=== PATIENT | male | born 1950 | race African-American/Black ===

== ENCOUNTER 2017-05-06 17:53 | Inpatient (IN) | payer MEDICARE, OTHER ==
[~2017-05-06] VITALS: Ht 185.4 cm; Wt 80.8 kg
[~2017-05-06 17:53] MED LIST: ACET325T9 PO; ASPI-482 PO; CHOL200074 PO; DIVA500T2 PO; FOLI1TAB16 PO; LEVE500T56 PO; OMEG500C3 PO; PHEN100C PO; RANI150T2 PO; RANI75TA95 PO; SENN8.6C2 PO; SIMV20TA3 PO; THIA100T8 PO
--- NOTE | 2017-05-06 17:58 | PHYS DOC ---
Past Medical History Past Medical History: Depression, GERD, High Cholesterol, Seizure, Stroke Past Surgical History: Other Additional Past Surgical Histo: unknown Alcohol Use: Occasionally Drug Use: None Adult General Chief Complaint Chief Complaint: SEIZURE HPI HPI Patient is a 66 year old -[place] male who presents with disorder. According EMS he had a tonic-clonic seizure at the half-way. He has a history of seizure disorders as listed on Keppra. They've stated he also has had a previous stroke. He received 10 mg of Valium in route. Review of Systems Review of Systems Unable to obtain secondary to patient's current condition Current Medications Current Medications Current Medications Medications (Trade) Dose Ordered Sig/Kennedy Start Time Stop Time Status Last Admin Dose Admin Sodium Chloride 1,000 ml @ 1,000 mls/hr 1X ONCE 05/06/17 20:30 05/06/17 21:29 05/06/17 20:27 1,000 MLS/HR Allergies Allergies Allergies Coded Allergies Type Severity Reaction Last Updated Verified No Known Drug Allergies 05/18/14 No Physical Exam Physical Exam Constitutional: Well developed, well nourished, moderate acute distress, non- toxic appearance. HENT: Normocephalic, atraumatic, bilateral external ears normal, oropharynx moist, no oral exudates, nose normal. Eyes: PERRLA, EOMI, conjunctiva normal, no discharge. Neck: no stridor. Cardiovascular:Heart rate regular rhythm, no murmur Lungs & Thorax: Bilateral breath sounds clear to auscultation Abdomen: Bowel sounds normal, soft, no masses, no pulsatile masses. Skin: Warm, dry, no erythema, no rash. Back: No signs of trauma Extremities, no cyanosis, no clubbing, ROM intact, no edema. Neurologic: Unresponsive, disconjugate gaze, pupils 2 mm and sluggish Psychologic: Unable to obtain Current Patient Data Vital Signs Vital Signs Date Time Temp Pulse Resp B/P (MAP) Pulse Ox O2 Delivery O2 Flow Rate FiO2 05/06/17 20:00 92 18 100 05/06/17 18:10 NonRebreather Mask 05/06/17 17:58 98.2 95/52 (66) 10.0 98.2 Lab Values Laboratory Tests Test 05/06/17 17:55 05/06/17 18:10 05/06/17 18:41 05/06/17 19:09 Creatine Kinase 224 U/L (39-308) Creatine Kinase MB (Mass) 1.5 ng/mL (0.0-3.6) Creatine Kinase MB Relative Index 0.7 % (0-4) O2 Saturation 97 % (92-99) Arterial Blood pH 7.34 (7.35-7.45) L Arterial Blood pCO2 at Patient Temp 32 mmHg (35-46) L Arterial Blood pO2 at Patient Temp 95 mmHg (65-108) Arterial Blood HCO3 17 mmol/L (21-28) L Arterial Blood Base Excess -8 mmol/L (-3-3) L FiO2 100 White Blood Count 2.8 x10^3/uL (4.0-11.0) L Red Blood Count 4.46 x10^6/uL (4.30-5.70) Hemoglobin 14.6 g/dL (13.0-17.5) Hematocrit 43.7 % (39.0-53.0) Mean Corpuscular Volume 98 fL (79-100) Mean Corpuscular Hemoglobin 33 pg (25-35) Mean Corpuscular Hemoglobin Concent 33 g/dL (31-37) Red Cell Distribution Width 13.1 % (11.5-14.5) Platelet Count 103 x10^3/uL (140-400) L Neutrophils (%) (Auto) 34 % (31-73) Lymphocytes (%) (Auto) 42 % (24-48) Monocytes (%) (Auto) 22 % (0-9) H Eosinophils (%) (Auto) 1 % (0-3) Basophils (%) (Auto) 1 % (0-3) Neutrophils # (Auto) 1.0 x10^3uL (1.8-7.7) L Lymphocytes # (Auto) 1.2 x10^3/uL (1.0-4.8) Monocytes # (Auto) 0.6 x10^3/uL (0.0-1.1) Eosinophils # (Auto) 0.0 x10^3/uL (0.0-0.7) Basophils # (Auto) 0.0 x10^3/uL (0.0-0.2) Segmented Neutrophils % 28 % (35-66) L Band Neutrophils % 3 % (0-9) Lymphocytes % 47 % (24-48) Atypical Lymphocytes % (Manual) 8 % (0-0) H Monocytes % 14 % (0-10) H Platelet Estimate Decreased (ADEQUATE) Prothrombin Time 15.7 SEC (11.7-14.0) H Prothrombin Time INR 1.3 (0.8-1.1) H PTT 26 SEC (24-38) Sodium Level 137 mmol/L (136-145) Potassium Level 3.6 mmol/L (3.5-5.1) Chloride Level 101 mmol/L (98-107) Carbon Dioxide Level 22 mmol/L (21-32) Anion Gap 14 (6-14) Blood Urea Nitrogen 8 mg/dL (8-26) Creatinine 1.7 mg/dL (0.7-1.3) H Estimated GFR (Cockcroft-Gault) 49.3 Glucose Level 88 mg/dL (70-99) Lactic Acid Level 7.4 mmol/L (0.4-2.0) *H Calcium Level 8.7 mg/dL (8.5-10.1) Total Bilirubin 0.4 mg/dL (0.2-1.0) Direct Bilirubin 0.2 mg/dL (0.0-0.2) Aspartate Amino Transferase (AST) 65 U/L (15-37) H Alanine Aminotransferase (ALT) 81 U/L (16-63) H Alkaline Phosphatase 84 U/L (46-116) Ammonia 62 mcmol/L (11-34) H Total Protein 6.7 g/dL (6.4-8.2) Albumin 2.7 g/dL (3.4-5.0) L Urine Collection Type U cath Urine Color Dk yellow Urine Clarity Clear Urine pH 6.0 Urine Specific [place] 1.020 Urine Protein Negative mg/dL (NEG-TRACE) Urine Glucose (UA) Negative mg/dL (NEG) Urine Ketones (Stick) Trace mg/dL (NEG) Urine Blood Negative (NEG) Urine Nitrite Negative (NEG) Urine Bilirubin Negative (NEG) Urine Urobilinogen Dipstick 1.0 mg/dL (0.2 mg/dL) Urine Leukocyte Esterase Negative (NEG) Urine RBC 0 /HPF (0-2) Urine WBC 0 /HPF (0-4) Urine Squamous Epithelial Cells Few /LPF Urine Transitional Epithelial Cells Occ /LPF Urine Bacteria 0 /HPF (0-FEW) Urine Hyaline Casts Few /HPF Urine Mucus Mod /LPF Urine Opiates Screen Neg (NEG) Urine Methadone Screen Neg (NEG) Urine Barbiturates Neg (NEG) Urine Phencyclidine Screen Neg (NEG) Urine Amphetamine/Methamphetamine Neg (NEG) Urine Benzodiazepines Screen Pos (NEG) Urine Cocaine Screen Neg (NEG) Urine Cannabinoids Screen Neg (NEG) Urine Ethyl Alcohol Neg (NEG) Laboratory Tests 05/06/17 18:41 Laboratory Tests 05/06/17 18:41 EKG EKG EKG shows sinus tachycardia [address] elevations or T-wave inversions appreciated, normal axis, QTC 451 ms, as interpreted by me. Radiology/Procedures Radiology/Procedures [facility] [address] [place] [address] IMAGING REPORT Signed PATIENT: JA KELLOGG ACCOUNT: [id number] : 1950 LOCATION: ER AGE: 66 SEX: M EXAM STATUS: REG ER ORD. PHYSICIAN: DORENE MELENDEZ MD REASON: seizure PROCEDURE: CT HEAD AND CERVICAL SPINE WO CT head without intravenous contrast History: Seizure. Comparison: Same examinations September 10, 2014. Technique: Axial images are obtained of the head from the skull base through the vertex without IV contrast. Exposure: One or more of the following individualized dose reduction techniques were utilized for this examination: 1. Automated exposure control 2. Adjustment of the mA and/or kV according to patient size 3. Use of iterative reconstruction technique Findings: Volume loss involving much of the left MCA territory from previous infarction is similar to previous study. There is compensatory dilatation of the ventricles from the encephalomalacia and gliosis as well as diffuse age-related cerebral volume loss. Nonspecific white matter low-attenuation is seen, probably from chronic microvascular ischemic disease. No obvious intracranial mass, mass-effect, midline shift, hemorrhage or obvious acute infarction is identified. Basilar cisterns are patent. Bone windows demonstrate no acute calvarial abnormality. The visualized paranasal sinuses appear clear. Impression: 1. No acute intracranial process. Please note that CT can be relatively insensitive to acute ischemic infarction for up to 24 hours after symptom onset. 2. Chronic changes. CT cervical spine History: . Comparison: None. Technique: Noncontrast CT of the cervical spine was performed using helical technique. Axial, sagittal, coronal reconstructions were obtained. Exposure: One or more of the following individualized dose reduction techniques were utilized for this examination: 1. Automated exposure control 2. Adjustment of the mA and/or kV according to patient size 3. Use of iterative reconstruction technique Findings: There is no evidence of acute fracture or acute malalignment involving the cervical spine. No prevertebral soft tissue swelling is identified. There is focal levoconvex scoliosis and kyphosis at C5-6 secondary to fusion of the vertebral bodies. Mild multilevel facet and uncovertebral hypertrophy is seen. Emphysematous changes are seen involving the right lung apex. Impression: 1. No evidence of acute traumatic injury involving the cervical spine. 2. C5-6 vertebral body fusion creating focal levoconvex scoliosis and kyphosis. Electronically signed by: Bert Mora MD (05/06/2017 6:39 PM) [facility] DICTATED and SIGNED BY: BERT MORA MD DATE: 05/06/17 1834 CC: DORENE MELENDEZ MD; ALISA CHOE MD ~ Impressions: Seizure disorder Aphasia Elevated lactic acid, secondary to seizure Course & Med Decision Making Course & Med Decision Making Pertinent Labs and Imaging studies reviewed. (See chart for details) She has had a previous stroke and an known seizure disorder and according to his education list he is on Keppra. He was postictal and sedated after [address] head labs were performed. He does have an elevated lactic acid 7.4. He received 1 L fluids. He is given a second one. He's much more appropriate now or he will open his eyes to voice, and track with both eyes. He is being admitted to Dr. Choe for observation. Mom's agreeable to plan. Dragon Disclaimer Dragon Disclaimer This electronic medical record was generated, in whole or in part, using a voice recognition dictation system. Departure Departure Referrals: ALISA CHOE MD (PCP) DORENE MELENDEZ MD May 06, 2017 17:58
[2017-05-06 18:22] LABS: HCO3 ABG 17 mmol/L (21-28); PCO2 ABG 32 mmHg (35-46); PH ABG 7.34 (7.35-7.45); PO2 ABG 95 mmHg (65-108); SAT O2 ABG 97 % (92-99)
[2017-05-06 18:26] LABS: FIO2 ABG 100
--- NOTE | 2017-05-06 18:43 | RAD ---
CT head without intravenous contrast History: Seizure. Comparison: Same examinations September 10, 2014. Technique: Axial images are obtained of the head from the skull base through the vertex without IV contrast. Exposure: One or more of the following individualized dose reduction techniques were utilized for this examination: 1. Automated exposure control 2. Adjustment of the mA and/or kV according to patient size 3. Use of iterative reconstruction technique Findings: Volume loss involving much of the left MCA territory from previous infarction is similar to previous study. There is compensatory dilatation of the ventricles from the encephalomalacia and gliosis as well as diffuse age-related cerebral volume loss. Nonspecific white matter low-attenuation is seen, probably from chronic microvascular ischemic disease. No obvious intracranial mass, mass-effect, midline shift, hemorrhage or obvious acute infarction is identified. Basilar cisterns are patent. Bone windows demonstrate no acute calvarial abnormality. The visualized paranasal sinuses appear clear. Impression: 1. No acute intracranial process. Please note that CT can be relatively insensitive to acute ischemic infarction for up to 24 hours after symptom onset. 2. Chronic changes. CT cervical spine History: . Comparison: None. Technique: Noncontrast CT of the cervical spine was performed using helical technique. Axial, sagittal, coronal reconstructions were obtained. Exposure: One or more of the following individualized dose reduction techniques were utilized for this examination: 1. Automated exposure control 2. Adjustment of the mA and/or kV according to patient size 3. Use of iterative reconstruction technique Findings: There is no evidence of acute fracture or acute malalignment involving the cervical spine. No prevertebral soft tissue swelling is identified. There is focal levoconvex scoliosis and kyphosis at C5-6 secondary to fusion of the vertebral bodies. Mild multilevel facet and uncovertebral hypertrophy is seen. Emphysematous changes are seen involving the right lung apex. Impression: 1. No evidence of acute traumatic injury involving the cervical spine. 2. C5-6 vertebral body fusion creating focal levoconvex scoliosis and kyphosis. Electronically signed by: Bert Beard MD (05/06/2017 6:39 PM) [facility]
[2017-05-06] MEDS ORDERED: IV NORMAL SALINE 1000ML BAG 1,000 ML IV ONE ×2 (18:45→20:30)
[2017-05-06 18:50] LABS: BASO % 1 % (0-3); EOS % 1 % (0-3); HEMATOCRIT 43.7 % (39.0-53.0); HEMOGLOBIN 14.6 g/dL (13.0-17.5); LYMPH # 1.2 x10^3/uL (1.0-4.8); LYMPH % 42 % (24-48); MEAN CORPUSCULAR HEMOGLOBIN 33 pg (25-35); MEAN CORPUSCULAR HGB CONC 33 g/dL (31-37); MEAN CORPUSCULAR VOLUME 98 fL (79-100); MONO % 22 % (0-9); NEUT % 34 % (31-73); PLATELET COUNT 103 x10^3/uL (140-400); RED BLOOD COUNT 4.46 x10^6/uL (4.30-5.70); RED CELL DISTRIBUTION WIDTH 13.1 % (11.5-14.5); WHITE BLOOD COUNT 2.8 x10^3/uL (4.0-11.0)
[2017-05-06 19:05] LABS: INR 1.3 (0.8-1.1); PROTHROMBIN TIME PATIENT 15.7 SEC (11.7-14.0)
[2017-05-06 19:09] LABS: PLT ESTIMATE DECREASED (ADEQUATE)
[2017-05-06 19:10] LABS: CALCIUM 8.7 mg/dL (8.5-10.1); CREATININE 1.7 mg/dL (0.7-1.3); GFR 49.3; POTASSIUM 3.6 mmol/L (3.5-5.1)
[2017-05-06 19:16] LABS: ALBUMIN 2.7 g/dL (3.4-5.0); DIRECT BILIRUBIN 0.2 mg/dL (0.0-0.2); TOTAL BILIRUBIN 0.4 mg/dL (0.2-1.0); TOTAL PROTEIN 6.7 g/dL (6.4-8.2)
[2017-05-06 19:24] LABS: CKMB MASS 1.5 ng/mL (0.0-3.6)
[2017-05-06 20:14] LABS: BILIRUBIN,URINE NEGATIVE (NEG); GLUCOSE,URINE NEGATIVE (NEG); NITRITE,URINE NEGATIVE (NEG); PROTEIN,URINE NEGATIVE (NEG-TRACE)
[2017-05-06 20:23] LABS: BACTERIA,URINE 0 /HPF (0-FEW); RBC,URINE 0 /HPF (0-2); SQUAMOUS EPITHELIAL CELL,UR FEW /LPF; WBC,URINE 0 /HPF (0-4)
[2017-05-06 20:28] LABS: BARBITURATES NEG (NEG); BENZODIAZEPINES POS (NEG); CANNABINOIDS NEG (NEG); COCAINE NEG (NEG); METHADONE NEG (NEG); OPIATES NEG (NEG); PHENCYCLIDINE NEG (NEG)
[2017-05-06] MEDS ORDERED: ONDANSETRON PF 4 MG/2 ML VIAL. IV PRN (21:00)
[2017-05-06 22:20] VITALS: BP 152/84
[2017-05-07] VITALS (13 sets, daily range): BP systolic 103–169; BP diastolic 42–95
[2017-05-07] MEDS ORDERED: levETIRAcetam 500 MG in IV DEXTROSE 5% 100 ML IV ONE (00:30)
[2017-05-07] MEDS ORDERED: ACETAMINOPHEN 325 MG TABLET. PO PRN ×2 (01:00→09:15)
[2017-05-07 06:01] LABS: BASO % 1 % (0-3); EOS % 0 % (0-3); HEMATOCRIT 46.5 % (39.0-53.0); HEMOGLOBIN 15.2 g/dL (13.0-17.5); LYMPH # 1.7 x10^3/uL (1.0-4.8); LYMPH % 40 % (24-48); MEAN CORPUSCULAR HEMOGLOBIN 33 pg (25-35); MEAN CORPUSCULAR HGB CONC 33 g/dL (31-37); MEAN CORPUSCULAR VOLUME 100 fL (79-100); MONO % 15 % (0-9); NEUT % 44 % (31-73); PLATELET COUNT 82 x10^3/uL (140-400); RED BLOOD COUNT 4.65 x10^6/uL (4.30-5.70); RED CELL DISTRIBUTION WIDTH 14.3 % (11.5-14.5); WHITE BLOOD COUNT 4.3 x10^3/uL (4.0-11.0)
--- NOTE | 2017-05-07 06:59 | EKG ---
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
[2017-05-07 07:55] LABS: CALCIUM 8.9 mg/dL (8.5-10.1); CREATININE 1.2 mg/dL (0.7-1.3); GFR 73.8; POTASSIUM 4.6 mmol/L (3.5-5.1)
--- NOTE | 2017-05-07 08:21 | RAD ---
Single view of the Chest 05/06/2017 7:58 PM Indication: Altered mental status Comparison: Chest radiograph September 10, 2014 Findings: No pneumothorax or definitive pleural effusion is seen. Bullous changes noted in the right lung apex. There is decreased inspiratory volume with probable mild bibasilar atelectasis. Heart size appears to be normal. Chronic left-sided rib deformities are similar to prior study. Impression: Low lung volumes with probable basilar atelectasis. Otherwise stable chest
[2017-05-07] MEDS: FOLIC ACID 1 MG TABLET. PO SCH (08:53)
[2017-05-07] MEDS ORDERED: ASPIRIN ENTERIC COATED 81 MG TABLET.DR. PO SCH (09:00)
[2017-05-07] MEDS ORDERED: DIVALPROEX DELAYED RELEASE 500 MG TABLET.DR. PO SCH (09:00)
[2017-05-07] MEDS ORDERED: levETIRAcetam 500 MG TABLET PO SCH (09:00)
[2017-05-07] MEDS ORDERED: levETIRAcetam 1,000 MG in IV DEXTROSE 5% 100 ML IV STA (09:05)
[2017-05-07] MEDS ORDERED: PANTOPRAZOLE IV PUSH 40 MG VIAL. IVP SCH (09:15)
[2017-05-07] MEDS ORDERED: ONDANSETRON PF 4 MG/2 ML VIAL. IV PRN (09:15)
[2017-05-07] MEDS ORDERED: POTASSIUM CHLORIDE 20 MEQ in IV DEXTROSE 5 %-0.45 % NACL 1,000 ML IV SCH (09:15)
[2017-05-07] MEDS ORDERED: PANTOPRAZOLE 40 MG TABLET.DR. PO SCH (10:00)
[2017-05-07] MEDS: PANTOPRAZOLE IV PUSH 40 MG VIAL. IVP SCH (10:00)
--- NOTE | 2017-05-07 10:11 | PDOC ---
Provider Note Provider Note Patient seen. History and Physical dictated. See dictation# [id number] ALISA MANLEY MD May 07, 2017 10:11
[2017-05-07 10:21] LABS: PLT ESTIMATE DECREASED (ADEQUATE); POIKILOCYTOSIS PRESENT; TARGET CELLS PRESENT
--- NOTE | 2017-05-07 10:41 | HP ---
ADMIT DATE: 05/07/2017 REASON FOR ADMISSION: Uncontrolled seizures. HISTORY OF PRESENT ILLNESS: This 66-year-old male who is a resident of detention, had a tonic-clonic seizure at the detention. The patient received 10 mg of IV Valium en route. In the Emergency Room, the patient remained unresponsive and had lactic acid level of 7.4. He received 1 liter of fluids initially and then was given second liter of IV fluids. He remained quite confused and poorly responsive. Because of that, the patient has been admitted for further evaluation and management. During the stay in the hospital after admission, the patient had recurrent seizures. Consultation has been obtained with Dr. Nixon. The patient has been on Keppra and Depakote at the detention. The patient has a previous history of Dilantin toxicity in 2013 and at that time, Dilantin was discontinued. SYSTEMS REVIEW: The patient is quite confused and unable to provide any information. He also has history of previous cerebrovascular accident with right hemiparesis and aphasia. He has been pulling out telemetry leads and has been moving his extremities and seems to be more confused and agitated. I am unable to do systems review. PAST MEDICAL HISTORY: The patient has a history of seizure disorder, depression, gastroesophageal reflux disease, cerebrovascular accident with right-sided hemiparesis and aphasia, hyperlipidemia, chronic hepatitis C, thrombocytopenia, history of elevated PSA. PAST SURGICAL HISTORY: Not available. FAMILY HISTORY: Not available from the patient. ALLERGIES: None known any. MEDICATIONS: Reviewed. The patient has been on Depakote and Keppra. PHYSICAL EXAMINATION: VITAL SIGNS: Temperature 98.7, pulse 112 per minute, respirations 19 per minute, blood pressure 141/81 mmHg. GENERAL: The patient is an elderly male who is alert, quite confused, moving his upper extremities and lower extremities. He is aphasic, nonverbal, not following any commands, not in any acute distress. EYES: Pupils are reacting to light. Conjunctivae pale. Sclerae muddy. HENT: Unable to do full exam of throat as the patient is not following commands. NECK: JVP normal. No thyromegaly. LUNGS: Decreased breath sounds at bases. No wheezing, no rales. CARDIOVASCULAR SYSTEM: S1, S2 regular. ABDOMEN: Soft, bowel sounds overactive. No guarding, no rigidity. Mild distention of the abdomen noted. EXTREMITIES: No edema. CENTRAL NERVOUS SYSTEM: Confused. NEUROLOGIC: Moves extremities. Has aphasia and history of right hemiparesis from previous stroke. LABORATORY FINDINGS: Sodium was 137, potassium 3.6, BUN 8, creatinine 1.7. Sodium is decreased to 133, potassium 4.6, BUN 8, creatinine 1.2, lactic acid was initially 7.4, then it is 2.6, AST 65, ALT 81, albumin 2.7. WBC count 2.8, then it was 4.3, hemoglobin 14.6 and 15.2 respectively. Urinalysis is negative. INR is 1.3. CT scan of head did not show any acute changes. CT scan of cervical spine shows a C5-C6 fusion. Chest x-ray does not show any acute infiltrates. IMPRESSION: 1. Seizure disorder, not controlled. I have consulted Dr. Peters and the patient will be given IV Keppra and Depakote. 2. Vomiting this morning. The patient has overactive bowel sounds. I have advised this time to continue IV fluids and consult Dr. Lerner. We will also give him D5 0.25 normal saline with potassium. We will also hold aspirin for now, give IV Zofran, IV Protonix. Continue seizure precautions. 3. 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 4. Lactic acidosis due to seizures. 5. Leukopenia, probably due to previous hepatitis C and possibly seizure medication Depakote. 6. Acute metabolic encephalopathy. 7. Gastroesophageal reflux disease. 8. Hepatitis C, chronic. 9. Hyperlipidemia. 10. History of thrombocytopenia and elevated PSA. PLAN: Consult Dr. Lerner for GI evaluation and management due to vomiting. I will also obtain an acute abdominal series, keep him n.p.o. and give him fluids, monitor for seizures and seizure precautions. Continue IV Depakote and Keppra, consulted Dr. Nixon for management of the seizure disorder. For details, please review the orders. Prognosis of this patient is poor. ALISA MANLEY MD DR: DARIANA/marlon JOB#: [id number] / [id number]
--- NOTE | 2017-05-07 11:29 | PDOC2 ---
GI CONSULT Reason For Consult: Vomiting HPI: HPI: History from chart and staff. 66 y/o male w/ seizure disorder admitted from [place] w/ tonic-clonic seizure. Per RN, this morning had another seizure, took meds, vomited, and then had another seizure. Dr. Choe's note indicates hyperactive bowel sounds. Hasn't had abd imaging. On IV PPI. PMH: PMH: Per H&P - seizure disorder, depression, GERD, CVA w/ right-sided hemiparesis and aphasia, HLD, Hep C, thrombocytopenia, elevated PSA FH: Family History: Other (unable to obtain) Social History: Smoke: No ALCOHOL: none ROS: Unable to obtain. Vitals: Vitals: Vital Signs Date Time Temp Pulse Resp B/P (MAP) Pulse Ox O2 Delivery O2 Flow Rate FiO2 05/07/17 10:48 98.6 99 18 140/80 (100) 97 Room Air 98.6 05/06/17 17:58 10.0 Labs: Labs: Laboratory Tests Test 05/06/17 17:55 05/06/17 18:10 05/06/17 18:41 05/06/17 19:09 Creatine Kinase 224 U/L (39-308) Creatine Kinase MB (Mass) 1.5 ng/mL (0.0-3.6) Creatine Kinase MB Relative Index 0.7 % (0-4) O2 Saturation 97 % (92-99) Arterial Blood pH 7.34 (7.35-7.45) Arterial Blood pCO2 at Patient Temp 32 mmHg (35-46) Arterial Blood pO2 at Patient Temp 95 mmHg (65-108) Arterial Blood HCO3 17 mmol/L (21-28) Arterial Blood Base Excess -8 mmol/L (-3-3) FiO2 100 White Blood Count 2.8 x10^3/uL (4.0-11.0) Red Blood Count 4.46 x10^6/uL (4.30-5.70) Hemoglobin 14.6 g/dL (13.0-17.5) Hematocrit 43.7 % (39.0-53.0) Mean Corpuscular Volume 98 fL (79-100) Mean Corpuscular Hemoglobin 33 pg (25-35) Mean Corpuscular Hemoglobin Concent 33 g/dL (31-37) Red Cell Distribution Width 13.1 % (11.5-14.5) Platelet Count 103 x10^3/uL (140-400) Neutrophils (%) (Auto) 34 % (31-73) Lymphocytes (%) (Auto) 42 % (24-48) Monocytes (%) (Auto) 22 % (0-9) Eosinophils (%) (Auto) 1 % (0-3) Basophils (%) (Auto) 1 % (0-3) Neutrophils # (Auto) 1.0 x10^3uL (1.8-7.7) Lymphocytes # (Auto) 1.2 x10^3/uL (1.0-4.8) Monocytes # (Auto) 0.6 x10^3/uL (0.0-1.1) Eosinophils # (Auto) 0.0 x10^3/uL (0.0-0.7) Basophils # (Auto) 0.0 x10^3/uL (0.0-0.2) Segmented Neutrophils % 28 % (35-66) Band Neutrophils % 3 % (0-9) Lymphocytes % 47 % (24-48) Atypical Lymphocytes % (Manual) 8 % (0-0) Monocytes % 14 % (0-10) Platelet Estimate Decreased (ADEQUATE) Prothrombin Time 15.7 SEC (11.7-14.0) Prothromb Time International Ratio 1.3 (0.8-1.1) Activated Partial Thromboplast Time 26 SEC (24-38) Sodium Level 137 mmol/L (136-145) Potassium Level 3.6 mmol/L (3.5-5.1) Chloride Level 101 mmol/L (98-107) Carbon Dioxide Level 22 mmol/L (21-32) Anion Gap 14 (6-14) Blood Urea Nitrogen 8 mg/dL (8-26) Creatinine 1.7 mg/dL (0.7-1.3) Estimated GFR (Cockcroft-Gault) 49.3 Glucose Level 88 mg/dL (70-99) Lactic Acid Level 7.4 mmol/L (0.4-2.0) Calcium Level 8.7 mg/dL (8.5-10.1) Total Bilirubin 0.4 mg/dL (0.2-1.0) Direct Bilirubin 0.2 mg/dL (0.0-0.2) Aspartate Amino Transf (AST/SGOT) 65 U/L (15-37) Alanine Aminotransferase (ALT/SGPT) 81 U/L (16-63) Alkaline Phosphatase 84 U/L (46-116) Ammonia 62 mcmol/L (11-34) Total Protein 6.7 g/dL (6.4-8.2) Albumin 2.7 g/dL (3.4-5.0) Urine Collection Type U cath Urine Color Dk yellow Urine Clarity Clear Urine pH 6.0 Urine Specific Clutier 1.020 Urine Protein Negative mg/dL (NEG-TRACE) Urine Glucose (UA) Negative mg/dL (NEG) Urine Ketones (Stick) Trace mg/dL (NEG) Urine Blood Negative (NEG) Urine Nitrite Negative (NEG) Urine Bilirubin Negative (NEG) Urine Urobilinogen Dipstick 1.0 mg/dL (0.2 mg/dL) Urine Leukocyte Esterase Negative (NEG) Urine RBC 0 /HPF (0-2) Urine WBC 0 /HPF (0-4) Urine Squamous Epithelial Cells Few /LPF Urine Transitional Epithelial Cells Occ /LPF Urine Bacteria 0 /HPF (0-FEW) Urine Hyaline Casts Few /HPF Urine Mucus Mod /LPF Urine Opiates Screen Neg (NEG) Urine Methadone Screen Neg (NEG) Urine Barbiturates Neg (NEG) Urine Phencyclidine Screen Neg (NEG) Urine Amphetamine/Methamphetamine Neg (NEG) Urine Benzodiazepines Screen Pos (NEG) Urine Cocaine Screen Neg (NEG) Urine Cannabinoids Screen Neg (NEG) Urine Ethyl Alcohol Neg (NEG) Test 05/06/17 21:39 05/07/17 05:20 05/07/17 07:16 05/07/17 09:40 Lactic Acid Level 2.6 mmol/L (0.4-2.0) 6.9 mmol/L (0.4-2.0) White Blood Count 4.3 x10^3/uL (4.0-11.0) Red Blood Count 4.65 x10^6/uL (4.30-5.70) Hemoglobin 15.2 g/dL (13.0-17.5) Hematocrit 46.5 % (39.0-53.0) Mean Corpuscular Volume 100 fL (79-100) Mean Corpuscular Hemoglobin 33 pg (25-35) Mean Corpuscular Hemoglobin Concent 33 g/dL (31-37) Red Cell Distribution Width 14.3 % (11.5-14.5) Platelet Count 82 x10^3/uL (140-400) Neutrophils (%) (Auto) 44 % (31-73) Lymphocytes (%) (Auto) 40 % (24-48) Monocytes (%) (Auto) 15 % (0-9) Eosinophils (%) (Auto) 0 % (0-3) Basophils (%) (Auto) 1 % (0-3) Neutrophils # (Auto) 1.9 x10^3uL (1.8-7.7) Lymphocytes # (Auto) 1.7 x10^3/uL (1.0-4.8) Monocytes # (Auto) 0.6 x10^3/uL (0.0-1.1) Eosinophils # (Auto) 0.0 x10^3/uL (0.0-0.7) Basophils # (Auto) 0.0 x10^3/uL (0.0-0.2) Platelet Estimate Decreased (ADEQUATE) Large Platelets Few Poikilocytosis Present Target Cells Present Sodium Level 133 mmol/L (136-145) Potassium Level 4.6 mmol/L (3.5-5.1) Chloride Level 98 mmol/L (98-107) Carbon Dioxide Level 17 mmol/L (21-32) Anion Gap 18 (6-14) Blood Urea Nitrogen 8 mg/dL (8-26) Creatinine 1.2 mg/dL (0.7-1.3) Estimated GFR (Cockcroft-Gault) 73.8 Glucose Level 103 mg/dL (70-99) Calcium Level 8.9 mg/dL (8.5-10.1) Allergies: Coded Allergies: No Known Drug Allergies (Unverified , 05/18/14) Medications: Current Medications Medications (Trade) Dose Ordered Sig/Kennedy Route PRN Reason Start Time Stop Time Status Last Admin Dose Admin Sodium Chloride 1,000 ml @ 1,000 mls/hr 1X ONCE IV 05/06/17 18:45 05/06/17 19:44 DC 05/06/17 17:59 Sodium Chloride 1,000 ml @ 1,000 mls/hr 1X ONCE IV 05/06/17 20:30 05/06/17 21:29 DC 05/06/17 20:27 Levetiracetam 500 mg/Dextrose 105 ml @ 440 mls/hr 1X ONCE IV 05/07/17 00:30 05/07/17 00:44 DC 05/07/17 00:30 Aspirin (Ecotrin) 81 mg DAILY PO 05/07/17 09:00 05/07/17 10:11 DC 05/07/17 08:54 Divalproex Sodium (Depakote) 500 mg DAILY PO 05/07/17 09:00 05/07/17 09:08 DC 05/07/17 08:54 Folic Acid (Folic Acid) 1 mg DAILY PO 05/07/17 09:00 05/07/17 08:53 Levetiracetam (Keppra) 500 mg BID PO 05/07/17 09:00 05/07/17 09:08 DC 05/07/17 08:54 Levetiracetam 1000 mg/Dextrose 110 ml @ 440 mls/hr 1X STAT IV 05/07/17 09:05 05/07/17 09:19 DC 05/07/17 09:50 Potassium Chloride 20 meq/ Dextrose/Sodium Chloride 1,010 ml @ 75 mls/hr [id number] IV 05/07/17 09:15 05/07/17 10:11 DC 05/07/17 09:50 Imaging: Imaging: Head and C spine CT Impression: 1. No acute intracranial process. Please note that CT can be relatively insensitive to acute ischemic infarction for up to 24 hours after symptom onset. 2. Chronic changes. Impression: 1. No evidence of acute traumatic injury involving the cervical spine. 2. C5-6 vertebral body fusion creating focal levoconvex scoliosis and kyphosis. CXR Impression: Low lung volumes with probable basilar atelectasis. Otherwise stable chest. PE: GEN: moving around in bed, trying to remove mitts HEENT: Atraumatic, PERRL LUNGS: clear HEART: tachycardic ABD: NABS, seems non-tender, soft EXTREMITY: No edema SKIN: No rashes, no jaundice NEURO/PSYCH: awake A/P: A/P: Seizures, encephalopathy Lactic acidosis, elevated ammonia Vomiting -between seizures this morning -chart indicates h/o GERD, on IV PPI Hep C -AST and ALT mildly elevated -- Will review w/ Dr. Lerner. Seems some sort of abd imaging would be reasonable , although he might have difficulty keeping still. DAMIÁN COOK May 07, 2017 11:29
--- NOTE | 2017-05-07 11:30 | PDOC2 ---
NEUROLOGY CONSULT Date of Admission Date of Admission DATE: 05/07/17 TIME: 11:23 Reason for Consult Reason for Consult: Epilepsy Referring Physician Referring Physician: Dr. Choe Source Source: Chart review History of Present Illness History of Present Illness The patient is a 66-year-old right-handed male with history of left hemispheric stroke and epilepsy. My last record of a neurology visit was when he saw Dr. Sandoval in 2014. At that time, EEG was negative for epileptic activity. It did show diffuse slowing. He was Dilantin toxic and was switched to levetiracetam and valproic acid. He had a seizure at the residential this morning and received 10 mg of Valium. He had a decreased level of consciousness so it was decided to admit him. He has continued to have occasional seizures overnight. Dr. Choe ordered some IV levetiracetam, and I repeated that this morning. I have not heard about any additional seizures since the repeat levetiracetam dose. The patient did vomit up his medication this morning. Past Medical History Cardiovascular: HTN, Hyperlipidemia CENTRAL NERVOUS SYSTEM: CVA, Dementia, Seizure GI: GERD Heme/Onc: Other (Thrombocytopenia) Hepatobiliary: Hep A/B/C (C) Psych: Anxiety, Depression Renal/: Chronic renal insuff Endocrine: Hyperthyroidism Past Surgical History Past Surgical History: No pertinent history Family History Family History: No pertinent hx Social History Social History Unobtainable. He is a residential resident. Current Medications Current Medications Current Medications Sodium Chloride 1,000 ml @ 1,000 mls/hr 1X ONCE IV Last administered on 05/06 17:59; Start 05/06/17 at 18:45; Stop 05/06/17 at 19:44; Status DC Sodium Chloride 1,000 ml @ 1,000 mls/hr 1X ONCE IV Last administered on 05/06 20:27; Start 05/06/17 at 20:30; Stop 05/06/17 at 21:29; Status DC Ondansetron HCl (Zofran) 4 mg PRN Q8HRS PRN IV NAUSEA/VOMITING; Start at 21:00; Stop 05/07/17 at 20:59 Levetiracetam 500 mg/Dextrose 105 ml @ 440 mls/hr 1X ONCE IV Last administered on 05/07/17 00:30; Start 05/07/17 at 00:30; Stop 05/07/17 at 00 :44; Status DC Acetaminophen (Tylenol) 650 mg PRN Q4HRS PRN PO MILD PAIN / TEMP; Start at 01:00 Aspirin (Ecotrin) 81 mg DAILY PO Last administered on 05/07/17 08:54; Start 05/07/17 at 09:00; Stop 05/07/17 at 10:11; Status DC Divalproex Sodium (Depakote) 500 mg DAILY PO Last administered on 05/07/17 08 :54; Start 05/07/17 at 09:00; Stop 05/07/17 at 09:08; Status DC Folic Acid (Folic Acid) 1 mg DAILY PO Last administered on 05/07/17 08:53; Start 05/07/17 at 09:00 Levetiracetam (Keppra) 500 mg BID PO Last administered on 05/07/17 08:54; Start 05/07/17 at 09:00; Stop 05/07/17 at 09:08; Status DC Simvastatin (Zocor) 20 mg QHS PO ; Start 05/07/17 at 21:00 Levetiracetam 1000 mg/Dextrose 110 ml @ 440 mls/hr Q12HR IV ; Start 05/07/17 at 21:00 Levetiracetam 1000 mg/Dextrose 110 ml @ 440 mls/hr 1X STAT IV Last administered on 05/07/17 09:50; Start 05/07/17 at 09:05; Stop 05/07/17 at 09 :19; Status DC Valproic Acid 250 mg/Dextrose 52.5 ml @ 55 mls/hr Q12HR IV ; Start 05/07/17 at 21:00 Pantoprazole Sodium (Protonix Vial) 40 mg DAILYAC IVP ; Start 05/07/17 at 09:15 ; Status UNV Acetaminophen (Tylenol) 650 mg PRN Q6HRS PRN PO MILD PAIN / TEMP; Start at 09:15 Ondansetron HCl (Zofran) 4 mg PRN Q6HRS PRN IV NAUSEA/VOMITING; Start at 09:15 Potassium Chloride 20 meq/ Dextrose/Sodium Chloride 1,010 ml @ 75 mls/hr [id number] IV Last administered on 05/07/17t 09:50; Start 05/07/17 at 09:15; Stop 05/07/17 at 10:11; Status DC Pantoprazole Sodium (Protonix) 40 mg DAILYAC PO ; Start 05/07/17 at 10:00; Status Cancel Pantoprazole Sodium (Protonix Vial) 40 mg DAILYAC IVP ; Start 05/07/17 at 10:00 Active Scripts Active Keppra (Levetiracetam) 500 Mg Tablet 500 Mg PO BID Reported Tylenol (Acetaminophen) 325 Mg Tablet 2 Tab PO PRN Q4HRS PRN Ranitidine Hcl 75 Mg Tablet 75 Mg PO DAILY Depakote (Divalproex Sodium) 500 Mg Tablet.dr 500 Mg PO DAILY Aspir 81 (Aspirin) 81 Mg Tablet.dr 1 Tab PO DAILY Vitamin D-3 (Cholecalciferol (Vitamin D3)) 2,000 Unit Capsule 1,000 Unit PO DAILY Thiamine Hcl 100 Mg Tablet 100 Mg PO DAILY Simvastatin 20 Mg Tablet 1 Tab PO QHS Senna (Sennosides) 8.6 Mg Capsule 8.6 Mg PO PRN DAILY PRN Folic Acid 1 Mg Tablet 1 Tab PO DAILY Fish Oil ([place]-3 Fatty Acids) 500 Mg Capsule 500 Mg PO Allergies Allergies: Coded Allergies: No Known Drug Allergies (Unverified , 05/18/14) ROS Review of System Unobtainable Physical Exam Physical Examination PHYSICAL EXAMINATION: Vital signs: see above. General appearance is normal and in no acute distress. HEENT: Normocephalic and nontraumatic. Eyes, nose, ears, and throat are unremarkable. Neck is supple. No lymphadenopathy. No bruits are heard over the carotid artery. No crepitus. NEUROLOGICAL: He is alert. He does not follow commands. He has global aphasia. There is a left gaze preference. There is a right-field cut. There is a right central facial weakness. There is spastic right hemiparesis with up going toe on the right. He does move the left side. He does not follow any commands. He does respond to pinprick pain in both sides of the body. He does not cooperate with cerebellar testing. Vitals VITALS Vital Signs Date Time Temp Pulse Resp B/P (MAP) Pulse Ox O2 Delivery O2 Flow Rate FiO2 05/07/17 10:48 98.6 99 18 140/80 (100) 97 Room Air 98.6 05/06/17 17:58 10.0 Labs Labs Laboratory Tests Test 05/06/17 17:55 05/06/17 18:10 05/06/17 18:41 05/06/17 19:09 Creatine Kinase 224 U/L (39-308) Creatine Kinase MB (Mass) 1.5 ng/mL (0.0-3.6) Creatine Kinase MB Relative Index 0.7 % (0-4) O2 Saturation 97 % (92-99) Arterial Blood pH 7.34 (7.35-7.45) Arterial Blood pCO2 at Patient Temp 32 mmHg (35-46) Arterial Blood pO2 at Patient Temp 95 mmHg (65-108) Arterial Blood HCO3 17 mmol/L (21-28) Arterial Blood Base Excess -8 mmol/L (-3-3) FiO2 100 White Blood Count 2.8 x10^3/uL (4.0-11.0) Red Blood Count 4.46 x10^6/uL (4.30-5.70) Hemoglobin 14.6 g/dL (13.0-17.5) Hematocrit 43.7 % (39.0-53.0) Mean Corpuscular Volume 98 fL (79-100) Mean Corpuscular Hemoglobin 33 pg (25-35) Mean Corpuscular Hemoglobin Concent 33 g/dL (31-37) Red Cell Distribution Width 13.1 % (11.5-14.5) Platelet Count 103 x10^3/uL (140-400) Neutrophils (%) (Auto) 34 % (31-73) Lymphocytes (%) (Auto) 42 % (24-48) Monocytes (%) (Auto) 22 % (0-9) Eosinophils (%) (Auto) 1 % (0-3) Basophils (%) (Auto) 1 % (0-3) Neutrophils # (Auto) 1.0 x10^3uL (1.8-7.7) Lymphocytes # (Auto) 1.2 x10^3/uL (1.0-4.8) Monocytes # (Auto) 0.6 x10^3/uL (0.0-1.1) Eosinophils # (Auto) 0.0 x10^3/uL (0.0-0.7) Basophils # (Auto) 0.0 x10^3/uL (0.0-0.2) Segmented Neutrophils % 28 % (35-66) Band Neutrophils % 3 % (0-9) Lymphocytes % 47 % (24-48) Atypical Lymphocytes % (Manual) 8 % (0-0) Monocytes % 14 % (0-10) Platelet Estimate Decreased (ADEQUATE) Prothrombin Time 15.7 SEC (11.7-14.0) Prothromb Time International Ratio 1.3 (0.8-1.1) Activated Partial Thromboplast Time 26 SEC (24-38) Sodium Level 137 mmol/L (136-145) Potassium Level 3.6 mmol/L (3.5-5.1) Chloride Level 101 mmol/L (98-107) Carbon Dioxide Level 22 mmol/L (21-32) Anion Gap 14 (6-14) Blood Urea Nitrogen 8 mg/dL (8-26) Creatinine 1.7 mg/dL (0.7-1.3) Estimated GFR (Cockcroft-Gault) 49.3 Glucose Level 88 mg/dL (70-99) Lactic Acid Level 7.4 mmol/L (0.4-2.0) Calcium Level 8.7 mg/dL (8.5-10.1) Total Bilirubin 0.4 mg/dL (0.2-1.0) Direct Bilirubin 0.2 mg/dL (0.0-0.2) Aspartate Amino Transf (AST/SGOT) 65 U/L (15-37) Alanine Aminotransferase (ALT/SGPT) 81 U/L (16-63) Alkaline Phosphatase 84 U/L (46-116) Ammonia 62 mcmol/L (11-34) Total Protein 6.7 g/dL (6.4-8.2) Albumin 2.7 g/dL (3.4-5.0) Urine Collection Type U cath Urine Color Dk yellow Urine Clarity Clear Urine pH 6.0 Urine Specific [place] 1.020 Urine Protein Negative mg/dL (NEG-TRACE) Urine Glucose (UA) Negative mg/dL (NEG) Urine Ketones (Stick) Trace mg/dL (NEG) Urine Blood Negative (NEG) Urine Nitrite Negative (NEG) Urine Bilirubin Negative (NEG) Urine Urobilinogen Dipstick 1.0 mg/dL (0.2 mg/dL) Urine Leukocyte Esterase Negative (NEG) Urine RBC 0 /HPF (0-2) Urine WBC 0 /HPF (0-4) Urine Squamous Epithelial Cells Few /LPF Urine Transitional Epithelial Cells Occ /LPF Urine Bacteria 0 /HPF (0-FEW) Urine Hyaline Casts Few /HPF Urine Mucus Mod /LPF Urine Opiates Screen Neg (NEG) Urine Methadone Screen Neg (NEG) Urine Barbiturates Neg (NEG) Urine Phencyclidine Screen Neg (NEG) Urine Amphetamine/Methamphetamine Neg (NEG) Urine Benzodiazepines Screen Pos (NEG) Urine Cocaine Screen Neg (NEG) Urine Cannabinoids Screen Neg (NEG) Urine Ethyl Alcohol Neg (NEG) Test 05/06/17 21:39 05/07/17 05:20 05/07/17 07:16 05/07/17 09:40 Lactic Acid Level 2.6 mmol/L (0.4-2.0) 6.9 mmol/L (0.4-2.0) White Blood Count 4.3 x10^3/uL (4.0-11.0) Red Blood Count 4.65 x10^6/uL (4.30-5.70) Hemoglobin 15.2 g/dL (13.0-17.5) Hematocrit 46.5 % (39.0-53.0) Mean Corpuscular Volume 100 fL (79-100) Mean Corpuscular Hemoglobin 33 pg (25-35) Mean Corpuscular Hemoglobin Concent 33 g/dL (31-37) Red Cell Distribution Width 14.3 % (11.5-14.5) Platelet Count 82 x10^3/uL (140-400) Neutrophils (%) (Auto) 44 % (31-73) Lymphocytes (%) (Auto) 40 % (24-48) Monocytes (%) (Auto) 15 % (0-9) Eosinophils (%) (Auto) 0 % (0-3) Basophils (%) (Auto) 1 % (0-3) Neutrophils # (Auto) 1.9 x10^3uL (1.8-7.7) Lymphocytes # (Auto) 1.7 x10^3/uL (1.0-4.8) Monocytes # (Auto) 0.6 x10^3/uL (0.0-1.1) Eosinophils # (Auto) 0.0 x10^3/uL (0.0-0.7) Basophils # (Auto) 0.0 x10^3/uL (0.0-0.2) Platelet Estimate Decreased (ADEQUATE) Large Platelets Few Poikilocytosis Present Target Cells Present Sodium Level 133 mmol/L (136-145) Potassium Level 4.6 mmol/L (3.5-5.1) Chloride Level 98 mmol/L (98-107) Carbon Dioxide Level 17 mmol/L (21-32) Anion Gap 18 (6-14) Blood Urea Nitrogen 8 mg/dL (8-26) Creatinine 1.2 mg/dL (0.7-1.3) Estimated GFR (Cockcroft-Gault) 73.8 Glucose Level 103 mg/dL (70-99) Calcium Level 8.9 mg/dL (8.5-10.1) Laboratory Tests Test 05/06/17 17:55 05/06/17 18:10 05/06/17 18:41 05/06/17 19:09 Creatine Kinase 224 U/L (39-308) Creatine Kinase MB (Mass) 1.5 ng/mL (0.0-3.6) Creatine Kinase MB Relative Index 0.7 % (0-4) O2 Saturation 97 % (92-99) Arterial Blood pH 7.34 (7.35-7.45) Arterial Blood pCO2 at Patient Temp 32 mmHg (35-46) Arterial Blood pO2 at Patient Temp 95 mmHg (65-108) Arterial Blood HCO3 17 mmol/L (21-28) Arterial Blood Base Excess -8 mmol/L (-3-3) FiO2 100 White Blood Count 2.8 x10^3/uL (4.0-11.0) Red Blood Count 4.46 x10^6/uL (4.30-5.70) Hemoglobin 14.6 g/dL (13.0-17.5) Hematocrit 43.7 % (39.0-53.0) Mean Corpuscular Volume 98 fL (79-100) Mean Corpuscular Hemoglobin 33 pg (25-35) Mean Corpuscular Hemoglobin Concent 33 g/dL (31-37) Red Cell Distribution Width 13.1 % (11.5-14.5) Platelet Count 103 x10^3/uL (140-400) Neutrophils (%) (Auto) 34 % (31-73) Lymphocytes (%) (Auto) 42 % (24-48) Monocytes (%) (Auto) 22 % (0-9) Eosinophils (%) (Auto) 1 % (0-3) Basophils (%) (Auto) 1 % (0-3) Neutrophils # (Auto) 1.0 x10^3uL (1.8-7.7) Lymphocytes # (Auto) 1.2 x10^3/uL (1.0-4.8) Monocytes # (Auto) 0.6 x10^3/uL (0.0-1.1) Eosinophils # (Auto) 0.0 x10^3/uL (0.0-0.7) Basophils # (Auto) 0.0 x10^3/uL (0.0-0.2) Segmented Neutrophils % 28 % (35-66) Band Neutrophils % 3 % (0-9) Lymphocytes % 47 % (24-48) Atypical Lymphocytes % (Manual) 8 % (0-0) Monocytes % 14 % (0-10) Platelet Estimate Decreased (ADEQUATE) Prothrombin Time 15.7 SEC (11.7-14.0) Prothromb Time International Ratio 1.3 (0.8-1.1) Activated Partial Thromboplast Time 26 SEC (24-38) Sodium Level 137 mmol/L (136-145) Potassium Level 3.6 mmol/L (3.5-5.1) Chloride Level 101 mmol/L (98-107) Carbon Dioxide Level 22 mmol/L (21-32) Anion Gap 14 (6-14) Blood Urea Nitrogen 8 mg/dL (8-26) Creatinine 1.7 mg/dL (0.7-1.3) Estimated GFR (Cockcroft-Gault) 49.3 Glucose Level 88 mg/dL (70-99) Lactic Acid Level 7.4 mmol/L (0.4-2.0) Calcium Level 8.7 mg/dL (8.5-10.1) Total Bilirubin 0.4 mg/dL (0.2-1.0) Direct Bilirubin 0.2 mg/dL (0.0-0.2) Aspartate Amino Transf (AST/SGOT) 65 U/L (15-37) Alanine Aminotransferase (ALT/SGPT) 81 U/L (16-63) Alkaline Phosphatase 84 U/L (46-116) Ammonia 62 mcmol/L (11-34) Total Protein 6.7 g/dL (6.4-8.2) Albumin 2.7 g/dL (3.4-5.0) Urine Collection Type U cath Urine Color Dk yellow Urine Clarity Clear Urine pH 6.0 Urine Specific [place] 1.020 Urine Protein Negative mg/dL (NEG-TRACE) Urine Glucose (UA) Negative mg/dL (NEG) Urine Ketones (Stick) Trace mg/dL (NEG) Urine Blood Negative (NEG) Urine Nitrite Negative (NEG) Urine Bilirubin Negative (NEG) Urine Urobilinogen Dipstick 1.0 mg/dL (0.2 mg/dL) Urine Leukocyte Esterase Negative (NEG) Urine RBC 0 /HPF (0-2) Urine WBC 0 /HPF (0-4) Urine Squamous Epithelial Cells Few /LPF Urine Transitional Epithelial Cells Occ /LPF Urine Bacteria 0 /HPF (0-FEW) Urine Hyaline Casts Few /HPF Urine Mucus Mod /LPF Urine Opiates Screen Neg (NEG) Urine Methadone Screen Neg (NEG) Urine Barbiturates Neg (NEG) Urine Phencyclidine Screen Neg (NEG) Urine Amphetamine/Methamphetamine Neg (NEG) Urine Benzodiazepines Screen Pos (NEG) Urine Cocaine Screen Neg (NEG) Urine Cannabinoids Screen Neg (NEG) Urine Ethyl Alcohol Neg (NEG) Test 05/06/17 21:39 05/07/17 05:20 05/07/17 07:16 05/07/17 09:40 Lactic Acid Level 2.6 mmol/L (0.4-2.0) 6.9 mmol/L (0.4-2.0) White Blood Count 4.3 x10^3/uL (4.0-11.0) Red Blood Count 4.65 x10^6/uL (4.30-5.70) Hemoglobin 15.2 g/dL (13.0-17.5) Hematocrit 46.5 % (39.0-53.0) Mean Corpuscular Volume 100 fL (79-100) Mean Corpuscular Hemoglobin 33 pg (25-35) Mean Corpuscular Hemoglobin Concent 33 g/dL (31-37) Red Cell Distribution Width 14.3 % (11.5-14.5) Platelet Count 82 x10^3/uL (140-400) Neutrophils (%) (Auto) 44 % (31-73) Lymphocytes (%) (Auto) 40 % (24-48) Monocytes (%) (Auto) 15 % (0-9) Eosinophils (%) (Auto) 0 % (0-3) Basophils (%) (Auto) 1 % (0-3) Neutrophils # (Auto) 1.9 x10^3uL (1.8-7.7) Lymphocytes # (Auto) 1.7 x10^3/uL (1.0-4.8) Monocytes # (Auto) 0.6 x10^3/uL (0.0-1.1) Eosinophils # (Auto) 0.0 x10^3/uL (0.0-0.7) Basophils # (Auto) 0.0 x10^3/uL (0.0-0.2) Platelet Estimate Decreased (ADEQUATE) Large Platelets Few Poikilocytosis Present Target Cells Present Sodium Level 133 mmol/L (136-145) Potassium Level 4.6 mmol/L (3.5-5.1) Chloride Level 98 mmol/L (98-107) Carbon Dioxide Level 17 mmol/L (21-32) Anion Gap 18 (6-14) Blood Urea Nitrogen 8 mg/dL (8-26) Creatinine 1.2 mg/dL (0.7-1.3) Estimated GFR (Cockcroft-Gault) 73.8 Glucose Level 103 mg/dL (70-99) Calcium Level 8.9 mg/dL (8.5-10.1) Images Images CT head: CT head without intravenous contrast History: Seizure. Comparison: Same examinations September 10, 2014. Technique: Axial images are obtained of the head from the skull base through the vertex without IV contrast. Exposure: One or more of the following individualized dose reduction techniques were utilized for this examination: 1. Automated exposure control 2. Adjustment of the mA and/or kV according to patient size 3. Use of iterative reconstruction technique Findings: Volume loss involving much of the left MCA territory from previous infarction is similar to previous study. There is compensatory dilatation of the ventricles from the encephalomalacia and gliosis as well as diffuse age-related cerebral volume loss. Nonspecific white matter low-attenuation is seen, probably from chronic microvascular ischemic disease. No obvious intracranial mass, mass-effect, midline shift, hemorrhage or obvious acute infarction is identified. Basilar cisterns are patent. Bone windows demonstrate no acute calvarial abnormality. The visualized paranasal sinuses appear clear. Impression: 1. No acute intracranial process. Please note that CT can be relatively insensitive to acute ischemic infarction for up to 24 hours after symptom onset. 2. Chronic changes. CT cervical spine History: . Comparison: None. Technique: Noncontrast CT of the cervical spine was performed using helical technique. Axial, sagittal, coronal reconstructions were obtained. Exposure: One or more of the following individualized dose reduction techniques were utilized for this examination: 1. Automated exposure control 2. Adjustment of the mA and/or kV according to patient size 3. Use of iterative reconstruction technique Findings: There is no evidence of acute fracture or acute malalignment involving the cervical spine. No prevertebral soft tissue swelling is identified. There is focal levoconvex scoliosis and kyphosis at C5-6 secondary to fusion of the vertebral bodies. Mild multilevel facet and uncovertebral hypertrophy is seen. Emphysematous changes are seen involving the right lung apex. Impression: 1. No evidence of acute traumatic injury involving the cervical spine. 2. C5-6 vertebral body fusion creating focal levoconvex scoliosis and kyphosis. Assessment/Plan Assessment/Plan Impression: Epilepsy, breakthrough seizures, no obvious metabolic derangement. He did have lactic acidosis probably from the seizure. Recommendations: I've ordered his anticonvulsants via IV, and increased his levetiracetam dose. I will consider repeating his EEG, getting MRI or even lumbar puncture depending on how he does. I discussed with Dr. Choe. Thank you for letting me help with the patient's care. MARCELINO CRABTREE MD May 07, 2017 11:30
[2017-05-07] MEDS ORDERED: LACOSAMIDE 100 MG in IV DEXTROSE 5% 50 ML IV ONE (12:30)
[2017-05-07] MEDS ORDERED: LACOSAMIDE IV ONE ×2 (12:30→21:00)
[2017-05-07] MEDS ORDERED: DEXTROSE 5% IV ONE ×2 (12:30→21:00)
--- NOTE | 2017-05-07 14:19 | PDOC2 ---
PALLIATIVE CARE Palliative Care Note Palliative Care Consult requested by Dr. Peters to address goals of care. Diagnosis: Epilepsy, breakthrough seizures; elevated Lactic Acid PMH: CVA with right sided hemiparesis and aphasia; Dementia, GERD, Thrombocytopenia, Hep C; Anxiety/Depression; CRI; hyperthyroidism Patient had seizure while at [facility] and again this am. Patient transferred to ICU. Restless. Does not follow commands Spoke with mother Gudelia. Patient has been at [facility] years (since stroke) W/C bound. Feeds himself; Discussed Code Status: Mother wants patient to remain Full Code and full aggressive care. Plan : Family meeting to include 2 daughter by phone. CORRY JAMES May 07, 2017 14:19
--- NOTE | 2017-05-07 14:54 | RAD ---
Indication abdominal pain vomiting. AP views of the chest were obtained as well as upright and supine films of the abdomen. The chest is compared to an exam one day earlier. No prior imaging of the abdomen or pelvis is available. A consolidated pneumonia is not seen. There are suspect background changes of mild congestive heart failure. Interstitial inflammatory process is not entirely excluded. There is no free air. There is a nonobstructive abdominal gas pattern. There is no organomegaly and no abnormal calculi are seen. There is possible fecal impaction. There are degenerative changes in the lumbar spine. IMPRESSION: Interstitial prominence suggesting mild congestive heart failure. An interstitial inflammatory process is not excluded. Possible fecal impaction.
[2017-05-07] MEDS: ACETAMINOPHEN 325 MG SUPP.RECT. PR PRN ×2 (15:38→20:49)
[2017-05-07] MEDS: PIPERACILLIN/TAZOBACTAM 3.375 GM in IV NORMAL SALINE 50ML 50 ML IV SCH (18:13)
[2017-05-07] MEDS ORDERED: VANCOMYCIN 1.75 GM in IV NORMAL SALINE 500ML BAG 500 ML IV ONE (18:30)
[2017-05-07] MEDS: VANCOMYCIN PER PHARMACY MC PRN (18:52)
[2017-05-07] MEDS: levETIRAcetam 1,000 MG in IV DEXTROSE 5% 100 ML IV SCH (20:59)
[2017-05-07] MEDS: SIMVASTATIN 20 MG TABLET PO SCH (21:00)
[2017-05-07] MEDS: VALPROIC ACID (AS SODIUM SALT) 250 MG in IV DEXTROSE 5% 50 ML IV SCH (21:28)
[2017-05-07] MEDS ORDERED: POTASSIUM CL 20MEQ D5-0.45NACL 1,000 ML IV SCH (23:00)
[2017-05-08] VITALS (19 sets, daily range): BP systolic 110–147; BP diastolic 62–84
[2017-05-08] MEDS: PIPERACILLIN/TAZOBACTAM 3.375 GM in IV NORMAL SALINE 50ML 50 ML IV SCH ×4 (00:11→17:54)
[2017-05-08] MEDS: ACETAMINOPHEN 325 MG SUPP.RECT. PR PRN (04:09)
[2017-05-08 05:50] LABS: BASO % 1 % (0-3); EOS % 0 % (0-3); HEMATOCRIT 45.9 % (39.0-53.0); HEMOGLOBIN 15.6 g/dL (13.0-17.5); LYMPH # 2.9 x10^3/uL (1.0-4.8); LYMPH % 37 % (24-48); MEAN CORPUSCULAR HEMOGLOBIN 33 pg (25-35); MEAN CORPUSCULAR HGB CONC 34 g/dL (31-37); MEAN CORPUSCULAR VOLUME 97 fL (79-100); MONO % 19 % (0-9); NEUT % 43 % (31-73); PLATELET COUNT 80 x10^3/uL (140-400); RED BLOOD COUNT 4.75 x10^6/uL (4.30-5.70); RED CELL DISTRIBUTION WIDTH 12.8 % (11.5-14.5); WHITE BLOOD COUNT 7.8 x10^3/uL (4.0-11.0)
[2017-05-08] MEDS: VANCOMYCIN 1 GM in IV NORMAL SALINE 250ML 250 ML IV SCH ×2 (06:00→17:55)
[2017-05-08 06:14] LABS: ALBUMIN 2.7 g/dL (3.4-5.0); ALBUMIN/GLOBULIN RATIO 0.6 (1.0-1.7); CALCIUM 8.5 mg/dL (8.5-10.1); CREATININE 1.1 mg/dL (0.7-1.3); GFR 81.5; MAGNESIUM 1.8 mg/dL (1.8-2.4); POTASSIUM 3.9 mmol/L (3.5-5.1); TOTAL BILIRUBIN 1.5 mg/dL (0.2-1.0); TOTAL PROTEIN 7.2 g/dL (6.4-8.2)
--- NOTE | 2017-05-08 07:37 | PDOC ---
Infectious Disease Note Vital Sign Vital Signs Vital Signs Date Time Temp Pulse Resp B/P (MAP) Pulse Ox O2 Delivery O2 Flow Rate FiO2 05/08/17 06:00 102.1 95 35 133/75 (94) 97 Nasal Cannula 4.0 102.1 Labs Lab Laboratory Tests Test 05/07/17 07:16 05/07/17 09:40 05/08/17 05:25 Sodium Level 133 mmol/L (136-145) 128 mmol/L (136-145) Potassium Level 4.6 mmol/L (3.5-5.1) 3.9 mmol/L (3.5-5.1) Chloride Level 98 mmol/L (98-107) 94 mmol/L (98-107) Carbon Dioxide Level 17 mmol/L (21-32) 22 mmol/L (21-32) Anion Gap 18 (6-14) 12 (6-14) Blood Urea Nitrogen 8 mg/dL (8-26) 15 mg/dL (8-26) Creatinine 1.2 mg/dL (0.7-1.3) 1.1 mg/dL (0.7-1.3) Estimated GFR (Cockcroft-Gault) 73.8 81.5 Glucose Level 103 mg/dL (70-99) 116 mg/dL (70-99) Calcium Level 8.9 mg/dL (8.5-10.1) 8.5 mg/dL (8.5-10.1) Lactic Acid Level 6.9 mmol/L (0.4-2.0) White Blood Count 7.8 x10^3/uL (4.0-11.0) Red Blood Count 4.75 x10^6/uL (4.30-5.70) Hemoglobin 15.6 g/dL (13.0-17.5) Hematocrit 45.9 % (39.0-53.0) Mean Corpuscular Volume 97 fL (79-100) Mean Corpuscular Hemoglobin 33 pg (25-35) Mean Corpuscular Hemoglobin Concent 34 g/dL (31-37) Red Cell Distribution Width 12.8 % (11.5-14.5) Platelet Count 80 x10^3/uL (140-400) Neutrophils (%) (Auto) 43 % (31-73) Lymphocytes (%) (Auto) 37 % (24-48) Monocytes (%) (Auto) 19 % (0-9) Eosinophils (%) (Auto) 0 % (0-3) Basophils (%) (Auto) 1 % (0-3) Neutrophils # (Auto) 3.4 x10^3uL (1.8-7.7) Lymphocytes # (Auto) 2.9 x10^3/uL (1.0-4.8) Monocytes # (Auto) 1.5 x10^3/uL (0.0-1.1) Eosinophils # (Auto) 0.0 x10^3/uL (0.0-0.7) Basophils # (Auto) 0.0 x10^3/uL (0.0-0.2) BUN/Creatinine Ratio 14 (6-20) Magnesium Level 1.8 mg/dL (1.8-2.4) Total Bilirubin 1.5 mg/dL (0.2-1.0) Aspartate Amino Transf (AST/SGOT) 352 U/L (15-37) Alanine Aminotransferase (ALT/SGPT) 135 U/L (16-63) Alkaline Phosphatase 68 U/L (46-116) Total Protein 7.2 g/dL (6.4-8.2) Albumin 2.7 g/dL (3.4-5.0) Albumin/Globulin Ratio 0.6 (1.0-1.7) Objective Assessment Fever - ? reactive from seizure vs infection vs fecal impaction (had BM) Seizure - seems controlled now Vomit ? aspiration Atypical lymphocytes/Leukopenia on arrival Transaminitis - ? reactive Hep C H/o prostate CA Plan Plan of Care Check influenza/procalcitonin/lactic acid. Repeat manual differential given atypical lymphs at presentation - may need additional viral studies/etc if + Added Vanc/Zosyn 05/07 F/u labs and cults If he does not continue to improve or no + cults/studies may need LP May need MRI of head - await Neuro f/u Reviewed [facility] note Thank you 35 mins # [id number] VIMAL SALINAS MD May 08, 2017 07:36
--- NOTE | 2017-05-08 08:37 | HP ---
ADMIT DATE: 05/08/2017 PATIENT'S ROOM: ICU 13. REQUESTING PHYSICIAN: Dr. Choe. REASON FOR CONSULTATION: Fever. HISTORY OF PRESENT ILLNESS: The patient is a 66-year-old gentleman who does have a history of previous CVA and some aphasia, who is a resident at [facility]. Currently, he is unable to provide any history of present illness, past medical history or review of systems secondary to encephalopathy. He was brought to [facility] on the secondary to uncontrolled seizures, apparently occurred tonic-clonic type nature at the senior care. He was unresponsive. He had initial lactic acid of 7.4. He continued to have seizures during the course of his admission thus far. He arrived on 05/06, had a white count of 2.8. He had 47%, lymphocytes, 8% atypicals. Initially, he was afebrile with a temperature 92; however, yesterday his temperature was as high as 103.9 axillary. White blood cell count yesterday increased to 4.3 with a normal differential. Urinalysis was clean without suggestion of UTI, MRSA screen was negative. Chest x-ray initially on the showed low lung volumes, probable atelectasis, but otherwise stable. CT of his head showed no acute process, has some chronic changes, and the cervical spine had no evidence of acute trauma. I was consulted yesterday. I added vancomycin and Zosyn. Currently, the patient continued to have seizures through yesterday, but has finally calmed down overnight. Abdominal x-ray did show that he had a fecal impaction. He has since had a bowel movement. Currently, he is lying comfortably, arouses somewhat, but does not follow commands and does resist when I tried to open his eyes. PAST MEDICAL HISTORY: According to the chart as well as [facility]'s notes, history of hypothyroidism, prostate cancer, chronic kidney disease stage 2, hepatitis C, aphasia, history of CVA, hyperlipidemia, gastroesophageal reflux disease, seizure disorder, thrombocytopenia, elevated PSA. PAST SURGICAL HISTORY: Not available. REVIEW OF SYSTEMS: Unobtainable. ALLERGIES: No known allergies. SOCIAL HISTORY: He lives in a senior care facility. No tobacco history available. FAMILY HISTORY: Unavailable. CURRENT MEDICATIONS: Include Keppra, Vimpat, Zosyn, valproic acid, vancomycin, aspirin, Depakote, folic acid, Ativan, Zocor. PHYSICAL EXAMINATION: VITAL SIGNS: Currently, he has a temperature of 102.1 axillary, pulse 95, respiratory rate was 35, satting 97% on 4 liters. Blood pressure 133/75, although currently he is lying calm. Respiratory rate approximately 20. He did respond briefly to verbal stimuli. HEENT: Head is normocephalic. Eyes, Pupils are reactive, questionable mild conjunctival injection. Oral cavity, would not open his mouth. NECK: Supple. LUNGS: Clear to auscultation. HEART: S1, S2. ABDOMEN: Soft, nontender, no guarding, no rebound. EXTREMITIES: Without clubbing or cyanosis. No gross edema. He has a mitt on his left hand. He has an area of a chronic wound superficial of his right shoulder with some mild erythema, appears chronic in nature. There is no warmth, tenderness or fluctuance associated with it. He does not have any evidence of any skin breakdown or any lesions in his groin area. IV site is clean. NEUROLOGIC: Affect is flat. LABORATORY DATA: Today, white count 7.8, hemoglobin 15.6, platelets of 80, neutrophils 43, lymphs 37. Glucose 116, creatinine 1.1, AST 52, ALT 135. Urine was clean. Toxicology screen was positive for benzos. MRSA screen was negative. Radiology reviewed in history of present illness. IMPRESSION: 1. Fever, questionable reactive seizure versus infection versus fecal impaction, but he did have a bowel movement yesterday. 2. Seizures, seemed controlled for now, I did not see throughout the night. 3. There is a report of vomiting and possible aspiration. 4. Atypical lymphocytes, leukopenia on arrival. 5. Transaminitis, questionable reactive. 6. Hepatitis C. 7. History of prostate cancer. RECOMMENDATIONS: For now, we will check influenza, procalcitonin and repeat lactic acid. We will repeat a manual differential given atypical lymphocytes on presentation, may need additional viral studies, etc. if it is positive. Again, I added vancomycin, Zosyn on the . No clear indication for atypical coverage right now. Follow up labs and cultures. If he do not continue to improve or no positive culture studies, may need a lumbar puncture. I did review the [facility] note. Dr. Choe, thank you for allowing me to participate in the patient's care. If you have any further questions, please do not hesitate to contact me. I spent 35 minutes of critical care time. VIMAL SALINAS MD DR: LETHA/marlon JOB#: [id number] / [id number]
--- NOTE | 2017-05-08 08:44 | PDOC ---
PROGRESS NOTES Assessment Problems Medical Problems: (1) Seizure Status: Acute Epilepsy, breakthrough seizures, no obvious metabolic derangement. He did have lactic acidosis probably from the seizure. No seizures since 22:00 last night Fevers History LMCA CVA with severe debility Plan Current anticonvulsants via IV EEG LP Hold on MRI Palliative care meeting Discussed with Dr. Choe. Subjective None Objective Vital Signs Date Time Temp Pulse Resp B/P (MAP) Pulse Ox O2 Delivery O2 Flow Rate FiO2 05/08/17 06:00 102.1 95 35 133/75 (94) 97 Nasal Cannula 4.0 102.1 PHYSICAL EXAM Alert, eyes open, does not vocalize or follow commands PERRL. EOMI. CN: right central VII Muscle tone: increased on right Muscle strength: moves left-sided extremities DTR: 2+ Plantar reflex: extensor on right, silent on left Gait: not examined in bed. Sensory exam: . Cerebellar: not cooperative with exam Review of Relevant I have reviewed the following items rakesh (where applicable) has been applied. Labs Laboratory Tests Test 05/06/17 17:55 05/06/17 18:10 05/06/17 18:41 05/06/17 19:09 Creatine Kinase 224 U/L (39-308) Creatine Kinase MB (Mass) 1.5 ng/mL (0.0-3.6) Creatine Kinase MB Relative Index 0.7 % (0-4) O2 Saturation 97 % (92-99) Arterial Blood pH 7.34 (7.35-7.45) Arterial Blood pCO2 at Patient Temp 32 mmHg (35-46) Arterial Blood pO2 at Patient Temp 95 mmHg (65-108) Arterial Blood HCO3 17 mmol/L (21-28) Arterial Blood Base Excess -8 mmol/L (-3-3) FiO2 100 White Blood Count 2.8 x10^3/uL (4.0-11.0) Red Blood Count 4.46 x10^6/uL (4.30-5.70) Hemoglobin 14.6 g/dL (13.0-17.5) Hematocrit 43.7 % (39.0-53.0) Mean Corpuscular Volume 98 fL (79-100) Mean Corpuscular Hemoglobin 33 pg (25-35) Mean Corpuscular Hemoglobin Concent 33 g/dL (31-37) Red Cell Distribution Width 13.1 % (11.5-14.5) Platelet Count 103 x10^3/uL (140-400) Neutrophils (%) (Auto) 34 % (31-73) Lymphocytes (%) (Auto) 42 % (24-48) Monocytes (%) (Auto) 22 % (0-9) Eosinophils (%) (Auto) 1 % (0-3) Basophils (%) (Auto) 1 % (0-3) Neutrophils # (Auto) 1.0 x10^3uL (1.8-7.7) Lymphocytes # (Auto) 1.2 x10^3/uL (1.0-4.8) Monocytes # (Auto) 0.6 x10^3/uL (0.0-1.1) Eosinophils # (Auto) 0.0 x10^3/uL (0.0-0.7) Basophils # (Auto) 0.0 x10^3/uL (0.0-0.2) Segmented Neutrophils % 28 % (35-66) Band Neutrophils % 3 % (0-9) Lymphocytes % 47 % (24-48) Atypical Lymphocytes % (Manual) 8 % (0-0) Monocytes % 14 % (0-10) Platelet Estimate Decreased (ADEQUATE) Prothrombin Time 15.7 SEC (11.7-14.0) Prothromb Time International Ratio 1.3 (0.8-1.1) Activated Partial Thromboplast Time 26 SEC (24-38) Sodium Level 137 mmol/L (136-145) Potassium Level 3.6 mmol/L (3.5-5.1) Chloride Level 101 mmol/L (98-107) Carbon Dioxide Level 22 mmol/L (21-32) Anion Gap 14 (6-14) Blood Urea Nitrogen 8 mg/dL (8-26) Creatinine 1.7 mg/dL (0.7-1.3) Estimated GFR (Cockcroft-Gault) 49.3 Glucose Level 88 mg/dL (70-99) Lactic Acid Level 7.4 mmol/L (0.4-2.0) Calcium Level 8.7 mg/dL (8.5-10.1) Total Bilirubin 0.4 mg/dL (0.2-1.0) Direct Bilirubin 0.2 mg/dL (0.0-0.2) Aspartate Amino Transf (AST/SGOT) 65 U/L (15-37) Alanine Aminotransferase (ALT/SGPT) 81 U/L (16-63) Alkaline Phosphatase 84 U/L (46-116) Ammonia 62 mcmol/L (11-34) Total Protein 6.7 g/dL (6.4-8.2) Albumin 2.7 g/dL (3.4-5.0) Urine Collection Type U cath Urine Color Dk yellow Urine Clarity Clear Urine pH 6.0 Urine Specific [place] 1.020 Urine Protein Negative mg/dL (NEG-TRACE) Urine Glucose (UA) Negative mg/dL (NEG) Urine Ketones (Stick) Trace mg/dL (NEG) Urine Blood Negative (NEG) Urine Nitrite Negative (NEG) Urine Bilirubin Negative (NEG) Urine Urobilinogen Dipstick 1.0 mg/dL (0.2 mg/dL) Urine Leukocyte Esterase Negative (NEG) Urine RBC 0 /HPF (0-2) Urine WBC 0 /HPF (0-4) Urine Squamous Epithelial Cells Few /LPF Urine Transitional Epithelial Cells Occ /LPF Urine Bacteria 0 /HPF (0-FEW) Urine Hyaline Casts Few /HPF Urine Mucus Mod /LPF Urine Opiates Screen Neg (NEG) Urine Methadone Screen Neg (NEG) Urine Barbiturates Neg (NEG) Urine Phencyclidine Screen Neg (NEG) Urine Amphetamine/Methamphetamine Neg (NEG) Urine Benzodiazepines Screen Pos (NEG) Urine Cocaine Screen Neg (NEG) Urine Cannabinoids Screen Neg (NEG) Urine Ethyl Alcohol Neg (NEG) Test 05/06/17 21:39 05/06/17 23:20 05/07/17 05:20 05/07/17 07:16 Lactic Acid Level 2.6 mmol/L (0.4-2.0) Nasal Screen MRSA (PCR) Negative (Negative) White Blood Count 4.3 x10^3/uL (4.0-11.0) Red Blood Count 4.65 x10^6/uL (4.30-5.70) Hemoglobin 15.2 g/dL (13.0-17.5) Hematocrit 46.5 % (39.0-53.0) Mean Corpuscular Volume 100 fL (79-100) Mean Corpuscular Hemoglobin 33 pg (25-35) Mean Corpuscular Hemoglobin Concent 33 g/dL (31-37) Red Cell Distribution Width 14.3 % (11.5-14.5) Platelet Count 82 x10^3/uL (140-400) Neutrophils (%) (Auto) 44 % (31-73) Lymphocytes (%) (Auto) 40 % (24-48) Monocytes (%) (Auto) 15 % (0-9) Eosinophils (%) (Auto) 0 % (0-3) Basophils (%) (Auto) 1 % (0-3) Neutrophils # (Auto) 1.9 x10^3uL (1.8-7.7) Lymphocytes # (Auto) 1.7 x10^3/uL (1.0-4.8) Monocytes # (Auto) 0.6 x10^3/uL (0.0-1.1) Eosinophils # (Auto) 0.0 x10^3/uL (0.0-0.7) Basophils # (Auto) 0.0 x10^3/uL (0.0-0.2) Platelet Estimate Decreased (ADEQUATE) Large Platelets Few Poikilocytosis Present Target Cells Present Sodium Level 133 mmol/L (136-145) Potassium Level 4.6 mmol/L (3.5-5.1) Chloride Level 98 mmol/L (98-107) Carbon Dioxide Level 17 mmol/L (21-32) Anion Gap 18 (6-14) Blood Urea Nitrogen 8 mg/dL (8-26) Creatinine 1.2 mg/dL (0.7-1.3) Estimated GFR (Cockcroft-Gault) 73.8 Glucose Level 103 mg/dL (70-99) Calcium Level 8.9 mg/dL (8.5-10.1) Test 05/07/17 09:40 05/08/17 05:25 Lactic Acid Level 6.9 mmol/L (0.4-2.0) White Blood Count 7.8 x10^3/uL (4.0-11.0) Red Blood Count 4.75 x10^6/uL (4.30-5.70) Hemoglobin 15.6 g/dL (13.0-17.5) Hematocrit 45.9 % (39.0-53.0) Mean Corpuscular Volume 97 fL (79-100) Mean Corpuscular Hemoglobin 33 pg (25-35) Mean Corpuscular Hemoglobin Concent 34 g/dL (31-37) Red Cell Distribution Width 12.8 % (11.5-14.5) Platelet Count 80 x10^3/uL (140-400) Neutrophils (%) (Auto) 43 % (31-73) Lymphocytes (%) (Auto) 37 % (24-48) Monocytes (%) (Auto) 19 % (0-9) Eosinophils (%) (Auto) 0 % (0-3) Basophils (%) (Auto) 1 % (0-3) Neutrophils # (Auto) 3.4 x10^3uL (1.8-7.7) Lymphocytes # (Auto) 2.9 x10^3/uL (1.0-4.8) Monocytes # (Auto) 1.5 x10^3/uL (0.0-1.1) Eosinophils # (Auto) 0.0 x10^3/uL (0.0-0.7) Basophils # (Auto) 0.0 x10^3/uL (0.0-0.2) Sodium Level 128 mmol/L (136-145) Potassium Level 3.9 mmol/L (3.5-5.1) Chloride Level 94 mmol/L (98-107) Carbon Dioxide Level 22 mmol/L (21-32) Anion Gap 12 (6-14) Blood Urea Nitrogen 15 mg/dL (8-26) Creatinine 1.1 mg/dL (0.7-1.3) Estimated GFR (Cockcroft-Gault) 81.5 BUN/Creatinine Ratio 14 (6-20) Glucose Level 116 mg/dL (70-99) Calcium Level 8.5 mg/dL (8.5-10.1) Magnesium Level 1.8 mg/dL (1.8-2.4) Total Bilirubin 1.5 mg/dL (0.2-1.0) Aspartate Amino Transf (AST/SGOT) 352 U/L (15-37) Alanine Aminotransferase (ALT/SGPT) 135 U/L (16-63) Alkaline Phosphatase 68 U/L (46-116) Total Protein 7.2 g/dL (6.4-8.2) Albumin 2.7 g/dL (3.4-5.0) Albumin/Globulin Ratio 0.6 (1.0-1.7) Laboratory Tests Test 05/07/17 09:40 05/08/17 05:25 Lactic Acid Level 6.9 mmol/L (0.4-2.0) White Blood Count 7.8 x10^3/uL (4.0-11.0) Red Blood Count 4.75 x10^6/uL (4.30-5.70) Hemoglobin 15.6 g/dL (13.0-17.5) Hematocrit 45.9 % (39.0-53.0) Mean Corpuscular Volume 97 fL (79-100) Mean Corpuscular Hemoglobin 33 pg (25-35) Mean Corpuscular Hemoglobin Concent 34 g/dL (31-37) Red Cell Distribution Width 12.8 % (11.5-14.5) Platelet Count 80 x10^3/uL (140-400) Neutrophils (%) (Auto) 43 % (31-73) Lymphocytes (%) (Auto) 37 % (24-48) Monocytes (%) (Auto) 19 % (0-9) Eosinophils (%) (Auto) 0 % (0-3) Basophils (%) (Auto) 1 % (0-3) Neutrophils # (Auto) 3.4 x10^3uL (1.8-7.7) Lymphocytes # (Auto) 2.9 x10^3/uL (1.0-4.8) Monocytes # (Auto) 1.5 x10^3/uL (0.0-1.1) Eosinophils # (Auto) 0.0 x10^3/uL (0.0-0.7) Basophils # (Auto) 0.0 x10^3/uL (0.0-0.2) Sodium Level 128 mmol/L (136-145) Potassium Level 3.9 mmol/L (3.5-5.1) Chloride Level 94 mmol/L (98-107) Carbon Dioxide Level 22 mmol/L (21-32) Anion Gap 12 (6-14) Blood Urea Nitrogen 15 mg/dL (8-26) Creatinine 1.1 mg/dL (0.7-1.3) Estimated GFR (Cockcroft-Gault) 81.5 BUN/Creatinine Ratio 14 (6-20) Glucose Level 116 mg/dL (70-99) Calcium Level 8.5 mg/dL (8.5-10.1) Magnesium Level 1.8 mg/dL (1.8-2.4) Total Bilirubin 1.5 mg/dL (0.2-1.0) Aspartate Amino Transf (AST/SGOT) 352 U/L (15-37) Alanine Aminotransferase (ALT/SGPT) 135 U/L (16-63) Alkaline Phosphatase 68 U/L (46-116) Total Protein 7.2 g/dL (6.4-8.2) Albumin 2.7 g/dL (3.4-5.0) Albumin/Globulin Ratio 0.6 (1.0-1.7) Microbiology 05/06/17 Blood Culture - Preliminary, Resulted NO GROWTH AFTER 1 DAY Medications Current Medications Sodium Chloride 1,000 ml @ 1,000 mls/hr 1X ONCE IV Last administered on 05/06 17:59; Start 05/06/17 at 18:45; Stop 05/06/17 at 19:44; Status DC Sodium Chloride 1,000 ml @ 1,000 mls/hr 1X ONCE IV Last administered on 05/06 20:27; Start 05/06/17 at 20:30; Stop 05/06/17 at 21:29; Status DC Ondansetron HCl (Zofran) 4 mg PRN Q8HRS PRN IV NAUSEA/VOMITING; Start at 21:00; Stop 05/07/17 at 20:07; Status DC Levetiracetam 500 mg/Dextrose 105 ml @ 440 mls/hr 1X ONCE IV Last administered on 05/07/17 00:30; Start 05/07/17 at 00:30; Stop 05/07/17 at 00 :44; Status DC Acetaminophen (Tylenol) 650 mg PRN Q4HRS PRN PO MILD PAIN / TEMP; Start at 01:00; Stop 05/07/17 at 12:01; Status DC Aspirin (Ecotrin) 81 mg DAILY PO Last administered on 05/07/17 08:54; Start 05/07/17 at 09:00; Stop 05/07/17 at 10:11; Status DC Divalproex Sodium (Depakote) 500 mg DAILY PO Last administered on 05/07/17 08 :54; Start 05/07/17 at 09:00; Stop 05/07/17 at 09:08; Status DC Folic Acid (Folic Acid) 1 mg DAILY PO Last administered on 05/07/17 08:53; Start 05/07/17 at 09:00 Levetiracetam (Keppra) 500 mg BID PO Last administered on 05/07/17 08:54; Start 05/07/17 at 09:00; Stop 05/07/17 at 09:08; Status DC Simvastatin (Zocor) 20 mg QHS PO ; Start 05/07/17 at 21:00 Levetiracetam 1000 mg/Dextrose 110 ml @ 440 mls/hr Q12HR IV Last administered on 05/07/17 20:59; Start 05/07/17 at 21:00 Levetiracetam 1000 mg/Dextrose 110 ml @ 440 mls/hr 1X STAT IV Last administered on 05/07/17 09:50; Start 05/07/17 at 09:05; Stop 05/07/17 at 09 :19; Status DC Valproic Acid 250 mg/Dextrose 52.5 ml @ 55 mls/hr Q12HR IV Last administered on 05/07/17 21:28; Start 05/07/17 at 21:00 Pantoprazole Sodium (Protonix Vial) 40 mg DAILYAC IVP ; Start 05/07/17 at 09:15 ; Status UNV Acetaminophen (Tylenol) 650 mg PRN Q6HRS PRN PO MILD PAIN / TEMP; Start at 09:15 Ondansetron HCl (Zofran) 4 mg PRN Q6HRS PRN IV NAUSEA/VOMITING; Start at 09:15 Potassium Chloride 20 meq/ Dextrose/Sodium Chloride 1,010 ml @ 75 mls/hr [id number] IV Last administered on 05/07/17 09:50; Start 05/07/17 at 09:15; Stop 05/07/17 at 10:11; Status DC Pantoprazole Sodium (Protonix) 40 mg DAILYAC PO ; Start 05/07/17 at 10:00; Status Cancel Pantoprazole Sodium (Protonix Vial) 40 mg DAILYAC IVP ; Start 05/07/17 at 10:00 Lacosamide 100 mg/ Dextrose 60 ml @ 120 mls/hr 1X ONCE IV ; Start 05/07/17 at 12:30; Stop 05/07/17 at 12:30; Status DC Lacosamide 100 mg/ Dextrose 60 ml @ 120 mls/hr Q12HR IV ; Start 05/08/17 at 09 :00 Lacosamide 100 mg/ Dextrose 110 ml @ 220 mls/hr 1X ONCE IV Last administered on 05/07/17 12:22; Start 05/07/17 at 12:30; Stop 05/07/17 at 12:59; Status DC Lacosamide 100 mg/ Dextrose 110 ml @ 220 mls/hr 1X ONCE IV Last administered on 05/07/17 21:28; Start 05/07/17 at 21:00; Stop 05/07/17 at 21:29; Status DC Acetaminophen (Tylenol) 325 mg PRN Q6HRS PRN [place] MILD PAIN / TEMP Last administered on 05/08/17 04:09; Start 05/07/17 at 15:30 Potassium Chloride/Dextrose/ Sod Cl 1,000 ml @ 75 mls/hr [id number] IV Last administered on 05/08/17 04:39; Start 05/07/17 at 23:00; Stop 05/08/17 at 08 :22; Status DC Vancomycin HCl (Vanco Per Pharmacy) 1 each PRN DAILY PRN MC SEE COMMENTS Last administered on 05/07/17 18:52; Start 05/07/17 at 17:45 Piperacillin Sod/ Tazobactam Sod 3.375 gm/Sodium Chloride 50 ml @ 100 mls/hr Q6HRS IV Last administered on 05/08/17 05:37; Start 05/07/17 at 18:00 Vancomycin HCl 1.75 gm/Sodium Chloride 500 ml @ 250 mls/hr 1X ONCE IV Last administered on 05/07/17 18:13; Start 05/07/17 at 18:30; Stop 05/07/17 at 20 :29; Status DC Vancomycin HCl 1 each 1X ONCE MC ; Start 05/09/17 at 05:30; Stop 05/09/17 at 05:31 Vancomycin HCl 1 gm/Sodium Chloride 250 ml @ 250 mls/hr Q12H IV Last administered on 05/08/17 06:00; Start 05/08/17 at 06:00 Lorazepam (Ativan) 0.5 mg PRN Q4HRS PRN IV ANXIETY / AGITATION Last administered on 05/07/17t 20:12; Start 05/07/17 at 20:15 Lorazepam (Ativan) 1 mg 1X ONCE IV ; Start 05/07/17 at 21:30; Stop 05/07/17 at 21:31; Status DC Potassium Chloride 20 meq/ Sodium Chloride 1,010 ml @ 100 mls/hr Q10H6M IV ; Start 05/08/17 at 09:00 Active Scripts Active Keppra (Levetiracetam) 500 Mg Tablet 500 Mg PO BID Reported Tylenol (Acetaminophen) 325 Mg Tablet 2 Tab PO PRN Q4HRS PRN Ranitidine Hcl 75 Mg Tablet 75 Mg PO DAILY Depakote (Divalproex Sodium) 500 Mg Tablet.dr 500 Mg PO DAILY Aspir 81 (Aspirin) 81 Mg Tablet.dr 1 Tab PO DAILY Vitamin D-3 (Cholecalciferol (Vitamin D3)) 2,000 Unit Capsule 1,000 Unit PO DAILY Thiamine Hcl 100 Mg Tablet 100 Mg PO DAILY Simvastatin 20 Mg Tablet 1 Tab PO QHS Senna (Sennosides) 8.6 Mg Capsule 8.6 Mg PO PRN DAILY PRN Folic Acid 1 Mg Tablet 1 Tab PO DAILY Fish Oil ([place]-3 Fatty Acids) 500 Mg Capsule 500 Mg PO Vitals/I & O Vital Sign - Last 24 Hours 05/07/17 05/07/17 05/07/17 05/07/17 10:48 14:00 14:00 15:00 Temp 98.6 103.9 98.6 103.9 Pulse 99 120 136 Resp 18 24 28 B/P (MAP) 140/80 (100) 157/85 (109) 157/81 (106) Pulse Ox 97 98 O2 Delivery Room Air Room Air Room Air Room Air 05/07/17 05/07/17 05/07/17 05/07/17 16:00 16:00 16:50 18:00 Temp 103.3 100.4 103.3 100.4 Pulse 118 125 126 Resp 22 24 32 B/P (MAP) 155/95 (115) 155/91 (112) 151/71 (97) Pulse Ox 96 94 96 O2 Delivery Room Air Room Air Room Air Room Air 05/07/17 05/07/17 05/07/17 05/07/17 19:00 19:30 20:00 21:00 Temp 102.1 102.1 Pulse 117 138 109 Resp 30 44 35 B/P (MAP) 130/76 (94) 169/78 (108) 151/75 (100) Pulse Ox 91 88 95 O2 Delivery Room Air Room Air Nasal Cannula Nasal Cannula O2 Flow Rate 5.0 5.0 05/07/17 05/07/17 05/08/17 05/08/17 22:00 23:00 00:00 00:00 Temp 102.8 102.9 102.9 102.8 102.9 102.9 Pulse 112 115 106 Resp 34 35 36 B/P (MAP) 149/81 (103) 131/73 (92) 140/80 (100) Pulse Ox 93 93 96 O2 Delivery Nasal Cannula Nasal Cannula Nasal Cannula Room Air O2 Flow Rate 5.0 5.0 5.0 05/08/17 05/08/17 05/08/17 05/08/17 03:00 04:00 05:00 06:00 Temp 101.9 102.1 101.9 102.1 Pulse 101 112 108 95 Resp 34 31 43 35 B/P (MAP) 147/84 (105) 145/79 (101) 145/76 (99) 133/75 (94) Pulse Ox 95 93 95 97 O2 Delivery Nasal Cannula Nasal Cannula Nasal Cannula Nasal Cannula O2 Flow Rate 5.0 4.0 4.0 4.0 MARCELINO CRABTREE MD May 08, 2017 08:44
--- NOTE | 2017-05-08 08:58 | PDOC2 ---
CONSULT Date of Consult Date of Consult DATE: 05/08/17 TIME: 08:46 Reason for Consult Reason for Consult: HypoNatremia Referring Physician Referring Physician: Dr Vicky Choe Identification/Chief Complaint Chief Complaint none from pt; Admitted post Sz Problems: Source Source: Chart review History of Present Illness Reason for Visit: as dictated Past Medical History Cardiovascular: HTN, Hyperlipidemia CENTRAL NERVOUS SYSTEM: CVA, Dementia, Seizure GI: GERD Heme/Onc: Other (Thrombocytopenia) Hepatobiliary: Hep A/B/C (C) Psych: Anxiety, Depression Renal/: Chronic renal insuff Endocrine: Hyperthyroidism Past Surgical History Past Surgical History: No pertinent history Family History Family History: Other Social History No ALCOHOL: none Current Problem List Problem List Problems Medical Problems: (1) Seizure Status: Acute Current Medications Current Medications Current Medications Sodium Chloride 1,000 ml @ 1,000 mls/hr 1X ONCE IV Last administered on 05/06 17:59; Start 05/06/17 at 18:45; Stop 05/06/17 at 19:44; Status DC Sodium Chloride 1,000 ml @ 1,000 mls/hr 1X ONCE IV Last administered on 05/06 20:27; Start 05/06/17 at 20:30; Stop 05/06/17 at 21:29; Status DC Ondansetron HCl (Zofran) 4 mg PRN Q8HRS PRN IV NAUSEA/VOMITING; Start at 21:00; Stop 05/07/17 at 20:07; Status DC Levetiracetam 500 mg/Dextrose 105 ml @ 440 mls/hr 1X ONCE IV Last administered on 05/07/17 00:30; Start 05/07/17 at 00:30; Stop 05/07/17 at 00 :44; Status DC Acetaminophen (Tylenol) 650 mg PRN Q4HRS PRN PO MILD PAIN / TEMP; Start at 01:00; Stop 05/07/17 at 12:01; Status DC Aspirin (Ecotrin) 81 mg DAILY PO Last administered on 05/07/17 08:54; Start 05/07/17 at 09:00; Stop 05/07/17 at 10:11; Status DC Divalproex Sodium (Depakote) 500 mg DAILY PO Last administered on 05/07/17 08 :54; Start 05/07/17 at 09:00; Stop 05/07/17 at 09:08; Status DC Folic Acid (Folic Acid) 1 mg DAILY PO Last administered on 05/07/17 08:53; Start 05/07/17 at 09:00 Levetiracetam (Keppra) 500 mg BID PO Last administered on 05/07/17 08:54; Start 05/07/17 at 09:00; Stop 05/07/17 at 09:08; Status DC Simvastatin (Zocor) 20 mg QHS PO ; Start 05/07/17 at 21:00 Levetiracetam 1000 mg/Dextrose 110 ml @ 440 mls/hr Q12HR IV Last administered on 05/07/17 20:59; Start 05/07/17 at 21:00 Levetiracetam 1000 mg/Dextrose 110 ml @ 440 mls/hr 1X STAT IV Last administered on 05/07/17 09:50; Start 05/07/17 at 09:05; Stop 05/07/17 at 09 :19; Status DC Valproic Acid 250 mg/Dextrose 52.5 ml @ 55 mls/hr Q12HR IV Last administered on 05/07/17 21:28; Start 05/07/17 at 21:00 Pantoprazole Sodium (Protonix Vial) 40 mg DAILYAC IVP ; Start 05/07/17 at 09:15 ; Status UNV Acetaminophen (Tylenol) 650 mg PRN Q6HRS PRN PO MILD PAIN / TEMP; Start at 09:15 Ondansetron HCl (Zofran) 4 mg PRN Q6HRS PRN IV NAUSEA/VOMITING; Start at 09:15 Potassium Chloride 20 meq/ Dextrose/Sodium Chloride 1,010 ml @ 75 mls/hr [id number] IV Last administered on 05/07/17 09:50; Start 05/07/17 at 09:15; Stop 05/07/17 at 10:11; Status DC Pantoprazole Sodium (Protonix) 40 mg DAILYAC PO ; Start 05/07/17 at 10:00; Status Cancel Pantoprazole Sodium (Protonix Vial) 40 mg DAILYAC IVP ; Start 05/07/17 at 10:00 Lacosamide 100 mg/ Dextrose 60 ml @ 120 mls/hr 1X ONCE IV ; Start 05/07/17 at 12:30; Stop 05/07/17 at 12:30; Status DC Lacosamide 100 mg/ Dextrose 60 ml @ 120 mls/hr Q12HR IV ; Start 05/08/17 at 09 :00 Lacosamide 100 mg/ Dextrose 110 ml @ 220 mls/hr 1X ONCE IV Last administered on 05/07/17 12:22; Start 05/07/17 at 12:30; Stop 05/07/17 at 12:59; Status DC Lacosamide 100 mg/ Dextrose 110 ml @ 220 mls/hr 1X ONCE IV Last administered on 05/07/17 21:28; Start 05/07/17 at 21:00; Stop 05/07/17 at 21:29; Status DC Acetaminophen (Tylenol) 325 mg PRN Q6HRS PRN [place] MILD PAIN / TEMP Last administered on 05/08/17 04:09; Start 05/07/17 at 15:30 Potassium Chloride/Dextrose/ Sod Cl 1,000 ml @ 75 mls/hr [id number] IV Last administered on 05/08/17 04:39; Start 05/07/17 at 23:00; Stop 05/08/17 at 08 :22; Status DC Vancomycin HCl (Vanco Per Pharmacy) 1 each PRN DAILY PRN MC SEE COMMENTS Last administered on 05/07/17 18:52; Start 05/07/17 at 17:45 Piperacillin Sod/ Tazobactam Sod 3.375 gm/Sodium Chloride 50 ml @ 100 mls/hr Q6HRS IV Last administered on 05/08/17 05:37; Start 05/07/17 at 18:00 Vancomycin HCl 1.75 gm/Sodium Chloride 500 ml @ 250 mls/hr 1X ONCE IV Last administered on 05/07/17 18:13; Start 05/07/17 at 18:30; Stop 05/07/17 at 20 :29; Status DC Vancomycin HCl 1 each 1X ONCE MC ; Start 05/09/17 at 05:30; Stop 05/09/17 at 05:31 Vancomycin HCl 1 gm/Sodium Chloride 250 ml @ 250 mls/hr Q12H IV Last administered on 05/08/17 06:00; Start 05/08/17 at 06:00 Lorazepam (Ativan) 0.5 mg PRN Q4HRS PRN IV ANXIETY / AGITATION Last administered on 05/07/17t 20:12; Start 05/07/17 at 20:15 Lorazepam (Ativan) 1 mg 1X ONCE IV ; Start 05/07/17 at 21:30; Stop 05/07/17 at 21:31; Status DC Potassium Chloride 20 meq/ Sodium Chloride 1,010 ml @ 100 mls/hr Q10H6M IV ; Start 05/08/17 at 09:00 Active Scripts Active Keppra (Levetiracetam) 500 Mg Tablet 500 Mg PO BID Reported Tylenol (Acetaminophen) 325 Mg Tablet 2 Tab PO PRN Q4HRS PRN Ranitidine Hcl 75 Mg Tablet 75 Mg PO DAILY Depakote (Divalproex Sodium) 500 Mg Tablet.dr 500 Mg PO DAILY Aspir 81 (Aspirin) 81 Mg Tablet.dr 1 Tab PO DAILY Vitamin D-3 (Cholecalciferol (Vitamin D3)) 2,000 Unit Capsule 1,000 Unit PO DAILY Thiamine Hcl 100 Mg Tablet 100 Mg PO DAILY Simvastatin 20 Mg Tablet 1 Tab PO QHS Senna (Sennosides) 8.6 Mg Capsule 8.6 Mg PO PRN DAILY PRN Folic Acid 1 Mg Tablet 1 Tab PO DAILY Fish Oil ([place]-3 Fatty Acids) 500 Mg Capsule 500 Mg PO Allergies Allergies: Coded Allergies: No Known Drug Allergies (Unverified , 05/18/14) ROS Review of System Unable to obtain due to underlying dementia and post-ictal/ sedated state Physical Exam Physical Exam General Appearance: not Awake not Alert Oriented x 0 In no Distress; barely opens eyes Eyes: Sclera anicteric Conjunctiva Normal EN: No EN Drainage Mucous Memb. dryish Neck: no JVD no JVP Supple no Thyromegaly CVS: S1 S2 ? Murmur No Gallop No Rub no Edema Resp: no Rales no Rhonchi no Acc. Muscle use GI: BAS +ve NO Bruit Non Tender Non Distended : no CVA tenderness; no Suprapubic Tenderness SKIN: no Rashes Breast Exam deferred Mu.Sk: Adequate passive ROM on left + Muscle Atrophy Heme: Unable to palpate Obvious LAD no Splenomegaly NEURO: Unable to assess currenlty in ? post-ictal vs sedated state. No Asterixis. Known Rt Hemiparesis Psych: Unable to assess currently in ? post-ictal vs sedated state Vital Signs Vital Signs Date Time Temp Pulse Resp B/P (MAP) Pulse Ox O2 Delivery O2 Flow Rate FiO2 05/08/17 06:00 102.1 95 35 133/75 (94) 97 Nasal Cannula 4.0 102.1 Assessment & Plan HypoNAtremia - Agree with IVF as changed this am and watch response Lactic Acidosis - ? Post ictal AMS - doubt asso with Na changes - suspect ? post-ictal vs sedated state ^ed LFts - H/o Hep C - given rise - will check CK nicolasa with recent sz ROBB - POA - now better Suspect intravascular Vol depletion - IVF as ordered - may eventually need attn to Nutrition pending resolution of underlying encephalopathy Labs Labs Laboratory Tests Test 05/06/17 17:55 05/06/17 18:10 05/06/17 18:41 05/06/17 19:09 Creatine Kinase 224 U/L (39-308) Creatine Kinase MB (Mass) 1.5 ng/mL (0.0-3.6) Creatine Kinase MB Relative Index 0.7 % (0-4) O2 Saturation 97 % (92-99) Arterial Blood pH 7.34 (7.35-7.45) Arterial Blood pCO2 at Patient Temp 32 mmHg (35-46) Arterial Blood pO2 at Patient Temp 95 mmHg (65-108) Arterial Blood HCO3 17 mmol/L (21-28) Arterial Blood Base Excess -8 mmol/L (-3-3) FiO2 100 White Blood Count 2.8 x10^3/uL (4.0-11.0) Red Blood Count 4.46 x10^6/uL (4.30-5.70) Hemoglobin 14.6 g/dL (13.0-17.5) Hematocrit 43.7 % (39.0-53.0) Mean Corpuscular Volume 98 fL (79-100) Mean Corpuscular Hemoglobin 33 pg (25-35) Mean Corpuscular Hemoglobin Concent 33 g/dL (31-37) Red Cell Distribution Width 13.1 % (11.5-14.5) Platelet Count 103 x10^3/uL (140-400) Neutrophils (%) (Auto) 34 % (31-73) Lymphocytes (%) (Auto) 42 % (24-48) Monocytes (%) (Auto) 22 % (0-9) Eosinophils (%) (Auto) 1 % (0-3) Basophils (%) (Auto) 1 % (0-3) Neutrophils # (Auto) 1.0 x10^3uL (1.8-7.7) Lymphocytes # (Auto) 1.2 x10^3/uL (1.0-4.8) Monocytes # (Auto) 0.6 x10^3/uL (0.0-1.1) Eosinophils # (Auto) 0.0 x10^3/uL (0.0-0.7) Basophils # (Auto) 0.0 x10^3/uL (0.0-0.2) Segmented Neutrophils % 28 % (35-66) Band Neutrophils % 3 % (0-9) Lymphocytes % 47 % (24-48) Atypical Lymphocytes % (Manual) 8 % (0-0) Monocytes % 14 % (0-10) Platelet Estimate Decreased (ADEQUATE) Prothrombin Time 15.7 SEC (11.7-14.0) Prothromb Time International Ratio 1.3 (0.8-1.1) Activated Partial Thromboplast Time 26 SEC (24-38) Sodium Level 137 mmol/L (136-145) Potassium Level 3.6 mmol/L (3.5-5.1) Chloride Level 101 mmol/L (98-107) Carbon Dioxide Level 22 mmol/L (21-32) Anion Gap 14 (6-14) Blood Urea Nitrogen 8 mg/dL (8-26) Creatinine 1.7 mg/dL (0.7-1.3) Estimated GFR (Cockcroft-Gault) 49.3 Glucose Level 88 mg/dL (70-99) Lactic Acid Level 7.4 mmol/L (0.4-2.0) Calcium Level 8.7 mg/dL (8.5-10.1) Total Bilirubin 0.4 mg/dL (0.2-1.0) Direct Bilirubin 0.2 mg/dL (0.0-0.2) Aspartate Amino Transf (AST/SGOT) 65 U/L (15-37) Alanine Aminotransferase (ALT/SGPT) 81 U/L (16-63) Alkaline Phosphatase 84 U/L (46-116) Ammonia 62 mcmol/L (11-34) Total Protein 6.7 g/dL (6.4-8.2) Albumin 2.7 g/dL (3.4-5.0) Urine Collection Type U cath Urine Color Dk yellow Urine Clarity Clear Urine pH 6.0 Urine Specific [place] 1.020 Urine Protein Negative mg/dL (NEG-TRACE) Urine Glucose (UA) Negative mg/dL (NEG) Urine Ketones (Stick) Trace mg/dL (NEG) Urine Blood Negative (NEG) Urine Nitrite Negative (NEG) Urine Bilirubin Negative (NEG) Urine Urobilinogen Dipstick 1.0 mg/dL (0.2 mg/dL) Urine Leukocyte Esterase Negative (NEG) Urine RBC 0 /HPF (0-2) Urine WBC 0 /HPF (0-4) Urine Squamous Epithelial Cells Few /LPF Urine Transitional Epithelial Cells Occ /LPF Urine Bacteria 0 /HPF (0-FEW) Urine Hyaline Casts Few /HPF Urine Mucus Mod /LPF Urine Opiates Screen Neg (NEG) Urine Methadone Screen Neg (NEG) Urine Barbiturates Neg (NEG) Urine Phencyclidine Screen Neg (NEG) Urine Amphetamine/Methamphetamine Neg (NEG) Urine Benzodiazepines Screen Pos (NEG) Urine Cocaine Screen Neg (NEG) Urine Cannabinoids Screen Neg (NEG) Urine Ethyl Alcohol Neg (NEG) Test 05/06/17 21:39 05/06/17 23:20 05/07/17 05:20 05/07/17 07:16 Lactic Acid Level 2.6 mmol/L (0.4-2.0) Nasal Screen MRSA (PCR) Negative (Negative) White Blood Count 4.3 x10^3/uL (4.0-11.0) Red Blood Count 4.65 x10^6/uL (4.30-5.70) Hemoglobin 15.2 g/dL (13.0-17.5) Hematocrit 46.5 % (39.0-53.0) Mean Corpuscular Volume 100 fL (79-100) Mean Corpuscular Hemoglobin 33 pg (25-35) Mean Corpuscular Hemoglobin Concent 33 g/dL (31-37) Red Cell Distribution Width 14.3 % (11.5-14.5) Platelet Count 82 x10^3/uL (140-400) Neutrophils (%) (Auto) 44 % (31-73) Lymphocytes (%) (Auto) 40 % (24-48) Monocytes (%) (Auto) 15 % (0-9) Eosinophils (%) (Auto) 0 % (0-3) Basophils (%) (Auto) 1 % (0-3) Neutrophils # (Auto) 1.9 x10^3uL (1.8-7.7) Lymphocytes # (Auto) 1.7 x10^3/uL (1.0-4.8) Monocytes # (Auto) 0.6 x10^3/uL (0.0-1.1) Eosinophils # (Auto) 0.0 x10^3/uL (0.0-0.7) Basophils # (Auto) 0.0 x10^3/uL (0.0-0.2) Platelet Estimate Decreased (ADEQUATE) Large Platelets Few Poikilocytosis Present Target Cells Present Sodium Level 133 mmol/L (136-145) Potassium Level 4.6 mmol/L (3.5-5.1) Chloride Level 98 mmol/L (98-107) Carbon Dioxide Level 17 mmol/L (21-32) Anion Gap 18 (6-14) Blood Urea Nitrogen 8 mg/dL (8-26) Creatinine 1.2 mg/dL (0.7-1.3) Estimated GFR (Cockcroft-Gault) 73.8 Glucose Level 103 mg/dL (70-99) Calcium Level 8.9 mg/dL (8.5-10.1) Test 05/07/17 09:40 05/08/17 05:25 Lactic Acid Level 6.9 mmol/L (0.4-2.0) White Blood Count 7.8 x10^3/uL (4.0-11.0) Red Blood Count 4.75 x10^6/uL (4.30-5.70) Hemoglobin 15.6 g/dL (13.0-17.5) Hematocrit 45.9 % (39.0-53.0) Mean Corpuscular Volume 97 fL (79-100) Mean Corpuscular Hemoglobin 33 pg (25-35) Mean Corpuscular Hemoglobin Concent 34 g/dL (31-37) Red Cell Distribution Width 12.8 % (11.5-14.5) Platelet Count 80 x10^3/uL (140-400) Neutrophils (%) (Auto) 43 % (31-73) Lymphocytes (%) (Auto) 37 % (24-48) Monocytes (%) (Auto) 19 % (0-9) Eosinophils (%) (Auto) 0 % (0-3) Basophils (%) (Auto) 1 % (0-3) Neutrophils # (Auto) 3.4 x10^3uL (1.8-7.7) Lymphocytes # (Auto) 2.9 x10^3/uL (1.0-4.8) Monocytes # (Auto) 1.5 x10^3/uL (0.0-1.1) Eosinophils # (Auto) 0.0 x10^3/uL (0.0-0.7) Basophils # (Auto) 0.0 x10^3/uL (0.0-0.2) Sodium Level 128 mmol/L (136-145) Potassium Level 3.9 mmol/L (3.5-5.1) Chloride Level 94 mmol/L (98-107) Carbon Dioxide Level 22 mmol/L (21-32) Anion Gap 12 (6-14) Blood Urea Nitrogen 15 mg/dL (8-26) Creatinine 1.1 mg/dL (0.7-1.3) Estimated GFR (Cockcroft-Gault) 81.5 BUN/Creatinine Ratio 14 (6-20) Glucose Level 116 mg/dL (70-99) Calcium Level 8.5 mg/dL (8.5-10.1) Magnesium Level 1.8 mg/dL (1.8-2.4) Total Bilirubin 1.5 mg/dL (0.2-1.0) Aspartate Amino Transf (AST/SGOT) 352 U/L (15-37) Alanine Aminotransferase (ALT/SGPT) 135 U/L (16-63) Alkaline Phosphatase 68 U/L (46-116) Total Protein 7.2 g/dL (6.4-8.2) Albumin 2.7 g/dL (3.4-5.0) Albumin/Globulin Ratio 0.6 (1.0-1.7) Laboratory Tests Test 05/07/17 09:40 05/08/17 05:25 Lactic Acid Level 6.9 mmol/L (0.4-2.0) White Blood Count 7.8 x10^3/uL (4.0-11.0) Red Blood Count 4.75 x10^6/uL (4.30-5.70) Hemoglobin 15.6 g/dL (13.0-17.5) Hematocrit 45.9 % (39.0-53.0) Mean Corpuscular Volume 97 fL (79-100) Mean Corpuscular Hemoglobin 33 pg (25-35) Mean Corpuscular Hemoglobin Concent 34 g/dL (31-37) Red Cell Distribution Width 12.8 % (11.5-14.5) Platelet Count 80 x10^3/uL (140-400) Neutrophils (%) (Auto) 43 % (31-73) Lymphocytes (%) (Auto) 37 % (24-48) Monocytes (%) (Auto) 19 % (0-9) Eosinophils (%) (Auto) 0 % (0-3) Basophils (%) (Auto) 1 % (0-3) Neutrophils # (Auto) 3.4 x10^3uL (1.8-7.7) Lymphocytes # (Auto) 2.9 x10^3/uL (1.0-4.8) Monocytes # (Auto) 1.5 x10^3/uL (0.0-1.1) Eosinophils # (Auto) 0.0 x10^3/uL (0.0-0.7) Basophils # (Auto) 0.0 x10^3/uL (0.0-0.2) Sodium Level 128 mmol/L (136-145) Potassium Level 3.9 mmol/L (3.5-5.1) Chloride Level 94 mmol/L (98-107) Carbon Dioxide Level 22 mmol/L (21-32) Anion Gap 12 (6-14) Blood Urea Nitrogen 15 mg/dL (8-26) Creatinine 1.1 mg/dL (0.7-1.3) Estimated GFR (Cockcroft-Gault) 81.5 BUN/Creatinine Ratio 14 (6-20) Glucose Level 116 mg/dL (70-99) Calcium Level 8.5 mg/dL (8.5-10.1) Magnesium Level 1.8 mg/dL (1.8-2.4) Total Bilirubin 1.5 mg/dL (0.2-1.0) Aspartate Amino Transf (AST/SGOT) 352 U/L (15-37) Alanine Aminotransferase (ALT/SGPT) 135 U/L (16-63) Alkaline Phosphatase 68 U/L (46-116) Total Protein 7.2 g/dL (6.4-8.2) Albumin 2.7 g/dL (3.4-5.0) Albumin/Globulin Ratio 0.6 (1.0-1.7) LAUREEN MCKEON MD May 08, 2017 08:58
[2017-05-08] MEDS: FOLIC ACID 1 MG TABLET. PO SCH (09:00)
[2017-05-08] MEDS ORDERED: POTASSIUM CHLORIDE 20 MEQ in IV NORMAL SALINE 1000ML BAG 1,000 ML IV SCH (09:00)
--- NOTE | 2017-05-08 09:12 | PDOC ---
IM PROGRESS NOTES- Subjective Subjective He had multiple seizures yesterday.Fever 102.9.I also gave IV Ativan. He is comfortable and sleeping this AM.Unable to do systems review. Objective Vitals Vital Signs Date Time Temp Pulse Resp B/P (MAP) Pulse Ox O2 Delivery O2 Flow Rate FiO2 05/08/17 06:00 102.1 95 35 133/75 (94) 97 Nasal Cannula 4.0 102.1 Physical Exam Physical Exam GENERAL: The patient is an elderly male who is sleeping,in NAD NECK: JVP normal. No thyromegaly. LUNGS: Decreased breath sounds at bases. No wheezing, no rales. CARDIOVASCULAR SYSTEM: S1, S2 regular. ABDOMEN: Soft, bowel sounds overactive. No guarding, no rigidity. Mild distention of the abdomen noted. EXTREMITIES: No edema. CENTRAL NERVOUS SYSTEM: Confused. NEUROLOGIC: sleeping,no seizures Has aphasia and history of right hemiparesis from previous stroke. Labs Laboratory Tests Test 05/06/17 17:55 05/06/17 18:10 05/06/17 18:41 05/06/17 19:09 Creatine Kinase 224 U/L (39-308) Creatine Kinase MB (Mass) 1.5 ng/mL (0.0-3.6) Creatine Kinase MB Relative Index 0.7 % (0-4) O2 Saturation 97 % (92-99) Arterial Blood pH 7.34 (7.35-7.45) Arterial Blood pCO2 at Patient Temp 32 mmHg (35-46) Arterial Blood pO2 at Patient Temp 95 mmHg (65-108) Arterial Blood HCO3 17 mmol/L (21-28) Arterial Blood Base Excess -8 mmol/L (-3-3) FiO2 100 White Blood Count 2.8 x10^3/uL (4.0-11.0) Red Blood Count 4.46 x10^6/uL (4.30-5.70) Hemoglobin 14.6 g/dL (13.0-17.5) Hematocrit 43.7 % (39.0-53.0) Mean Corpuscular Volume 98 fL (79-100) Mean Corpuscular Hemoglobin 33 pg (25-35) Mean Corpuscular Hemoglobin Concent 33 g/dL (31-37) Red Cell Distribution Width 13.1 % (11.5-14.5) Platelet Count 103 x10^3/uL (140-400) Neutrophils (%) (Auto) 34 % (31-73) Lymphocytes (%) (Auto) 42 % (24-48) Monocytes (%) (Auto) 22 % (0-9) Eosinophils (%) (Auto) 1 % (0-3) Basophils (%) (Auto) 1 % (0-3) Neutrophils # (Auto) 1.0 x10^3uL (1.8-7.7) Lymphocytes # (Auto) 1.2 x10^3/uL (1.0-4.8) Monocytes # (Auto) 0.6 x10^3/uL (0.0-1.1) Eosinophils # (Auto) 0.0 x10^3/uL (0.0-0.7) Basophils # (Auto) 0.0 x10^3/uL (0.0-0.2) Segmented Neutrophils % 28 % (35-66) Band Neutrophils % 3 % (0-9) Lymphocytes % 47 % (24-48) Atypical Lymphocytes % (Manual) 8 % (0-0) Monocytes % 14 % (0-10) Platelet Estimate Decreased (ADEQUATE) Prothrombin Time 15.7 SEC (11.7-14.0) Prothromb Time International Ratio 1.3 (0.8-1.1) Activated Partial Thromboplast Time 26 SEC (24-38) Sodium Level 137 mmol/L (136-145) Potassium Level 3.6 mmol/L (3.5-5.1) Chloride Level 101 mmol/L (98-107) Carbon Dioxide Level 22 mmol/L (21-32) Anion Gap 14 (6-14) Blood Urea Nitrogen 8 mg/dL (8-26) Creatinine 1.7 mg/dL (0.7-1.3) Estimated GFR (Cockcroft-Gault) 49.3 Glucose Level 88 mg/dL (70-99) Lactic Acid Level 7.4 mmol/L (0.4-2.0) Calcium Level 8.7 mg/dL (8.5-10.1) Total Bilirubin 0.4 mg/dL (0.2-1.0) Direct Bilirubin 0.2 mg/dL (0.0-0.2) Aspartate Amino Transf (AST/SGOT) 65 U/L (15-37) Alanine Aminotransferase (ALT/SGPT) 81 U/L (16-63) Alkaline Phosphatase 84 U/L (46-116) Ammonia 62 mcmol/L (11-34) Total Protein 6.7 g/dL (6.4-8.2) Albumin 2.7 g/dL (3.4-5.0) Urine Collection Type U cath Urine Color Dk yellow Urine Clarity Clear Urine pH 6.0 Urine Specific [place] 1.020 Urine Protein Negative mg/dL (NEG-TRACE) Urine Glucose (UA) Negative mg/dL (NEG) Urine Ketones (Stick) Trace mg/dL (NEG) Urine Blood Negative (NEG) Urine Nitrite Negative (NEG) Urine Bilirubin Negative (NEG) Urine Urobilinogen Dipstick 1.0 mg/dL (0.2 mg/dL) Urine Leukocyte Esterase Negative (NEG) Urine RBC 0 /HPF (0-2) Urine WBC 0 /HPF (0-4) Urine Squamous Epithelial Cells Few /LPF Urine Transitional Epithelial Cells Occ /LPF Urine Bacteria 0 /HPF (0-FEW) Urine Hyaline Casts Few /HPF Urine Mucus Mod /LPF Urine Opiates Screen Neg (NEG) Urine Methadone Screen Neg (NEG) Urine Barbiturates Neg (NEG) Urine Phencyclidine Screen Neg (NEG) Urine Amphetamine/Methamphetamine Neg (NEG) Urine Benzodiazepines Screen Pos (NEG) Urine Cocaine Screen Neg (NEG) Urine Cannabinoids Screen Neg (NEG) Urine Ethyl Alcohol Neg (NEG) Test 05/06/17 21:39 05/06/17 23:20 05/07/17 05:20 05/07/17 07:16 Lactic Acid Level 2.6 mmol/L (0.4-2.0) Nasal Screen MRSA (PCR) Negative (Negative) White Blood Count 4.3 x10^3/uL (4.0-11.0) Red Blood Count 4.65 x10^6/uL (4.30-5.70) Hemoglobin 15.2 g/dL (13.0-17.5) Hematocrit 46.5 % (39.0-53.0) Mean Corpuscular Volume 100 fL (79-100) Mean Corpuscular Hemoglobin 33 pg (25-35) Mean Corpuscular Hemoglobin Concent 33 g/dL (31-37) Red Cell Distribution Width 14.3 % (11.5-14.5) Platelet Count 82 x10^3/uL (140-400) Neutrophils (%) (Auto) 44 % (31-73) Lymphocytes (%) (Auto) 40 % (24-48) Monocytes (%) (Auto) 15 % (0-9) Eosinophils (%) (Auto) 0 % (0-3) Basophils (%) (Auto) 1 % (0-3) Neutrophils # (Auto) 1.9 x10^3uL (1.8-7.7) Lymphocytes # (Auto) 1.7 x10^3/uL (1.0-4.8) Monocytes # (Auto) 0.6 x10^3/uL (0.0-1.1) Eosinophils # (Auto) 0.0 x10^3/uL (0.0-0.7) Basophils # (Auto) 0.0 x10^3/uL (0.0-0.2) Platelet Estimate Decreased (ADEQUATE) Large Platelets Few Poikilocytosis Present Target Cells Present Sodium Level 133 mmol/L (136-145) Potassium Level 4.6 mmol/L (3.5-5.1) Chloride Level 98 mmol/L (98-107) Carbon Dioxide Level 17 mmol/L (21-32) Anion Gap 18 (6-14) Blood Urea Nitrogen 8 mg/dL (8-26) Creatinine 1.2 mg/dL (0.7-1.3) Estimated GFR (Cockcroft-Gault) 73.8 Glucose Level 103 mg/dL (70-99) Calcium Level 8.9 mg/dL (8.5-10.1) Test 05/07/17 09:40 05/08/17 05:25 05/08/17 07:50 Lactic Acid Level 6.9 mmol/L (0.4-2.0) 1.6 mmol/L (0.4-2.0) White Blood Count 7.8 x10^3/uL (4.0-11.0) Red Blood Count 4.75 x10^6/uL (4.30-5.70) Hemoglobin 15.6 g/dL (13.0-17.5) Hematocrit 45.9 % (39.0-53.0) Mean Corpuscular Volume 97 fL (79-100) Mean Corpuscular Hemoglobin 33 pg (25-35) Mean Corpuscular Hemoglobin Concent 34 g/dL (31-37) Red Cell Distribution Width 12.8 % (11.5-14.5) Platelet Count 80 x10^3/uL (140-400) Neutrophils (%) (Auto) 43 % (31-73) Lymphocytes (%) (Auto) 37 % (24-48) Monocytes (%) (Auto) 19 % (0-9) Eosinophils (%) (Auto) 0 % (0-3) Basophils (%) (Auto) 1 % (0-3) Neutrophils # (Auto) 3.4 x10^3uL (1.8-7.7) Lymphocytes # (Auto) 2.9 x10^3/uL (1.0-4.8) Monocytes # (Auto) 1.5 x10^3/uL (0.0-1.1) Eosinophils # (Auto) 0.0 x10^3/uL (0.0-0.7) Basophils # (Auto) 0.0 x10^3/uL (0.0-0.2) Sodium Level 128 mmol/L (136-145) Potassium Level 3.9 mmol/L (3.5-5.1) Chloride Level 94 mmol/L (98-107) Carbon Dioxide Level 22 mmol/L (21-32) Anion Gap 12 (6-14) Blood Urea Nitrogen 15 mg/dL (8-26) Creatinine 1.1 mg/dL (0.7-1.3) Estimated GFR (Cockcroft-Gault) 81.5 BUN/Creatinine Ratio 14 (6-20) Glucose Level 116 mg/dL (70-99) Calcium Level 8.5 mg/dL (8.5-10.1) Magnesium Level 1.8 mg/dL (1.8-2.4) Total Bilirubin 1.5 mg/dL (0.2-1.0) Aspartate Amino Transf (AST/SGOT) 352 U/L (15-37) Alanine Aminotransferase (ALT/SGPT) 135 U/L (16-63) Alkaline Phosphatase 68 U/L (46-116) Total Protein 7.2 g/dL (6.4-8.2) Albumin 2.7 g/dL (3.4-5.0) Albumin/Globulin Ratio 0.6 (1.0-1.7) Laboratory Tests Test 05/07/17 09:40 05/08/17 05:25 05/08/17 07:50 Lactic Acid Level 6.9 mmol/L (0.4-2.0) 1.6 mmol/L (0.4-2.0) White Blood Count 7.8 x10^3/uL (4.0-11.0) Red Blood Count 4.75 x10^6/uL (4.30-5.70) Hemoglobin 15.6 g/dL (13.0-17.5) Hematocrit 45.9 % (39.0-53.0) Mean Corpuscular Volume 97 fL (79-100) Mean Corpuscular Hemoglobin 33 pg (25-35) Mean Corpuscular Hemoglobin Concent 34 g/dL (31-37) Red Cell Distribution Width 12.8 % (11.5-14.5) Platelet Count 80 x10^3/uL (140-400) Neutrophils (%) (Auto) 43 % (31-73) Lymphocytes (%) (Auto) 37 % (24-48) Monocytes (%) (Auto) 19 % (0-9) Eosinophils (%) (Auto) 0 % (0-3) Basophils (%) (Auto) 1 % (0-3) Neutrophils # (Auto) 3.4 x10^3uL (1.8-7.7) Lymphocytes # (Auto) 2.9 x10^3/uL (1.0-4.8) Monocytes # (Auto) 1.5 x10^3/uL (0.0-1.1) Eosinophils # (Auto) 0.0 x10^3/uL (0.0-0.7) Basophils # (Auto) 0.0 x10^3/uL (0.0-0.2) Sodium Level 128 mmol/L (136-145) Potassium Level 3.9 mmol/L (3.5-5.1) Chloride Level 94 mmol/L (98-107) Carbon Dioxide Level 22 mmol/L (21-32) Anion Gap 12 (6-14) Blood Urea Nitrogen 15 mg/dL (8-26) Creatinine 1.1 mg/dL (0.7-1.3) Estimated GFR (Cockcroft-Gault) 81.5 BUN/Creatinine Ratio 14 (6-20) Glucose Level 116 mg/dL (70-99) Calcium Level 8.5 mg/dL (8.5-10.1) Magnesium Level 1.8 mg/dL (1.8-2.4) Total Bilirubin 1.5 mg/dL (0.2-1.0) Aspartate Amino Transf (AST/SGOT) 352 U/L (15-37) Alanine Aminotransferase (ALT/SGPT) 135 U/L (16-63) Alkaline Phosphatase 68 U/L (46-116) Total Protein 7.2 g/dL (6.4-8.2) Albumin 2.7 g/dL (3.4-5.0) Albumin/Globulin Ratio 0.6 (1.0-1.7) Meds Current Medications Acetaminophen (Tylenol) 325 mg PRN Q6HRS PRN OK MILD PAIN / TEMP Last administered on 05/08/17 04:09; Start 05/07/17 at 15:30 Acetaminophen (Tylenol) 650 mg PRN Q6HRS PRN PO MILD PAIN / TEMP; Start at 09:15 Aspirin (Ecotrin) 81 mg DAILY PO Last administered on 05/07/17 08:54; Start 05/07/17 at 09:00; Stop 05/07/17 at 10:11; Status DC Divalproex Sodium (Depakote) 500 mg DAILY PO Last administered on 05/07/17 08 :54; Start 05/07/17 at 09:00; Stop 05/07/17 at 09:08; Status DC Folic Acid (Folic Acid) 1 mg DAILY PO Last administered on 05/07/17 08:53; Start 05/07/17 at 09:00 Lacosamide 100 mg/ Dextrose 60 ml @ 120 mls/hr 1X ONCE IV ; Start 05/07/17 at 12:30; Stop 05/07/17 at 12:30; Status DC Lacosamide 100 mg/ Dextrose 60 ml @ 120 mls/hr Q12HR IV ; Start 05/08/17 at 09 :00 Lacosamide 100 mg/ Dextrose 110 ml @ 220 mls/hr 1X ONCE IV Last administered on 05/07/17 12:22; Start 05/07/17 at 12:30; Stop 05/07/17 at 12:59; Status DC Lacosamide 100 mg/ Dextrose 110 ml @ 220 mls/hr 1X ONCE IV Last administered on 05/07/17 21:28; Start 05/07/17 at 21:00; Stop 05/07/17 at 21:29; Status DC Levetiracetam (Keppra) 500 mg BID PO Last administered on 05/07/17 08:54; Start 05/07/17 at 09:00; Stop 05/07/17 at 09:08; Status DC Levetiracetam 1000 mg/Dextrose 110 ml @ 440 mls/hr 1X STAT IV Last administered on 05/07/17 09:50; Start 05/07/17 at 09:05; Stop 05/07/17 at 09 :19; Status DC Levetiracetam 1000 mg/Dextrose 110 ml @ 440 mls/hr Q12HR IV Last administered on 05/07/17 20:59; Start 05/07/17 at 21:00 Lorazepam (Ativan) 0.5 mg PRN Q4HRS PRN IV ANXIETY / AGITATION Last administered on 05/07/17 20:12; Start 05/07/17 at 20:15 Lorazepam (Ativan) 1 mg 1X ONCE IV ; Start 05/07/17 at 21:30; Stop 05/07/17 at 21:31; Status DC Ondansetron HCl (Zofran) 4 mg PRN Q6HRS PRN IV NAUSEA/VOMITING; Start at 09:15 Pantoprazole Sodium (Protonix Vial) 40 mg DAILYAC IVP ; Start 05/07/17 at 09:15 ; Status UNV Pantoprazole Sodium (Protonix Vial) 40 mg DAILYAC IVP ; Start 05/07/17 at 10:00 Pantoprazole Sodium (Protonix) 40 mg DAILYAC PO ; Start 05/07/17 at 10:00; Status Cancel Piperacillin Sod/ Tazobactam Sod 3.375 gm/Sodium Chloride 50 ml @ 100 mls/hr Q6HRS IV Last administered on 05/08/17 05:37; Start 05/07/17 at 18:00 Potassium Chloride 20 meq/ Dextrose/Sodium Chloride 1,010 ml @ 75 mls/hr [id number] IV Last administered on 05/07/17 09:50; Start 05/07/17 at 09:15; Stop 05/07/17 at 10:11; Status DC Potassium Chloride 20 meq/ Sodium Chloride 1,010 ml @ 100 mls/hr Q10H6M IV ; Start 05/08/17 at 09:00 Potassium Chloride/Dextrose/ Sod Cl 1,000 ml @ 75 mls/hr [id number] IV Last administered on 05/08/17 04:39; Start 05/07/17 at 23:00; Stop 05/08/17 at 08 :22; Status DC Potassium Chloride/Sodium Chloride 1,000 ml @ 100 mls/hr Q10H IV ; Start 05/08 at 09:00 Simvastatin (Zocor) 20 mg QHS PO ; Start 05/07/17 at 21:00 Valproic Acid 250 mg/Dextrose 52.5 ml @ 55 mls/hr Q12HR IV Last administered on 05/07/17 21:28; Start 05/07/17 at 21:00 Vancomycin HCl 1 each 1X ONCE [facility] ; Start 05/09/17 at 05:30; Stop 05/09/17 at 05:31 Vancomycin HCl (Vanco Per Pharmacy) 1 each PRN DAILY PRN [facility] SEE COMMENTS Last administered on 05/07/17 18:52; Start 05/07/17 at 17:45 Vancomycin HCl 1.75 gm/Sodium Chloride 500 ml @ 250 mls/hr 1X ONCE IV Last administered on 05/07/17 18:13; Start 05/07/17 at 18:30; Stop 05/07/17 at 20 :29; Status DC Vancomycin HCl 1 gm/Sodium Chloride 250 ml @ 250 mls/hr Q12H IV Last administered on 05/08/17 06:00; Start 05/08/17 at 06:00 Assessment Assessment 1. Seizure disorder, not controlled. I have consulted Dr. Peters and the patient will be given IV Keppra and Depakote. 2. Vomiting this morning. The patient has overactive bowel sounds. I have advised this time to continue IV fluids and consult Dr. Lerner. We will also give him D5 0.25 normal saline with potassium. We will also hold aspirin for now, give IV Zofran, IV Protonix. Continue seizure precautions. 3. 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 4. Lactic acidosis due to seizures. 5. Leukopenia, probably due to previous hepatitis C and possibly seizure medication Depakote. 6. Acute metabolic encephalopathy. 7. Gastroesophageal reflux disease. 8. Hepatitis C, chronic. 9. Hyperlipidemia. 10. History of thrombocytopenia and elevated PSA. PLAN: Fever- ? sepsis,/due to seizures- consulted ID.Bl.c/s.IV Zosyn,Vancomycin. Hyponatremia- Na 128. change IV fluids to N saline,Renal consult. Elevated LFts- AST 345 ? due to seizures. Prognosis is poor. x rays showed possible fecal impaction but he did have BM yesterday. Status epilepticus d/w - on IV Keppra,Depakote,Vimpat,Ativan. Condition, treatment, options were extensively discussed with his mother Kandis on phone.Family meeting today with Pat. Consult Dr. Lerner for GI evaluation and management due to vomiting. I will also obtain an acute abdominal series, keep him n.p.o. and give him fluids, monitor for seizures and seizure precautions. For details, please review the orders. Prognosis of this patient is poor. Plan Plan For more details regarding further plans, please refer to the orders. ALISA MANLEY MD May 08, 2017 09:11
[2017-05-08] MEDS: PANTOPRAZOLE IV PUSH 40 MG VIAL. IVP SCH (09:18)
[2017-05-08] MEDS: levETIRAcetam 1,000 MG in IV DEXTROSE 5% 100 ML IV SCH ×2 (09:19→20:45)
[2017-05-08] MEDS: LACOSAMIDE 100 MG in IV DEXTROSE 5% 50 ML IV SCH ×2 (09:19→20:45)
[2017-05-08] MEDS: VALPROIC ACID (AS SODIUM SALT) 250 MG in IV DEXTROSE 5% 50 ML IV SCH ×2 (09:21→21:05)
[2017-05-08 10:37] LABS: INR 1.4 (0.8-1.1); PROTHROMBIN TIME PATIENT 16.2 SEC (11.7-14.0)
[2017-05-08 11:41] LABS: PLT ESTIMATE DECREASED (ADEQUATE)
[2017-05-08] MEDS ORDERED: LIDOCAINE 1% / SOD BICARB 8.4% 20 ML VIAL. IJ ONE (12:15)
--- NOTE | 2017-05-08 12:50 | PDOC ---
Objective: Objective: Out for LP. Re-consulted for LFTs. Vital Signs: Vital Signs Date Time Temp Pulse Resp B/P (MAP) Pulse Ox O2 Delivery O2 Flow Rate FiO2 05/08/17 06:00 102.1 95 35 133/75 (94) 97 Nasal Cannula 4.0 102.1 PE: no exam A/P: Seizures w/ lactic acidosis (resolved) and elevated LFTs Hep C Hyponatremia Fever -- LFTs likely related to seizures. ?abd US LUIS ALFREDO-DAMIÁN ROBERTS May 08, 2017 12:50
--- NOTE | 2017-05-08 13:06 | RAD ---
Indication seizures. Fever. Suspect meningitis. Administrative consent for lumbar puncture was obtained. The patient was placed in a left side down decubitus position. An appropriate level for entry into the subarachnoid space was palpated. Skin was prepped and draped in the routine fashion. Local anesthesia was performed with 1% lidocaine. Under fluoroscopic guidance a 20-gauge spinal needle was introduced into the subarachnoid space at L2-3. Clear CSF was encountered. Approximately 7 cc of CSF was withdrawn and into 4 tubes and submitted to pathology. The patient left the department in the condition in which he arrived. Retrieved material was transferred to pathology for analysis. A single spot fluoroscopic image was associated with the procedure. Fluoroscopy time associated with the procedure was 0.6 minutes. IMPRESSION::: Successful lumbar puncture, under fluoroscopic guidance, for purposes of acquiring CSF
[2017-05-08] MEDS: VANCOMYCIN PER PHARMACY MC PRN (13:08)
[2017-05-08 13:19] LABS: CSF PROTEIN 35.4 mg/dL (15.0-45.0)
--- NOTE | 2017-05-08 13:48 | PDOC2 ---
PALLIATIVE CARE Palliative Care Note Palliative Care Patient remains unresponsive to verbal stimuli. Moves left upper and lower extremity occasionally. Met with mother/Osie, sister/Cary: and 2 daughter per phone: Rin--[phone], Viviana--[phone] Information was obtained from medical record and family Reviewed Medical Condition; Seizure disorder uncontrolled. LA elevated; elevated temperature PMH: CVA with aphasia/right hemiparesis; Hep C, thrombocytopenia, elevated PSA; Reviewed results of imaging studies and labs. Discussed Code Status; Family requests that patient remain full code. Cary voiced concern that resuscitation may not benefit her brother and that he would not want to be a vegetable. Daughters defer to Osie/Mother for decisions. Plan further testing including Lumbar puncture; Continue Full Code. Patient is a . Cary shared that patient has been heavy ETOH drinker in the past. 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 Enjoyed playing [employer] and music. Prior to hospitalization patient was W/C bound. Discussed goals; family requests full aggressive care and Full Code. Plan: Full code Full aggressive care. CORRY JAMES May 08, 2017 13:48
[2017-05-08 13:50] LABS: CSF CLARITY CLEAR; CSF COLOR COLORLESS
[2017-05-08 13:51] LABS: CSF PMN % 96 %
--- NOTE | 2017-05-08 14:09 | CONS ---
DATE OF CONSULTATION: 05/08/2017 PRIMARY PHYSICIAN: Dr. Vicky Choe. REASON FOR CONSULTATION: Hyponatremia. HISTORY OF PRESENT ILLNESS: The patient is a 66-year-old -[place] gentleman who is a resident [facility], is known to have right-sided chronic hemiparesis. Based on nursing reports, it appears that he usually eats and drinks by himself. He is independent where he gets into wheelchair and is usually aphasic/dysphasic. The patient apparently was noted to have tonic-clonic seizures at the [facility] and was brought by EMS to the ER. In the ER, he was given benzodiazepines as well as was noted to have a creatinine of 1.7 and lactate of 7.4. IV fluids were started. Lactate improved; however, his sodium began to drop down to 133 and now 128 today. In this setting, I was asked to see the patient. Dr. Choe has correctly changed his fluids over to isotonic saline. We will assess response to the same. His ammonia is noted to be 62. The patient is noted to be extremely restless until early this morning. He has finally calmed down. It is unclear to me how much of this was seizure activity. Lactate has gone up though to 6.9. The patient is currently sedated and minimally responsive, barely opens his eyes to his name and much history is obtained from review of his electronic records. For rest of the details, see electronic records. LAUREEN MCKEON MD DR: ELIOT/marlon JOB#: [id number] / [id number]
--- NOTE | 2017-05-08 14:11 | EEG ---
DATE OF SERVICE: 05/08/2017 EEG NUMBER: [id number], performed on 05/08/2017. OBJECTIVE: The patient is a 66-year-old male with seizures. DESCRIPTION: This is a digital study. Electrodes are placed according to the international 10-20 system. Bipolar and referential montages are available. Activation procedures typically include hyperventilation and intermittent photic stimulation. INTERPRETATION: The record consists of bilateral periodic lateralized epileptiform discharges predominating over the left hemisphere. No normal background activity is observed. Hyperventilation is not performed. Intermittent photic stimulations are noncontributory. IMPRESSION: This electroencephalogram with the patient in an obtunded state is abnormal because of the presence of bilateral periodic lateralizing epileptiform discharges predominating over the left hemisphere. This pattern is often seen in acute brain injury such as stroke. Thank you for letting us help with the patient's care. MARCELINO CRABTREE MD DR: CHANTAL/marlon JOB#: [id number] / [id number] nneka MANLEY DR
[2017-05-08] MEDS: DEXTROSE 5% IV SCH ×2 (15:08→22:00)
[2017-05-08] MEDS: ACYCLOVIR SODIUM IV SCH ×2 (15:08→22:00)
[2017-05-08] MEDS: SIMVASTATIN 20 MG TABLET PO SCH (20:52)
[2017-05-09] VITALS (24 sets, daily range): BP systolic 104–145; BP diastolic 65–82
[2017-05-09] MEDS: PIPERACILLIN/TAZOBACTAM 3.375 GM in IV NORMAL SALINE 50ML 50 ML IV SCH ×4 (00:16→17:25)
[2017-05-09 03:49] LABS: BASO % 1 % (0-3); EOS % 0 % (0-3); HEMATOCRIT 43.8 % (39.0-53.0); HEMOGLOBIN 14.9 g/dL (13.0-17.5); LYMPH % 37 % (24-48); MEAN CORPUSCULAR HEMOGLOBIN 33 pg (25-35); MEAN CORPUSCULAR HGB CONC 34 g/dL (31-37); MEAN CORPUSCULAR VOLUME 98 fL (79-100); MONO % 17 % (0-9); NEUT % 46 % (31-73); PLATELET COUNT 73 x10^3/uL (140-400); RED BLOOD COUNT 4.48 x10^6/uL (4.30-5.70); RED CELL DISTRIBUTION WIDTH 12.8 % (11.5-14.5); WHITE BLOOD COUNT 8.2 x10^3/uL (4.0-11.0)
[2017-05-09] MEDS: DEXTROSE 5% IV SCH ×3 (05:50→22:27)
[2017-05-09] MEDS: ACYCLOVIR SODIUM IV SCH ×3 (05:50→22:27)
[2017-05-09] MEDS: VANCOMYCIN 1 GM in IV NORMAL SALINE 250ML 250 ML IV SCH (05:58)
[2017-05-09 06:07] LABS: ALBUMIN 2.1 g/dL (3.4-5.0); ALBUMIN/GLOBULIN RATIO 0.5 (1.0-1.7); CALCIUM 8.2 mg/dL (8.5-10.1); CREATININE 0.9 mg/dL (0.7-1.3); GFR 102.8; POTASSIUM 3.9 mmol/L (3.5-5.1); TOTAL BILIRUBIN 2.2 mg/dL (0.2-1.0)
[2017-05-09] MEDS: VANCOMYCIN PER PHARMACY MC PRN (06:32)
[2017-05-09 07:41] LABS: OBC FLU VALID
[2017-05-09] MEDS: LACTOBACILLUS RHAMNOSUS GG 1 CAPSULE. PO SCH ×2 (08:04→21:00)
[2017-05-09] MEDS: FOLIC ACID 1 MG TABLET. PO SCH (08:05)
--- NOTE | 2017-05-09 08:06 | RAD ---
INDICATION: Increased seizure activity. Previous strokes. Attention to the left hemisphere based on EEG. Previous left MCA stroke. TECHNIQUE: Sagittal T1, axial T1, axial T2, axial FLAIR, axial T2 gradient, oblique coronal T2, oblique coronal FLAIR, and diffusion imaging with ADC map was performed. Comparison is a CT head from 2 days ago. FINDINGS: There is prominence of the ventricles and sulci. Large area of encephalomalacia in the left MCA distribution again is noted with volume loss and ex vacuo dilation of the left lateral ventricle. FLAIR hyperintensities in the supratentorial white matter unrelated to the infarct and in the soham are not specific but most suggestive of mild small vessel ischemic disease. There is no acute intracranial hemorrhage or extra-axial fluid collection. There is no mass effect or midline shift. There is no restricted diffusion to suggest an acute infarct. Sagittal midline structures are unremarkable. Pituitary and suprasellar region are unremarkable. Intracranial flow voids are preserved. There is minimal maxillary mucosal thickening. Oblique coronal imaging through the temporal lobes demonstrates no evidence of mesial temporal sclerosis or temporal lobe mass on the right. There is encephalomalacia in the left temporal lobe related to the old infarct. IMPRESSION: 1. 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 2. No acute infarct. 3. Brain parenchymal volume loss and mild probable small vessel ischemic disease. Electronically signed by: Chi Holden MD (05/09/2017 8:02 AM) [id number]
--- NOTE | 2017-05-09 08:09 | RAD ---
Indication abnormal liver function tests. Grayscale images were obtained. The examination was targeted to the right upper quadrant. No similar imaging is available. The liver appears unremarkable. No focal mass lesion is seen in the visualized liver. Imaging of the gallbladder demonstrates cholelithiasis. There is a small amount of suggested pericholecystic fluid. The common bile duct diameter of approximately 5 mm is within normal limits. The right kidney appears normal. The pancreas was poorly visualized and largely obscured. The visualized inferior vena cava appeared unremarkable. A small right pleural effusion was noted during the exam. IMPRESSION: Cholelithiasis. There is likely a small amount of associated pericholecystic fluid. Right pleural effusion. Pancreas largely obscured
[2017-05-09] MEDS: PANTOPRAZOLE IV PUSH 40 MG VIAL. IVP SCH (08:32)
[2017-05-09] MEDS: levETIRAcetam 1,000 MG in IV DEXTROSE 5% 100 ML IV SCH ×2 (08:33→20:34)
[2017-05-09] MEDS: LACOSAMIDE 100 MG in IV DEXTROSE 5% 50 ML IV SCH ×2 (08:59→22:27)
--- NOTE | 2017-05-09 08:59 | PDOC ---
PROGRESS NOTES Assessment Problems Medical Problems: (1) Seizure Status: Acute Epilepsy, bilateral PLEDs, predominating on left, on EEG. One brief seizure early this morning MRI negative for acute abnormality Lumbar puncture consistent with meningeal encephalitis, not a typical picture for HSV, however History LMCA CVA with severe debility Plan Current anticonvulsants via IV ICU monitoring Current antibiotics Discussed with mother yesterday Subjective None Objective Vital Signs Date Time Temp Pulse Resp B/P (MAP) Pulse Ox O2 Delivery O2 Flow Rate FiO2 05/09/17 06:00 73 24 114/69 (84) 97 Nasal Cannula 4.0 05/09/17 04:00 98.0 98.0 PHYSICAL EXAM Alert, eyes open, follows examiner with eyes, but does have a left gaze preference. Mumbles some replies to me. PERRL. EOMI. CN: right central VII Muscle tone: increased on right Muscle strength: moves left-sided extremities, spastic right hemiparesis DTR: 2+ Plantar reflex: extensor on right, silent on left Gait: not examined in bed. Sensory exam: . Cerebellar: not cooperative with e Review of Relevant I have reviewed the following items rakesh (where applicable) has been applied. Labs Laboratory Tests Test 05/07/17 09:40 05/08/17 05:25 05/08/17 07:50 05/08/17 10:21 Lactic Acid Level 6.9 mmol/L (0.4-2.0) 1.6 mmol/L (0.4-2.0) White Blood Count 7.8 x10^3/uL (4.0-11.0) Red Blood Count 4.75 x10^6/uL (4.30-5.70) Hemoglobin 15.6 g/dL (13.0-17.5) Hematocrit 45.9 % (39.0-53.0) Mean Corpuscular Volume 97 fL (79-100) Mean Corpuscular Hemoglobin 33 pg (25-35) Mean Corpuscular Hemoglobin Concent 34 g/dL (31-37) Red Cell Distribution Width 12.8 % (11.5-14.5) Platelet Count 80 x10^3/uL (140-400) Neutrophils (%) (Auto) 43 % (31-73) Lymphocytes (%) (Auto) 37 % (24-48) Monocytes (%) (Auto) 19 % (0-9) Eosinophils (%) (Auto) 0 % (0-3) Basophils (%) (Auto) 1 % (0-3) Neutrophils # (Auto) 3.4 x10^3uL (1.8-7.7) Lymphocytes # (Auto) 2.9 x10^3/uL (1.0-4.8) Monocytes # (Auto) 1.5 x10^3/uL (0.0-1.1) Eosinophils # (Auto) 0.0 x10^3/uL (0.0-0.7) Basophils # (Auto) 0.0 x10^3/uL (0.0-0.2) Segmented Neutrophils % 39 % (35-66) Band Neutrophils % 3 % (0-9) Lymphocytes % 41 % (24-48) Monocytes % 17 % (0-10) Platelet Estimate Decreased (ADEQUATE) Macrocytosis Slight Sodium Level 128 mmol/L (136-145) Potassium Level 3.9 mmol/L (3.5-5.1) Chloride Level 94 mmol/L (98-107) Carbon Dioxide Level 22 mmol/L (21-32) Anion Gap 12 (6-14) Blood Urea Nitrogen 15 mg/dL (8-26) Creatinine 1.1 mg/dL (0.7-1.3) Estimated GFR (Cockcroft-Gault) 81.5 BUN/Creatinine Ratio 14 (6-20) Glucose Level 116 mg/dL (70-99) Calcium Level 8.5 mg/dL (8.5-10.1) Magnesium Level 1.8 mg/dL (1.8-2.4) Total Bilirubin 1.5 mg/dL (0.2-1.0) Aspartate Amino Transf (AST/SGOT) 352 U/L (15-37) Alanine Aminotransferase (ALT/SGPT) 135 U/L (16-63) Alkaline Phosphatase 68 U/L (46-116) Total Protein 7.2 g/dL (6.4-8.2) Albumin 2.7 g/dL (3.4-5.0) Albumin/Globulin Ratio 0.6 (1.0-1.7) Procalcitonin 0.65 ng/mL (0.00-0.10) Prothrombin Time 16.2 SEC (11.7-14.0) Prothromb Time International Ratio 1.4 (0.8-1.1) Test 05/08/17 12:50 05/09/17 03:30 05/09/17 05:00 05/09/17 06:45 CSF Tube Number 4 CSF Volume 2.2 CSF Color Colorless CSF Clarity Clear CSF WBC 418 CSF RBC 2 CSF Mononuclear WBCs % 4 % CSF Polynuclear WBCs (%) 96 % CSF Glucose 58 mg/dL (37-70) CSF Total Protein 35.4 mg/dL (15.0-45.0) White Blood Count 8.2 x10^3/uL (4.0-11.0) Red Blood Count 4.48 x10^6/uL (4.30-5.70) Hemoglobin 14.9 g/dL (13.0-17.5) Hematocrit 43.8 % (39.0-53.0) Mean Corpuscular Volume 98 fL (79-100) Mean Corpuscular Hemoglobin 33 pg (25-35) Mean Corpuscular Hemoglobin Concent 34 g/dL (31-37) Red Cell Distribution Width 12.8 % (11.5-14.5) Platelet Count 73 x10^3/uL (140-400) Neutrophils (%) (Auto) 46 % (31-73) Lymphocytes (%) (Auto) 37 % (24-48) Monocytes (%) (Auto) 17 % (0-9) Eosinophils (%) (Auto) 0 % (0-3) Basophils (%) (Auto) 1 % (0-3) Neutrophils # (Auto) 3.8 x10^3uL (1.8-7.7) Lymphocytes # (Auto) 3.0 x10^3/uL (1.0-4.8) Monocytes # (Auto) 1.3 x10^3/uL (0.0-1.1) Eosinophils # (Auto) 0.0 x10^3/uL (0.0-0.7) Basophils # (Auto) 0.0 x10^3/uL (0.0-0.2) Sodium Level 131 mmol/L (136-145) 131 mmol/L (136-145) Potassium Level 4.0 mmol/L (3.5-5.1) 3.9 mmol/L (3.5-5.1) Chloride Level 99 mmol/L (98-107) 99 mmol/L (98-107) Carbon Dioxide Level 24 mmol/L (21-32) 24 mmol/L (21-32) Anion Gap 8 (6-14) 8 (6-14) Creatine Kinase 3884 U/L (39-308) Blood Urea Nitrogen 17 mg/dL (8-26) Creatinine 0.9 mg/dL (0.7-1.3) Estimated GFR (Cockcroft-Gault) 102.8 BUN/Creatinine Ratio 19 (6-20) Glucose Level 95 mg/dL (70-99) Calcium Level 8.2 mg/dL (8.5-10.1) Total Bilirubin 2.2 mg/dL (0.2-1.0) Aspartate Amino Transf (AST/SGOT) 238 U/L (15-37) Alanine Aminotransferase (ALT/SGPT) 112 U/L (16-63) Alkaline Phosphatase 56 U/L (46-116) Total Protein 6.0 g/dL (6.4-8.2) Albumin 2.1 g/dL (3.4-5.0) Albumin/Globulin Ratio 0.5 (1.0-1.7) Vancomycin Level Trough 10.3 mcg/mL (10.0-20.0) Vancomycin Last Dose Date 05/08/17 Vancomycin Last Dose Time 1800 Influenza Type A Antigen Negative (NEGATIVE) Influenza Type B Antigen Negative (NEGATIVE) Laboratory Tests Test 05/08/17 10:21 05/08/17 12:50 05/09/17 03:30 05/09/17 05:00 Prothrombin Time 16.2 SEC (11.7-14.0) Prothromb Time International Ratio 1.4 (0.8-1.1) CSF Tube Number 4 CSF Volume 2.2 CSF Color Colorless CSF Clarity Clear CSF WBC 418 CSF RBC 2 CSF Mononuclear WBCs % 4 % CSF Polynuclear WBCs (%) 96 % CSF Glucose 58 mg/dL (37-70) CSF Total Protein 35.4 mg/dL (15.0-45.0) White Blood Count 8.2 x10^3/uL (4.0-11.0) Red Blood Count 4.48 x10^6/uL (4.30-5.70) Hemoglobin 14.9 g/dL (13.0-17.5) Hematocrit 43.8 % (39.0-53.0) Mean Corpuscular Volume 98 fL (79-100) Mean Corpuscular Hemoglobin 33 pg (25-35) Mean Corpuscular Hemoglobin Concent 34 g/dL (31-37) Red Cell Distribution Width 12.8 % (11.5-14.5) Platelet Count 73 x10^3/uL (140-400) Neutrophils (%) (Auto) 46 % (31-73) Lymphocytes (%) (Auto) 37 % (24-48) Monocytes (%) (Auto) 17 % (0-9) Eosinophils (%) (Auto) 0 % (0-3) Basophils (%) (Auto) 1 % (0-3) Neutrophils # (Auto) 3.8 x10^3uL (1.8-7.7) Lymphocytes # (Auto) 3.0 x10^3/uL (1.0-4.8) Monocytes # (Auto) 1.3 x10^3/uL (0.0-1.1) Eosinophils # (Auto) 0.0 x10^3/uL (0.0-0.7) Basophils # (Auto) 0.0 x10^3/uL (0.0-0.2) Sodium Level 131 mmol/L (136-145) 131 mmol/L (136-145) Potassium Level 4.0 mmol/L (3.5-5.1) 3.9 mmol/L (3.5-5.1) Chloride Level 99 mmol/L (98-107) 99 mmol/L (98-107) Carbon Dioxide Level 24 mmol/L (21-32) 24 mmol/L (21-32) Anion Gap 8 (6-14) 8 (6-14) Creatine Kinase 3884 U/L (39-308) Blood Urea Nitrogen 17 mg/dL (8-26) Creatinine 0.9 mg/dL (0.7-1.3) Estimated GFR (Cockcroft-Gault) 102.8 BUN/Creatinine Ratio 19 (6-20) Glucose Level 95 mg/dL (70-99) Calcium Level 8.2 mg/dL (8.5-10.1) Total Bilirubin 2.2 mg/dL (0.2-1.0) Aspartate Amino Transf (AST/SGOT) 238 U/L (15-37) Alanine Aminotransferase (ALT/SGPT) 112 U/L (16-63) Alkaline Phosphatase 56 U/L (46-116) Total Protein 6.0 g/dL (6.4-8.2) Albumin 2.1 g/dL (3.4-5.0) Albumin/Globulin Ratio 0.5 (1.0-1.7) Vancomycin Level Trough 10.3 mcg/mL (10.0-20.0) Vancomycin Last Dose Date 05/08/17 Vancomycin Last Dose Time 1800 Test 05/09/17 06:45 Influenza Type A Antigen Negative (NEGATIVE) Influenza Type B Antigen Negative (NEGATIVE) Microbiology 05/07/17 Blood Culture - Preliminary, Resulted NO GROWTH AFTER 1 DAY Medications Current Medications Sodium Chloride 1,000 ml @ 1,000 mls/hr 1X ONCE IV Last administered on 05/06 17:59; Start 05/06/17 at 18:45; Stop 05/06/17 at 19:44; Status DC Sodium Chloride 1,000 ml @ 1,000 mls/hr 1X ONCE IV Last administered on 05/06 20:27; Start 05/06/17 at 20:30; Stop 05/06/17 at 21:29; Status DC Ondansetron HCl (Zofran) 4 mg PRN Q8HRS PRN IV NAUSEA/VOMITING; Start at 21:00; Stop 05/07/17 at 20:07; Status DC Levetiracetam 500 mg/Dextrose 105 ml @ 440 mls/hr 1X ONCE IV Last administered on 05/07/17 00:30; Start 05/07/17 at 00:30; Stop 05/07/17 at 00 :44; Status DC Acetaminophen (Tylenol) 650 mg PRN Q4HRS PRN PO MILD PAIN / TEMP; Start at 01:00; Stop 05/07/17 at 12:01; Status DC Aspirin (Ecotrin) 81 mg DAILY PO Last administered on 05/07/17 08:54; Start 05/07/17 at 09:00; Stop 05/07/17 at 10:11; Status DC Divalproex Sodium (Depakote) 500 mg DAILY PO Last administered on 05/07/17 08 :54; Start 05/07/17 at 09:00; Stop 05/07/17 at 09:08; Status DC Folic Acid (Folic Acid) 1 mg DAILY PO Last administered on 05/07/17 08:53; Start 05/07/17 at 09:00 Levetiracetam (Keppra) 500 mg BID PO Last administered on 05/07/17 08:54; Start 05/07/17 at 09:00; Stop 05/07/17 at 09:08; Status DC Simvastatin (Zocor) 20 mg QHS PO ; Start 05/07/17 at 21:00 Levetiracetam 1000 mg/Dextrose 110 ml @ 440 mls/hr Q12HR IV Last administered on 05/09/17 08:33; Start 05/07/17 at 21:00 Levetiracetam 1000 mg/Dextrose 110 ml @ 440 mls/hr 1X STAT IV Last administered on 05/07/17 09:50; Start 05/07/17 at 09:05; Stop 05/07/17 at 09 :19; Status DC Valproic Acid 250 mg/Dextrose 52.5 ml @ 55 mls/hr Q12HR IV Last administered on 05/08/17 21:05; Start 05/07/17 at 21:00 Pantoprazole Sodium (Protonix Vial) 40 mg DAILYAC IVP ; Start 05/07/17 at 09:15 ; Status UNV Acetaminophen (Tylenol) 650 mg PRN Q6HRS PRN PO MILD PAIN / TEMP; Start at 09:15 Ondansetron HCl (Zofran) 4 mg PRN Q6HRS PRN IV NAUSEA/VOMITING; Start at 09:15 Potassium Chloride 20 meq/ Dextrose/Sodium Chloride 1,010 ml @ 75 mls/hr [id number] IV Last administered on 05/07/17 09:50; Start 05/07/17 at 09:15; Stop 05/07/17 at 10:11; Status DC Pantoprazole Sodium (Protonix) 40 mg DAILYAC PO ; Start 05/07/17 at 10:00; Status Cancel Pantoprazole Sodium (Protonix Vial) 40 mg DAILYAC IVP Last administered on 08:32; Start 05/07/17 at 10:00 Lacosamide 100 mg/ Dextrose 60 ml @ 120 mls/hr 1X ONCE IV ; Start 05/07/17 at 12:30; Stop 05/07/17 at 12:30; Status DC Lacosamide 100 mg/ Dextrose 60 ml @ 120 mls/hr Q12HR IV Last administered on 05/08/17 20:45; Start 05/08/17 at 09:00 Lacosamide 100 mg/ Dextrose 110 ml @ 220 mls/hr 1X ONCE IV Last administered on 05/07/17 12:22; Start 05/07/17 at 12:30; Stop 05/07/17 at 12:59; Status DC Lacosamide 100 mg/ Dextrose 110 ml @ 220 mls/hr 1X ONCE IV Last administered on 05/07/17 21:28; Start 05/07/17 at 21:00; Stop 05/07/17 at 21:29; Status DC Acetaminophen (Tylenol) 325 mg PRN Q6HRS PRN FL MILD PAIN / TEMP Last administered on 05/08/17 04:09; Start 05/07/17 at 15:30 Potassium Chloride/Dextrose/ Sod Cl 1,000 ml @ 75 mls/hr [id number] IV Last administered on 05/08/17 04:39; Start 05/07/17 at 23:00; Stop 05/08/17 at 08 :22; Status DC Vancomycin HCl (Vanco Per Pharmacy) 1 each PRN DAILY PRN MC SEE COMMENTS Last administered on 05/09/17 06:32; Start 05/07/17 at 17:45 Piperacillin Sod/ Tazobactam Sod 3.375 gm/Sodium Chloride 50 ml @ 100 mls/hr Q6HRS IV Last administered on 05/09/17 06:08; Start 05/07/17 at 18:00 Vancomycin HCl 1.75 gm/Sodium Chloride 500 ml @ 250 mls/hr 1X ONCE IV Last administered on 05/07/17 18:13; Start 05/07/17 at 18:30; Stop 05/07/17 at 20 :29; Status DC Vancomycin HCl 1 each 1X ONCE MC Last administered on 05/09/17 05:30; Start 05/09/17 at 05:30; Stop 05/09/17 at 05:31; Status DC Vancomycin HCl 1 gm/Sodium Chloride 250 ml @ 250 mls/hr Q12H IV Last administered on 05/09/17 05:58; Start 05/08/17 at 06:00; Stop 05/09/17 at 06 :23; Status DC Lorazepam (Ativan) 0.5 mg PRN Q4HRS PRN IV ANXIETY / AGITATION Last administered on 05/07/17 20:12; Start 05/07/17 at 20:15 Lorazepam (Ativan) 1 mg 1X ONCE IV ; Start 05/07/17 at 21:30; Stop 05/07/17 at 21:31; Status DC Potassium Chloride 20 meq/ Sodium Chloride 1,010 ml @ 100 mls/hr Q10H6M IV ; Start 05/08/17 at 09:00; Status Cancel Potassium Chloride/Sodium Chloride 1,000 ml @ 100 mls/hr Q10H IV Last administered on 05/09/17 08:35; Start 05/08/17 at 09:00 Lidocaine/Sodium Bicarbonate (Buffered Lidocaine 1%) 20 ml 1X ONCE IJ ; Start 05/08/17 at 12:15; Stop 05/08/17 at 12:16; Status DC Acyclovir Sodium 800 mg/Dextrose 116 ml @ 116 mls/hr Q8HRS IV Last administered on 05/09/17 05:50; Start 05/08/17 at 15:00 Lactobacillus Rhamnosus (Culturelle) 1 cap BID PO ; Start 05/09/17 at 09:00 Vancomycin HCl 1.25 gm/Dextrose 250 ml @ 167 mls/hr Q12H IV ; Start 05/09/17 at 18:00 Vancomycin HCl 1 each 1X ONCE MC ; Start 05/11/17 at 05:30; Stop 05/11/17 at 05:31 Active Scripts Active Keppra (Levetiracetam) 500 Mg Tablet 500 Mg PO BID Reported Tylenol (Acetaminophen) 325 Mg Tablet 2 Tab PO PRN Q4HRS PRN Ranitidine Hcl 75 Mg Tablet 75 Mg PO DAILY Depakote (Divalproex Sodium) 500 Mg Tablet.dr 500 Mg PO DAILY Aspir 81 (Aspirin) 81 Mg Tablet.dr 1 Tab PO DAILY Vitamin D-3 (Cholecalciferol (Vitamin D3)) 2,000 Unit Capsule 1,000 Unit PO DAILY Thiamine Hcl 100 Mg Tablet 100 Mg PO DAILY Simvastatin 20 Mg Tablet 1 Tab PO QHS Senna (Sennosides) 8.6 Mg Capsule 8.6 Mg PO PRN DAILY PRN Folic Acid 1 Mg Tablet 1 Tab PO DAILY Fish Oil ([place]-3 Fatty Acids) 500 Mg Capsule 500 Mg PO Vitals/I & O Vital Sign - Last 24 Hours 05/08/17 05/08/17 05/08/17 05/08/17 09:00 10:00 11:00 12:00 Temp 100.8 100.8 Pulse 90 96 100 Resp 34 34 30 B/P (MAP) 123/74 (90) 126/80 (95) 126/80 (95) Pulse Ox 97 98 96 O2 Delivery Nasal Cannula Nasal Cannula Nasal Cannula Room Air O2 Flow Rate 4.0 4.0 4.0 05/08/17 05/08/17 05/08/17 05/08/17 12:00 13:00 14:00 15:00 Temp 100.4 100.3 100.4 100.3 Pulse 90 90 88 87 Resp 26 27 26 27 B/P (MAP) 119/75 (90) 125/81 (96) 124/75 (91) 126/80 (95) Pulse Ox 100 100 100 100 O2 Delivery Nasal Cannula Nasal Cannula Nasal Cannula Nasal Cannula O2 Flow Rate 4.0 4.0 4.0 4.0 05/08/17 05/08/17 05/08/17 05/08/17 19:00 20:00 20:00 21:00 Temp 99.5 99.5 Pulse 82 82 80 Resp 26 23 23 B/P (MAP) 122/75 (91) 131/74 (93) 121/74 (90) Pulse Ox 99 97 98 O2 Delivery Nasal Cannula Nasal Cannula Nasal Cannula Nasal Cannula O2 Flow Rate 4.0 4.0 4.0 4.0 05/08/17 05/08/17 05/09/17 05/09/17 22:00 23:00 00:00 00:01 Temp 98.4 98.4 Pulse 74 72 74 Resp 24 23 22 B/P (MAP) 127/74 (91) 110/62 (78) 112/65 (81) Pulse Ox 99 100 98 O2 Delivery Nasal Cannula Nasal Cannula Nasal Cannula Nasal Cannula O2 Flow Rate 4.0 4.0 4.0 4.0 05/09/17 05/09/17 05/09/17 05/09/17 01:00 02:00 03:00 04:00 Temp 98.0 98.0 Pulse 74 76 72 72 Resp 26 25 23 24 B/P (MAP) 119/69 (86) 109/70 (83) 122/72 (89) 126/76 (93) Pulse Ox 97 98 98 96 O2 Delivery Nasal Cannula Nasal Cannula Nasal Cannula Nasal Cannula O2 Flow Rate 4.0 4.0 4.0 4.0 05/09/17 05/09/17 05/09/17 04:00 05:00 06:00 Pulse 72 73 Resp 23 24 B/P (MAP) 109/66 (80) 114/69 (84) Pulse Ox 97 97 O2 Delivery Nasal Cannula Nasal Cannula Nasal Cannula O2 Flow Rate 4.0 4.0 4.0 Images MRI brain: FINDINGS: There is prominence of the ventricles and sulci. Large area of encephalomalacia in the left MCA distribution again is noted with volume loss and ex vacuo dilation of the left lateral ventricle. FLAIR hyperintensities in the supratentorial white matter unrelated to the infarct and in the soham are not specific but most suggestive of mild small vessel ischemic disease. There is no acute intracranial hemorrhage or extra-axial fluid collection. There is no mass effect or midline shift. There is no restricted diffusion to suggest an acute infarct. Sagittal midline structures are unremarkable. Pituitary and suprasellar region are unremarkable. Intracranial flow voids are preserved. There is minimal maxillary mucosal thickening. Oblique coronal imaging through the temporal lobes demonstrates no evidence of mesial temporal sclerosis or temporal lobe mass on the right. There is encephalomalacia in the left temporal lobe related to the old infarct. IMPRESSION: 1. 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 2. No acute infarct. 3. Brain parenchymal volume loss and mild probable small vessel ischemic disease. MARCELINO CRABTREE MD May 09, 2017 08:59
[2017-05-09] MEDS: VALPROIC ACID (AS SODIUM SALT) 250 MG in IV DEXTROSE 5% 50 ML IV SCH ×2 (09:45→20:34)
--- NOTE | 2017-05-09 09:56 | PDOC ---
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, nonverbal, not following commands SKIN: No rash IV: ok Labs Lab Laboratory Tests Test 05/08/17 10:21 05/08/17 12:50 05/09/17 03:30 05/09/17 05:00 Prothrombin Time 16.2 SEC (11.7-14.0) Prothromb Time International Ratio 1.4 (0.8-1.1) CSF Tube Number 4 CSF Volume 2.2 CSF Color Colorless CSF Clarity Clear CSF WBC 418 CSF RBC 2 CSF Mononuclear WBCs % 4 % CSF Polynuclear WBCs (%) 96 % CSF Glucose 58 mg/dL (37-70) CSF Total Protein 35.4 mg/dL (15.0-45.0) White Blood Count 8.2 x10^3/uL (4.0-11.0) Red Blood Count 4.48 x10^6/uL (4.30-5.70) Hemoglobin 14.9 g/dL (13.0-17.5) Hematocrit 43.8 % (39.0-53.0) Mean Corpuscular Volume 98 fL (79-100) Mean Corpuscular Hemoglobin 33 pg (25-35) Mean Corpuscular Hemoglobin Concent 34 g/dL (31-37) Red Cell Distribution Width 12.8 % (11.5-14.5) Platelet Count 73 x10^3/uL (140-400) Neutrophils (%) (Auto) 46 % (31-73) Lymphocytes (%) (Auto) 37 % (24-48) Monocytes (%) (Auto) 17 % (0-9) Eosinophils (%) (Auto) 0 % (0-3) Basophils (%) (Auto) 1 % (0-3) Neutrophils # (Auto) 3.8 x10^3uL (1.8-7.7) Lymphocytes # (Auto) 3.0 x10^3/uL (1.0-4.8) Monocytes # (Auto) 1.3 x10^3/uL (0.0-1.1) Eosinophils # (Auto) 0.0 x10^3/uL (0.0-0.7) Basophils # (Auto) 0.0 x10^3/uL (0.0-0.2) Sodium Level 131 mmol/L (136-145) 131 mmol/L (136-145) Potassium Level 4.0 mmol/L (3.5-5.1) 3.9 mmol/L (3.5-5.1) Chloride Level 99 mmol/L (98-107) 99 mmol/L (98-107) Carbon Dioxide Level 24 mmol/L (21-32) 24 mmol/L (21-32) Anion Gap 8 (6-14) 8 (6-14) Creatine Kinase 3884 U/L (39-308) Blood Urea Nitrogen 17 mg/dL (8-26) Creatinine 0.9 mg/dL (0.7-1.3) Estimated GFR (Cockcroft-Gault) 102.8 BUN/Creatinine Ratio 19 (6-20) Glucose Level 95 mg/dL (70-99) Calcium Level 8.2 mg/dL (8.5-10.1) Total Bilirubin 2.2 mg/dL (0.2-1.0) Aspartate Amino Transf (AST/SGOT) 238 U/L (15-37) Alanine Aminotransferase (ALT/SGPT) 112 U/L (16-63) Alkaline Phosphatase 56 U/L (46-116) Total Protein 6.0 g/dL (6.4-8.2) Albumin 2.1 g/dL (3.4-5.0) Albumin/Globulin Ratio 0.5 (1.0-1.7) Vancomycin Level Trough 10.3 mcg/mL (10.0-20.0) Vancomycin Last Dose Date 05/08/17 Vancomycin Last Dose Time 1800 Test 05/09/17 06:45 Influenza Type A Antigen Negative (NEGATIVE) Influenza Type B Antigen Negative (NEGATIVE) Brain MRI IMPRESSION: 1. 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 2. No acute infarct. 3. Brain parenchymal volume loss and mild probable small vessel ischemic disease. Micro BC NGTD Objective Assessment Fever - ? reactive from seizure vs infection vs fecal impaction (had BM) - Influenza neg; procalcitonin 0.65 - s/p LP: CSF WBC 418, glucose 58 T protein 35.4 Seizure Vomit ? aspiration Atypical lymphocytes/Leukopenia on arrival Transaminitis - ? reactive Hep C H/o prostate CA Plan Plan of Care vanc, Zosyn and acyclovir F/u labs and cults HSV pending I Attending Co-Sign The patient was seen and interviewed as well as examined at the bedside. The chart was reviewed. The case was discussed. Agree with the plan of care. RUBEN PETIT APRN May 09, 2017 09:56 SHIREEN MCKEON MD May 09, 2017 13:25
--- NOTE | 2017-05-09 10:25 | PDOC ---
Objective: Objective: D/w RN - seizure this morning before day shift. Vital Signs: Vital Signs Date Time Temp Pulse Resp B/P (MAP) Pulse Ox O2 Delivery O2 Flow Rate FiO2 05/09/17 10:00 74 24 115/72 (86) 93 Room Air 05/09/17 08:00 2.0 05/09/17 08:00 97.5 97.5 Labs: Laboratory Tests Test 05/08/17 12:50 05/09/17 03:30 05/09/17 05:00 05/09/17 06:45 CSF Tube Number 4 CSF Volume 2.2 CSF Color Colorless CSF Clarity Clear CSF WBC 418 CSF RBC 2 CSF Mononuclear WBCs % 4 % CSF Polynuclear WBCs (%) 96 % CSF Glucose 58 mg/dL CSF Total Protein 35.4 mg/dL White Blood Count 8.2 x10^3/uL Red Blood Count 4.48 x10^6/uL Hemoglobin 14.9 g/dL Hematocrit 43.8 % Mean Corpuscular Volume 98 fL Mean Corpuscular Hemoglobin 33 pg Mean Corpuscular Hemoglobin Concent 34 g/dL Red Cell Distribution Width 12.8 % Platelet Count 73 x10^3/uL Neutrophils (%) (Auto) 46 % Lymphocytes (%) (Auto) 37 % Monocytes (%) (Auto) 17 % Eosinophils (%) (Auto) 0 % Basophils (%) (Auto) 1 % Neutrophils # (Auto) 3.8 x10^3uL Lymphocytes # (Auto) 3.0 x10^3/uL Monocytes # (Auto) 1.3 x10^3/uL Eosinophils # (Auto) 0.0 x10^3/uL Basophils # (Auto) 0.0 x10^3/uL Sodium Level 131 mmol/L 131 mmol/L Potassium Level 4.0 mmol/L 3.9 mmol/L Chloride Level 99 mmol/L 99 mmol/L Carbon Dioxide Level 24 mmol/L 24 mmol/L Anion Gap 8 8 Creatine Kinase 3884 U/L Blood Urea Nitrogen 17 mg/dL Creatinine 0.9 mg/dL Estimated GFR (Cockcroft-Gault) 102.8 BUN/Creatinine Ratio 19 Glucose Level 95 mg/dL Calcium Level 8.2 mg/dL Total Bilirubin 2.2 mg/dL Aspartate Amino Transf (AST/SGOT) 238 U/L Alanine Aminotransferase (ALT/SGPT) 112 U/L Alkaline Phosphatase 56 U/L Total Protein 6.0 g/dL Albumin 2.1 g/dL Albumin/Globulin Ratio 0.5 Vancomycin Level Trough 10.3 mcg/mL Vancomycin Last Dose Date 05/08/17 Vancomycin Last Dose Time 1800 Influenza Type A Antigen Negative Influenza Type B Antigen Negative Imaging: RUQ US The liver appears unremarkable. No focal mass lesion is seen in the visualized liver. Imaging of the gallbladder demonstrates cholelithiasis. There is a small amount of suggested pericholecystic fluid. The common bile duct diameter of approximately 5 mm is within normal limits. The right kidney appears normal. The pancreas was poorly visualized and largely obscured. The visualized inferior vena cava appeared unremarkable. A small right pleural effusion was noted during the exam. IMPRESSION: Cholelithiasis. There is likely a small amount of associated pericholecystic fluid. Right pleural effusion. Pancreas largely obscured. Brain MRI IMPRESSION: 1. 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 2. No acute infarct. 3. Brain parenchymal volume loss and mild probable small vessel ischemic disease. 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 Lerner. DAMIÁN COOK May 09, 2017 10:25
--- NOTE | 2017-05-09 11:07 | PDOC ---
SUBJECTIVE ROS HypoNatremia Doing better - remains min verbal but appears more awake OBJECTIVE Vital Signs Vital Signs Date Time Temp Pulse Resp B/P (MAP) Pulse Ox O2 Delivery O2 Flow Rate FiO2 05/09/17 10:00 74 24 115/72 (86) 93 Room Air 05/09/17 08:00 2.0 05/09/17 08:00 97.5 97.5 I & 0 Intake and Output 05/10/17 07:00 Intake Total 150 ml Output Total 200 ml Balance -50 ml IV Total 150 ml Output Urine Total 200 ml PHYSICAL EXAM Physical Exam General Appearance: more Awake not fully Alert Oriented x 0 In no Distress; Eyes: Sclera anicteric Conjunctiva Normal EN: No EN Drainage Mucous Memb. dryish Neck: no JVD no JVP Supple no Thyromegaly CVS: S1 S2 ? Murmur No Gallop No Rub no Edema Resp: no Rales no Rhonchi no Acc. Muscle use GI: BS +ve NO Bruit Non Tender Non Distended : no CVA tenderness; no Suprapubic Tenderness Assessment & Plan HypoNAtremia - Better with IVF as ordered Lactic Acidosis - ? Post ictal - now resolved AMS - much improved now ^ed LFts - H/o Hep C - suspect rise due to ^ed CK nicolasa with recent sz ROBB - POA - now better ^ed CK - ? Rhabdo post - Sz - IVf for now as ordered Suspect intravascular Vol depletion - improved - IVF as ordered - COMMENT/RELEVANT DATA Meds Current Medications Medications (Trade) Dose Ordered Sig/Kenendy Start Time Stop Time Status Last Admin Dose Admin Acetaminophen (Tylenol) 325 mg PRN Q6HRS PRN 05/07/17 15:30 05/08/17 04:09 325 MG Acyclovir Sodium 800 mg/Dextrose 116 ml @ 116 mls/hr Q8HRS 05/08/17 15:00 05/09/17 05:50 116 MLS/HR Aspirin (Ecotrin) 81 mg DAILY 05/07/17 09:00 05/07/17 10:11 DC 05/07/17 08:54 81 MG Divalproex Sodium (Depakote) 500 mg DAILY 05/07/17 09:00 05/07/17 09:08 DC 05/07/17 08:54 500 MG Folic Acid (Folic Acid) 1 mg DAILY 05/07/17 09:00 05/07/17 08:53 1 MG Lacosamide 100 mg/ Dextrose 110 ml @ 220 mls/hr 1X ONCE 05/07/17 21:00 05/07/17 21:29 DC 05/07/17 21:28 220 MLS/HR Lactobacillus Rhamnosus (Culturelle) 1 cap BID 05/09/17 09:00 Levetiracetam (Keppra) 500 mg BID 05/07/17 09:00 05/07/17 09:08 DC 05/07/17 08:54 500 MG Levetiracetam 1000 mg/Dextrose 110 ml @ 440 mls/hr 1X STAT 05/07/17 09:05 05/07/17 09:19 DC 05/07/17 09:50 440 MLS/HR Levetiracetam 500 mg/Dextrose 105 ml @ 440 mls/hr 1X ONCE 05/07/17 00:30 05/07/17 00:44 DC 05/07/17 00:30 440 MLS/HR Lidocaine/Sodium Bicarbonate (Buffered Lidocaine 1%) 20 ml 1X ONCE 05/08/17 12:15 05/08/17 12:16 DC Lorazepam (Ativan) 1 mg 1X ONCE 05/07/17 21:30 05/07/17 21:31 DC Ondansetron HCl (Zofran) 4 mg PRN Q6HRS PRN 05/07/17 09:15 Pantoprazole Sodium (Protonix Vial) 40 mg DAILYAC 05/07/17 10:00 05/09/17 08:32 40 MG Pantoprazole Sodium (Protonix) 40 mg DAILYAC 05/07/17 10:00 Cancel Piperacillin Sod/ Tazobactam Sod 3.375 gm/Sodium Chloride 50 ml @ 100 mls/hr Q6HRS 05/07/17 18:00 05/09/17 06:08 100 MLS/HR Potassium Chloride 20 meq/ Dextrose/Sodium Chloride 1,010 ml @ 75 mls/hr [id number] 05/07/17 09:15 05/07/17 10:11 DC 05/07/17 09:50 75 MLS/HR Potassium Chloride 20 meq/ Sodium Chloride 1,010 ml @ 100 mls/hr Q10H6M 05/08/17 09:00 Cancel Potassium Chloride/Dextrose/ Sod Cl 1,000 ml @ 75 mls/hr [id number] 05/07/17 23:00 05/08/17 08:22 DC 05/08/17 04:39 75 MLS/HR Potassium Chloride/Sodium Chloride 1,000 ml @ 100 mls/hr Q10H 05/08/17 09:00 05/09/17 08:35 100 MLS/HR Simvastatin (Zocor) 20 mg QHS 05/07/17 21:00 Sodium Chloride 1,000 ml @ 1,000 mls/hr 1X ONCE 05/06/17 20:30 05/06/17 21:29 DC 05/06/17 20:27 1,000 MLS/HR Valproic Acid 250 mg/Dextrose 52.5 ml @ 55 mls/hr Q12HR 05/07/17 21:00 05/09/17 09:45 55 MLS/HR Vancomycin HCl 1 each 1X ONCE 05/11/17 05:30 05/11/17 05:31 Vancomycin HCl (Vanco Per Pharmacy) 1 each PRN DAILY PRN 05/07/17 17:45 05/09/17 06:32 1 EACH Vancomycin HCl 1.25 gm/Dextrose 250 ml @ 167 mls/hr Q12H 05/09/17 18:00 Vancomycin HCl 1.75 gm/Sodium Chloride 500 ml @ 250 mls/hr 1X ONCE 05/07/17 18:30 05/07/17 20:29 DC 05/07/17 18:13 250 MLS/HR Vancomycin HCl 1 gm/Sodium Chloride 250 ml @ 250 mls/hr Q12H 05/08/17 06:00 05/09/17 06:23 DC 05/09/17 05:58 250 MLS/HR Lab Laboratory Tests Test 05/08/17 12:50 05/09/17 03:30 05/09/17 05:00 05/09/17 06:45 CSF Tube Number 4 CSF Volume 2.2 CSF Color Colorless CSF Clarity Clear CSF WBC 418 CSF RBC 2 CSF Mononuclear WBCs % 4 % CSF Polynuclear WBCs (%) 96 % CSF Glucose 58 mg/dL (37-70) CSF Total Protein 35.4 mg/dL (15.0-45.0) White Blood Count 8.2 x10^3/uL (4.0-11.0) Red Blood Count 4.48 x10^6/uL (4.30-5.70) Hemoglobin 14.9 g/dL (13.0-17.5) Hematocrit 43.8 % (39.0-53.0) Mean Corpuscular Volume 98 fL (79-100) Mean Corpuscular Hemoglobin 33 pg (25-35) Mean Corpuscular Hemoglobin Concent 34 g/dL (31-37) Red Cell Distribution Width 12.8 % (11.5-14.5) Platelet Count 73 x10^3/uL (140-400) Neutrophils (%) (Auto) 46 % (31-73) Lymphocytes (%) (Auto) 37 % (24-48) Monocytes (%) (Auto) 17 % (0-9) Eosinophils (%) (Auto) 0 % (0-3) Basophils (%) (Auto) 1 % (0-3) Neutrophils # (Auto) 3.8 x10^3uL (1.8-7.7) Lymphocytes # (Auto) 3.0 x10^3/uL (1.0-4.8) Monocytes # (Auto) 1.3 x10^3/uL (0.0-1.1) Eosinophils # (Auto) 0.0 x10^3/uL (0.0-0.7) Basophils # (Auto) 0.0 x10^3/uL (0.0-0.2) Sodium Level 131 mmol/L (136-145) 131 mmol/L (136-145) Potassium Level 4.0 mmol/L (3.5-5.1) 3.9 mmol/L (3.5-5.1) Chloride Level 99 mmol/L (98-107) 99 mmol/L (98-107) Carbon Dioxide Level 24 mmol/L (21-32) 24 mmol/L (21-32) Anion Gap 8 (6-14) 8 (6-14) Creatine Kinase 3884 U/L (39-308) Blood Urea Nitrogen 17 mg/dL (8-26) Creatinine 0.9 mg/dL (0.7-1.3) Estimated GFR (Cockcroft-Gault) 102.8 BUN/Creatinine Ratio 19 (6-20) Glucose Level 95 mg/dL (70-99) Calcium Level 8.2 mg/dL (8.5-10.1) Total Bilirubin 2.2 mg/dL (0.2-1.0) Aspartate Amino Transf (AST/SGOT) 238 U/L (15-37) Alanine Aminotransferase (ALT/SGPT) 112 U/L (16-63) Alkaline Phosphatase 56 U/L (46-116) Total Protein 6.0 g/dL (6.4-8.2) Albumin 2.1 g/dL (3.4-5.0) Albumin/Globulin Ratio 0.5 (1.0-1.7) Vancomycin Level Trough 10.3 mcg/mL (10.0-20.0) Vancomycin Last Dose Date 05/08/17 Vancomycin Last Dose Time 1800 Influenza Type A Antigen Negative (NEGATIVE) Influenza Type B Antigen Negative (NEGATIVE) LAUREEN MCKEON MD May 09, 2017 11:07
--- NOTE | 2017-05-09 11:26 | PDOC2 ---
PALLIATIVE CARE Palliative Care Note Palliative Care Patient less agitated today. Follows with eyes. Minimal response verbally ( old CVA) Afebrile. VSS. No family at bedside. Spoke with Dr. Peters regarding condition. Plan: Continue current aggressive treatment plan. CORRY JAMES May 09, 2017 11:26
--- NOTE | 2017-05-09 15:42 | PDOC ---
PROGRESS NOTES Subjective Subjective seeing for dr Choe Objective Objective Vital Signs Date Time Temp Pulse Resp B/P (MAP) Pulse Ox O2 Delivery O2 Flow Rate FiO2 05/09/17 13:00 66 24 112/74 (87) 95 Room Air 05/09/17 12:00 98.3 98.3 05/09/17 08:00 2.0 Intake and Output 05/10/17 06:59 Intake Total 400 ml Output Total 500 ml Balance -100 ml IV Total 400 ml Output Urine Total 500 ml Physical Exam Abdomen: Normal bowel sounds, Soft Heart: Regular rate, Normal S1 General: No acute distress Lungs: Normal air movement Neck: No thyromegaly Skin: No breakdown Diagnosis Problem List Problems Medical Problems: (1) Seizure Status: Acute Assessment Assessment 1. Seizure disorder, not controlled. Dr. Peters seeing the pt, patient is on IV Keppra and Depakote. 2. vomiting subsided 3. 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 4. Lactic acidosis due to seizures. 5. Leukopenia, probably due to previous hepatitis C and possibly seizure medication Depakote. 6. Acute metabolic encephalopathy. 7. Gastroesophageal reflux disease. 8. Hepatitis C, chronic. 9. Hyperlipidemia. 10. History of thrombocytopenia and elevated PSA. PLAN: LP done , results reviewed. appreciate neuro consult Fever- ? sepsis,/due to seizures- consulted ID.Bl.c/s.IV Zosyn,Vancomycin. Hyponatremia- Na 128. change IV fluids to N saline,Renal consult. speech consult , ProcalAmine fo rnow Prognosis is poor. Problems: Plan Plan of Care Problems Medical Problems: (1) Seizure Status: Acute Comment Review of Relevant I have reviewed the following items rakesh (where applicable) has been applied. Labs Laboratory Tests Test 05/09/17 03:30 05/09/17 05:00 05/09/17 06:45 White Blood Count 8.2 x10^3/uL (4.0-11.0) Red Blood Count 4.48 x10^6/uL (4.30-5.70) Hemoglobin 14.9 g/dL (13.0-17.5) Hematocrit 43.8 % (39.0-53.0) Mean Corpuscular Volume 98 fL (79-100) Mean Corpuscular Hemoglobin 33 pg (25-35) Mean Corpuscular Hemoglobin Concent 34 g/dL (31-37) Red Cell Distribution Width 12.8 % (11.5-14.5) Platelet Count 73 x10^3/uL (140-400) Neutrophils (%) (Auto) 46 % (31-73) Lymphocytes (%) (Auto) 37 % (24-48) Monocytes (%) (Auto) 17 % (0-9) Eosinophils (%) (Auto) 0 % (0-3) Basophils (%) (Auto) 1 % (0-3) Neutrophils # (Auto) 3.8 x10^3uL (1.8-7.7) Lymphocytes # (Auto) 3.0 x10^3/uL (1.0-4.8) Monocytes # (Auto) 1.3 x10^3/uL (0.0-1.1) Eosinophils # (Auto) 0.0 x10^3/uL (0.0-0.7) Basophils # (Auto) 0.0 x10^3/uL (0.0-0.2) Sodium Level 131 mmol/L (136-145) 131 mmol/L (136-145) Potassium Level 4.0 mmol/L (3.5-5.1) 3.9 mmol/L (3.5-5.1) Chloride Level 99 mmol/L (98-107) 99 mmol/L (98-107) Carbon Dioxide Level 24 mmol/L (21-32) 24 mmol/L (21-32) Anion Gap 8 (6-14) 8 (6-14) Creatine Kinase 3884 U/L (39-308) Blood Urea Nitrogen 17 mg/dL (8-26) Creatinine 0.9 mg/dL (0.7-1.3) Estimated GFR (Cockcroft-Gault) 102.8 BUN/Creatinine Ratio 19 (6-20) Glucose Level 95 mg/dL (70-99) Calcium Level 8.2 mg/dL (8.5-10.1) Total Bilirubin 2.2 mg/dL (0.2-1.0) Aspartate Amino Transf (AST/SGOT) 238 U/L (15-37) Alanine Aminotransferase (ALT/SGPT) 112 U/L (16-63) Alkaline Phosphatase 56 U/L (46-116) Total Protein 6.0 g/dL (6.4-8.2) Albumin 2.1 g/dL (3.4-5.0) Albumin/Globulin Ratio 0.5 (1.0-1.7) Vancomycin Level Trough 10.3 mcg/mL (10.0-20.0) Vancomycin Last Dose Date 05/08/17 Vancomycin Last Dose Time 1800 Influenza Type A Antigen Negative (NEGATIVE) Influenza Type B Antigen Negative (NEGATIVE) Microbiology 05/07/17 Blood Culture - Preliminary, Resulted NO GROWTH AFTER 1 DAY Medications Current Medications Lactobacillus Rhamnosus (Culturelle) 1 cap BID PO ; Start 05/09/17 at 09:00 Vancomycin HCl 1 each 1X ONCE MC Last administered on 05/09/17t 05:30; Start 05/09/17 at 05:30; Stop 05/09/17 at 05:31; Status DC Vancomycin HCl 1 each 1X ONCE MC ; Start 05/11/17 at 17:30; Stop 05/11/17 at 17:31 Vancomycin HCl 1.25 gm/Dextrose 250 ml @ 167 mls/hr Q12H IV ; Start 05/09/17 at 18:00; Status Cancel Vancomycin HCl 1.5 gm/Dextrose 500 ml @ 250 mls/hr Q12H IV ; Start 05/09/17 at 18:00 Vitals/I & O Vital Sign - Last 24 Hours 05/08/17 05/08/17 05/08/17 05/08/17 19:00 20:00 20:00 21:00 Temp 99.5 99.5 Pulse 82 82 80 Resp 26 23 23 B/P (MAP) 122/75 (91) 131/74 (93) 121/74 (90) Pulse Ox 99 97 98 O2 Delivery Nasal Cannula Nasal Cannula Nasal Cannula Nasal Cannula O2 Flow Rate 4.0 4.0 4.0 4.0 05/08/17 05/08/17 05/09/17 05/09/17 22:00 23:00 00:00 00:01 Temp 98.4 98.4 Pulse 74 72 74 Resp 24 23 22 B/P (MAP) 127/74 (91) 110/62 (78) 112/65 (81) Pulse Ox 99 100 98 O2 Delivery Nasal Cannula Nasal Cannula Nasal Cannula Nasal Cannula O2 Flow Rate 4.0 4.0 4.0 4.0 05/09/17 05/09/17 05/09/17 05/09/17 01:00 02:00 03:00 04:00 Temp 98.0 98.0 Pulse 74 76 72 72 Resp 26 25 23 24 B/P (MAP) 119/69 (86) 109/70 (83) 122/72 (89) 126/76 (93) Pulse Ox 97 98 98 96 O2 Delivery Nasal Cannula Nasal Cannula Nasal Cannula Nasal Cannula O2 Flow Rate 4.0 4.0 4.0 4.0 05/09/17 05/09/17 05/09/17 05/09/17 04:00 05:00 06:00 07:00 Pulse 72 73 73 Resp 23 24 25 B/P (MAP) 109/66 (80) 114/69 (84) 119/71 (87) Pulse Ox 97 97 95 O2 Delivery Nasal Cannula Nasal Cannula Nasal Cannula Nasal Cannula O2 Flow Rate 4.0 4.0 4.0 4.0 05/09/17 05/09/17 05/09/17 05/09/17 08:00 08:00 09:00 10:00 Temp 97.5 97.5 Pulse 73 73 74 Resp 23 21 24 B/P (MAP) 122/81 (95) 123/76 (92) 115/72 (86) Pulse Ox 93 95 93 O2 Delivery Nasal Cannula Nasal Cannula Room Air Room Air O2 Flow Rate 2.0 2.0 05/09/17 05/09/17 05/09/17 05/09/17 11:00 12:00 12:00 13:00 Temp 98.3 98.3 Pulse 76 72 66 Resp 21 26 24 B/P (MAP) 118/73 (88) 104/69 (81) 112/74 (87) Pulse Ox 95 97 95 O2 Delivery Room Air Room Air Room Air Room Air Intake and Output 05/09/17 05/09/17 05/10/17 14:59 22:59 06:59 Intake Total 400 ml Output Total 500 ml Balance -100 ml OLGA AVILEZ MD May 09, 2017 15:41
[2017-05-09] MEDS: VANCOMYCIN 1.5 GM in IV DEXTROSE 5% 500 ML IV SCH (17:26)
[2017-05-09] MEDS: AMINO AC 3%/ELECTROLYTE/GLYCER 1,000 ML IV SCH (17:46)
[2017-05-09] MEDS ORDERED: VANCOMYCIN 1.25 GM in IV DEXTROSE 5% 250 ML IV SCH (18:00)
[2017-05-09] MEDS: SIMVASTATIN 20 MG TABLET PO SCH (21:00)
[2017-05-10] VITALS (24 sets, daily range): BP systolic 120–159; BP diastolic 56–88
[2017-05-10] MEDS: PIPERACILLIN/TAZOBACTAM 3.375 GM in IV NORMAL SALINE 50ML 50 ML IV SCH (01:15)
[2017-05-10] MEDS ORDERED: PIPERACILLIN/TAZOBACTAM 3.375 GM in IV DEXTROSE 5% 50 ML IV SCH (04:15)
[2017-05-10] MEDS: ACYCLOVIR SODIUM IV SCH ×3 (05:18→22:37)
[2017-05-10] MEDS: DEXTROSE 5% IV SCH ×3 (05:18→22:37)
[2017-05-10 05:41] LABS: BASO % 0 % (0-3); EOS % 0 % (0-3); HEMATOCRIT 42.4 % (39.0-53.0); HEMOGLOBIN 14.2 g/dL (13.0-17.5); LYMPH # 1.3 x10^3/uL (1.0-4.8); LYMPH % 32 % (24-48); MEAN CORPUSCULAR HEMOGLOBIN 33 pg (25-35); MEAN CORPUSCULAR HGB CONC 33 g/dL (31-37); MEAN CORPUSCULAR VOLUME 98 fL (79-100); MONO % 21 % (0-9); NEUT % 47 % (31-73); PLATELET COUNT 62 x10^3/uL (140-400); RED BLOOD COUNT 4.31 x10^6/uL (4.30-5.70); RED CELL DISTRIBUTION WIDTH 12.6 % (11.5-14.5)
[2017-05-10] MEDS: PIPERACILLIN/TAZOBACTAM 3.375 GM in IV DEXTROSE 5% 50 ML IV SCH ×3 (05:44→17:52)
[2017-05-10] MEDS: AMINO AC 3%/ELECTROLYTE/GLYCER 1,000 ML IV SCH ×3 (05:45→22:38)
[2017-05-10 05:54] LABS: CALCIUM 7.7 mg/dL (8.5-10.1); CREATININE 0.8 mg/dL (0.7-1.3); GFR 117.8; POTASSIUM 3.9 mmol/L (3.5-5.1)
[2017-05-10] MEDS: VANCOMYCIN 1.5 GM in IV DEXTROSE 5% 500 ML IV SCH ×2 (06:19→18:12)
[2017-05-10] MEDS: PANTOPRAZOLE IV PUSH 40 MG VIAL. IVP SCH (07:57)
[2017-05-10] MEDS: levETIRAcetam 1,000 MG in IV DEXTROSE 5% 100 ML IV SCH ×2 (08:01→20:50)
[2017-05-10] MEDS: VALPROIC ACID (AS SODIUM SALT) 250 MG in IV DEXTROSE 5% 50 ML IV SCH ×2 (08:01→21:39)
[2017-05-10] MEDS: FOLIC ACID 1 MG TABLET. PO SCH (08:02)
[2017-05-10] MEDS: LACOSAMIDE 100 MG in IV DEXTROSE 5% 50 ML IV SCH ×2 (08:02→21:05)
[2017-05-10] MEDS: LACTOBACILLUS RHAMNOSUS GG 1 CAPSULE. PO SCH ×2 (08:02→20:45)
[2017-05-10] MEDS: VANCOMYCIN PER PHARMACY MC PRN (08:52)
--- NOTE | 2017-05-10 10:29 | PDOC ---
Infectious Disease Note Subjective Subjective No fever last 24 hours No further vomiting Seizure activity earlier this morning per RN ROS ROS Unobtainable Vital Sign Vital Signs Vital Signs Date Time Temp Pulse Resp B/P (MAP) Pulse Ox O2 Delivery O2 Flow Rate FiO2 05/10/17 10:00 81 12 144/80 (101) 99 Room Air 05/10/17 07:00 97.3 97.3 05/09/17 08:00 2.0 Physical Exam PHYSICAL EXAM GENERAL: Alert, appears comfortable HEENT: Oral cavity pink, dry LUNGS: Clear HEART: S1 and S2 ABD: Distended, soft, no grimace or guarding to palpation : Travis EXT: No edema, no cyanosis SENIOR OCCUPATIONAL THERAPIST: Alert, grunts to answers, opens mouth to command SKIN: No rash IVs: ok Labs Lab Laboratory Tests Test 05/10/17 05:00 White Blood Count 4.0 x10^3/uL (4.0-11.0) Red Blood Count 4.31 x10^6/uL (4.30-5.70) Hemoglobin 14.2 g/dL (13.0-17.5) Hematocrit 42.4 % (39.0-53.0) Mean Corpuscular Volume 98 fL (79-100) Mean Corpuscular Hemoglobin 33 pg (25-35) Mean Corpuscular Hemoglobin Concent 33 g/dL (31-37) Red Cell Distribution Width 12.6 % (11.5-14.5) Platelet Count 62 x10^3/uL (140-400) Neutrophils (%) (Auto) 47 % (31-73) Lymphocytes (%) (Auto) 32 % (24-48) Monocytes (%) (Auto) 21 % (0-9) Eosinophils (%) (Auto) 0 % (0-3) Basophils (%) (Auto) 0 % (0-3) Neutrophils # (Auto) 1.9 x10^3uL (1.8-7.7) Lymphocytes # (Auto) 1.3 x10^3/uL (1.0-4.8) Monocytes # (Auto) 0.8 x10^3/uL (0.0-1.1) Eosinophils # (Auto) 0.0 x10^3/uL (0.0-0.7) Basophils # (Auto) 0.0 x10^3/uL (0.0-0.2) Sodium Level 130 mmol/L (136-145) Potassium Level 3.9 mmol/L (3.5-5.1) Chloride Level 100 mmol/L (98-107) Carbon Dioxide Level 22 mmol/L (21-32) Anion Gap 8 (6-14) Blood Urea Nitrogen 15 mg/dL (8-26) Creatinine 0.8 mg/dL (0.7-1.3) Estimated GFR (Cockcroft-Gault) 117.8 Glucose Level 94 mg/dL (70-99) Calcium Level 7.7 mg/dL (8.5-10.1) Micro BC NGTD Objective Assessment Fever - ? reactive from seizure vs infection vs fecal impaction (had BM). better - Influenza neg; procalcitonin 0.65 - s/p LP: CSF WBC 418, glucose 58 T protein 35.4 Seizures Vomit ? aspiration Atypical lymphocytes/Leukopenia on arrival Transaminitis - ? reactive Hep C H/o prostate CA Plan Plan of Care vanc, Zosyn and acyclovir F/u labs and cults HSV pending Patient seen and examined. Chart reviewed in detail. Case discussed with INSPECTOR AND TESTER. Agree with above plan. RUBEN PETIT APRN May 10, 2017 10:29 LAZARO ROBERTS MD May 10, 2017 17:31
--- NOTE | 2017-05-10 11:51 | PDOC ---
Renal-Progress Notes Subjective Notes Notes TIRED History of Present Illness Hx of present illness STABLE Vitals Vitals Vital Signs Date Time Temp Pulse Resp B/P (MAP) Pulse Ox O2 Delivery O2 Flow Rate FiO2 05/10/17 11:00 76 22 146/80 (102) 99 Room Air 05/10/17 07:00 97.3 97.3 05/09/17 08:00 2.0 Weight Weight [ ] I.O. Intake and Output Intake and Output 05/11/17 07:00 Intake Total 5 ml Output Total 595 ml Balance -590 ml Intake Oral 5 ml Output Urine Total 595 ml Labs Labs Laboratory Tests Test 05/10/17 05:00 White Blood Count 4.0 x10^3/uL (4.0-11.0) Red Blood Count 4.31 x10^6/uL (4.30-5.70) Hemoglobin 14.2 g/dL (13.0-17.5) Hematocrit 42.4 % (39.0-53.0) Mean Corpuscular Volume 98 fL (79-100) Mean Corpuscular Hemoglobin 33 pg (25-35) Mean Corpuscular Hemoglobin Concent 33 g/dL (31-37) Red Cell Distribution Width 12.6 % (11.5-14.5) Platelet Count 62 x10^3/uL (140-400) Neutrophils (%) (Auto) 47 % (31-73) Lymphocytes (%) (Auto) 32 % (24-48) Monocytes (%) (Auto) 21 % (0-9) Eosinophils (%) (Auto) 0 % (0-3) Basophils (%) (Auto) 0 % (0-3) Neutrophils # (Auto) 1.9 x10^3uL (1.8-7.7) Lymphocytes # (Auto) 1.3 x10^3/uL (1.0-4.8) Monocytes # (Auto) 0.8 x10^3/uL (0.0-1.1) Eosinophils # (Auto) 0.0 x10^3/uL (0.0-0.7) Basophils # (Auto) 0.0 x10^3/uL (0.0-0.2) Sodium Level 130 mmol/L (136-145) Potassium Level 3.9 mmol/L (3.5-5.1) Chloride Level 100 mmol/L (98-107) Carbon Dioxide Level 22 mmol/L (21-32) Anion Gap 8 (6-14) Blood Urea Nitrogen 15 mg/dL (8-26) Creatinine 0.8 mg/dL (0.7-1.3) Estimated GFR (Cockcroft-Gault) 117.8 Glucose Level 94 mg/dL (70-99) Calcium Level 7.7 mg/dL (8.5-10.1) Micro Micro Microbiology 05/07/17 Blood Culture - Preliminary, Resulted NO GROWTH AFTER 2 DAYS Review of Systems Constitutional: yes: malaise, weakness, alert Ears/Nose/Throat: Yes: no symptom reported Eyes: Yes: no symptom reported Pulmonary: Yes no symptom reported Gastrointestional: Yes: constipation Genitourinary: Yes: no symptom reported Musculoskeletal: Yes: muscle stiffness, muscle atrophy Skin: Yes no symptom reported Psychiatric/Neurological: Yes: no symptom reported Endocrine: Yes: no symptom reported Physical Exam General Appearance: no apparent distress Skin: warm Respiratory: bilateral CTA Heart: S1S2, RRR Abdomen: soft, bowel sounds present Genitourinary: bladder flat Extremities: pulses present, no edema, atrophy Neurology: alert, oriented Assessment Assessment IMP ROBB-RESOLVED WITH CR 1.7 TO 0.8 HYPONATREMIA-STABLE AT 130 DECONDITIONING DYSPHAGIA-FAILED SWALLOW INCREASED LFT'S PLAN GI EVAL AND TX CONT WITH ISOTONIC SALINE CONT PPN TILL ABLE TO EAT UPDATED FAMILY LELE TRIPP MD May 10, 2017 11:51
--- NOTE | 2017-05-10 12:06 | PDOC ---
PROGRESS NOTES Assessment Problems Medical Problems: (1) Seizure Status: Acute Epilepsy, bilateral PLEDs, predominating on left, on EEG. Two brief seizures early this morning and yesterday afternoon MRI negative for acute abnormality Lumbar puncture consistent with meningoencephalitis, not a typical picture for HSV, however. HSV titer pending History LMCA CVA with severe debility Plan Current anticonvulsants via IV ICU monitoring Current antibiotics Repeat EEG on 05/12 Subjective None Objective Vital Signs Date Time Temp Pulse Resp B/P (MAP) Pulse Ox O2 Delivery O2 Flow Rate FiO2 05/10/17 11:00 76 22 146/80 (102) 99 Room Air 05/10/17 07:00 97.3 97.3 05/09/17 08:00 2.0 Intake and Output 05/11/17 07:00 Intake Total 5 ml Output Total 595 ml Balance -590 ml Intake Oral 5 ml Output Urine Total 595 ml PHYSICAL EXAM Alert, eyes open, follows examiner with eyes, less left gaze preference. Mumbles some replies to me. PERRL. EOMI. CN: right central VII, right visual neglect Muscle tone: increased on right Muscle strength: moves left-sided extremities, spastic right hemiparesis DTR: 2+ Plantar reflex: extensor on right, silent on left Gait: not examined in bed. Sensory exam: . Cerebellar: not cooperative with exam Review of Relevant I have reviewed the following items rakesh (where applicable) has been applied. Labs Laboratory Tests Test 05/08/17 12:50 05/09/17 03:30 05/09/17 05:00 05/09/17 06:45 CSF Tube Number 4 CSF Volume 2.2 CSF Color Colorless CSF Clarity Clear CSF WBC 418 CSF RBC 2 CSF Mononuclear WBCs % 4 % CSF Polynuclear WBCs (%) 96 % CSF Glucose 58 mg/dL (37-70) CSF Total Protein 35.4 mg/dL (15.0-45.0) White Blood Count 8.2 x10^3/uL (4.0-11.0) Red Blood Count 4.48 x10^6/uL (4.30-5.70) Hemoglobin 14.9 g/dL (13.0-17.5) Hematocrit 43.8 % (39.0-53.0) Mean Corpuscular Volume 98 fL (79-100) Mean Corpuscular Hemoglobin 33 pg (25-35) Mean Corpuscular Hemoglobin Concent 34 g/dL (31-37) Red Cell Distribution Width 12.8 % (11.5-14.5) Platelet Count 73 x10^3/uL (140-400) Neutrophils (%) (Auto) 46 % (31-73) Lymphocytes (%) (Auto) 37 % (24-48) Monocytes (%) (Auto) 17 % (0-9) Eosinophils (%) (Auto) 0 % (0-3) Basophils (%) (Auto) 1 % (0-3) Neutrophils # (Auto) 3.8 x10^3uL (1.8-7.7) Lymphocytes # (Auto) 3.0 x10^3/uL (1.0-4.8) Monocytes # (Auto) 1.3 x10^3/uL (0.0-1.1) Eosinophils # (Auto) 0.0 x10^3/uL (0.0-0.7) Basophils # (Auto) 0.0 x10^3/uL (0.0-0.2) Sodium Level 131 mmol/L (136-145) 131 mmol/L (136-145) Potassium Level 4.0 mmol/L (3.5-5.1) 3.9 mmol/L (3.5-5.1) Chloride Level 99 mmol/L (98-107) 99 mmol/L (98-107) Carbon Dioxide Level 24 mmol/L (21-32) 24 mmol/L (21-32) Anion Gap 8 (6-14) 8 (6-14) Creatine Kinase 3884 U/L (39-308) Blood Urea Nitrogen 17 mg/dL (8-26) Creatinine 0.9 mg/dL (0.7-1.3) Estimated GFR (Cockcroft-Gault) 102.8 BUN/Creatinine Ratio 19 (6-20) Glucose Level 95 mg/dL (70-99) Calcium Level 8.2 mg/dL (8.5-10.1) Total Bilirubin 2.2 mg/dL (0.2-1.0) Aspartate Amino Transf (AST/SGOT) 238 U/L (15-37) Alanine Aminotransferase (ALT/SGPT) 112 U/L (16-63) Alkaline Phosphatase 56 U/L (46-116) Total Protein 6.0 g/dL (6.4-8.2) Albumin 2.1 g/dL (3.4-5.0) Albumin/Globulin Ratio 0.5 (1.0-1.7) Vancomycin Level Trough 10.3 mcg/mL (10.0-20.0) Vancomycin Last Dose Date 05/08/17 Vancomycin Last Dose Time 1800 Influenza Type A Antigen Negative (NEGATIVE) Influenza Type B Antigen Negative (NEGATIVE) Test 05/10/17 05:00 White Blood Count 4.0 x10^3/uL (4.0-11.0) Red Blood Count 4.31 x10^6/uL (4.30-5.70) Hemoglobin 14.2 g/dL (13.0-17.5) Hematocrit 42.4 % (39.0-53.0) Mean Corpuscular Volume 98 fL (79-100) Mean Corpuscular Hemoglobin 33 pg (25-35) Mean Corpuscular Hemoglobin Concent 33 g/dL (31-37) Red Cell Distribution Width 12.6 % (11.5-14.5) Platelet Count 62 x10^3/uL (140-400) Neutrophils (%) (Auto) 47 % (31-73) Lymphocytes (%) (Auto) 32 % (24-48) Monocytes (%) (Auto) 21 % (0-9) Eosinophils (%) (Auto) 0 % (0-3) Basophils (%) (Auto) 0 % (0-3) Neutrophils # (Auto) 1.9 x10^3uL (1.8-7.7) Lymphocytes # (Auto) 1.3 x10^3/uL (1.0-4.8) Monocytes # (Auto) 0.8 x10^3/uL (0.0-1.1) Eosinophils # (Auto) 0.0 x10^3/uL (0.0-0.7) Basophils # (Auto) 0.0 x10^3/uL (0.0-0.2) Sodium Level 130 mmol/L (136-145) Potassium Level 3.9 mmol/L (3.5-5.1) Chloride Level 100 mmol/L (98-107) Carbon Dioxide Level 22 mmol/L (21-32) Anion Gap 8 (6-14) Blood Urea Nitrogen 15 mg/dL (8-26) Creatinine 0.8 mg/dL (0.7-1.3) Estimated GFR (Cockcroft-Gault) 117.8 Glucose Level 94 mg/dL (70-99) Calcium Level 7.7 mg/dL (8.5-10.1) Creatine Kinase 1230 U/L (39-308) Laboratory Tests Test 05/10/17 05:00 White Blood Count 4.0 x10^3/uL (4.0-11.0) Red Blood Count 4.31 x10^6/uL (4.30-5.70) Hemoglobin 14.2 g/dL (13.0-17.5) Hematocrit 42.4 % (39.0-53.0) Mean Corpuscular Volume 98 fL (79-100) Mean Corpuscular Hemoglobin 33 pg (25-35) Mean Corpuscular Hemoglobin Concent 33 g/dL (31-37) Red Cell Distribution Width 12.6 % (11.5-14.5) Platelet Count 62 x10^3/uL (140-400) Neutrophils (%) (Auto) 47 % (31-73) Lymphocytes (%) (Auto) 32 % (24-48) Monocytes (%) (Auto) 21 % (0-9) Eosinophils (%) (Auto) 0 % (0-3) Basophils (%) (Auto) 0 % (0-3) Neutrophils # (Auto) 1.9 x10^3uL (1.8-7.7) Lymphocytes # (Auto) 1.3 x10^3/uL (1.0-4.8) Monocytes # (Auto) 0.8 x10^3/uL (0.0-1.1) Eosinophils # (Auto) 0.0 x10^3/uL (0.0-0.7) Basophils # (Auto) 0.0 x10^3/uL (0.0-0.2) Sodium Level 130 mmol/L (136-145) Potassium Level 3.9 mmol/L (3.5-5.1) Chloride Level 100 mmol/L (98-107) Carbon Dioxide Level 22 mmol/L (21-32) Anion Gap 8 (6-14) Blood Urea Nitrogen 15 mg/dL (8-26) Creatinine 0.8 mg/dL (0.7-1.3) Estimated GFR (Cockcroft-Gault) 117.8 Glucose Level 94 mg/dL (70-99) Calcium Level 7.7 mg/dL (8.5-10.1) Creatine Kinase 1230 U/L (39-308) Microbiology 05/07/17 Blood Culture - Preliminary, Resulted NO GROWTH AFTER 2 DAYS Medications Current Medications Sodium Chloride 1,000 ml @ 1,000 mls/hr 1X ONCE IV Last administered on 05/06 17:59; Start 05/06/17 at 18:45; Stop 05/06/17 at 19:44; Status DC Sodium Chloride 1,000 ml @ 1,000 mls/hr 1X ONCE IV Last administered on 05/06 20:27; Start 05/06/17 at 20:30; Stop 05/06/17 at 21:29; Status DC Ondansetron HCl (Zofran) 4 mg PRN Q8HRS PRN IV NAUSEA/VOMITING; Start at 21:00; Stop 05/07/17 at 20:07; Status DC Levetiracetam 500 mg/Dextrose 105 ml @ 440 mls/hr 1X ONCE IV Last administered on 05/07/17 00:30; Start 05/07/17 at 00:30; Stop 05/07/17 at 00 :44; Status DC Acetaminophen (Tylenol) 650 mg PRN Q4HRS PRN PO MILD PAIN / TEMP; Start at 01:00; Stop 05/07/17 at 12:01; Status DC Aspirin (Ecotrin) 81 mg DAILY PO Last administered on 05/07/17 08:54; Start 05/07/17 at 09:00; Stop 05/07/17 at 10:11; Status DC Divalproex Sodium (Depakote) 500 mg DAILY PO Last administered on 05/07/17 08 :54; Start 05/07/17 at 09:00; Stop 05/07/17 at 09:08; Status DC Folic Acid (Folic Acid) 1 mg DAILY PO Last administered on 05/07/17 08:53; Start 05/07/17 at 09:00 Levetiracetam (Keppra) 500 mg BID PO Last administered on 05/07/17 08:54; Start 05/07/17 at 09:00; Stop 05/07/17 at 09:08; Status DC Simvastatin (Zocor) 20 mg QHS PO ; Start 05/07/17 at 21:00 Levetiracetam 1000 mg/Dextrose 110 ml @ 440 mls/hr Q12HR IV Last administered on 05/10/17 08:01; Start 05/07/17 at 21:00 Levetiracetam 1000 mg/Dextrose 110 ml @ 440 mls/hr 1X STAT IV Last administered on 05/07/17 09:50; Start 05/07/17 at 09:05; Stop 05/07/17 at 09 :19; Status DC Valproic Acid 250 mg/Dextrose 52.5 ml @ 55 mls/hr Q12HR IV Last administered on 05/10/17 08:01; Start 05/07/17 at 21:00 Pantoprazole Sodium (Protonix Vial) 40 mg DAILYAC IVP ; Start 05/07/17 at 09:15 ; Status UNV Acetaminophen (Tylenol) 650 mg PRN Q6HRS PRN PO MILD PAIN / TEMP; Start at 09:15 Ondansetron HCl (Zofran) 4 mg PRN Q6HRS PRN IV NAUSEA/VOMITING; Start at 09:15 Potassium Chloride 20 meq/ Dextrose/Sodium Chloride 1,010 ml @ 75 mls/hr [id number] IV Last administered on 05/07/17 09:50; Start 05/07/17 at 09:15; Stop 05/07/17 at 10:11; Status DC Pantoprazole Sodium (Protonix) 40 mg DAILYAC PO ; Start 05/07/17 at 10:00; Status Cancel Pantoprazole Sodium (Protonix Vial) 40 mg DAILYAC IVP Last administered on 07:57; Start 05/07/17 at 10:00 Lacosamide 100 mg/ Dextrose 60 ml @ 120 mls/hr 1X ONCE IV ; Start 05/07/17 at 12:30; Stop 05/07/17 at 12:30; Status DC Lacosamide 100 mg/ Dextrose 60 ml @ 120 mls/hr Q12HR IV Last administered on 05/10/17 08:02; Start 05/08/17 at 09:00 Lacosamide 100 mg/ Dextrose 110 ml @ 220 mls/hr 1X ONCE IV Last administered on 05/07/17 12:22; Start 05/07/17 at 12:30; Stop 05/07/17 at 12:59; Status DC Lacosamide 100 mg/ Dextrose 110 ml @ 220 mls/hr 1X ONCE IV Last administered on 05/07/17 21:28; Start 05/07/17 at 21:00; Stop 05/07/17 at 21:29; Status DC Acetaminophen (Tylenol) 325 mg PRN Q6HRS PRN NE MILD PAIN / TEMP Last administered on 05/08/17 04:09; Start 05/07/17 at 15:30 Potassium Chloride/Dextrose/ Sod Cl 1,000 ml @ 75 mls/hr [id number] IV Last administered on 05/08/17 04:39; Start 05/07/17 at 23:00; Stop 05/08/17 at 08 :22; Status DC Vancomycin HCl (Vanco Per Pharmacy) 1 each PRN DAILY PRN MC SEE COMMENTS Last administered on 05/10/17 08:52; Start 05/07/17 at 17:45 Piperacillin Sod/ Tazobactam Sod 3.375 gm/Sodium Chloride 50 ml @ 100 mls/hr Q6HRS IV Last administered on 05/10/17 01:15; Start 05/07/17 at 18:00; Stop 05/10/17 at 04:15; Status DC Vancomycin HCl 1.75 gm/Sodium Chloride 500 ml @ 250 mls/hr 1X ONCE IV Last administered on 05/07/17 18:13; Start 05/07/17 at 18:30; Stop 05/07/17 at 20 :29; Status DC Vancomycin HCl 1 each 1X ONCE MC Last administered on 05/09/17 05:30; Start 05/09/17 at 05:30; Stop 05/09/17 at 05:31; Status DC Vancomycin HCl 1 gm/Sodium Chloride 250 ml @ 250 mls/hr Q12H IV Last administered on 05/09/17 05:58; Start 05/08/17 at 06:00; Stop 05/09/17 at 06 :23; Status DC Lorazepam (Ativan) 0.5 mg PRN Q4HRS PRN IV ANXIETY / AGITATION Last administered on 05/07/17 20:12; Start 05/07/17 at 20:15 Lorazepam (Ativan) 1 mg 1X ONCE IV ; Start 05/07/17 at 21:30; Stop 05/07/17 at 21:31; Status DC Potassium Chloride 20 meq/ Sodium Chloride 1,010 ml @ 100 mls/hr Q10H6M IV ; Start 05/08/17 at 09:00; Status Cancel Potassium Chloride/Sodium Chloride 1,000 ml @ 100 mls/hr Q10H IV Last administered on 05/10/17 05:11; Start 05/08/17 at 09:00 Lidocaine/Sodium Bicarbonate (Buffered Lidocaine 1%) 20 ml 1X ONCE IJ ; Start 05/08/17 at 12:15; Stop 05/08/17 at 12:16; Status DC Acyclovir Sodium 800 mg/Dextrose 116 ml @ 116 mls/hr Q8HRS IV Last administered on 05/10/17 05:18; Start 05/08/17 at 15:00 Lactobacillus Rhamnosus (Culturelle) 1 cap BID PO ; Start 05/09/17 at 09:00 Vancomycin HCl 1.25 gm/Dextrose 250 ml @ 167 mls/hr Q12H IV ; Start 05/09/17 at 18:00; Status Cancel Vancomycin HCl 1 each 1X ONCE MC ; Start 05/11/17 at 17:30; Stop 05/11/17 at 17:31 Vancomycin HCl 1.5 gm/Dextrose 500 ml @ 250 mls/hr Q12H IV Last administered on 05/10/17 06:19; Start 05/09/17 at 18:00 Amino Acids/ Glycerin/ Electrolytes 1,000 ml @ 80 mls/hr [id number] IV Last administered on 05/10/17 05:45; Start 05/09/17 at 16:00 Piperacillin Sod/ Tazobactam Sod 3.375 gm/Dextrose 50 ml @ 100 mls/hr Q6HRS IV ; Start 05/10/17 at 04:15; Stop 05/10/17 at 05:16; Status DC Piperacillin Sod/ Tazobactam Sod 3.375 gm/Dextrose 50 ml @ 100 mls/hr Q6HRS IV Last administered on 05/10/17 11:47; Start 05/10/17 at 06:00 Active Scripts Active Keppra (Levetiracetam) 500 Mg Tablet 500 Mg PO BID Reported Tylenol (Acetaminophen) 325 Mg Tablet 2 Tab PO PRN Q4HRS PRN Ranitidine Hcl 75 Mg Tablet 75 Mg PO DAILY Depakote (Divalproex Sodium) 500 Mg Tablet.dr 500 Mg PO DAILY Aspir 81 (Aspirin) 81 Mg Tablet.dr 1 Tab PO DAILY Vitamin D-3 (Cholecalciferol (Vitamin D3)) 2,000 Unit Capsule 1,000 Unit PO DAILY Thiamine Hcl 100 Mg Tablet 100 Mg PO DAILY Simvastatin 20 Mg Tablet 1 Tab PO QHS Senna (Sennosides) 8.6 Mg Capsule 8.6 Mg PO PRN DAILY PRN Folic Acid 1 Mg Tablet 1 Tab PO DAILY Fish Oil ([place]-3 Fatty Acids) 500 Mg Capsule 500 Mg PO Vitals/I & O Vital Sign - Last 24 Hours 05/09/17 05/09/17 05/09/17 05/09/17 13:00 14:00 15:00 16:00 Temp 99.6 99.6 Pulse 66 74 75 81 Resp 24 24 27 25 B/P (MAP) 112/74 (87) 121/78 (92) 126/76 (93) 136/82 (100) Pulse Ox 95 95 94 95 O2 Delivery Room Air Room Air Room Air Room Air 05/09/17 05/09/17 05/09/17 05/09/17 16:00 17:00 18:00 19:00 Pulse 77 77 76 Resp 28 25 25 B/P (MAP) 142/71 (94) 140/74 (96) 132/77 (95) Pulse Ox 96 97 97 O2 Delivery Room Air Room Air Room Air Room Air 05/09/17 05/09/17 05/09/17 05/09/17 20:00 20:09 21:00 22:00 Temp 99.6 99.6 Pulse 78 76 70 Resp 22 22 18 B/P (MAP) 145/82 (103) 139/79 (99) 145/77 (99) Pulse Ox 97 97 99 O2 Delivery Room Air Room Air Room Air Room Air 05/09/17 05/10/17 05/10/17 05/10/17 23:00 00:00 00:05 01:00 Temp 99.1 99.1 Pulse 72 72 74 Resp 20 20 20 B/P (MAP) 136/73 (94) 133/71 (91) 128/67 (87) Pulse Ox 95 95 97 O2 Delivery Room Air Room Air Room Air Room Air 05/10/17 05/10/17 05/10/17 05/10/17 02:00 03:00 04:00 04:00 Temp 98.9 98.9 Pulse 76 72 86 Resp 20 18 20 B/P (MAP) 120/61 (80) 137/70 (92) 134/56 (82) Pulse Ox 98 96 99 O2 Delivery Room Air Room Air Room Air Room Air 05/10/17 05/10/17 05/10/17 05/10/17 05:00 06:00 07:00 08:00 Temp 97.3 97.3 Pulse 72 84 79 Resp 24 25 24 B/P (MAP) 131/80 (97) 133/72 (92) 133/78 (96) Pulse Ox 97 95 98 O2 Delivery Room Air Room Air Room Air Room Air 05/10/17 05/10/17 05/10/17 05/10/17 08:00 09:00 10:00 11:00 Pulse 80 76 81 76 Resp 25 22 12 22 B/P (MAP) 145/80 (101) 138/77 (97) 144/80 (101) 146/80 (102) Pulse Ox 98 98 99 99 O2 Delivery Room Air Room Air Room Air Room Air Intake and Output 05/10/17 05/10/17 05/11/17 15:00 23:00 07:00 Intake Total 5 ml Output Total 595 ml Balance -590 ml MARCELINO CRABTREE MD May 10, 2017 12:06
--- NOTE | 2017-05-10 12:19 | PDOC ---
PROGRESS NOTES Subjective Subjective seen in ICU,looking better today Objective Objective Vital Signs Date Time Temp Pulse Resp B/P (MAP) Pulse Ox O2 Delivery O2 Flow Rate FiO2 05/10/17 11:00 76 22 146/80 (102) 99 Room Air 05/10/17 07:00 97.3 97.3 05/09/17 08:00 2.0 Intake and Output 05/11/17 07:00 Intake Total 5 ml Output Total 595 ml Balance -590 ml Intake Oral 5 ml Output Urine Total 595 ml Physical Exam Abdomen: Normal bowel sounds, Soft Heart: Regular rate, Normal S1 General: No acute distress Lungs: Normal air movement Neck: No thyromegaly Skin: No breakdown Diagnosis Problem List Problems Medical Problems: (1) Seizure Status: Acute Assessment Assessment IMP: meningoencephalitis, History LMCA CVA with severe debility Current anticonvulsants via IV ICU monitoring 1. Seizure disorder, not controlled. Dr. Peters seeing the pt, patient is on IV Keppra and Depakote. 2. vomiting subsided 3. 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 4. Lactic acidosis due to seizures. 5. Leukopenia, probably due to previous hepatitis C and possibly seizure medication Depakote. 6. Acute metabolic encephalopathy. 7. Gastroesophageal reflux disease. 8. Hepatitis C, chronic. 9. Hyperlipidemia. 10. History of thrombocytopenia and elevated PSA. PLAN: LP done , results reviewed. appreciate neuro consult .IV Zosyn,Vancomycin. Hyponatremia- improving Na 131 ,change IV to ProcalAmine, speech consult pending. seen in ICU Problems: Plan Plan of Care Problems Medical Problems: (1) Seizure Status: Acute Comment Review of Relevant I have reviewed the following items rakesh (where applicable) has been applied. Labs Laboratory Tests Test 05/10/17 05:00 White Blood Count 4.0 x10^3/uL (4.0-11.0) Red Blood Count 4.31 x10^6/uL (4.30-5.70) Hemoglobin 14.2 g/dL (13.0-17.5) Hematocrit 42.4 % (39.0-53.0) Mean Corpuscular Volume 98 fL (79-100) Mean Corpuscular Hemoglobin 33 pg (25-35) Mean Corpuscular Hemoglobin Concent 33 g/dL (31-37) Red Cell Distribution Width 12.6 % (11.5-14.5) Platelet Count 62 x10^3/uL (140-400) Neutrophils (%) (Auto) 47 % (31-73) Lymphocytes (%) (Auto) 32 % (24-48) Monocytes (%) (Auto) 21 % (0-9) Eosinophils (%) (Auto) 0 % (0-3) Basophils (%) (Auto) 0 % (0-3) Neutrophils # (Auto) 1.9 x10^3uL (1.8-7.7) Lymphocytes # (Auto) 1.3 x10^3/uL (1.0-4.8) Monocytes # (Auto) 0.8 x10^3/uL (0.0-1.1) Eosinophils # (Auto) 0.0 x10^3/uL (0.0-0.7) Basophils # (Auto) 0.0 x10^3/uL (0.0-0.2) Sodium Level 130 mmol/L (136-145) Potassium Level 3.9 mmol/L (3.5-5.1) Chloride Level 100 mmol/L (98-107) Carbon Dioxide Level 22 mmol/L (21-32) Anion Gap 8 (6-14) Blood Urea Nitrogen 15 mg/dL (8-26) Creatinine 0.8 mg/dL (0.7-1.3) Estimated GFR (Cockcroft-Gault) 117.8 Glucose Level 94 mg/dL (70-99) Calcium Level 7.7 mg/dL (8.5-10.1) Creatine Kinase 1230 U/L (39-308) Microbiology 05/07/17 Blood Culture - Preliminary, Resulted NO GROWTH AFTER 2 DAYS Medications Current Medications Amino Acids/ Glycerin/ Electrolytes 1,000 ml @ 80 mls/hr [id number] IV Last administered on 05/10/17 05:45; Start 05/09/17 at 16:00 Piperacillin Sod/ Tazobactam Sod 3.375 gm/Dextrose 50 ml @ 100 mls/hr Q6HRS IV ; Start 05/10/17 at 04:15; Stop 05/10/17 at 05:16; Status DC Piperacillin Sod/ Tazobactam Sod 3.375 gm/Dextrose 50 ml @ 100 mls/hr Q6HRS IV Last administered on 05/10/17t 11:47; Start 05/10/17 at 06:00 Vancomycin HCl 1 each 1X ONCE MC ; Start 05/11/17 at 17:30; Stop 05/11/17 at 17:31 Vancomycin HCl 1.25 gm/Dextrose 250 ml @ 167 mls/hr Q12H IV ; Start 05/09/17 at 18:00; Status Cancel Vancomycin HCl 1.5 gm/Dextrose 500 ml @ 250 mls/hr Q12H IV Last administered on 05/10/17t 06:19; Start 05/09/17 at 18:00 Vitals/I & O Vital Sign - Last 24 Hours 05/09/17 05/09/17 05/09/17 05/09/17 13:00 14:00 15:00 16:00 Temp 99.6 99.6 Pulse 66 74 75 81 Resp 24 24 27 25 B/P (MAP) 112/74 (87) 121/78 (92) 126/76 (93) 136/82 (100) Pulse Ox 95 95 94 95 O2 Delivery Room Air Room Air Room Air Room Air 05/09/17 05/09/17 05/09/17 05/09/17 16:00 17:00 18:00 19:00 Pulse 77 77 76 Resp 25 B/P (MAP) 142/71 (94) 140/74 (96) 132/77 (95) Pulse Ox 96 97 97 O2 Delivery Room Air Room Air Room Air Room Air 05/09/17 05/09/17 05/09/17 05/09/17 20:00 20:09 21:00 22:00 Temp 99.6 99.6 Pulse 78 76 70 Resp 18 B/P (MAP) 145/82 (103) 139/79 (99) 145/77 (99) Pulse Ox 97 97 99 O2 Delivery Room Air Room Air Room Air Room Air 05/09/17 05/10/17 05/10/17 05/10/17 23:00 00:00 00:05 01:00 Temp 99.1 99.1 Pulse 72 72 74 Resp 20 20 20 B/P (MAP) 136/73 (94) 133/71 (91) 128/67 (87) Pulse Ox 95 95 97 O2 Delivery Room Air Room Air Room Air Room Air 05/10/17 05/10/17 05/10/17 05/10/17 02:00 03:00 04:00 04:00 Temp 98.9 98.9 Pulse 76 72 86 Resp 20 18 20 B/P (MAP) 120/61 (80) 137/70 (92) 134/56 (82) Pulse Ox 98 96 99 O2 Delivery Room Air Room Air Room Air Room Air 05/10/17 05/10/17 05/10/17 05/10/17 05:00 06:00 07:00 08:00 Temp 97.3 97.3 Pulse 72 84 79 Resp 24 25 24 B/P (MAP) 131/80 (97) 133/72 (92) 133/78 (96) Pulse Ox 97 95 98 O2 Delivery Room Air Room Air Room Air Room Air 05/10/17 05/10/17 05/10/17 05/10/17 08:00 09:00 10:00 11:00 Pulse 80 76 81 76 Resp 25 22 12 22 B/P (MAP) 145/80 (101) 138/77 (97) 144/80 (101) 146/80 (102) Pulse Ox 98 98 99 99 O2 Delivery Room Air Room Air Room Air Room Air Intake and Output 05/10/17 05/10/17 05/11/17 15:00 23:00 07:00 Intake Total 5 ml Output Total 595 ml Balance -590 ml OLGA AVILEZ MD May 10, 2017 12:19
[2017-05-10] MEDS ORDERED: DEXTROSE 50% 25 GM / 50ML DISP.SYRIN. IV PRN (12:45)
[2017-05-10] MEDS: INSULIN ASPART 300 UNITS/3 ML INSULN.PEN SQ SCH (17:00)
[2017-05-10] MEDS: SIMVASTATIN 20 MG TABLET PO SCH (20:46)
[2017-05-11] VITALS (24 sets, daily range): BP systolic 99–160; BP diastolic 61–87
[2017-05-11] MEDS: PIPERACILLIN/TAZOBACTAM 3.375 GM in IV DEXTROSE 5% 50 ML IV SCH ×5 (00:13→23:32)
[2017-05-11] MEDS: VANCOMYCIN 1.5 GM in IV DEXTROSE 5% 500 ML IV SCH ×2 (06:24→17:03)
[2017-05-11] MEDS: ACYCLOVIR SODIUM IV SCH ×3 (06:24→20:24)
[2017-05-11] MEDS: DEXTROSE 5% IV SCH ×3 (06:24→20:24)
[2017-05-11 06:56] LABS: CALCIUM 8.1 mg/dL (8.5-10.1); CREATININE 0.7 mg/dL (0.7-1.3); GFR 137.4
[2017-05-11] MEDS: PANTOPRAZOLE IV PUSH 40 MG VIAL. IVP SCH (07:54)
[2017-05-11] MEDS: INSULIN ASPART 300 UNITS/3 ML INSULN.PEN SQ SCH (07:55)
[2017-05-11] MEDS: VALPROIC ACID (AS SODIUM SALT) 250 MG in IV DEXTROSE 5% 50 ML IV SCH ×2 (08:33→21:43)
[2017-05-11] MEDS: levETIRAcetam 1,000 MG in IV DEXTROSE 5% 100 ML IV SCH ×2 (08:33→20:17)
[2017-05-11] MEDS: LACOSAMIDE 100 MG in IV DEXTROSE 5% 50 ML IV SCH ×2 (08:33→21:01)
[2017-05-11] MEDS: FOLIC ACID 1 MG TABLET. PO SCH (08:40)
[2017-05-11] MEDS: VANCOMYCIN PER PHARMACY MC PRN (08:51)
--- NOTE | 2017-05-11 11:03 | PDOC ---
PROGRESS NOTES Subjective Subjective 1 small seizure today Objective Objective Vital Signs Date Time Temp Pulse Resp B/P (MAP) Pulse Ox O2 Delivery O2 Flow Rate FiO2 05/11/17 10:00 70 20 146/83 (104) 97 Room Air 05/11/17 08:00 98.1 98.1 Intake and Output 05/12/17 07:00 Intake Total 0 ml Output Total 650 ml Balance -650 ml Intake Oral 0 ml Output Urine Total 650 ml Physical Exam Abdomen: Normal bowel sounds, Soft Heart: Regular rate, Normal S1 General: No acute distress Lungs: Normal air movement Neck: No thyromegaly Skin: No breakdown Diagnosis Problem List Problems Medical Problems: (1) Seizure Status: Acute Assessment Assessment IMP: meningoencephalitis, History LMCA CVA with severe debility Current anticonvulsants via IV ICU monitoring 1. Seizure disorder, not controlled. Dr. Peters seeing the pt, patient is on IV Keppra and Depakote. 2. vomiting subsided 3. 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 4. Lactic acidosis due to seizures. 5. Leukopenia, probably due to previous hepatitis C and possibly seizure medication Depakote. 6. Acute metabolic encephalopathy. 7. Gastroesophageal reflux disease. 8. Hepatitis C, chronic. 9. Hyperlipidemia. 10. History of thrombocytopenia and elevated PSA. PLAN: failed swallow test Dubhoff tube feedings. spoke with pts sister LP done , results reviewed. appreciate neuro consult .IV Zosyn,Vancomycin. Hyponatremia- improving Na 127 today , seen in ICU Problems: Plan Plan of Care Problems Medical Problems: (1) Seizure Status: Acute Comment Review of Relevant I have reviewed the following items rakesh (where applicable) has been applied. Labs Laboratory Tests Test 05/10/17 17:49 05/11/17 06:20 Glucose (Fingerstick) 79 mg/dL (70-99) Sodium Level 127 mmol/L (136-145) Potassium Level 4.0 mmol/L (3.5-5.1) Chloride Level 96 mmol/L (98-107) Carbon Dioxide Level 22 mmol/L (21-32) Anion Gap 9 (6-14) Blood Urea Nitrogen 12 mg/dL (8-26) Creatinine 0.7 mg/dL (0.7-1.3) Estimated GFR (Cockcroft-Gault) 137.4 Glucose Level 95 mg/dL (70-99) Calcium Level 8.1 mg/dL (8.5-10.1) Creatine Kinase 899 U/L (39-308) Microbiology 05/07/17 Blood Culture - Preliminary, Resulted NO GROWTH AFTER 3 DAYS Medications Current Medications Dextrose (Dextrose 50%-Water Syringe) 12.5 gm PRN Q15MIN PRN IV SEE COMMENTS; Start 05/10/17 at 12:45 Insulin Aspart (NovoLOG) 0-5 UNITS TIDWMEALS SQ ; Start 05/10/17 at 17:00 Lactobacillus Rhamnosus (Culturelle) 1 cap BID PO ; Start 05/12/17 at 21:00 Vancomycin HCl 1 each 1X ONCE MC ; Start 05/11/17 at 17:30; Stop 05/11/17 at 17:31 Vitals/I & O Vital Sign - Last 24 Hours 05/10/17 05/10/17 05/10/17 05/10/17 12:00 12:00 13:00 14:00 Pulse 74 74 88 Resp 12 30 20 B/P (MAP) 140/76 (97) 145/78 (100) 151/85 (107) Pulse Ox 98 99 98 O2 Delivery Room Air Room Air Room Air Room Air 05/10/17 05/10/17 05/10/17 05/10/17 15:00 16:00 16:00 17:00 Temp 98.5 98.5 98.5 98.5 Pulse 72 72 74 Resp 24 24 20 B/P (MAP) 155/87 (109) 150/80 (103) 146/76 (99) Pulse Ox 97 98 97 O2 Delivery Room Air Room Air Room Air Room Air 05/10/17 05/10/17 05/10/17 05/10/17 18:00 19:00 20:00 20:55 Temp 98.2 98.2 Pulse 75 82 76 Resp 18 18 16 B/P (MAP) 149/76 (100) 152/78 (102) 147/70 (95) Pulse Ox 97 97 98 O2 Delivery Room Air Room Air Room Air Room Air 05/10/17 05/10/17 05/10/17 05/11/17 21:00 22:00 23:00 00:00 Temp 98.5 98.5 Pulse 76 72 74 80 Resp 18 18 18 18 B/P (MAP) 158/82 (107) 159/88 (111) 147/83 (104) 146/84 (104) Pulse Ox 97 97 96 97 O2 Delivery Room Air Room Air Room Air Room Air 05/11/17 05/11/17 05/11/17 05/11/17 00:30 01:00 02:00 03:00 Pulse 88 78 74 Resp 18 18 18 B/P (MAP) 152/84 (106) 160/79 (106) 154/84 (107) Pulse Ox 96 97 96 O2 Delivery Room Air Room Air Room Air Room Air 05/11/17 05/11/17 05/11/17 05/11/17 03:59 04:00 05:00 06:00 Temp 98.2 98.2 Pulse 80 70 70 Resp 18 18 18 B/P (MAP) 147/87 (107) 150/82 (104) 154/84 (107) Pulse Ox 97 97 97 O2 Delivery Room Air Room Air Room Air Room Air 05/11/17 05/11/17 05/11/17 05/11/17 07:00 08:00 08:00 09:00 Temp 98.1 98.1 98.1 98.1 Pulse 80 72 70 Resp 18 22 22 B/P (MAP) 145/76 (99) 143/82 (102) 154/80 (104) Pulse Ox 98 98 93 O2 Delivery Room Air Room Air Room Air Room Air 05/11/17 10:00 Pulse 70 Resp 20 B/P (MAP) 146/83 (104) Pulse Ox 97 O2 Delivery Room Air Intake and Output 05/11/17 05/11/17 05/12/17 15:00 23:00 07:00 Intake Total 0 ml Output Total 650 ml Balance -650 ml OLGA AVILEZ MD May 11, 2017 11:03
--- NOTE | 2017-05-11 11:23 | PDOC ---
Renal-Progress Notes Subjective Notes Notes NONE History of Present Illness Hx of present illness STABLE Vitals Vitals Vital Signs Date Time Temp Pulse Resp B/P (MAP) Pulse Ox O2 Delivery O2 Flow Rate FiO2 05/11/17 10:00 70 20 146/83 (104) 97 Room Air 05/11/17 08:00 98.1 98.1 Weight Weight [ ] I.O. Intake and Output Intake and Output 05/12/17 06:59 Intake Total 1180.5 ml Output Total 900 ml Balance 280.5 ml Intake Oral 0 ml IV Total 1180.5 ml Output Urine Total 900 ml Labs Labs Laboratory Tests Test 05/10/17 17:49 05/11/17 06:20 Glucose (Fingerstick) 79 mg/dL (70-99) Sodium Level 127 mmol/L (136-145) Potassium Level 4.0 mmol/L (3.5-5.1) Chloride Level 96 mmol/L (98-107) Carbon Dioxide Level 22 mmol/L (21-32) Anion Gap 9 (6-14) Blood Urea Nitrogen 12 mg/dL (8-26) Creatinine 0.7 mg/dL (0.7-1.3) Estimated GFR (Cockcroft-Gault) 137.4 Glucose Level 95 mg/dL (70-99) Calcium Level 8.1 mg/dL (8.5-10.1) Creatine Kinase 899 U/L (39-308) Micro Micro Microbiology 05/07/17 Blood Culture - Preliminary, Resulted NO GROWTH AFTER 3 DAYS Review of Systems Constitutional: yes: malaise, weakness, alert Ears/Nose/Throat: Yes: no symptom reported Eyes: Yes: no symptom reported Pulmonary: Yes no symptom reported Gastrointestional: Yes: constipation Genitourinary: Yes: no symptom reported Musculoskeletal: Yes: muscle stiffness, muscle atrophy Skin: Yes no symptom reported Psychiatric/Neurological: Yes: no symptom reported Endocrine: Yes: no symptom reported Physical Exam General Appearance: no apparent distress Skin: warm Respiratory: bilateral CTA Heart: S1S2, RRR Abdomen: soft, bowel sounds present Genitourinary: bladder flat Extremities: pulses present, no edema, atrophy Neurology: alert, oriented Assessment Assessment IMP ROBB-RESOLVED WITH CR 1.7 TO 0.8 HYPONATREMIA-NA DOWN TO 127 DECONDITIONING DYSPHAGIA-FAILED SWALLOW INCREASED LFT'S PLAN CONT NS STOP PPN IF HE FAILS SWALLOW STUDY WILL PLACE NGT FOR FEEDING UPDATED FAMILY LELE TRIPP MD May 11, 2017 11:23
--- NOTE | 2017-05-11 11:25 | PDOC ---
PROGRESS NOTES Assessment Problems Medical Problems: (1) Seizure Status: Acute Epilepsy, bilateral PLEDs, predominating on left, on EEG. Two brief seizures since I last saw her MRI negative for acute abnormality Lumbar puncture consistent with meningoencephalitis, not a typical picture for HSV, however. HSV titer pending History LMCA CVA with severe debility Plan Current anticonvulsants via IV ICU monitoring Current antibiotics Repeat EEG on 05/12 Discussed with sister Subjective None Objective Vital Signs Date Time Temp Pulse Resp B/P (MAP) Pulse Ox O2 Delivery O2 Flow Rate FiO2 05/11/17 10:00 70 20 146/83 (104) 97 Room Air 05/11/17 08:00 98.1 98.1 Intake and Output 05/12/17 06:59 Intake Total 1180.5 ml Output Total 900 ml Balance 280.5 ml Intake Oral 0 ml IV Total 1180.5 ml Output Urine Total 900 ml PHYSICAL EXAM Alert, eyes open, follows examiner with eyes, no left gaze preference. Mumbles some replies to me. PERRL. EOMI. CN: right central VII, right visual neglect Muscle tone: increased on right Muscle strength: moves left-sided extremities, spastic right hemiparesis DTR: 2+ Plantar reflex: extensor on right, silent on left Gait: not examined in bed. Sensory exam: . Cerebellar: not cooperative with exam Review of Relevant I have reviewed the following items rakesh (where applicable) has been applied. Labs Laboratory Tests Test 05/10/17 05:00 05/10/17 17:49 05/11/17 06:20 White Blood Count 4.0 x10^3/uL (4.0-11.0) Red Blood Count 4.31 x10^6/uL (4.30-5.70) Hemoglobin 14.2 g/dL (13.0-17.5) Hematocrit 42.4 % (39.0-53.0) Mean Corpuscular Volume 98 fL (79-100) Mean Corpuscular Hemoglobin 33 pg (25-35) Mean Corpuscular Hemoglobin Concent 33 g/dL (31-37) Red Cell Distribution Width 12.6 % (11.5-14.5) Platelet Count 62 x10^3/uL (140-400) Neutrophils (%) (Auto) 47 % (31-73) Lymphocytes (%) (Auto) 32 % (24-48) Monocytes (%) (Auto) 21 % (0-9) Eosinophils (%) (Auto) 0 % (0-3) Basophils (%) (Auto) 0 % (0-3) Neutrophils # (Auto) 1.9 x10^3uL (1.8-7.7) Lymphocytes # (Auto) 1.3 x10^3/uL (1.0-4.8) Monocytes # (Auto) 0.8 x10^3/uL (0.0-1.1) Eosinophils # (Auto) 0.0 x10^3/uL (0.0-0.7) Basophils # (Auto) 0.0 x10^3/uL (0.0-0.2) Sodium Level 130 mmol/L (136-145) 127 mmol/L (136-145) Potassium Level 3.9 mmol/L (3.5-5.1) 4.0 mmol/L (3.5-5.1) Chloride Level 100 mmol/L (98-107) 96 mmol/L (98-107) Carbon Dioxide Level 22 mmol/L (21-32) 22 mmol/L (21-32) Anion Gap 8 (6-14) 9 (6-14) Blood Urea Nitrogen 15 mg/dL (8-26) 12 mg/dL (8-26) Creatinine 0.8 mg/dL (0.7-1.3) 0.7 mg/dL (0.7-1.3) Estimated GFR (Cockcroft-Gault) 117.8 137.4 Glucose Level 94 mg/dL (70-99) 95 mg/dL (70-99) Calcium Level 7.7 mg/dL (8.5-10.1) 8.1 mg/dL (8.5-10.1) Creatine Kinase 1230 U/L (39-308) 899 U/L (39-308) Glucose (Fingerstick) 79 mg/dL (70-99) Laboratory Tests Test 05/10/17 17:49 05/11/17 06:20 Glucose (Fingerstick) 79 mg/dL (70-99) Sodium Level 127 mmol/L (136-145) Potassium Level 4.0 mmol/L (3.5-5.1) Chloride Level 96 mmol/L (98-107) Carbon Dioxide Level 22 mmol/L (21-32) Anion Gap 9 (6-14) Blood Urea Nitrogen 12 mg/dL (8-26) Creatinine 0.7 mg/dL (0.7-1.3) Estimated GFR (Cockcroft-Gault) 137.4 Glucose Level 95 mg/dL (70-99) Calcium Level 8.1 mg/dL (8.5-10.1) Creatine Kinase 899 U/L (39-308) Microbiology 05/07/17 Blood Culture - Preliminary, Resulted NO GROWTH AFTER 3 DAYS Medications Current Medications Sodium Chloride 1,000 ml @ 1,000 mls/hr 1X ONCE IV Last administered on 05/06 17:59; Start 05/06/17 at 18:45; Stop 05/06/17 at 19:44; Status DC Sodium Chloride 1,000 ml @ 1,000 mls/hr 1X ONCE IV Last administered on 05/06 20:27; Start 05/06/17 at 20:30; Stop 05/06/17 at 21:29; Status DC Ondansetron HCl (Zofran) 4 mg PRN Q8HRS PRN IV NAUSEA/VOMITING; Start at 21:00; Stop 05/07/17 at 20:07; Status DC Levetiracetam 500 mg/Dextrose 105 ml @ 440 mls/hr 1X ONCE IV Last administered on 05/07/17 00:30; Start 05/07/17 at 00:30; Stop 05/07/17 at 00 :44; Status DC Acetaminophen (Tylenol) 650 mg PRN Q4HRS PRN PO MILD PAIN / TEMP; Start at 01:00; Stop 05/07/17 at 12:01; Status DC Aspirin (Ecotrin) 81 mg DAILY PO Last administered on 05/07/17 08:54; Start 05/07/17 at 09:00; Stop 05/07/17 at 10:11; Status DC Divalproex Sodium (Depakote) 500 mg DAILY PO Last administered on 05/07/17 08 :54; Start 05/07/17 at 09:00; Stop 05/07/17 at 09:08; Status DC Folic Acid (Folic Acid) 1 mg DAILY PO Last administered on 05/07/17 08:53; Start 05/07/17 at 09:00 Levetiracetam (Keppra) 500 mg BID PO Last administered on 05/07/17 08:54; Start 05/07/17 at 09:00; Stop 05/07/17 at 09:08; Status DC Simvastatin (Zocor) 20 mg QHS PO ; Start 05/07/17 at 21:00 Levetiracetam 1000 mg/Dextrose 110 ml @ 440 mls/hr Q12HR IV Last administered on 05/11/17 08:33; Start 05/07/17 at 21:00 Levetiracetam 1000 mg/Dextrose 110 ml @ 440 mls/hr 1X STAT IV Last administered on 05/07/17 09:50; Start 05/07/17 at 09:05; Stop 05/07/17 at 09 :19; Status DC Valproic Acid 250 mg/Dextrose 52.5 ml @ 55 mls/hr Q12HR IV Last administered on 05/11/17 08:33; Start 05/07/17 at 21:00 Pantoprazole Sodium (Protonix Vial) 40 mg DAILYAC IVP ; Start 05/07/17 at 09:15 ; Status UNV Acetaminophen (Tylenol) 650 mg PRN Q6HRS PRN PO MILD PAIN / TEMP; Start at 09:15 Ondansetron HCl (Zofran) 4 mg PRN Q6HRS PRN IV NAUSEA/VOMITING; Start at 09:15 Potassium Chloride 20 meq/ Dextrose/Sodium Chloride 1,010 ml @ 75 mls/hr [id number] IV Last administered on 05/07/17 09:50; Start 05/07/17 at 09:15; Stop 05/07/17 at 10:11; Status DC Pantoprazole Sodium (Protonix) 40 mg DAILYAC PO ; Start 05/07/17 at 10:00; Status Cancel Pantoprazole Sodium (Protonix Vial) 40 mg DAILYAC IVP Last administered on 07:54; Start 05/07/17 at 10:00 Lacosamide 100 mg/ Dextrose 60 ml @ 120 mls/hr 1X ONCE IV ; Start 05/07/17 at 12:30; Stop 05/07/17 at 12:30; Status DC Lacosamide 100 mg/ Dextrose 60 ml @ 120 mls/hr Q12HR IV Last administered on 05/11/17 08:33; Start 05/08/17 at 09:00 Lacosamide 100 mg/ Dextrose 110 ml @ 220 mls/hr 1X ONCE IV Last administered on 05/07/17 12:22; Start 05/07/17 at 12:30; Stop 05/07/17 at 12:59; Status DC Lacosamide 100 mg/ Dextrose 110 ml @ 220 mls/hr 1X ONCE IV Last administered on 05/07/17 21:28; Start 05/07/17 at 21:00; Stop 05/07/17 at 21:29; Status DC Acetaminophen (Tylenol) 325 mg PRN Q6HRS PRN VA MILD PAIN / TEMP Last administered on 05/08/17 04:09; Start 05/07/17 at 15:30 Potassium Chloride/Dextrose/ Sod Cl 1,000 ml @ 75 mls/hr [id number] IV Last administered on 05/08/17 04:39; Start 05/07/17 at 23:00; Stop 05/08/17 at 08 :22; Status DC Vancomycin HCl (Vanco Per Pharmacy) 1 each PRN DAILY PRN MC SEE COMMENTS Last administered on 05/11/17 08:51; Start 05/07/17 at 17:45 Piperacillin Sod/ Tazobactam Sod 3.375 gm/Sodium Chloride 50 ml @ 100 mls/hr Q6HRS IV Last administered on 05/10/17 01:15; Start 05/07/17 at 18:00; Stop 05/10/17 at 04:15; Status DC Vancomycin HCl 1.75 gm/Sodium Chloride 500 ml @ 250 mls/hr 1X ONCE IV Last administered on 05/07/17 18:13; Start 05/07/17 at 18:30; Stop 05/07/17 at 20 :29; Status DC Vancomycin HCl 1 each 1X ONCE MC Last administered on 05/09/17 05:30; Start 05/09/17 at 05:30; Stop 05/09/17 at 05:31; Status DC Vancomycin HCl 1 gm/Sodium Chloride 250 ml @ 250 mls/hr Q12H IV Last administered on 05/09/17 05:58; Start 05/08/17 at 06:00; Stop 05/09/17 at 06 :23; Status DC Lorazepam (Ativan) 0.5 mg PRN Q4HRS PRN IV ANXIETY / AGITATION Last administered on 05/07/17 20:12; Start 05/07/17 at 20:15 Lorazepam (Ativan) 1 mg 1X ONCE IV ; Start 05/07/17 at 21:30; Stop 05/07/17 at 21:31; Status DC Potassium Chloride 20 meq/ Sodium Chloride 1,010 ml @ 100 mls/hr Q10H6M IV ; Start 05/08/17 at 09:00; Status Cancel Potassium Chloride/Sodium Chloride 1,000 ml @ 100 mls/hr Q10H IV Last administered on 05/10/17 21:40; Start 05/08/17 at 09:00 Lidocaine/Sodium Bicarbonate (Buffered Lidocaine 1%) 20 ml 1X ONCE IJ ; Start 05/08/17 at 12:15; Stop 05/08/17 at 12:16; Status DC Acyclovir Sodium 800 mg/Dextrose 116 ml @ 116 mls/hr Q8HRS IV Last administered on 05/11/17 06:24; Start 05/08/17 at 15:00 Lactobacillus Rhamnosus (Culturelle) 1 cap BID PO ; Start 05/09/17 at 09:00; Stop 05/11/17 at 08:03; Status DC Vancomycin HCl 1.25 gm/Dextrose 250 ml @ 167 mls/hr Q12H IV ; Start 05/09/17 at 18:00; Status Cancel Vancomycin HCl 1 each 1X ONCE MC ; Start 05/11/17 at 17:30; Stop 05/11/17 at 17:31 Vancomycin HCl 1.5 gm/Dextrose 500 ml @ 250 mls/hr Q12H IV Last administered on 05/11/17 06:24; Start 05/09/17 at 18:00 Amino Acids/ Glycerin/ Electrolytes 1,000 ml @ 80 mls/hr [id number] IV Last administered on 05/10/17 22:38; Start 05/09/17 at 16:00; Stop 05/11/17 at 11 :03; Status DC Piperacillin Sod/ Tazobactam Sod 3.375 gm/Dextrose 50 ml @ 100 mls/hr Q6HRS IV ; Start 05/10/17 at 04:15; Stop 05/10/17 at 05:16; Status DC Piperacillin Sod/ Tazobactam Sod 3.375 gm/Dextrose 50 ml @ 100 mls/hr Q6HRS IV Last administered on 05/11/17t 11:08; Start 05/10/17 at 06:00 Insulin Aspart (NovoLOG) 0-5 UNITS TIDWMEALS SQ ; Start 05/10/17 at 17:00 Dextrose (Dextrose 50%-Water Syringe) 12.5 gm PRN Q15MIN PRN IV SEE COMMENTS; Start 05/10/17 at 12:45 Lactobacillus Rhamnosus (Culturelle) 1 cap BID PO ; Start 05/12/17 at 21:00 Active Scripts Active Keppra (Levetiracetam) 500 Mg Tablet 500 Mg PO BID Reported Tylenol (Acetaminophen) 325 Mg Tablet 2 Tab PO PRN Q4HRS PRN Ranitidine Hcl 75 Mg Tablet 75 Mg PO DAILY Depakote (Divalproex Sodium) 500 Mg Tablet.dr 500 Mg PO DAILY Aspir 81 (Aspirin) 81 Mg Tablet.dr 1 Tab PO DAILY Vitamin D-3 (Cholecalciferol (Vitamin D3)) 2,000 Unit Capsule 1,000 Unit PO DAILY Thiamine Hcl 100 Mg Tablet 100 Mg PO DAILY Simvastatin 20 Mg Tablet 1 Tab PO QHS Senna (Sennosides) 8.6 Mg Capsule 8.6 Mg PO PRN DAILY PRN Folic Acid 1 Mg Tablet 1 Tab PO DAILY Fish Oil ([place]-3 Fatty Acids) 500 Mg Capsule 500 Mg PO Vitals/I & O Vital Sign - Last 24 Hours 05/10/17 05/10/17 05/10/17 05/10/17 12:00 12:00 13:00 14:00 Pulse 74 74 88 Resp 12 30 20 B/P (MAP) 140/76 (97) 145/78 (100) 151/85 (107) Pulse Ox 98 99 98 O2 Delivery Room Air Room Air Room Air Room Air 05/10/17 05/10/17 05/10/17 05/10/17 15:00 16:00 16:00 17:00 Temp 98.5 98.5 98.5 98.5 Pulse 72 72 74 Resp 24 24 20 B/P (MAP) 155/87 (109) 150/80 (103) 146/76 (99) Pulse Ox 97 98 97 O2 Delivery Room Air Room Air Room Air Room Air 05/10/17 05/10/17 05/10/17 05/10/17 18:00 19:00 20:00 20:55 Temp 98.2 98.2 Pulse 75 82 76 Resp 18 18 16 B/P (MAP) 149/76 (100) 152/78 (102) 147/70 (95) Pulse Ox 97 97 98 O2 Delivery Room Air Room Air Room Air Room Air 05/10/17 05/10/17 05/10/17 05/11/17 21:00 22:00 23:00 00:00 Temp 98.5 98.5 Pulse 76 72 74 80 Resp 18 18 18 18 B/P (MAP) 158/82 (107) 159/88 (111) 147/83 (104) 146/84 (104) Pulse Ox 97 97 96 97 O2 Delivery Room Air Room Air Room Air Room Air 05/11/17 05/11/17 05/11/17 05/11/17 00:30 01:00 02:00 03:00 Pulse 88 78 74 Resp 18 18 18 B/P (MAP) 152/84 (106) 160/79 (106) 154/84 (107) Pulse Ox 96 97 96 O2 Delivery Room Air Room Air Room Air Room Air 05/11/17 05/11/17 05/11/17 05/11/17 03:59 04:00 05:00 06:00 Temp 98.2 98.2 Pulse 80 70 70 Resp 18 18 18 B/P (MAP) 147/87 (107) 150/82 (104) 154/84 (107) Pulse Ox 97 97 97 O2 Delivery Room Air Room Air Room Air Room Air 05/11/17 05/11/17 05/11/17 05/11/17 07:00 08:00 08:00 09:00 Temp 98.1 98.1 98.1 98.1 Pulse 80 72 70 Resp 18 22 22 B/P (MAP) 145/76 (99) 143/82 (102) 154/80 (104) Pulse Ox 98 98 93 O2 Delivery Room Air Room Air Room Air Room Air 05/11/17 10:00 Pulse 70 Resp 20 B/P (MAP) 146/83 (104) Pulse Ox 97 O2 Delivery Room Air Intake and Output 05/11/17 05/11/1717 14:59 22:59 06:59 Intake Total 1180.5 ml Output Total 900 ml Balance 280.5 ml MARCELINO CRABTREE MD May 11, 2017 11:25
--- NOTE | 2017-05-11 15:41 | PDOC ---
Infectious Disease Note Subjective Subjective Nonverbal No fever, vomiting or diarrhea reported Several seizures last 24 hours Vital Sign Vital Signs Vital Signs Date Time Temp Pulse Resp B/P (MAP) Pulse Ox O2 Delivery O2 Flow Rate FiO2 05/11/17 15:00 90 18 102/61 (75) 98 Room Air 05/11/17 12:00 98.1 98.1 Physical Exam PHYSICAL EXAM GENERAL: Propped up in bed, appears comfortable HEENT: Oral cavity pink, dry LUNGS: Clear HEART: S1 and S2 ABD: Distended, soft, no grimace or guarding to palpation : Travis EXT: No edema, no cyanosis LANGUAGE PATH: Alert, grunts to answers SKIN: No rash IVs: ok Labs Lab Laboratory Tests Test 05/10/17 17:49 05/11/17 06:20 Glucose (Fingerstick) 79 mg/dL (70-99) Sodium Level 127 mmol/L (136-145) Potassium Level 4.0 mmol/L (3.5-5.1) Chloride Level 96 mmol/L (98-107) Carbon Dioxide Level 22 mmol/L (21-32) Anion Gap 9 (6-14) Blood Urea Nitrogen 12 mg/dL (8-26) Creatinine 0.7 mg/dL (0.7-1.3) Estimated GFR (Cockcroft-Gault) 137.4 Glucose Level 95 mg/dL (70-99) Calcium Level 8.1 mg/dL (8.5-10.1) Creatine Kinase 899 U/L (39-308) Micro BC NGTD Objective Assessment Fever - ? reactive from seizure vs infection vs fecal impaction (had BM). better - Influenza neg; procalcitonin 0.65 - s/p LP: CSF WBC 418, glucose 58 T protein 35.4 Seizures Vomit ? aspiration Atypical lymphocytes/Leukopenia on arrival Transaminitis - ? reactive Hep C H/o prostate CA Plan Plan of Care vanc, Zosyn and acyclovir F/u labs and cults HSV pending Patient see and examined. Chart reviewed in detail. 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 Agree with above plan. RUBEN PETIT APRN May 11, 2017 15:41 LAZARO ROBERTS MD May 11, 2017 17:26
[2017-05-11] MEDS: SIMVASTATIN 20 MG TABLET PO SCH (20:59)
[2017-05-11 21:08] LABS: HERPES SIMPLEX TYPE 1 Negative (Negative); HERPES SIMPLEX TYPE 2 Negative (Negative)
[2017-05-12] VITALS (17 sets, daily range): BP systolic 109–154; BP diastolic 61–92
[2017-05-12 05:35] LABS: BASO % 1 % (0-3); EOS % 4 % (0-3); HEMATOCRIT 43.3 % (39.0-53.0); HEMOGLOBIN 14.3 g/dL (13.0-17.5); LYMPH % 44 % (24-48); MEAN CORPUSCULAR HEMOGLOBIN 33 pg (25-35); MEAN CORPUSCULAR HGB CONC 33 g/dL (31-37); MEAN CORPUSCULAR VOLUME 100 fL (79-100); MONO % 18 % (0-9); NEUT % 34 % (31-73); PLATELET COUNT 78 x10^3/uL (140-400); RED BLOOD COUNT 4.35 x10^6/uL (4.30-5.70); RED CELL DISTRIBUTION WIDTH 12.7 % (11.5-14.5); WHITE BLOOD COUNT 6.8 x10^3/uL (4.0-11.0)
[2017-05-12] MEDS: DEXTROSE 5% IV SCH (05:57)
[2017-05-12] MEDS: ACYCLOVIR SODIUM IV SCH (05:57)
[2017-05-12] MEDS: PIPERACILLIN/TAZOBACTAM 3.375 GM in IV DEXTROSE 5% 50 ML IV SCH ×4 (06:17→23:55)
[2017-05-12] MEDS: VANCOMYCIN PER PHARMACY MC PRN (06:44)
[2017-05-12 06:46] LABS: ALBUMIN 2.1 g/dL (3.4-5.0); ALBUMIN/GLOBULIN RATIO 0.6 (1.0-1.7); CALCIUM 8.1 mg/dL (8.5-10.1); CREATININE 0.7 mg/dL (0.7-1.3); GFR 137.4; POTASSIUM 4.1 mmol/L (3.5-5.1); TOTAL PROTEIN 5.6 g/dL (6.4-8.2)
[2017-05-12] MEDS ORDERED: VANCOMYCIN 1.75 GM in IV DEXTROSE 5% 500 ML IV SCH (07:00)
--- NOTE | 2017-05-12 07:41 | PDOC ---
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 SKIN: No rash IVs: ok Labs Lab Laboratory Tests Test 05/11/17 17:30 05/12/17 05:25 Vancomycin Level Trough 23.5 mcg/mL (10.0-20.0) 13.4 mcg/mL (10.0-20.0) Vancomycin Last Dose Date 05/11/17 Vancomycin Last Dose Time 1700 White Blood Count 6.8 x10^3/uL (4.0-11.0) Red Blood Count 4.35 x10^6/uL (4.30-5.70) Hemoglobin 14.3 g/dL (13.0-17.5) Hematocrit 43.3 % (39.0-53.0) Mean Corpuscular Volume 100 fL (79-100) Mean Corpuscular Hemoglobin 33 pg (25-35) Mean Corpuscular Hemoglobin Concent 33 g/dL (31-37) Red Cell Distribution Width 12.7 % (11.5-14.5) Platelet Count 78 x10^3/uL (140-400) Neutrophils (%) (Auto) 34 % (31-73) Lymphocytes (%) (Auto) 44 % (24-48) Monocytes (%) (Auto) 18 % (0-9) Eosinophils (%) (Auto) 4 % (0-3) Basophils (%) (Auto) 1 % (0-3) Neutrophils # (Auto) 2.3 x10^3uL (1.8-7.7) Lymphocytes # (Auto) 3.0 x10^3/uL (1.0-4.8) Monocytes # (Auto) 1.2 x10^3/uL (0.0-1.1) Eosinophils # (Auto) 0.3 x10^3/uL (0.0-0.7) Basophils # (Auto) 0.0 x10^3/uL (0.0-0.2) Sodium Level 132 mmol/L (136-145) Potassium Level 4.1 mmol/L (3.5-5.1) Chloride Level 101 mmol/L (98-107) Carbon Dioxide Level 20 mmol/L (21-32) Anion Gap 11 (6-14) Blood Urea Nitrogen 10 mg/dL (8-26) Creatinine 0.7 mg/dL (0.7-1.3) Estimated GFR (Cockcroft-Gault) 137.4 BUN/Creatinine Ratio 14 (6-20) Glucose Level 91 mg/dL (70-99) Calcium Level 8.1 mg/dL (8.5-10.1) Total Bilirubin 1.0 mg/dL (0.2-1.0) Aspartate Amino Transf (AST/SGOT) 77 U/L (15-37) Alanine Aminotransferase (ALT/SGPT) 84 U/L (16-63) Alkaline Phosphatase 56 U/L (46-116) Creatine Kinase 424 U/L (39-308) Total Protein 5.6 g/dL (6.4-8.2) Albumin 2.1 g/dL (3.4-5.0) Albumin/Globulin Ratio 0.6 (1.0-1.7) Objective Assessment Fever - ? reactive from seizure vs infection vs fecal impaction (had BM). better - Influenza neg; procalcitonin 0.65 - s/p LP: CSF WBC 418, glucose 58 T protein 35.4/ HSV neg. MRI without - contrast neg Seizures Vomit ? aspiration Atypical lymphocytes/Leukopenia on arrival. Now Monocytosis Transaminitis - ? reactive Hep C H/o prostate CA Plan Plan of Care D/c vanc and acyclovir Cont Zosyn for now F/u labs and cults VIMAL SALINAS MD May 12, 2017 07:41
[2017-05-12] MEDS: PANTOPRAZOLE IV PUSH 40 MG VIAL. IVP SCH (08:15)
--- NOTE | 2017-05-12 08:58 | PDOC ---
Objective: Objective: More alert per staff. Vital Signs: Vital Signs Date Time Temp Pulse Resp B/P (MAP) Pulse Ox O2 Delivery O2 Flow Rate FiO2 05/12/17 08:00 98.3 76 20 126/68 (87) 99 Room Air 98.3 Labs: Laboratory Tests Test 05/11/17 17:30 05/12/17 05:25 Vancomycin Level Trough 23.5 mcg/mL 13.4 mcg/mL Vancomycin Last Dose Date 05/11/17 Vancomycin Last Dose Time 1700 White Blood Count 6.8 x10^3/uL Red Blood Count 4.35 x10^6/uL Hemoglobin 14.3 g/dL Hematocrit 43.3 % Mean Corpuscular Volume 100 fL Mean Corpuscular Hemoglobin 33 pg Mean Corpuscular Hemoglobin Concent 33 g/dL Red Cell Distribution Width 12.7 % Platelet Count 78 x10^3/uL Neutrophils (%) (Auto) 34 % Lymphocytes (%) (Auto) 44 % Monocytes (%) (Auto) 18 % Eosinophils (%) (Auto) 4 % Basophils (%) (Auto) 1 % Neutrophils # (Auto) 2.3 x10^3uL Lymphocytes # (Auto) 3.0 x10^3/uL Monocytes # (Auto) 1.2 x10^3/uL Eosinophils # (Auto) 0.3 x10^3/uL Basophils # (Auto) 0.0 x10^3/uL Sodium Level 132 mmol/L Potassium Level 4.1 mmol/L Chloride Level 101 mmol/L Carbon Dioxide Level 20 mmol/L Anion Gap 11 Blood Urea Nitrogen 10 mg/dL Creatinine 0.7 mg/dL Estimated GFR (Cockcroft-Gault) 137.4 BUN/Creatinine Ratio 14 Glucose Level 91 mg/dL Calcium Level 8.1 mg/dL Total Bilirubin 1.0 mg/dL Aspartate Amino Transf (AST/SGOT) 77 U/L Alanine Aminotransferase (ALT/SGPT) 84 U/L Alkaline Phosphatase 56 U/L Creatine Kinase 424 U/L Total Protein 5.6 g/dL Albumin 2.1 g/dL Albumin/Globulin Ratio 0.6 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 Pt has order for regular diet but nursing order for NPO. Had seizure this am per nursing note. Pt's [id number] and niece were present during eval. Pt aphasic but able to phonate p.swallow. IMPRESSIONS: Oropharyngeal delay w/overt s/s aspiration on thin liquids. ABSENT swallow x1 of 2 w/solid. Variable time required to initiate swallow w/puree and honey thick increases pt's risk of aspiration. Pt w/inconsistent alertness over course of eval. This also increases pt's risk of aspiration. NPO indicated at this time. Anticipate advancing to po diet w/improved and more consistent alertness. PE: GEN: NAD LUNGS: clear HEART: RRR ABD: S/ND/NT NEURO/PSYCH: grunts and smiles A/P: Seizures, fever (resolved), s/p LP Elevated LFTs (improved) - normal liver on US, note cholelithiasis H/o Hep C -- LFTs improved. 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 DAMIÁN COOK May 12, 2017 08:58
[2017-05-12] MEDS: FOLIC ACID 1 MG TABLET. PO SCH (09:10)
[2017-05-12] MEDS: VALPROIC ACID (AS SODIUM SALT) 250 MG in IV DEXTROSE 5% 50 ML IV SCH ×2 (09:11→20:42)
[2017-05-12] MEDS: LACOSAMIDE 100 MG in IV DEXTROSE 5% 50 ML IV SCH (09:11)
[2017-05-12] MEDS: levETIRAcetam 1,000 MG in IV DEXTROSE 5% 100 ML IV SCH (09:12)
--- NOTE | 2017-05-12 09:57 | PDOC ---
IM PROGRESS NOTES- Subjective Subjective No further seizures.as per staff he is eating well. Objective Vitals Vital Signs Date Time Temp Pulse Resp B/P (MAP) Pulse Ox O2 Delivery O2 Flow Rate FiO2 05/12/17 09:00 84 20 134/67 (89) 99 Room Air 05/12/17 08:00 98.3 98.3 Input & Output Intake and Output 05/13/17 07:00 Intake Total 906 ml Output Total 450 ml Balance 456 ml Intake Oral 240 ml IV Total 666 ml Output Urine Total 450 ml Physical Exam Physical Exam GENERAL: The patient is an elderly male who is alertin NAD NECK: JVP normal. No thyromegaly. LUNGS: Decreased breath sounds at bases. No wheezing, no rales. CARDIOVASCULAR SYSTEM: S1, S2 regular. ABDOMEN: Soft, bowel sounds overactive. No guarding, no rigidity. Mild distention of the abdomen noted. EXTREMITIES: No edema. CENTRAL NERVOUS SYSTEM: Confused.Non verbal,alert NEUROLOGIC: sleeping,no seizures Has aphasia and history of right hemiparesis from previous stroke. Labs Laboratory Tests Test 05/10/17 17:49 05/11/17 06:20 05/11/17 17:30 05/12/17 05:25 Glucose (Fingerstick) 79 mg/dL (70-99) Sodium Level 127 mmol/L (136-145) 132 mmol/L (136-145) Potassium Level 4.0 mmol/L (3.5-5.1) 4.1 mmol/L (3.5-5.1) Chloride Level 96 mmol/L (98-107) 101 mmol/L (98-107) Carbon Dioxide Level 22 mmol/L (21-32) 20 mmol/L (21-32) Anion Gap 9 (6-14) 11 (6-14) Blood Urea Nitrogen 12 mg/dL (8-26) 10 mg/dL (8-26) Creatinine 0.7 mg/dL (0.7-1.3) 0.7 mg/dL (0.7-1.3) Estimated GFR (Cockcroft-Gault) 137.4 137.4 Glucose Level 95 mg/dL (70-99) 91 mg/dL (70-99) Calcium Level 8.1 mg/dL (8.5-10.1) 8.1 mg/dL (8.5-10.1) Creatine Kinase 899 U/L (39-308) 424 U/L (39-308) Vancomycin Level Trough 23.5 mcg/mL (10.0-20.0) 13.4 mcg/mL (10.0-20.0) Vancomycin Last Dose Date 05/11/17 Vancomycin Last Dose Time 1700 White Blood Count 6.8 x10^3/uL (4.0-11.0) Red Blood Count 4.35 x10^6/uL (4.30-5.70) Hemoglobin 14.3 g/dL (13.0-17.5) Hematocrit 43.3 % (39.0-53.0) Mean Corpuscular Volume 100 fL (79-100) Mean Corpuscular Hemoglobin 33 pg (25-35) Mean Corpuscular Hemoglobin Concent 33 g/dL (31-37) Red Cell Distribution Width 12.7 % (11.5-14.5) Platelet Count 78 x10^3/uL (140-400) Neutrophils (%) (Auto) 34 % (31-73) Lymphocytes (%) (Auto) 44 % (24-48) Monocytes (%) (Auto) 18 % (0-9) Eosinophils (%) (Auto) 4 % (0-3) Basophils (%) (Auto) 1 % (0-3) Neutrophils # (Auto) 2.3 x10^3uL (1.8-7.7) Lymphocytes # (Auto) 3.0 x10^3/uL (1.0-4.8) Monocytes # (Auto) 1.2 x10^3/uL (0.0-1.1) Eosinophils # (Auto) 0.3 x10^3/uL (0.0-0.7) Basophils # (Auto) 0.0 x10^3/uL (0.0-0.2) BUN/Creatinine Ratio 14 (6-20) Total Bilirubin 1.0 mg/dL (0.2-1.0) Aspartate Amino Transf (AST/SGOT) 77 U/L (15-37) Alanine Aminotransferase (ALT/SGPT) 84 U/L (16-63) Alkaline Phosphatase 56 U/L (46-116) Total Protein 5.6 g/dL (6.4-8.2) Albumin 2.1 g/dL (3.4-5.0) Albumin/Globulin Ratio 0.6 (1.0-1.7) Laboratory Tests Test 05/11/17 17:30 05/12/17 05:25 Vancomycin Level Trough 23.5 mcg/mL (10.0-20.0) 13.4 mcg/mL (10.0-20.0) Vancomycin Last Dose Date 05/11/17 Vancomycin Last Dose Time 1700 White Blood Count 6.8 x10^3/uL (4.0-11.0) Red Blood Count 4.35 x10^6/uL (4.30-5.70) Hemoglobin 14.3 g/dL (13.0-17.5) Hematocrit 43.3 % (39.0-53.0) Mean Corpuscular Volume 100 fL (79-100) Mean Corpuscular Hemoglobin 33 pg (25-35) Mean Corpuscular Hemoglobin Concent 33 g/dL (31-37) Red Cell Distribution Width 12.7 % (11.5-14.5) Platelet Count 78 x10^3/uL (140-400) Neutrophils (%) (Auto) 34 % (31-73) Lymphocytes (%) (Auto) 44 % (24-48) Monocytes (%) (Auto) 18 % (0-9) Eosinophils (%) (Auto) 4 % (0-3) Basophils (%) (Auto) 1 % (0-3) Neutrophils # (Auto) 2.3 x10^3uL (1.8-7.7) Lymphocytes # (Auto) 3.0 x10^3/uL (1.0-4.8) Monocytes # (Auto) 1.2 x10^3/uL (0.0-1.1) Eosinophils # (Auto) 0.3 x10^3/uL (0.0-0.7) Basophils # (Auto) 0.0 x10^3/uL (0.0-0.2) Sodium Level 132 mmol/L (136-145) Potassium Level 4.1 mmol/L (3.5-5.1) Chloride Level 101 mmol/L (98-107) Carbon Dioxide Level 20 mmol/L (21-32) Anion Gap 11 (6-14) Blood Urea Nitrogen 10 mg/dL (8-26) Creatinine 0.7 mg/dL (0.7-1.3) Estimated GFR (Cockcroft-Gault) 137.4 BUN/Creatinine Ratio 14 (6-20) Glucose Level 91 mg/dL (70-99) Calcium Level 8.1 mg/dL (8.5-10.1) Total Bilirubin 1.0 mg/dL (0.2-1.0) Aspartate Amino Transf (AST/SGOT) 77 U/L (15-37) Alanine Aminotransferase (ALT/SGPT) 84 U/L (16-63) Alkaline Phosphatase 56 U/L (46-116) Creatine Kinase 424 U/L (39-308) Total Protein 5.6 g/dL (6.4-8.2) Albumin 2.1 g/dL (3.4-5.0) Albumin/Globulin Ratio 0.6 (1.0-1.7) Meds Current Medications Lactobacillus Rhamnosus (Culturelle) 1 cap BID PO ; Start 05/12/17 at 21:00 Vancomycin HCl 1 each 1X ONCE MC ; Start 05/11/17 at 17:30; Stop 05/11/17 at 17:31; Status DC Vancomycin HCl 1 each 1X ONCE MC Last administered on 05/12/17t 05:30; Start 05/12/17 at 05:30; Stop 05/12/17 at 05:31; Status DC Vancomycin HCl 1 each 1X ONCE MC ; Start 05/13/17 at 18:30; Stop 05/13/17 at 18:30; Status DC Vancomycin HCl 1.75 gm/Dextrose 500 ml @ 250 mls/hr Q12H IV Last administered on 05/12/17 07:04; Start 05/12/17 at 07:00; Stop 05/12/17 at 07:38; Status DC Assessment Assessment IMP: meningoencephalitis, History LMCA CVA with severe debility Current anticonvulsants via IV ICU monitoring 1. Seizure disorder, not controlled. Dr. Peters seeing the pt, patient is on IV Keppra and Depakote. 2. vomiting subsided 3. 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 4. Lactic acidosis due to seizures. 5. Leukopenia, probably due to previous hepatitis C and possibly seizure medication Depakote. 6. Acute metabolic encephalopathy. 7. Gastroesophageal reflux disease. 8. Hepatitis C, chronic. 9. Hyperlipidemia. 10. History of thrombocytopenia and elevated PSA. PLAN: Eating better. LP done , results reviewed.HSV negative.EEG today. IV Zosyn,Vancomycin.off Acyclovir. Elevated LFTs improving. Hyponatremia- improving Na 132 today , seen in ICU Transfer to regular floor when ok with specialists. Plan Plan For more details regarding further plans, please refer to the orders. ALISA MANLEY MD May 12, 2017 09:57
--- NOTE | 2017-05-12 11:06 | PDOC ---
Renal-Progress Notes Subjective Notes Notes NONE History of Present Illness Hx of present illness STABLE Vitals Vitals Vital Signs Date Time Temp Pulse Resp B/P (MAP) Pulse Ox O2 Delivery O2 Flow Rate FiO2 05/12/17 11:00 78 20 109/61 (77) 99 Room Air 05/12/17 08:00 98.3 98.3 Weight Weight [ ] I.O. Intake and Output Intake and Output 05/13/17 07:00 Intake Total 1018.5 ml Output Total 850 ml Balance 168.5 ml Intake Oral 240 ml IV Total 778.5 ml Output Urine Total 850 ml Labs Labs Laboratory Tests Test 05/11/17 17:30 05/12/17 05:25 Vancomycin Level Trough 23.5 mcg/mL (10.0-20.0) 13.4 mcg/mL (10.0-20.0) Vancomycin Last Dose Date 05/11/17 Vancomycin Last Dose Time 1700 White Blood Count 6.8 x10^3/uL (4.0-11.0) Red Blood Count 4.35 x10^6/uL (4.30-5.70) Hemoglobin 14.3 g/dL (13.0-17.5) Hematocrit 43.3 % (39.0-53.0) Mean Corpuscular Volume 100 fL (79-100) Mean Corpuscular Hemoglobin 33 pg (25-35) Mean Corpuscular Hemoglobin Concent 33 g/dL (31-37) Red Cell Distribution Width 12.7 % (11.5-14.5) Platelet Count 78 x10^3/uL (140-400) Neutrophils (%) (Auto) 34 % (31-73) Lymphocytes (%) (Auto) 44 % (24-48) Monocytes (%) (Auto) 18 % (0-9) Eosinophils (%) (Auto) 4 % (0-3) Basophils (%) (Auto) 1 % (0-3) Neutrophils # (Auto) 2.3 x10^3uL (1.8-7.7) Lymphocytes # (Auto) 3.0 x10^3/uL (1.0-4.8) Monocytes # (Auto) 1.2 x10^3/uL (0.0-1.1) Eosinophils # (Auto) 0.3 x10^3/uL (0.0-0.7) Basophils # (Auto) 0.0 x10^3/uL (0.0-0.2) Sodium Level 132 mmol/L (136-145) Potassium Level 4.1 mmol/L (3.5-5.1) Chloride Level 101 mmol/L (98-107) Carbon Dioxide Level 20 mmol/L (21-32) Anion Gap 11 (6-14) Blood Urea Nitrogen 10 mg/dL (8-26) Creatinine 0.7 mg/dL (0.7-1.3) Estimated GFR (Cockcroft-Gault) 137.4 BUN/Creatinine Ratio 14 (6-20) Glucose Level 91 mg/dL (70-99) Calcium Level 8.1 mg/dL (8.5-10.1) Total Bilirubin 1.0 mg/dL (0.2-1.0) Aspartate Amino Transf (AST/SGOT) 77 U/L (15-37) Alanine Aminotransferase (ALT/SGPT) 84 U/L (16-63) Alkaline Phosphatase 56 U/L (46-116) Creatine Kinase 424 U/L (39-308) Total Protein 5.6 g/dL (6.4-8.2) Albumin 2.1 g/dL (3.4-5.0) Albumin/Globulin Ratio 0.6 (1.0-1.7) Micro Micro Microbiology 05/07/17 Blood Culture - Preliminary, Resulted NO GROWTH AFTER 4 DAYS Review of Systems Constitutional: yes: malaise, weakness, alert Ears/Nose/Throat: Yes: no symptom reported Eyes: Yes: no symptom reported Pulmonary: Yes no symptom reported Gastrointestional: Yes: constipation Genitourinary: Yes: no symptom reported Musculoskeletal: Yes: muscle stiffness, muscle atrophy Skin: Yes no symptom reported Psychiatric/Neurological: Yes: no symptom reported Endocrine: Yes: no symptom reported Physical Exam General Appearance: no apparent distress Skin: warm Respiratory: bilateral CTA Heart: S1S2, RRR Abdomen: soft, bowel sounds present Genitourinary: bladder flat Extremities: pulses present, no edema, atrophy Neurology: alert, oriented Assessment Assessment IMP ROBB-RESOLVED WITH CR 1.7 TO 0.8 HYPONATREMIA-IMPROVED NA TO 132 DECONDITIONING DYSPHAGIA INCREASED LFT'S-IMPROVED PLAN CONT NS ENC PO LELE TRIPP MD May 12, 2017 11:06
[2017-05-12] MEDS: IV NORMAL SALINE 1000ML BAG 1,000 ML IV SCH (11:51)
--- NOTE | 2017-05-12 13:49 | PDOC ---
PROGRESS NOTES Assessment Assessment Seizure. Metabolic encephalopathy. HLD. Old left large MCA infarct. Right hemiparesis. GERD. RECOMMENDATIONS/PLAN: Continue Keppra 1000 mg bid. Continue Vimpat 100 mg bid. EEG on 05/12/17. Discussed with his mother at bedside in ICU. PAST MEDICAL HISTORY: See above. PAST SURGERY HISTORY: No major surgery recently. SOCIAL HISTORY: Lives in intermediate. Denies illicit drugs. REVIEW OF SYSTEMS: Constitutional: No malnutrition, weight loss, night sweats, cachexia. Head: No traumatic brain or head injury. Skin: No edema, or rash. Ear: No infection, tinnitus. Eyes: No vision loss, color blindness. Nose: No bleeding or purulent discharges. Neck: No injury, lymph note enlargement. Cardiac: No WA, arrhythmia. Pulmonary: No hemoptysis, dyspnea. GI: No melena, hematochezia. Urinary/genital: No dysuria, hematuria, incontinence, urinary retention. Endocrinologic: No symptoms of gigantism, dwarf, hyperphasia, cousin face, craniofacial dysmorphism, polydactyly, goiter. Skeletomuscular: No muscular atrophy, deformity. Neurological: see HP. Psychiatric: Denies drug use/abuse. Otherwise, not [id number] review of systems. PHYSICAL EXAMINATION: General appearance is in subacute distress. HEENT: Normocephalic and nontraumatic. Eyes, nose, ears, and throat are unremarkable. Neck is supple. No lymphadenopathy. No crepitus. Cardiovascular: S1, S2, regular rate and rhythm. Pulmonary: Relative clear to auscultation bilaterally. Abdomen: Bowel sounds are positive. Extremities: No rash, lesions, or edema. No restriction of range of motion NEUROLOGICAL EXAMINATION: Awake. Not able to answer questions. Not fully oriented to time, place but he knows person. PERRL. EOMI. CN: no focal findings. Muscle tone: increased in right UE > LE. Muscle strength: 4 right UE, 4+ to 5 the rest. DTR: 2 Plantar reflex: neutral response bilaterally Gait: not examined in bed. Sensory exam: no abnormal findings. No obvious cerebellar signs elicited. Objective Objective Vital Signs Date Time Temp Pulse Resp B/P (MAP) Pulse Ox O2 Delivery O2 Flow Rate FiO2 05/12/17 13:00 77 22 135/92 (106) 99 Room Air 05/12/17 12:00 98.0 98.0 Intake and Output 05/13/17 07:00 Intake Total 1898.5 ml Output Total 1500 ml Balance 398.5 ml Intake Oral 720 ml IV Total 1178.5 ml Output Urine Total 1500 ml Vitals Signs Vitals VS - Last 72 Hours, by Label Date Time Temp Pulse Resp B/P (MAP) Pulse Ox O2 Delivery O2 Flow Rate FiO2 05/12/17 13:00 77 22 135/92 (106) 99 Room Air 05/12/17 12:00 98.0 72 18 131/81 (98) 99 Room Air 98.0 05/12/17 12:00 Room Air 05/12/17 11:00 78 20 109/61 (77) 99 Room Air 05/12/17 10:00 81 18 125/67 (86) 99 Room Air 05/12/17 09:00 84 20 134/67 (89) 99 Room Air 05/12/17 08:00 98.3 76 20 126/68 (87) 99 Room Air 98.3 05/12/17 08:00 Room Air 05/12/17 07:00 98.3 74 20 125/73 (90) 99 Room Air 98.3 05/12/17 06:05 98.2 66 22 134/75 (94) 99 Room Air 98.2 05/12/17 05:00 71 137/77 (97) 97 Room Air 05/12/17 04:18 65 132/75 (94) 94 05/12/17 03:56 Room Air 05/12/17 03:17 98.1 72 146/68 (94) 96 98.1 05/12/17 02:10 72 154/91 (112) 96 05/12/17 01:04 72 149/79 (102) 96 Room Air 05/12/17 00:14 75 147/81 (103) 97 05/12/17 00:12 Room Air 05/11/17 23:04 68 140/76 (97) 100 05/11/17 22:04 89 140/76 (97) 99 05/11/17 21:04 86 140/74 (96) 97 Room Air 05/11/17 20:04 76 133/83 (100) 97 Room Air 05/11/17 19:10 Room Air 05/11/17 19:00 98.1 80 20 137/87 (104) 98 Room Air 98.1 05/11/17 18:00 88 26 150/76 (100) 97 Room Air 05/11/17 17:00 76 22 134/75 (94) 97 Room Air 05/11/17 16:00 98.2 81 18 99/73 (82) 97 Room Air 98.2 05/11/17 16:00 Room Air 05/11/17 15:00 90 18 102/61 (75) 98 Room Air 05/11/17 14:00 90 22 107/66 (80) 96 Room Air 05/11/17 13:00 81 25 115/66 (82) 94 Room Air 05/11/17 12:00 98.1 72 20 127/69 (88) 98 Room Air 98.1 05/11/17 12:00 Room Air 05/11/17 11:00 77 18 145/80 (101) 95 Room Air 05/11/17 10:00 70 20 146/83 (104) 97 Room Air 05/11/17 09:00 70 22 154/80 (104) 93 Room Air 05/11/17 08:00 Room Air 05/11/17 08:00 98.1 72 22 143/82 (102) 98 Room Air 98.1 05/11/17 07:00 98.1 80 18 145/76 (99) 98 Room Air 98.1 Laboratory Laboratory Laboratory Tests Test 05/11/17 17:30 05/12/17 05:25 Vancomycin Level Trough 23.5 mcg/mL (10.0-20.0) 13.4 mcg/mL (10.0-20.0) Vancomycin Last Dose Date 05/11/17 Vancomycin Last Dose Time 1700 White Blood Count 6.8 x10^3/uL (4.0-11.0) Red Blood Count 4.35 x10^6/uL (4.30-5.70) Hemoglobin 14.3 g/dL (13.0-17.5) Hematocrit 43.3 % (39.0-53.0) Mean Corpuscular Volume 100 fL (79-100) Mean Corpuscular Hemoglobin 33 pg (25-35) Mean Corpuscular Hemoglobin Concent 33 g/dL (31-37) Red Cell Distribution Width 12.7 % (11.5-14.5) Platelet Count 78 x10^3/uL (140-400) Neutrophils (%) (Auto) 34 % (31-73) Lymphocytes (%) (Auto) 44 % (24-48) Monocytes (%) (Auto) 18 % (0-9) Eosinophils (%) (Auto) 4 % (0-3) Basophils (%) (Auto) 1 % (0-3) Neutrophils # (Auto) 2.3 x10^3uL (1.8-7.7) Lymphocytes # (Auto) 3.0 x10^3/uL (1.0-4.8) Monocytes # (Auto) 1.2 x10^3/uL (0.0-1.1) Eosinophils # (Auto) 0.3 x10^3/uL (0.0-0.7) Basophils # (Auto) 0.0 x10^3/uL (0.0-0.2) Sodium Level 132 mmol/L (136-145) Potassium Level 4.1 mmol/L (3.5-5.1) Chloride Level 101 mmol/L (98-107) Carbon Dioxide Level 20 mmol/L (21-32) Anion Gap 11 (6-14) Blood Urea Nitrogen 10 mg/dL (8-26) Creatinine 0.7 mg/dL (0.7-1.3) Estimated GFR (Cockcroft-Gault) 137.4 BUN/Creatinine Ratio 14 (6-20) Glucose Level 91 mg/dL (70-99) Calcium Level 8.1 mg/dL (8.5-10.1) Total Bilirubin 1.0 mg/dL (0.2-1.0) Aspartate Amino Transf (AST/SGOT) 77 U/L (15-37) Alanine Aminotransferase (ALT/SGPT) 84 U/L (16-63) Alkaline Phosphatase 56 U/L (46-116) Creatine Kinase 424 U/L (39-308) Total Protein 5.6 g/dL (6.4-8.2) Albumin 2.1 g/dL (3.4-5.0) Albumin/Globulin Ratio 0.6 (1.0-1.7) Microbiology 05/07/17 Blood Culture - Preliminary, Resulted NO GROWTH AFTER 4 DAYS Medication Medications Current Medications Lactobacillus Rhamnosus (Culturelle) 1 cap BID PO ; Start 05/12/17 at 21:00 Sodium Chloride 1,000 ml @ 60 mls/hr [id number] IV Last administered on 11:51; Start 05/12/17 at 11:15 Vancomycin HCl 1 each 1X ONCE MC ; Start 05/11/17 at 17:30; Stop 05/11/17 at 17:31; Status DC Vancomycin HCl 1 each 1X ONCE MC Last administered on 05/12/17 05:30; Start 05/12/17 at 05:30; Stop 05/12/17 at 05:31; Status DC Vancomycin HCl 1 each 1X ONCE MC ; Start 05/13/17 at 18:30; Stop 05/13/17 at 18:30; Status DC Vancomycin HCl 1.75 gm/Dextrose 500 ml @ 250 mls/hr Q12H IV Last administered on 05/12/17 07:04; Start 05/12/17 at 07:00; Stop 05/12/17 at 07:38; Status DC Comment Review of Relevant I have reviewed the following items rakesh (where applicable) has been applied. MIRANDA REYNA MD May 12, 2017 13:49
--- NOTE | 2017-05-12 18:19 | EEG ---
DATE OF SERVICE: 05/12/2017 EEG NUMBER: [id number]. OBJECTIVE: This is a 66-year-old -[place] male patient with history of seizure and stroke. He had seizures; this time, EEG was requested to evaluate seizure activity. METHODS: Twenty electrodes were applied according to the international 10-20 electrode placement system. EKG monitoring, hyperventilation and intermittent photic stimulation, monopolar and bipolar montages are routinely utilized. The record was obtained on a digital system with video monitoring. MEDICATIONS: Keppra, Vimpat. FINDINGS: 1. Background: The patient was recorded in the awake, drowsy and sleep states. The overall background amplitude is variable. No well organized posterior dominant rhythm is observed. The background rhythm is with diffuse slowing in theta and delta frequencies throughout the entire recording. 2. Abnormalities: There are some spike and sharp waves at F3, C3 and T3 areas. No electrographic seizure is seen. Diffuse slowing in theta and delta frequencies is throughout the entire recording. 3. Activation: Hyperventilation was not performed because the patient was unable to follow commands. Intermittent photic stimulation was performed with photic driving. No electrographic seizures induced. IMPRESSION: This EEG he is an abnormal study for the awake, drowsy and sleep states. No well-organized posterior dominant rhythm is observed. The overall background rhythm is with diffuse slowing in theta and delta frequencies. Some spike waves and sharp waves noted at left frontal, central and parietal region. No electrographic seizure is seen. This pattern of EEG is suggestive of diffuse encephalopathy with increased risk of seizure. MIRANDA REYNA MD DR: ALICIA/marlon JOB#: [id number] / [id number] ZI
[2017-05-12] MEDS: LACOSAMIDE 50 MG TABLET PO SCH (20:41)
[2017-05-12] MEDS: SIMVASTATIN 20 MG TABLET PO SCH (20:41)
[2017-05-12] MEDS: levETIRAcetam 500 MG TABLET PO SCH (20:41)
[2017-05-12] MEDS: LACTOBACILLUS RHAMNOSUS GG 1 CAPSULE. PO SCH (20:41)
[2017-05-13 03:00] VITALS: BP 131/72
[2017-05-13] MEDS: IV NORMAL SALINE 1000ML BAG 1,000 ML IV SCH (04:28)
[2017-05-13 04:52] LABS: BASO % 1 % (0-3); EOS % 6 % (0-3); HEMATOCRIT 44.1 % (39.0-53.0); HEMOGLOBIN 14.8 g/dL (13.0-17.5); LYMPH # 2.5 x10^3/uL (1.0-4.8); LYMPH % 39 % (24-48); MEAN CORPUSCULAR HEMOGLOBIN 33 pg (25-35); MEAN CORPUSCULAR HGB CONC 33 g/dL (31-37); MEAN CORPUSCULAR VOLUME 99 fL (79-100); MONO % 15 % (0-9); NEUT % 39 % (31-73); PLATELET COUNT 86 x10^3/uL (140-400); RED BLOOD COUNT 4.44 x10^6/uL (4.30-5.70); RED CELL DISTRIBUTION WIDTH 12.6 % (11.5-14.5); WHITE BLOOD COUNT 6.4 x10^3/uL (4.0-11.0)
[2017-05-13 05:22] LABS: CALCIUM 8.4 mg/dL (8.5-10.1); POTASSIUM 4.4 mmol/L (3.5-5.1)
[2017-05-13] MEDS: PIPERACILLIN/TAZOBACTAM 3.375 GM in IV DEXTROSE 5% 50 ML IV SCH ×2 (05:37→12:43)
--- NOTE | 2017-05-13 07:35 | PDOC ---
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: Alert, grunts to answers SKIN: No rash IVs: ok Labs Lab Laboratory Tests Test 05/13/17 04:30 White Blood Count 6.4 x10^3/uL (4.0-11.0) Red Blood Count 4.44 x10^6/uL (4.30-5.70) Hemoglobin 14.8 g/dL (13.0-17.5) Hematocrit 44.1 % (39.0-53.0) Mean Corpuscular Volume 99 fL (79-100) Mean Corpuscular Hemoglobin 33 pg (25-35) Mean Corpuscular Hemoglobin Concent 33 g/dL (31-37) Red Cell Distribution Width 12.6 % (11.5-14.5) Platelet Count 86 x10^3/uL (140-400) Neutrophils (%) (Auto) 39 % (31-73) Lymphocytes (%) (Auto) 39 % (24-48) Monocytes (%) (Auto) 15 % (0-9) Eosinophils (%) (Auto) 6 % (0-3) Basophils (%) (Auto) 1 % (0-3) Neutrophils # (Auto) 2.5 x10^3uL (1.8-7.7) Lymphocytes # (Auto) 2.5 x10^3/uL (1.0-4.8) Monocytes # (Auto) 1.0 x10^3/uL (0.0-1.1) Eosinophils # (Auto) 0.4 x10^3/uL (0.0-0.7) Basophils # (Auto) 0.0 x10^3/uL (0.0-0.2) Sodium Level 133 mmol/L (136-145) Potassium Level 4.4 mmol/L (3.5-5.1) Chloride Level 101 mmol/L (98-107) Carbon Dioxide Level 25 mmol/L (21-32) Anion Gap 7 (6-14) Blood Urea Nitrogen 11 mg/dL (8-26) Creatinine 1.0 mg/dL (0.7-1.3) Estimated GFR (Cockcroft-Gault) 91.0 Glucose Level 92 mg/dL (70-99) Calcium Level 8.4 mg/dL (8.5-10.1) Creatine Kinase 342 U/L (39-308) Objective Assessment Fever - ? reactive from seizure vs infection vs fecal impaction (had BM). better - Influenza neg; procalcitonin 0.65 - s/p LP: CSF WBC 418, glucose 58 T protein 35.4/ HSV neg. MRI without - contrast neg Seizures Vomit ? aspiration Atypical lymphocytes/Leukopenia on arrival. Now Monocytosis Transaminitis - ? reactive Hep C H/o prostate CA Plan Plan of Care Cont Zosyn (05/07) for now but wean soon F/u labs and cults VIMAL SALINAS MD May 13, 2017 07:35
[2017-05-13 07:45] VITALS: BP 106/59
--- NOTE | 2017-05-13 08:22 | PDOC ---
GERMÁNCISCOSTEPH BORDERER 05/13/17 0822: IM PROGRESS NOTES- Subjective Subjective awake, smiling Objective Objective alert, no distress. one word acknowledgement with y/n questions -appropriate Vitals Vital Signs Date Time Temp Pulse Resp B/P (MAP) Pulse Ox O2 Delivery O2 Flow Rate FiO2 05/13/17 03:00 98.2 72 20 131/72 (91) 100 Room Air 98.2 Input & Output Intake and Output 05/14/17 07:00 Intake Total 368 ml Balance 368 ml IV Total 368 ml Physical Exam Physical Exam GENERAL: alert, oriented to name, no acute distress LUNGS: Decreased breath sounds at bases. No wheezing, no rales. CARDIOVASCULARowel soun SYSTEM: S1, S2 regular. ABDOMEN: Soft,nontender, BS +, no distention. EXTREMITIES: No edema. CENTRAL NERVOUS SYSTEM: alert, one word y/no to questions NEUROLOGIC: old CVA with expressive aphasia, L hemiparesis SKIN: warm/dry Labs Laboratory Tests Test 05/11/17 17:30 05/12/17 05:25 05/13/17 04:30 Vancomycin Level Trough 23.5 mcg/mL (10.0-20.0) 13.4 mcg/mL (10.0-20.0) Vancomycin Last Dose Date 05/11/17 Vancomycin Last Dose Time 1700 White Blood Count 6.8 x10^3/uL (4.0-11.0) 6.4 x10^3/uL (4.0-11.0) Red Blood Count 4.35 x10^6/uL (4.30-5.70) 4.44 x10^6/uL (4.30-5.70) Hemoglobin 14.3 g/dL (13.0-17.5) 14.8 g/dL (13.0-17.5) Hematocrit 43.3 % (39.0-53.0) 44.1 % (39.0-53.0) Mean Corpuscular Volume 100 fL (79-100) 99 fL (79-100) Mean Corpuscular Hemoglobin 33 pg (25-35) 33 pg (25-35) Mean Corpuscular Hemoglobin Concent 33 g/dL (31-37) 33 g/dL (31-37) Red Cell Distribution Width 12.7 % (11.5-14.5) 12.6 % (11.5-14.5) Platelet Count 78 x10^3/uL (140-400) 86 x10^3/uL (140-400) Neutrophils (%) (Auto) 34 % (31-73) 39 % (31-73) Lymphocytes (%) (Auto) 44 % (24-48) 39 % (24-48) Monocytes (%) (Auto) 18 % (0-9) 15 % (0-9) Eosinophils (%) (Auto) 4 % (0-3) 6 % (0-3) Basophils (%) (Auto) 1 % (0-3) 1 % (0-3) Neutrophils # (Auto) 2.3 x10^3uL (1.8-7.7) 2.5 x10^3uL (1.8-7.7) Lymphocytes # (Auto) 3.0 x10^3/uL (1.0-4.8) 2.5 x10^3/uL (1.0-4.8) Monocytes # (Auto) 1.2 x10^3/uL (0.0-1.1) 1.0 x10^3/uL (0.0-1.1) Eosinophils # (Auto) 0.3 x10^3/uL (0.0-0.7) 0.4 x10^3/uL (0.0-0.7) Basophils # (Auto) 0.0 x10^3/uL (0.0-0.2) 0.0 x10^3/uL (0.0-0.2) Sodium Level 132 mmol/L (136-145) 133 mmol/L (136-145) Potassium Level 4.1 mmol/L (3.5-5.1) 4.4 mmol/L (3.5-5.1) Chloride Level 101 mmol/L (98-107) 101 mmol/L (98-107) Carbon Dioxide Level 20 mmol/L (21-32) 25 mmol/L (21-32) Anion Gap 11 (6-14) 7 (6-14) Blood Urea Nitrogen 10 mg/dL (8-26) 11 mg/dL (8-26) Creatinine 0.7 mg/dL (0.7-1.3) 1.0 mg/dL (0.7-1.3) Estimated GFR (Cockcroft-Gault) 137.4 91.0 BUN/Creatinine Ratio 14 (6-20) Glucose Level 91 mg/dL (70-99) 92 mg/dL (70-99) Calcium Level 8.1 mg/dL (8.5-10.1) 8.4 mg/dL (8.5-10.1) Total Bilirubin 1.0 mg/dL (0.2-1.0) Aspartate Amino Transf (AST/SGOT) 77 U/L (15-37) Alanine Aminotransferase (ALT/SGPT) 84 U/L (16-63) Alkaline Phosphatase 56 U/L (46-116) Creatine Kinase 424 U/L (39-308) 342 U/L (39-308) Total Protein 5.6 g/dL (6.4-8.2) Albumin 2.1 g/dL (3.4-5.0) Albumin/Globulin Ratio 0.6 (1.0-1.7) Laboratory Tests Test 05/13/17 04:30 White Blood Count 6.4 x10^3/uL (4.0-11.0) Red Blood Count 4.44 x10^6/uL (4.30-5.70) Hemoglobin 14.8 g/dL (13.0-17.5) Hematocrit 44.1 % (39.0-53.0) Mean Corpuscular Volume 99 fL (79-100) Mean Corpuscular Hemoglobin 33 pg (25-35) Mean Corpuscular Hemoglobin Concent 33 g/dL (31-37) Red Cell Distribution Width 12.6 % (11.5-14.5) Platelet Count 86 x10^3/uL (140-400) Neutrophils (%) (Auto) 39 % (31-73) Lymphocytes (%) (Auto) 39 % (24-48) Monocytes (%) (Auto) 15 % (0-9) Eosinophils (%) (Auto) 6 % (0-3) Basophils (%) (Auto) 1 % (0-3) Neutrophils # (Auto) 2.5 x10^3uL (1.8-7.7) Lymphocytes # (Auto) 2.5 x10^3/uL (1.0-4.8) Monocytes # (Auto) 1.0 x10^3/uL (0.0-1.1) Eosinophils # (Auto) 0.4 x10^3/uL (0.0-0.7) Basophils # (Auto) 0.0 x10^3/uL (0.0-0.2) Sodium Level 133 mmol/L (136-145) Potassium Level 4.4 mmol/L (3.5-5.1) Chloride Level 101 mmol/L (98-107) Carbon Dioxide Level 25 mmol/L (21-32) Anion Gap 7 (6-14) Blood Urea Nitrogen 11 mg/dL (8-26) Creatinine 1.0 mg/dL (0.7-1.3) Estimated GFR (Cockcroft-Gault) 91.0 Glucose Level 92 mg/dL (70-99) Calcium Level 8.4 mg/dL (8.5-10.1) Creatine Kinase 342 U/L (39-308) Meds Current Medications Lacosamide (Vimpat) 100 mg BID PO Last administered on 05/12/17 20:41; Start 05/12/17 at 21:00 Lactobacillus Rhamnosus (Culturelle) 1 cap BID PO Last administered on 20:41; Start 05/12/17 at 21:00 Levetiracetam (Keppra) 1,000 mg BID PO Last administered on 05/12/17 20:41; Start 05/12/17 at 21:00 Sodium Chloride 1,000 ml @ 60 mls/hr [id number] IV Last administered on 04:28; Start 05/12/17 at 11:15 Vancomycin HCl 1 each 1X ONCE MC ; Start 05/13/17 at 18:30; Stop 05/13/17 at 18:30; Status DC Assessment Assessment FINAL DIAGNOSIS : 1. meningoencephalitis w/ sepsis 2. 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 Seizure disorder with seizure activity during admission 4. vomiting subsided undetermined etiology 4. Lactic acidosis due to seizures. 5. Leukopenia, probably due to previous hepatitis C and possibly seizure medication Depakote. 6. Acute metabolic encephalopathy. 7. Gastroesophageal reflux disease. 8. Hepatitis C, chronic. 9. Hyperlipidemia. 10. History of thrombocytopenia and elevated PSA. 11. transaminitis 12. ARF with ROBB POA CKD II 13. hyponatremia POA 14. elevated CPK 15. cholelithiasis w/o cholecystitis PLAN: 05/13/17: meningoencephalitis: ID, Vanco stopped, continues with Zosyn, antibiotic on discharge per ID, BC negative Seizure: Keppra 1000mg bid and Vimpat 100mg bid, neuro following ROBB resolved with Cr 1.0, nephrology following hyponatremia - improved with Na 133 dysphagia with moderate chronic PCL malnutrition - dysphagia diet, speech following abrasion L shoulder - wound care elevated CPK - 05/09 3884, today 342-secondary to seizures lactic acidosis - secondary to seizure LP - s/p LP: CSF WBC 418, glucose 58 T protein 35.4/ HSV neg. MRI without - contrast neg Discharge MLN initiated. Please see discharge orders on medication reconciliation print out. For further plan of care, please see the orders. Plan Plan For more details regarding further plans, please refer to the orders. ALISA MANLEY MD 05/13/17 0854: IM PROGRESS NOTES- Assessment Assessment Improving.[facility] The patient was seen and examined by me. Chart reviewed and plan of care formulated. Discussed with, reviewed and agree with [facility]'s notes, plan of care and orders with modifications as necessary. Discharge Management - 35 minutes. STEPH LOVE APRN May 13, 2017 08:22 ALISA MANLEY MD May 13, 2017 08:54
[2017-05-13] MEDS: FOLIC ACID 1 MG TABLET. PO SCH (09:33)
[2017-05-13] MEDS: PANTOPRAZOLE IV PUSH 40 MG VIAL. IVP SCH (09:33)
[2017-05-13] MEDS: LACTOBACILLUS RHAMNOSUS GG 1 CAPSULE. PO SCH (09:33)
[2017-05-13] MEDS: levETIRAcetam 500 MG TABLET PO SCH (09:33)
[2017-05-13] MEDS: LACOSAMIDE 50 MG TABLET PO SCH (09:33)
[2017-05-13] MEDS: VALPROIC ACID (AS SODIUM SALT) 250 MG in IV DEXTROSE 5% 50 ML IV SCH (09:34)
[2017-05-13 11:00] VITALS: BP 118/75
[2017-05-13] MEDS ORDERED: ACET120S19 RC (11:49)
[2017-05-13] MEDS ORDERED: LACO100T PO (11:50)
[2017-05-13] MEDS ORDERED: LACT1CAP21 PO (11:51)
[2017-05-13] MEDS ORDERED: ONDA4TAB12 PO (11:52)
[2017-05-13] MEDS ORDERED: ACET325T9 PO (11:53)
[2017-05-13] MEDS ORDERED: LEVE500T6 PO (11:55)
[2017-05-13] MEDS ORDERED: INFLUENZA VAX SCREEN BY RX. MC ONE (12:45)
[2017-05-13] MEDS ORDERED: FLU VACC QS2017-18 (36MOS+)/PF 0.5 ML SYRINGE. VAX IM ONE (14:00)
--- NOTE | 2017-05-13 18:50 | PDOC ---
PROGRESS NOTES Assessment Assessment Seizure. Metabolic encephalopathy. HLD. Old left large MCA infarct. Chronic right hemiparesis. GERD. RECOMMENDATIONS/PLAN: Continue Keppra 1000 mg bid. Continue Vimpat 100 mg bid. Discussed with his mother at bedside in ICU on 05/12/17. PAST MEDICAL HISTORY: See above. PAST SURGERY HISTORY: No major surgery recently. SOCIAL HISTORY: Lives in retirement. Denies illicit drugs. REVIEW OF SYSTEMS: Constitutional: No malnutrition, weight loss, night sweats, cachexia. Head: No traumatic brain or head injury. Skin: No edema, or rash. Ear: No infection, tinnitus. Eyes: No vision loss, color blindness. Nose: No bleeding or purulent discharges. Neck: No injury, lymph note enlargement. Cardiac: No TN, arrhythmia. Pulmonary: No hemoptysis, dyspnea. GI: No melena, hematochezia. Urinary/genital: No dysuria, hematuria, incontinence, urinary retention. Endocrinologic: No symptoms of gigantism, dwarf, hyperphasia, cousin face, craniofacial dysmorphism, polydactyly, goiter. Skeletomuscular: No muscular atrophy, deformity. Neurological: see HP. Psychiatric: Denies drug use/abuse. Otherwise, not -vuiap review of systems. PHYSICAL EXAMINATION: General appearance is in no acute distress. HEENT: Normocephalic and nontraumatic. Eyes, nose, ears, and throat are unremarkable. Neck is supple. No lymphadenopathy. No crepitus. Cardiovascular: S1, S2, regular rate and rhythm. Pulmonary: Relative clear to auscultation bilaterally. Abdomen: Bowel sounds are positive. Extremities: No rash, lesions, or edema. No restriction of range of motion NEUROLOGICAL EXAMINATION: Drowsiness. Not answer questions. Not fully oriented to time, place but he knows person. PERRL. EOMI. CN: no focal findings. Muscle tone: increased in right UE > LE. Muscle strength: 4- right UE, 4+ to 5 the rest. DTR: 2 Plantar reflex: neutral response bilaterally Gait: not examined in bed. Sensory exam: no abnormal findings. No obvious cerebellar signs elicited. Objective Objective Vital Signs Date Time Temp Pulse Resp B/P (MAP) Pulse Ox O2 Delivery O2 Flow Rate FiO2 05/13/17 11:00 98.6 80 18 118/75 (89) 95 Room Air 98.6 Intake and Output 05/14/17 06:58 Intake Total 970.5 ml Balance 970.5 ml Intake Oral 500 ml IV Total 470.5 ml Vitals Signs Vitals VS - Last 72 Hours, by Label Date Time Temp Pulse Resp B/P (MAP) Pulse Ox O2 Delivery O2 Flow Rate FiO2 05/13/17 11:00 98.6 80 18 118/75 (89) 95 Room Air 98.6 05/13/17 07:50 Room Air 05/13/17 07:45 98.0 83 18 106/59 (75) 96 Room Air 98.0 05/13/17 03:00 98.2 72 20 131/72 (91) 100 Room Air 98.2 05/12/17 23:00 98.2 80 21 136/77 (96) 100 Room Air 98.2 05/12/17 20:00 Room Air 05/12/17 19:00 98.3 88 30 126/69 (88) 100 Room Air 98.3 05/12/17 16:00 Room Air 05/12/17 14:00 77 22 133/73 (93) 99 Room Air 05/12/17 13:00 77 22 135/92 (106) 99 Room Air 05/12/17 12:00 98.0 72 18 131/81 (98) 99 Room Air 98.0 05/12/17 12:00 Room Air 05/12/17 11:00 78 20 109/61 (77) 99 Room Air 05/12/17 10:00 81 18 125/67 (86) 99 Room Air 05/12/17 09:00 84 20 134/67 (89) 99 Room Air 05/12/17 08:00 98.3 76 20 126/68 (87) 99 Room Air 98.3 05/12/17 08:00 Room Air 05/12/17 07:00 98.3 74 20 125/73 (90) 99 Room Air 98.3 Laboratory Laboratory Laboratory Tests Test 05/13/17 04:30 05/13/17 08:13 White Blood Count 6.4 x10^3/uL (4.0-11.0) Red Blood Count 4.44 x10^6/uL (4.30-5.70) Hemoglobin 14.8 g/dL (13.0-17.5) Hematocrit 44.1 % (39.0-53.0) Mean Corpuscular Volume 99 fL (79-100) Mean Corpuscular Hemoglobin 33 pg (25-35) Mean Corpuscular Hemoglobin Concent 33 g/dL (31-37) Red Cell Distribution Width 12.6 % (11.5-14.5) Platelet Count 86 x10^3/uL (140-400) Neutrophils (%) (Auto) 39 % (31-73) Lymphocytes (%) (Auto) 39 % (24-48) Monocytes (%) (Auto) 15 % (0-9) Eosinophils (%) (Auto) 6 % (0-3) Basophils (%) (Auto) 1 % (0-3) Neutrophils # (Auto) 2.5 x10^3uL (1.8-7.7) Lymphocytes # (Auto) 2.5 x10^3/uL (1.0-4.8) Monocytes # (Auto) 1.0 x10^3/uL (0.0-1.1) Eosinophils # (Auto) 0.4 x10^3/uL (0.0-0.7) Basophils # (Auto) 0.0 x10^3/uL (0.0-0.2) Sodium Level 133 mmol/L (136-145) Potassium Level 4.4 mmol/L (3.5-5.1) Chloride Level 101 mmol/L (98-107) Carbon Dioxide Level 25 mmol/L (21-32) Anion Gap 7 (6-14) Blood Urea Nitrogen 11 mg/dL (8-26) Creatinine 1.0 mg/dL (0.7-1.3) Estimated GFR (Cockcroft-Gault) 91.0 Glucose Level 92 mg/dL (70-99) Calcium Level 8.4 mg/dL (8.5-10.1) Creatine Kinase 342 U/L (39-308) Glucose (Fingerstick) 86 mg/dL (70-99) Microbiology 05/07/17 Blood Culture - Final, Complete NO GROWTH AFTER 5 DAYS Medication Medications Current Medications Influenza Virus Vaccine Quadrival (Fluarix Quad [id number] Syringe) 0.5 ml ONCE ONCE VAX IM Last administered on 05/13/17t 13:00; Start 05/13/17 at 14:00; Stop 10/24/17 at 14:01; Status DC Info (Do NOT chart on this placeholder) 1 each 1X ONCE MC ; Start 05/13/17 at 12:45; Stop 05/13/17 at 12:46; Status UNV Lacosamide (Vimpat) 100 mg BID PO Last administered on 05/13/17 09:33; Start 05/12/17 at 21:00; Stop 05/13/17 at 14:07; Status DC Lactobacillus Rhamnosus (Culturelle) 1 cap BID PO Last administered on 09:33; Start 05/12/17 at 21:00; Stop 05/13/17 at 14:07; Status DC Levetiracetam (Keppra) 1,000 mg BID PO Last administered on 05/13/17 09:33; Start 05/12/17 at 21:00; Stop 05/13/17 at 14:07; Status DC Vancomycin HCl 1 each 1X ONCE MC ; Start 05/13/17 at 18:30; Stop 05/13/17 at 18:30; Status DC Comment Review of Relevant I have reviewed the following items rakesh (where applicable) has been applied. MIRANDA REYNA MD May 13, 2017 18:50
== END 2017-05-13 13:15 | DRG 871 ==
LOC: ER 17:53 → ED HOLD 20:40 → 6 SOUTH 22:27 → 1 WEST ICU 05-07 14:08 → 5 SOUTH 05-13 08:00
PROVIDERS: ADMIT Internal Medicine; ATTEND Internal Medicine
PROC: 009U3ZX Drainage of Spinal Canal, Percutaneous Approach, Diagnostic (ICD-10-PCS; principal; 2017-05-08)
PROC: B01B1ZZ Fluoroscopy of Spinal Cord using Low Osmolar Contrast (ICD-10-PCS; 2017-05-08)
DX: A41.9 Sepsis, unspecified organism (principal); G04.90 Encephalitis and encephalomyelitis, unspecified; G93.41 Metabolic encephalopathy; N17.9 Acute kidney failure, unspecified; J90 Pleural effusion, not elsewhere classified; A86 Unspecified viral encephalitis; R13.10 Dysphagia, unspecified; E87.1 Hypo-osmolality and hyponatremia; I69.351 Hemiplegia and hemiparesis following cerebral infarction affecting right dominant side; J98.11 Atelectasis; G40.89 Other seizures; D69.6 Thrombocytopenia, unspecified; G93.89 Other specified disorders of brain; G40.901 Epilepsy, unspecified, not intractable, with status epilepticus; B18.2 Chronic viral hepatitis C; K56.41 Fecal impaction; M41.9 Scoliosis, unspecified; D72.819 Decreased white blood cell count, unspecified; I69.320 Aphasia following cerebral infarction; D72.821 Monocytosis (symptomatic); E03.9 Hypothyroidism, unspecified; E78.5 Hyperlipidemia, unspecified; F03.90 Unspecified dementia, unspecified severity, without behavioral disturbance, psychotic disturbance, mood disturbance, and anxiety; F32.9 Major depressive disorder, single episode, unspecified; I12.9 Hypertensive chronic kidney disease with stage 1 through stage 4 chronic kidney disease, or unspecified chronic kidney disease; F41.9 Anxiety disorder, unspecified; R74.0 Nonspecific elevation of levels of transaminase and lactic acid dehydrogenase [LDH]; R74.8 Abnormal levels of other serum enzymes; R79.89 Other specified abnormal findings of blood chemistry; K21.9 Gastro-esophageal reflux disease without esophagitis; K80.20 Calculus of gallbladder without cholecystitis without obstruction; N18.2 Chronic kidney disease, stage 2 (mild); Z85.46 Personal history of malignant neoplasm of prostate
CPT/HCPCS: 36415; 36600; 62270; 70450; 70551; 71010; 72125; 74022; 76705; 80048; 80051; 80053; 80076; 80202; 80307; 81001; 82140; 82550; 82553; 82805; 82945; 82962; 83605; 83735; 84145; 84157; 85007; 85025; 85610; 85730; 87040; 87529; 87641; 87804; 89051; 90686; 93005; 95816; 96361; 96365; C9113; C9254; J0133; J1953; J2060; J2543; J3370; J3480; J7030; J7040; J7050; 92526; 92610; 99285-25; G0479

== ENCOUNTER 2017-06-18 11:39 | Inpatient (IN) | payer OTHER ==
[~2017-06-18] VITALS: Ht 182.9 cm; Wt 78.1 kg
[~2017-06-18 11:39] MED LIST changes: +ACET120S19 RC; +LACO100T PO; +LACT1CAP21 PO; +LEVE500T6 PO; +ONDA4TAB12 PO
[2017-06-18] MEDS ORDERED: IV NORMAL SALINE 1000ML BAG 1,000 ML IV ONE ×2 (12:00→13:00)
[2017-06-18 12:16] LABS: BASO % 1 % (0-3); EOS % 2 % (0-3); HEMATOCRIT 48.1 % (39.0-53.0); HEMOGLOBIN 15.7 g/dL (13.0-17.5); LYMPH # 2.2 x10^3/uL (1.0-4.8); LYMPH % 57 % (24-48); MEAN CORPUSCULAR HEMOGLOBIN 33 pg (25-35); MEAN CORPUSCULAR HGB CONC 33 g/dL (31-37); MEAN CORPUSCULAR VOLUME 101 fL (79-100); MONO % 22 % (0-9); NEUT % 18 % (31-73); PLATELET COUNT 96 x10^3/uL (140-400); RED BLOOD COUNT 4.76 x10^6/uL (4.30-5.70); RED CELL DISTRIBUTION WIDTH 13.7 % (11.5-14.5); WHITE BLOOD COUNT 3.9 x10^3/uL (4.0-11.0)
--- NOTE | 2017-06-18 12:23 | EKG ---
[facility] [address] [place] [address] Test Date: 2017-06-18 Test Time: 12:20:14 Pat Name: JA KELLOGG Department: Room: Gender: M Processing Mgr: : [id number] Requested By: DORENE MELENDEZ Order Number: [id number] Reading MD: Philipp Mobley Measurements Intervals [place] Rate: 73 P: 46 [place]: 176 QRS: 28 QRSD: 70 T: 46 QT: 352 QTc: 391 Interpretive Statements SINUS RHYTHM LEFT ATRIAL ABNORMALITY Electronically Signed On 06-23-2017 16:43:22 MEDICAL IMAGING SPECIALIST by Philipp Mobley
[2017-06-18 12:26] LABS: CALCIUM 9.2 mg/dL (8.5-10.1); POTASSIUM 3.9 mmol/L (3.5-5.1)
--- NOTE | 2017-06-18 12:29 | PHYS DOC ---
Past Medical History Past Medical History: Depression, GERD, High Cholesterol, Hypothyroid, Hepatitis, Renal Disease, Seizure, Stroke Additional Past Medical Histor: NEOPLASM PROSTATE, HEP C Past Surgical History: Other Additional Past Surgical Histo: unknown Alcohol Use: Occasionally Drug Use: None Adult General Chief Complaint Chief Complaint: SEIZURE HPI HPI Patient is a 66 year old -[place] male who presents with sure. According to healthcare resort where he sat he had a brief episode of batting his eyes earlier today. And becoming less responsive. He has past medical history of prostate cancer, kidney disease stage II, hypothyroidism, hepatitis C , CVA with expressive aphasia, GERD, seizures. According to the discharge summary he is on Keppra, Vimpat, valproic acid and Depakote. Cranial mom he is acting very sleepy. The patient will wake up and falls right back to sleep. He' ll answer brief questions. Review of Systems Review of Systems Constitutional: Denies fever or chills [] Eyes: Denies change in visual acuity, redness, or eye pain [] HENT: Denies nasal congestion or sore throat [] Respiratory: Denies cough or shortness of breath [] Cardiovascular: No additional information not addressed in HPI [] GI: Denies abdominal pain, nausea, vomiting, bloody stools or diarrhea [] : Denies dysuria or hematuria [] Musculoskeletal: Denies back pain or joint pain [] Integument: Denies rash or skin lesions [] Neurologic: Denies headache, focal weakness or sensory changes [] Endocrine: Denies polyuria or polydipsia [] All other systems were reviewed and found to be within normal limits, except as documented in this note. Current Medications Current Medications Current Medications Medications (Trade) Dose Ordered Sig/Kennedy Start Time Stop Time Status Last Admin Dose Admin Sodium Chloride 1,000 ml @ 1,000 mls/hr 1X ONCE 06/18/17 13:00 06/18/17 13:59 DC Allergies Allergies Allergies Coded Allergies Type Severity Reaction Last Updated Verified No Known Drug Allergies 05/18/14 No Physical Exam Physical Exam Constitutional: Well developed, no acute distress, non-toxic appearance. [] HENT: Normocephalic, atraumatic, bilateral external ears normal, oropharynx moist, no oral exudates, nose normal. [] Eyes: PERRLA, EOMI, conjunctiva normal, no discharge. [] Neck: Normal range of motion, no tenderness, supple, no stridor. [] Cardiovascular:Heart rate regular rhythm, no murmur [] Lungs & Thorax: Bilateral breath sounds clear to auscultation [] Abdomen: Bowel sounds normal, soft, no tenderness, no masses, no pulsatile masses. [] Skin: Warm, dry, no erythema, no rash. [] Back: No tenderness, no CVA tenderness. [] Extremities: No tenderness, no cyanosis, no clubbing, ROM intact, no edema. [] Neurologic: Alert but somnolent, Current Patient Data Vital Signs Vital Signs Date Time Temp Pulse Resp B/P (MAP) Pulse Ox O2 Delivery O2 Flow Rate FiO2 06/18/17 13:28 76 18 99 06/18/17 11:39 97.6 114/66 (82) Room Air 97.6 Lab Values Laboratory Tests Test 06/18/17 11:53 White Blood Count 3.9 x10^3/uL (4.0-11.0) L Red Blood Count 4.76 x10^6/uL (4.30-5.70) Hemoglobin 15.7 g/dL (13.0-17.5) Hematocrit 48.1 % (39.0-53.0) Mean Corpuscular Volume 101 fL (79-100) H Mean Corpuscular Hemoglobin 33 pg (25-35) Mean Corpuscular Hemoglobin Concent 33 g/dL (31-37) Red Cell Distribution Width 13.7 % (11.5-14.5) Platelet Count 96 x10^3/uL (140-400) L Neutrophils (%) (Auto) 18 % (31-73) L Lymphocytes (%) (Auto) 57 % (24-48) H Monocytes (%) (Auto) 22 % (0-9) H Eosinophils (%) (Auto) 2 % (0-3) Basophils (%) (Auto) 1 % (0-3) Neutrophils # (Auto) 0.7 x10^3uL (1.8-7.7) L Lymphocytes # (Auto) 2.2 x10^3/uL (1.0-4.8) Monocytes # (Auto) 0.9 x10^3/uL (0.0-1.1) Eosinophils # (Auto) 0.1 x10^3/uL (0.0-0.7) Basophils # (Auto) 0.0 x10^3/uL (0.0-0.2) Segmented Neutrophils % 15 % (35-66) L Lymphocytes % 65 % (24-48) H Atypical Lymphocytes % (Manual) 3 % (0-0) H Monocytes % 17 % (0-10) H Platelet Estimate Decreased (ADEQUATE) Giant Platelets Occ Anisocytosis Slight Macrocytosis Present Sodium Level 132 mmol/L (136-145) L Potassium Level 3.9 mmol/L (3.5-5.1) Chloride Level 98 mmol/L (98-107) Carbon Dioxide Level 25 mmol/L (21-32) Anion Gap 9 (6-14) Blood Urea Nitrogen 10 mg/dL (8-26) Creatinine 1.0 mg/dL (0.7-1.3) Estimated GFR (Cockcroft-Gault) 91.0 Glucose Level 101 mg/dL (70-99) H Lactic Acid Level 2.6 mmol/L (0.4-2.0) H Calcium Level 9.2 mg/dL (8.5-10.1) Total Bilirubin 0.4 mg/dL (0.2-1.0) Direct Bilirubin 0.2 mg/dL (0.0-0.2) Aspartate Amino Transferase (AST) 58 U/L (15-37) H Alanine Aminotransferase (ALT) 64 U/L (16-63) H Alkaline Phosphatase 85 U/L (46-116) Total Protein 7.3 g/dL (6.4-8.2) Albumin 2.7 g/dL (3.4-5.0) L Laboratory Tests 06/18/17 11:53 Laboratory Tests 06/18/17 11:53 EKG EKG [] Radiology/Procedures Radiology/Procedures CT the head did not show any acute abnormality's, One view chest x-ray did not show any acute abnormalities. [] Impressions: Altered mental status Seizure disorder History of stroke with aphasia Course & Med Decision Making Course & Med Decision Making Pertinent Labs and Imaging studies reviewed. (See chart for details) [I spoke with Dr. Choe regarding the patient's mental status. He is not seizing , he just somnolent. I have ordered a UA, CT head and CXR. He is being admitted with neurology consultation. Spoke with Dr. Peters regarding consultation. Dr. Choe like to watch him see if his mental status changes. I've informed Dr. Choe that the UA, CT head and chest x-ray are pending at this time. 1530 CT head and chest x-ray back does not show any acute abnormalities. UA still pending at this time. The patient's much more awake at this time. Dragon Disclaimer Dragon Disclaimer This electronic medical record was generated, in whole or in part, using a voice recognition dictation system. Departure Departure Impression: Primary Impression: Altered mental status Disposition: ADMITTED INPATIENT Admitting Physician: Vicky Choe Condition: STABLE Referrals: KIERSTEN SADLER (PCP) DORENE MELENDEZ MD Jun 18, 2017 12:29
[2017-06-18 12:32] LABS: ALBUMIN 2.7 g/dL (3.4-5.0); DIRECT BILIRUBIN 0.2 mg/dL (0.0-0.2); TOTAL BILIRUBIN 0.4 mg/dL (0.2-1.0); TOTAL PROTEIN 7.3 g/dL (6.4-8.2)
[2017-06-18 13:06] LABS: ANISOCYTOSIS SLIGHT
[2017-06-18 13:07] LABS: PLT ESTIMATE DECREASED (ADEQUATE)
[2017-06-18 15:43] VITALS: BP 105/68
[2017-06-18 15:44] VITALS: BP 105/68
--- NOTE | 2017-06-18 15:48 | RAD ---
Donell Wilder R CHEST AP ONLY Clinical Indication: Altered mental status, post seizure Comparison: Acute abdomen series dated 05/07/2017, chest radiograph dated 09/10/2014 Findings: Low lung volume. No focal consolidations. Unchanged right apical bullae. Stable pulmonary vasculature. No pleural effusion or pneumothorax. The cardiomediastinal silhouette and great vessels are stable. No acute osseous abnormality. Remote left rib fracture. IMPRESSION: No acute cardiopulmonary process.
--- NOTE | 2017-06-18 15:48 | RAD ---
CT of the head without contrast, 06/18/2017: History: Seizure, altered mental status Comparison is made to a study from 05/06/2017. There is moderate cerebral atrophy. There is an unchanged large area of encephalomalacia in the left temporal/parietal region compatible with an old infarct in the middle cerebral artery distribution. There is compensatory enlargement of the ventricles. There is no shift of the midline structures. There is no evidence of acute intracranial hemorrhage or mass effect. IMPRESSION: 1. Chronic findings as described above. 2. No acute intracranial abnormality is detected. PQRS Compliance Statement: One or more of the following individualized dose reduction techniques were utilized for this examination: 1. Automated exposure control 2. Adjustment of the mA and/or kV according to patient size 3. Use of iterative reconstruction technique
[2017-06-18] MEDS ORDERED: ONDANSETRON ODT 4 MG TAB.RAPDIS. PO PRN (16:00)
[2017-06-18] MEDS ORDERED: ACETAMINOPHEN 325 MG TABLET. PO PRN (16:00)
[2017-06-18] MEDS ORDERED: SENNOSIDES 8.6 MG TABLET PO PRN (16:00)
--- NOTE | 2017-06-18 16:08 | PDOC2 ---
NEUROLOGY CONSULT Date of Admission Date of Admission DATE: 06/18/17 TIME: 15:56 Reason for Consult Reason for Consult: Seizure Referring Physician Referring Physician: Dr. Choe Source Source: Chart review History of Present Illness History of Present Illness The patient is a 66-year-old right-handed male with history of left hemispheric stroke and epilepsy. I saw him a month ago when he presented with seizures. MRI of the brain showed his old left middle cerebral artery stroke, EEG showed bilateral continuous epileptic activity. He has since done well on lacosamide and levetiracetam. He previously had trouble with Dilantin toxicity. He has also been on valproic acid in the past and Down Stairs. [facility] with was noticed to have episode of eye fluttering followed by postictal confusion. He woke up just as he was leaving the emergency department to go upstairs and no further seizure activity has been observed. Past Medical History Cardiovascular: HTN, Hyperlipidemia CENTRAL NERVOUS SYSTEM: CVA, Dementia, Seizure Heme/Onc: Other (thrombocytopenia) Hepatobiliary: Hep A/B/C (C) Psych: Anxiety, Depression Renal/: Chronic renal insuff Endocrine: Hyperthyroidism Past Surgical History Past Surgical History: No pertinent history Family History Family History: No pertinent hx Social History Social History correction resident, no smoking or alcohol use Current Medications Current Medications Current Medications Sodium Chloride 1,000 ml @ 1,000 mls/hr 1X ONCE IV Last administered on 06/18t 13:16; Start 06/18/17 at 12:00; Stop 06/18/17 at 12:59; Status DC Sodium Chloride 1,000 ml @ 1,000 mls/hr 1X ONCE IV ; Start 06/18/17 at 13:00 ; Stop 06/18/17 at 13:59; Status DC Active Scripts Active Keppra (Levetiracetam) 500 Mg Tablet 500 Mg PO BID Reported Levetiracetam 500 Mg Tablet 1,000 Mg PO BID Last Dose 05/13/17 AM Next dose 05/14/17 PM Tylenol (Acetaminophen) 325 Mg Tablet 650 Mg PO PRN Q6HRS PRN Can be given anytime Ondansetron Odt (Ondansetron) 4 Mg Tab.rapdis 1 Tab PO PRN Q6-8HRS Next dose anytime Culturelle (Lactobacillus Rhamnosus Gg) 1 Each Capsule 1 Each PO BID Last dose 05/13/17 AM Next dose 05/14/17 PM Vimpat (Lacosamide) 100 Mg Tablet 100 Mg PO BID Last dose 05/13/17 AM Next dose 05/14/17 PM Acetaminophen 120 Mg Supp.rect 325 Mg RC Can be given anytime Ranitidine Hcl 75 Mg Tablet 75 Mg PO DAILY Next dose 05/14/17 AM Aspir 81 (Aspirin) 81 Mg Tablet.dr 1 Tab PO DAILY Next dose 05/14/17 AM Vitamin D-3 (Cholecalciferol (Vitamin D3)) 2,000 Unit Capsule 1,000 Unit PO DAILY Next dose 05/14/17 AM Thiamine Hcl 100 Mg Tablet 100 Mg PO DAILY Next dose 05/14/17 AM Simvastatin 20 Mg Tablet 1 Tab PO QHS Senna (Sennosides) 8.6 Mg Capsule 8.6 Mg PO PRN DAILY PRN Next dose anytime Folic Acid 1 Mg Tablet 1 Tab PO DAILY last dose 05/13/17 Am Next dose 05/14/17 AM Fish Oil (Moline-3 Fatty Acids) 500 Mg Capsule 500 Mg PO Next dose 05/14/17 AM Allergies Allergies: Coded Allergies: No Known Drug Allergies (Unverified , 05/18/14) ROS Review of System Not obtainable Physical Exam Physical Examination PHYSICAL EXAMINATION: Vital signs: see above. General appearance is normal and in no acute distress. HEENT: Normocephalic and nontraumatic. Eyes, nose, ears, and throat are unremarkable. Neck is supple. No lymphadenopathy. No bruits are heard over the carotid artery. No crepitus. NEUROLOGICAL: He is alert. He does not follow commands. He has global aphasia. There is no gaze preference. There is a right-field cut. There is a right central facial weakness. There is spastic right hemiparesis with upgoing toe on the right. He does move the left side. He does not follow any commands. He does respond to pinprick pain in both sides of the body. He does not cooperate with cerebellar testing. Vitals VITALS Vital Signs Date Time Temp Pulse Resp B/P (MAP) Pulse Ox O2 Delivery O2 Flow Rate FiO2 06/18/17 15:44 97.8 70 17 105/68 (80) 96 Room Air 97.8 Labs Labs Laboratory Tests Test 11/29/17 11:53 White Blood Count 3.9 x10^3/uL (4.0-11.0) Red Blood Count 4.76 x10^6/uL (4.30-5.70) Hemoglobin 15.7 g/dL (13.0-17.5) Hematocrit 48.1 % (39.0-53.0) Mean Corpuscular Volume 101 fL (79-100) Mean Corpuscular Hemoglobin 33 pg (25-35) Mean Corpuscular Hemoglobin Concent 33 g/dL (31-37) Red Cell Distribution Width 13.7 % (11.5-14.5) Platelet Count 96 x10^3/uL (140-400) Neutrophils (%) (Auto) 18 % (31-73) Lymphocytes (%) (Auto) 57 % (24-48) Monocytes (%) (Auto) 22 % (0-9) Eosinophils (%) (Auto) 2 % (0-3) Basophils (%) (Auto) 1 % (0-3) Neutrophils # (Auto) 0.7 x10^3uL (1.8-7.7) Lymphocytes # (Auto) 2.2 x10^3/uL (1.0-4.8) Monocytes # (Auto) 0.9 x10^3/uL (0.0-1.1) Eosinophils # (Auto) 0.1 x10^3/uL (0.0-0.7) Basophils # (Auto) 0.0 x10^3/uL (0.0-0.2) Segmented Neutrophils % 15 % (35-66) Lymphocytes % 65 % (24-48) Atypical Lymphocytes % (Manual) 3 % (0-0) Monocytes % 17 % (0-10) Platelet Estimate Decreased (ADEQUATE) Giant Platelets Occ Anisocytosis Slight Macrocytosis Present Sodium Level 132 mmol/L (136-145) Potassium Level 3.9 mmol/L (3.5-5.1) Chloride Level 98 mmol/L (98-107) Carbon Dioxide Level 25 mmol/L (21-32) Anion Gap 9 (6-14) Blood Urea Nitrogen 10 mg/dL (8-26) Creatinine 1.0 mg/dL (0.7-1.3) Estimated GFR (Cockcroft-Gault) 91.0 Glucose Level 101 mg/dL (70-99) Lactic Acid Level 2.6 mmol/L (0.4-2.0) Calcium Level 9.2 mg/dL (8.5-10.1) Total Bilirubin 0.4 mg/dL (0.2-1.0) Direct Bilirubin 0.2 mg/dL (0.0-0.2) Aspartate Amino Transf (AST/SGOT) 58 U/L (15-37) Alanine Aminotransferase (ALT/SGPT) 64 U/L (16-63) Alkaline Phosphatase 85 U/L (46-116) Total Protein 7.3 g/dL (6.4-8.2) Albumin 2.7 g/dL (3.4-5.0) Laboratory Tests Test 06/18/17 11:53 White Blood Count 3.9 x10^3/uL (4.0-11.0) Red Blood Count 4.76 x10^6/uL (4.30-5.70) Hemoglobin 15.7 g/dL (13.0-17.5) Hematocrit 48.1 % (39.0-53.0) Mean Corpuscular Volume 101 fL (79-100) Mean Corpuscular Hemoglobin 33 pg (25-35) Mean Corpuscular Hemoglobin Concent 33 g/dL (31-37) Red Cell Distribution Width 13.7 % (11.5-14.5) Platelet Count 96 x10^3/uL (140-400) Neutrophils (%) (Auto) 18 % (31-73) Lymphocytes (%) (Auto) 57 % (24-48) Monocytes (%) (Auto) 22 % (0-9) Eosinophils (%) (Auto) 2 % (0-3) Basophils (%) (Auto) 1 % (0-3) Neutrophils # (Auto) 0.7 x10^3uL (1.8-7.7) Lymphocytes # (Auto) 2.2 x10^3/uL (1.0-4.8) Monocytes # (Auto) 0.9 x10^3/uL (0.0-1.1) Eosinophils # (Auto) 0.1 x10^3/uL (0.0-0.7) Basophils # (Auto) 0.0 x10^3/uL (0.0-0.2) Segmented Neutrophils % 15 % (35-66) Lymphocytes % 65 % (24-48) Atypical Lymphocytes % (Manual) 3 % (0-0) Monocytes % 17 % (0-10) Platelet Estimate Decreased (ADEQUATE) Giant Platelets Occ Anisocytosis Slight Macrocytosis Present Sodium Level 132 mmol/L (136-145) Potassium Level 3.9 mmol/L (3.5-5.1) Chloride Level 98 mmol/L (98-107) Carbon Dioxide Level 25 mmol/L (21-32) Anion Gap 9 (6-14) Blood Urea Nitrogen 10 mg/dL (8-26) Creatinine 1.0 mg/dL (0.7-1.3) Estimated GFR (Cockcroft-Gault) 91.0 Glucose Level 101 mg/dL (70-99) Lactic Acid Level 2.6 mmol/L (0.4-2.0) Calcium Level 9.2 mg/dL (8.5-10.1) Total Bilirubin 0.4 mg/dL (0.2-1.0) Direct Bilirubin 0.2 mg/dL (0.0-0.2) Aspartate Amino Transf (AST/SGOT) 58 U/L (15-37) Alanine Aminotransferase (ALT/SGPT) 64 U/L (16-63) Alkaline Phosphatase 85 U/L (46-116) Total Protein 7.3 g/dL (6.4-8.2) Albumin 2.7 g/dL (3.4-5.0) Images Images CT of the head without contrast, 06/18/2017: History: Seizure, altered mental status Comparison is made to a study from 05/06/2017. There is moderate cerebral atrophy. There is an unchanged large area of encephalomalacia in the left temporal/parietal region compatible with an old infarct in the middle cerebral artery distribution. There is compensatory enlargement of the ventricles. There is no shift of the midline structures. There is no evidence of acute intracranial hemorrhage or mass effect. IMPRESSION: 1. Chronic findings as described above. 2. No acute intracranial abnormality is detected. Assessment/Plan Assessment/Plan Impression: Possible breakthrough seizure, may also have metabolic issues. Note that he does have some leukopenia and lactic acidosis. Recommendations: I renewed his current anticonvulsants including lacosamide, levetiracetam, and valproic acid. Check valproic acid level, lacosamide and levetiracetam levels are usually not helpful because of their wide therapeutic range of normal. Await urinalysis and monitor medical issues. Hold off on repeat MRI or EEG studies as he has returned to his mental status baseline. Thank you for letting me help with the patient's care. MARCELINO CRABTREE MD Jun 18, 2017 16:08
[2017-06-18] MEDS ORDERED: ACETAMINOPHEN 325 MG SUPP.RECT. PR PRN (16:15)
[2017-06-18] MEDS: FOLIC ACID 1 MG TABLET. PO SCH (17:00)
[2017-06-18] MEDS: OMEGA-3 FATTY ACIDS/FISH OIL 1,000 MG CAPSULE. PO SCH (17:00)
[2017-06-18] MEDS ORDERED: ASPIRIN ENTERIC COATED 81 MG TABLET.DR. PO SCH (17:00)
[2017-06-18] MEDS: CHOLECALCIFEROL (VITAMIN D3) 1,000 UNIT TABLET PO SCH (18:07)
[2017-06-18] MEDS: THIAMINE 100 MG TABLET. PO SCH (18:07)
[2017-06-18 19:38] VITALS: BP 126/72
[2017-06-18] MEDS: levETIRAcetam 500 MG TABLET PO SCH (20:02)
[2017-06-18] MEDS: LACOSAMIDE 50 MG TABLET PO SCH (20:03)
[2017-06-18] MEDS: LACTOBACILLUS RHAMNOSUS GG 1 CAPSULE. PO SCH (20:03)
[2017-06-18] MEDS: VALPROIC ACID 250 MG CAPSULE. PO SCH (20:07)
[2017-06-18] MEDS ORDERED: SIMVASTATIN 20 MG TABLET PO SCH (21:00)
[2017-06-18] MEDS ORDERED: LACOSAMIDE 200 MG TABLET PO SCH (21:00)
[2017-06-18] MEDS ORDERED: levETIRAcetam 500 MG TABLET PO SCH (21:00)
[2017-06-18] MEDS ORDERED: FAMOTIDINE 20 MG TABLET. PO SCH (21:00)
[2017-06-18 23:40] VITALS: BP 123/79
[2017-06-19 03:08] VITALS: BP 96/58
[2017-06-19 04:37] LABS: BASO % 0 % (0-3); EOS % 2 % (0-3); HEMATOCRIT 42.6 % (39.0-53.0); HEMOGLOBIN 13.9 g/dL (13.0-17.5); LYMPH # 2.6 x10^3/uL (1.0-4.8); LYMPH % 63 % (24-48); MEAN CORPUSCULAR HEMOGLOBIN 33 pg (25-35); MEAN CORPUSCULAR HGB CONC 33 g/dL (31-37); MEAN CORPUSCULAR VOLUME 101 fL (79-100); MONO % 23 % (0-9); NEUT % 12 % (31-73); PLATELET COUNT 83 x10^3/uL (140-400); RED BLOOD COUNT 4.23 x10^6/uL (4.30-5.70); RED CELL DISTRIBUTION WIDTH 13.8 % (11.5-14.5); WHITE BLOOD COUNT 4.1 x10^3/uL (4.0-11.0)
[2017-06-19 04:56] LABS: CALCIUM 8.4 mg/dL (8.5-10.1); POTASSIUM 4.3 mmol/L (3.5-5.1)
[2017-06-19 07:00] VITALS: BP 108/63
[2017-06-19] MEDS: LACTOBACILLUS RHAMNOSUS GG 1 CAPSULE. PO SCH ×2 (08:17→20:59)
[2017-06-19] MEDS: CHOLECALCIFEROL (VITAMIN D3) 1,000 UNIT TABLET PO SCH (08:17)
[2017-06-19] MEDS: VALPROIC ACID 250 MG CAPSULE. PO SCH ×2 (08:17→20:59)
[2017-06-19] MEDS: levETIRAcetam 500 MG TABLET PO SCH ×2 (08:17→20:59)
[2017-06-19] MEDS: ASPIRIN CHEWABLE 81 MG TABLET. PO SCH (08:17)
[2017-06-19] MEDS: LACOSAMIDE 50 MG TABLET PO SCH ×2 (08:18→20:59)
[2017-06-19] MEDS: FOLIC ACID 1 MG TABLET. PO SCH (08:18)
[2017-06-19] MEDS: OMEGA-3 FATTY ACIDS/FISH OIL 1,000 MG CAPSULE. PO SCH (08:18)
[2017-06-19] MEDS: THIAMINE 100 MG TABLET. PO SCH (08:18)
--- NOTE | 2017-06-19 09:12 | PDOC1 ---
STEPH LOVE EXCELLENCE SPECIALIST 06/19/17 0912: HISTORY AND PHYSICAL Chief Complaint Chief Complaint This 66 year old male has been admitted with a chief complaint of seizure activity. He was at the [facility] when staff noted an episode of his eyes fluttering and he became unresponsive. He was transported EMS to [facility] ER. In the ER a CT of the head was negative for acute changes. Labs WBC 3.9 , Platelet 96, Na 132, Lactic Acid 2.6, AST 58 and ALT 64. UA is pending per ER note. CXR clear. He was somnolent in the ED and his MS improving prior to discharge. He is admitted to the medical surgical unit. Problem List Problems Medical Problems: (1) Altered mental status Status: Acute Past Medical History Cardiovascular: HTN, Hyperlipidemia CENTRAL NERVOUS SYSTEM: CVA (h/o L LMCA CVA wioth severe debliity R heimparesis , epxressive apshasia, dysphagia ), Dementia, Seizure (recent status eplepticus r/t meningoencephalitis ), Other (recent meningoencephalitis w/sepsis ) GI: GERD, Other (chronic cholelithiasis w/o cholecytstitis ) Heme/Onc: Other (thrombocytopenia liver disease leukopenia seizure meds ) Hepatobiliary: Hep A/B/C (Hepatitis C ) Psych: Anxiety, Depression Renal/: Chronic renal insuff (CKD II ), Prostate Ca. (with continued chonic elevation PSA ) Endocrine: Hyperthyroidism Past Surgical History PSH unable to obtain Past Surgical History: No pertinent history Past Family History PFH unavailable Family History: Other Past Social History PSH resides at [facility] history r/t tobacco, ETOH or illicit drugs not available. Review of Symptoms Review of Symptoms A 14 point ROS was completed with the following noted as positive: per HPI Other systems reviewed and negative. Medications Medications reviewed and reconciled. Allergy Allergies Coded Allergies Type Severity Reaction Last Updated Verified No Known Drug Allergies 05/18/14 No Physical Exam Physical Exam General appearance - alert,well appearing, and in no distress Mental Status - alert, oriented to person, place affect appropriate to mood Head - normal Chest - clear to auscultation, no wheezes, rales or rhonchi, symmetric air entry Heart - S1 and S2 normal Abdomen - soft, nontender, nondistended, no masses or organomegaly Neurological - no acute focal neurological deficit Expressive aphasia R sided hemiparesis Musculoskeletal - no muscular tenderness noted Extremities - no pedal edema Skin - warm and dry VTE Prophylaxis Ordered VTE Prophylaxis Devices: Yes VTE Pharmacological Prophylaxi: No Assessment Labs Laboratory Tests Test 06/18/17 11:53 06/18/17 20:50 06/19/17 03:45 White Blood Count 3.9 x10^3/uL (4.0-11.0) 4.1 x10^3/uL (4.0-11.0) Red Blood Count 4.76 x10^6/uL (4.30-5.70) 4.23 x10^6/uL (4.30-5.70) Hemoglobin 15.7 g/dL (13.0-17.5) 13.9 g/dL (13.0-17.5) Hematocrit 48.1 % (39.0-53.0) 42.6 % (39.0-53.0) Mean Corpuscular Volume 101 fL (79-100) 101 fL (79-100) Mean Corpuscular Hemoglobin 33 pg (25-35) 33 pg (25-35) Mean Corpuscular Hemoglobin Concent 33 g/dL (31-37) 33 g/dL (31-37) Red Cell Distribution Width 13.7 % (11.5-14.5) 13.8 % (11.5-14.5) Platelet Count 96 x10^3/uL (140-400) 83 x10^3/uL (140-400) Neutrophils (%) (Auto) 18 % (31-73) 12 % (31-73) Lymphocytes (%) (Auto) 57 % (24-48) 63 % (24-48) Monocytes (%) (Auto) 22 % (0-9) 23 % (0-9) Eosinophils (%) (Auto) 2 % (0-3) 2 % (0-3) Basophils (%) (Auto) 1 % (0-3) 0 % (0-3) Neutrophils # (Auto) 0.7 x10^3uL (1.8-7.7) 0.5 x10^3uL (1.8-7.7) Lymphocytes # (Auto) 2.2 x10^3/uL (1.0-4.8) 2.6 x10^3/uL (1.0-4.8) Monocytes # (Auto) 0.9 x10^3/uL (0.0-1.1) 0.9 x10^3/uL (0.0-1.1) Eosinophils # (Auto) 0.1 x10^3/uL (0.0-0.7) 0.1 x10^3/uL (0.0-0.7) Basophils # (Auto) 0.0 x10^3/uL (0.0-0.2) 0.0 x10^3/uL (0.0-0.2) Segmented Neutrophils % 15 % (35-66) Lymphocytes % 65 % (24-48) Atypical Lymphocytes % (Manual) 3 % (0-0) Monocytes % 17 % (0-10) Platelet Estimate Decreased (ADEQUATE) Giant Platelets Occ Anisocytosis Slight Macrocytosis Present Sodium Level 132 mmol/L (136-145) 134 mmol/L (136-145) Potassium Level 3.9 mmol/L (3.5-5.1) 4.3 mmol/L (3.5-5.1) Chloride Level 98 mmol/L (98-107) 104 mmol/L (98-107) Carbon Dioxide Level 25 mmol/L (21-32) 24 mmol/L (21-32) Anion Gap 9 (6-14) 6 (6-14) Blood Urea Nitrogen 10 mg/dL (8-26) 9 mg/dL (8-26) Creatinine 1.0 mg/dL (0.7-1.3) 1.0 mg/dL (0.7-1.3) Estimated GFR (Cockcroft-Gault) 91.0 91.0 Glucose Level 101 mg/dL (70-99) 75 mg/dL (70-99) Lactic Acid Level 2.6 mmol/L (0.4-2.0) Calcium Level 9.2 mg/dL (8.5-10.1) 8.4 mg/dL (8.5-10.1) Total Bilirubin 0.4 mg/dL (0.2-1.0) Direct Bilirubin 0.2 mg/dL (0.0-0.2) Aspartate Amino Transf (AST/SGOT) 58 U/L (15-37) Alanine Aminotransferase (ALT/SGPT) 64 U/L (16-63) Alkaline Phosphatase 85 U/L (46-116) Total Protein 7.3 g/dL (6.4-8.2) Albumin 2.7 g/dL (3.4-5.0) Troponin I Quantitative 0.028 ng/mL (0.000-0.055) 0.031 ng/mL (0.000-0.055) Valproic Acid (Depakene) Level 64 mcg/mL (50-100) Valproic Acid Last Dose Date [id number] Valproic Acid Last Dose Time 2100 Laboratory Tests Test 06/18/17 11:53 06/18/17 20:50 06/19/17 03:45 White Blood Count 3.9 x10^3/uL (4.0-11.0) 4.1 x10^3/uL (4.0-11.0) Red Blood Count 4.76 x10^6/uL (4.30-5.70) 4.23 x10^6/uL (4.30-5.70) Hemoglobin 15.7 g/dL (13.0-17.5) 13.9 g/dL (13.0-17.5) Hematocrit 48.1 % (39.0-53.0) 42.6 % (39.0-53.0) Mean Corpuscular Volume 101 fL (79-100) 101 fL (79-100) Mean Corpuscular Hemoglobin 33 pg (25-35) 33 pg (25-35) Mean Corpuscular Hemoglobin Concent 33 g/dL (31-37) 33 g/dL (31-37) Red Cell Distribution Width 13.7 % (11.5-14.5) 13.8 % (11.5-14.5) Platelet Count 96 x10^3/uL (140-400) 83 x10^3/uL (140-400) Neutrophils (%) (Auto) 18 % (31-73) 12 % (31-73) Lymphocytes (%) (Auto) 57 % (24-48) 63 % (24-48) Monocytes (%) (Auto) 22 % (0-9) 23 % (0-9) Eosinophils (%) (Auto) 2 % (0-3) 2 % (0-3) Basophils (%) (Auto) 1 % (0-3) 0 % (0-3) Neutrophils # (Auto) 0.7 x10^3uL (1.8-7.7) 0.5 x10^3uL (1.8-7.7) Lymphocytes # (Auto) 2.2 x10^3/uL (1.0-4.8) 2.6 x10^3/uL (1.0-4.8) Monocytes # (Auto) 0.9 x10^3/uL (0.0-1.1) 0.9 x10^3/uL (0.0-1.1) Eosinophils # (Auto) 0.1 x10^3/uL (0.0-0.7) 0.1 x10^3/uL (0.0-0.7) Basophils # (Auto) 0.0 x10^3/uL (0.0-0.2) 0.0 x10^3/uL (0.0-0.2) Segmented Neutrophils % 15 % (35-66) Lymphocytes % 65 % (24-48) Atypical Lymphocytes % (Manual) 3 % (0-0) Monocytes % 17 % (0-10) Platelet Estimate Decreased (ADEQUATE) Giant Platelets Occ Anisocytosis Slight Macrocytosis Present Sodium Level 132 mmol/L (136-145) 134 mmol/L (136-145) Potassium Level 3.9 mmol/L (3.5-5.1) 4.3 mmol/L (3.5-5.1) Chloride Level 98 mmol/L (98-107) 104 mmol/L (98-107) Carbon Dioxide Level 25 mmol/L (21-32) 24 mmol/L (21-32) Anion Gap 9 (6-14) 6 (6-14) Blood Urea Nitrogen 10 mg/dL (8-26) 9 mg/dL (8-26) Creatinine 1.0 mg/dL (0.7-1.3) 1.0 mg/dL (0.7-1.3) Estimated GFR (Cockcroft-Gault) 91.0 91.0 Glucose Level 101 mg/dL (70-99) 75 mg/dL (70-99) Lactic Acid Level 2.6 mmol/L (0.4-2.0) Calcium Level 9.2 mg/dL (8.5-10.1) 8.4 mg/dL (8.5-10.1) Total Bilirubin 0.4 mg/dL (0.2-1.0) Direct Bilirubin 0.2 mg/dL (0.0-0.2) Aspartate Amino Transf (AST/SGOT) 58 U/L (15-37) Alanine Aminotransferase (ALT/SGPT) 64 U/L (16-63) Alkaline Phosphatase 85 U/L (46-116) Total Protein 7.3 g/dL (6.4-8.2) Albumin 2.7 g/dL (3.4-5.0) Troponin I Quantitative 0.028 ng/mL (0.000-0.055) 0.031 ng/mL (0.000-0.055) Valproic Acid (Depakene) Level 64 mcg/mL (50-100) Valproic Acid Last Dose Date Valproic Acid Last Dose Time 2100 Plan Plan IMPRESSION: 1. Seizure disorder with recent status ellipticus prior admission 2. h/o recent meningoencephalitis w/ sepsis 3. 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 hyponatremia probable r/t seizure medication 5. Lactic acidosis 6. Leukopenia, probably due to previous hepatitis C and possibly seizure medication Depakote. 7. Gastroesophageal reflux disease. 8. Hepatitis C, chronic. 9. Hyperlipidemia. 10. History of thrombocytopenia liver disease 11. hypothyroid 12. CKD II 13. hyponatremia 14. cholelithiasis w/o cholecystitis 15 elevated PSA with h/o prostate cancer PLAN: possible seizure - neurology consulted - medication levels pending metabolic encephalopathy - improving lactic acidosis - Admit 2.6 - recheck level - UA pending per ED note hyponatremia - admit 132 this AM 134 improved thrombocytopenia - admit Plt 90 - this am 83 - monitor - no anticoagulation <100 leukopenia - r/t liver disease - Admit 3.9 this morning 4.1 transaminitis - AST 58 ALT 64 moderate chronic PCL malnutrition - supplements - monitor diet DVT/GI prophylaxis - SCD/CARMEN PPI For more details regarding further plans, please refer to the orders. ALISA MANLEY MD 06/19/17 1016: HISTORY AND PHYSICAL Plan Plan The patient was seen and examined by me. Chart reviewed and plan of care formulated. Discussed with, reviewed and agree with CH[employer] WORKER's notes, plan of care and orders with modifications as necessary. For more details regarding further plans, please refer to the orders. STEPH LOVE APRN Jun 19, 2017 09:12 ALISA MANLEY MD Jun 19, 2017 10:16
[2017-06-19 10:15] LABS: BILIRUBIN,URINE NEGATIVE (NEG); GLUCOSE,URINE NEGATIVE (NEG); NITRITE,URINE NEGATIVE (NEG); PROTEIN,URINE NEGATIVE (NEG-TRACE)
[2017-06-19 10:34] LABS: RBC,URINE 0 /HPF (0-2)
[2017-06-19 10:35] LABS: BACTERIA,URINE 0 /HPF (0-FEW); SQUAMOUS EPITHELIAL CELL,UR OCC /LPF; WBC,URINE OCC /HPF (0-4)
[2017-06-19 11:00] VITALS: BP 109/65
[2017-06-19] MEDS ORDERED: LEVO25TA55 PO (11:44)
[2017-06-19] MEDS ORDERED: FAMO20TA5 PO (11:44)
[2017-06-19] MEDS: LEVOTHYROXINE 25 MCG TABLET. PO SCH (12:09)
[2017-06-19 15:00] VITALS: BP 99/53
--- NOTE | 2017-06-19 15:40 | PDOC ---
PROGRESS NOTES Assessment Problems Medical Problems: (1) Altered mental status Status: Acute Epilepsy, seizure yesterday, doing well now, with therapeutic valproic acid level. 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 Plan Continue present anticonvulsants at current levels Observe overnight Okay for discharge I discussed with patient's mother. Subjective Indicates no pain Objective Vital Signs Date Time Temp Pulse Resp B/P (MAP) Pulse Ox O2 Delivery O2 Flow Rate FiO2 06/19/17 11:00 97.9 79 18 109/65 (80) 96 Room Air 97.9 Intake and Output 06/19/17 07:00 Intake Total 200 ml Balance 200 ml Intake Oral 200 ml # Voids 5 PHYSICAL EXAM Alert. Global aphasia. PERRL. EOMI. CN: Right field cut, no gaze preference, right central facial weakness, otherwise no focal findings. Muscle tone: Spastic on right Muscle strength: Spastic right hemiparesis DTR: 2+ Plantar reflex: upgoing toe on the right Gait: not examined in bed. Sensory exam: no abnormal findings as best I can determine given the aphasia. Cerebellar: Not cooperative Review of Relevant I have reviewed the following items rakesh (where applicable) has been applied. Labs Laboratory Tests Test 06/18/17 09:50 06/18/17 11:53 06/18/17 20:50 06/19/17 03:45 Urine Collection Type Unknown Urine Color Yellow Urine Clarity Clear Urine pH 7.0 Urine Specific [place] 1.015 Urine Protein Negative mg/dL (NEG-TRACE) Urine Glucose (UA) Negative mg/dL (NEG) Urine Ketones (Stick) Negative mg/dL (NEG) Urine Blood Negative (NEG) Urine Nitrite Negative (NEG) Urine Bilirubin Negative (NEG) Urine Urobilinogen Dipstick 1.0 mg/dL (0.2 mg/dL) Urine Leukocyte Esterase Negative (NEG) Urine RBC 0 /HPF (0-2) Urine WBC Occ /HPF (0-4) Urine Squamous Epithelial Cells Occ /LPF Urine Bacteria 0 /HPF (0-FEW) White Blood Count 3.9 x10^3/uL (4.0-11.0) 4.1 x10^3/uL (4.0-11.0) Red Blood Count 4.76 x10^6/uL (4.30-5.70) 4.23 x10^6/uL (4.30-5.70) Hemoglobin 15.7 g/dL (13.0-17.5) 13.9 g/dL (13.0-17.5) Hematocrit 48.1 % (39.0-53.0) 42.6 % (39.0-53.0) Mean Corpuscular Volume 101 fL (79-100) 101 fL (79-100) Mean Corpuscular Hemoglobin 33 pg (25-35) 33 pg (25-35) Mean Corpuscular Hemoglobin Concent 33 g/dL (31-37) 33 g/dL (31-37) Red Cell Distribution Width 13.7 % (11.5-14.5) 13.8 % (11.5-14.5) Platelet Count 96 x10^3/uL (140-400) 83 x10^3/uL (140-400) Neutrophils (%) (Auto) 18 % (31-73) 12 % (31-73) Lymphocytes (%) (Auto) 57 % (24-48) 63 % (24-48) Monocytes (%) (Auto) 22 % (0-9) 23 % (0-9) Eosinophils (%) (Auto) 2 % (0-3) 2 % (0-3) Basophils (%) (Auto) 1 % (0-3) 0 % (0-3) Neutrophils # (Auto) 0.7 x10^3uL (1.8-7.7) 0.5 x10^3uL (1.8-7.7) Lymphocytes # (Auto) 2.2 x10^3/uL (1.0-4.8) 2.6 x10^3/uL (1.0-4.8) Monocytes # (Auto) 0.9 x10^3/uL (0.0-1.1) 0.9 x10^3/uL (0.0-1.1) Eosinophils # (Auto) 0.1 x10^3/uL (0.0-0.7) 0.1 x10^3/uL (0.0-0.7) Basophils # (Auto) 0.0 x10^3/uL (0.0-0.2) 0.0 x10^3/uL (0.0-0.2) Segmented Neutrophils % 15 % (35-66) Lymphocytes % 65 % (24-48) Atypical Lymphocytes % (Manual) 3 % (0-0) Monocytes % 17 % (0-10) Platelet Estimate Decreased (ADEQUATE) Giant Platelets Occ Anisocytosis Slight Macrocytosis Present Sodium Level 132 mmol/L (136-145) 134 mmol/L (136-145) Potassium Level 3.9 mmol/L (3.5-5.1) 4.3 mmol/L (3.5-5.1) Chloride Level 98 mmol/L (98-107) 104 mmol/L (98-107) Carbon Dioxide Level 25 mmol/L (21-32) 24 mmol/L (21-32) Anion Gap 9 (6-14) 6 (6-14) Blood Urea Nitrogen 10 mg/dL (8-26) 9 mg/dL (8-26) Creatinine 1.0 mg/dL (0.7-1.3) 1.0 mg/dL (0.7-1.3) Estimated GFR (Cockcroft-Gault) 91.0 91.0 Glucose Level 101 mg/dL (70-99) 75 mg/dL (70-99) Lactic Acid Level 2.6 mmol/L (0.4-2.0) Calcium Level 9.2 mg/dL (8.5-10.1) 8.4 mg/dL (8.5-10.1) Total Bilirubin 0.4 mg/dL (0.2-1.0) Direct Bilirubin 0.2 mg/dL (0.0-0.2) Aspartate Amino Transf (AST/SGOT) 58 U/L (15-37) Alanine Aminotransferase (ALT/SGPT) 64 U/L (16-63) Alkaline Phosphatase 85 U/L (46-116) Total Protein 7.3 g/dL (6.4-8.2) Albumin 2.7 g/dL (3.4-5.0) Troponin I Quantitative 0.028 ng/mL (0.000-0.055) 0.031 ng/mL (0.000-0.055) Valproic Acid (Depakene) Level 64 mcg/mL (50-100) Valproic Acid Last Dose Date [id number] Valproic Acid Last Dose Time 2100 Test 06/19/17 10:20 Lactic Acid Level 1.7 mmol/L (0.4-2.0) Laboratory Tests Test 06/18/17 20:50 06/19/17 03:45 06/19/17 10:20 Troponin I Quantitative 0.028 ng/mL (0.000-0.055) 0.031 ng/mL (0.000-0.055) White Blood Count 4.1 x10^3/uL (4.0-11.0) Red Blood Count 4.23 x10^6/uL (4.30-5.70) Hemoglobin 13.9 g/dL (13.0-17.5) Hematocrit 42.6 % (39.0-53.0) Mean Corpuscular Volume 101 fL (79-100) Mean Corpuscular Hemoglobin 33 pg (25-35) Mean Corpuscular Hemoglobin Concent 33 g/dL (31-37) Red Cell Distribution Width 13.8 % (11.5-14.5) Platelet Count 83 x10^3/uL (140-400) Neutrophils (%) (Auto) 12 % (31-73) Lymphocytes (%) (Auto) 63 % (24-48) Monocytes (%) (Auto) 23 % (0-9) Eosinophils (%) (Auto) 2 % (0-3) Basophils (%) (Auto) 0 % (0-3) Neutrophils # (Auto) 0.5 x10^3uL (1.8-7.7) Lymphocytes # (Auto) 2.6 x10^3/uL (1.0-4.8) Monocytes # (Auto) 0.9 x10^3/uL (0.0-1.1) Eosinophils # (Auto) 0.1 x10^3/uL (0.0-0.7) Basophils # (Auto) 0.0 x10^3/uL (0.0-0.2) Sodium Level 134 mmol/L (136-145) Potassium Level 4.3 mmol/L (3.5-5.1) Chloride Level 104 mmol/L (98-107) Carbon Dioxide Level 24 mmol/L (21-32) Anion Gap 6 (6-14) Blood Urea Nitrogen 9 mg/dL (8-26) Creatinine 1.0 mg/dL (0.7-1.3) Estimated GFR (Cockcroft-Gault) 91.0 Glucose Level 75 mg/dL (70-99) Calcium Level 8.4 mg/dL (8.5-10.1) Valproic Acid (Depakene) Level 64 mcg/mL (50-100) Valproic Acid Last Dose Date Valproic Acid Last Dose Time 2100 Lactic Acid Level 1.7 mmol/L (0.4-2.0) Medications Current Medications Sodium Chloride 1,000 ml @ 1,000 mls/hr 1X ONCE IV Last administered on 06/18 13:16; Start 06/18/17 at 12:00; Stop 06/18/17 at 12:59; Status DC Sodium Chloride 1,000 ml @ 1,000 mls/hr 1X ONCE IV Last administered on 06/18 16:25; Start 06/18/17 at 13:00; Stop 06/18/17 at 13:59; Status DC Acetaminophen (Tylenol) 325 mg PRN Q6HRS PRN MA MILD PAIN / TEMP; Start at 16:15 Acetaminophen (Tylenol) 650 mg PRN Q6HRS PRN PO MILD PAIN; Start 06/18/17 at 16:00 Aspirin (Ecotrin) 81 mg DAILY PO Last administered on 06/18/17 18:07; Start 06/18/17 at 17:00; Stop 06/19/17 at 07:44; Status DC Folic Acid (Folic Acid) 1 mg DAILY PO Last administered on 06/19/17 08:18; Start 06/18/17 at 17:00 Levetiracetam (Keppra) 1,000 mg BID PO Last administered on 06/19/17 08:17; Start 06/18/17 at 21:00 Levetiracetam (Keppra) 500 mg BID PO ; Start 06/18/17 at 21:00; Status UNV Ondansetron HCl (Zofran Odt) 4 mg PRN Q6HRS PRN PO nausea; Start 06/18/17 at 16:00 Simvastatin (Zocor) 20 mg QHS PO Last administered on 06/18/17 20:02; Start 06/18/17 at 21:00; Stop 06/19/17 at 09:48; Status DC Vitamin D (Vitamin D3) 1,000 unit DAILY PO Last administered on 06/19/17 08: 17; Start 06/18/17 at 17:00 Lactobacillus Rhamnosus (Culturelle) 1 cap BID PO Last administered on 08:17; Start 06/18/17 at 21:00 Lacosamide (Vimpat) 100 mg BID PO ; Start 06/18/17 at 21:00; Stop 06/18/17 at 21:00; Status DC Fish Oil (Fish Oil) 1,000 mg DAILY PO ; Start 06/18/17 at 17:00; Stop at 09:48; Status DC Famotidine (Pepcid) 20 mg QHS PO Last administered on 06/18/17 20:03; Start 06/18/17 at 21:00; Stop 06/19/17 at 09:48; Status DC Sennosides (Senna) 8.6 mg PRN BID PRN PO CONSTIPATION Last administered on 20:02; Start 06/18/17 at 16:00 Thiamine Mononitrate (Vitamin B-1) 100 mg DAILY PO Last administered on 08:18; Start 06/18/17 at 17:00 Valproic Acid (Depakene) 500 mg BID PO Last administered on 06/19/17 08:17; Start 06/18/17 at 21:00 Lacosamide (Vimpat) 100 mg BID PO Last administered on 06/19/17 08:18; Start 06/18/17 at 21:00 Aspirin (Children'S Aspirin) 81 mg DAILYWBKFT PO Last administered on 08:17; Start 06/19/17 at 08:00 Famotidine (Pepcid) 20 mg BID PO ; Start 06/19/17 at 21:00 Famotidine (Pepcid) 20 mg BID PO ; Start 06/19/17 at 21:00; Status UNV Levothyroxine Sodium (Synthroid) 25 mcg DAILYAC PO Last administered on 12:09; Start 06/19/17 at 12:00 Active Scripts Active Keppra (Levetiracetam) 500 Mg Tablet 500 Mg PO BID Reported Synthroid (Levothyroxine Sodium) 25 Mcg Tablet 25 Mcg PO DAILYAC Famotidine 20 Mg Tablet 20 Mg PO BID Levetiracetam 500 Mg Tablet 1,000 Mg PO BID Last Dose 05/13/17 AM Next dose 05/14/17 PM Tylenol (Acetaminophen) 325 Mg Tablet 650 Mg PO PRN Q6HRS PRN Can be given anytime Ondansetron Odt (Ondansetron) 4 Mg Tab.rapdis 1 Tab PO PRN Q6-8HRS Next dose anytime Culturelle (Lactobacillus Rhamnosus Gg) 1 Each Capsule 1 Each PO BID Last dose 05/13/17 AM Next dose 05/14/17 PM Vimpat (Lacosamide) 100 Mg Tablet 100 Mg PO BID Last dose 05/13/17 AM Next dose 05/14/17 PM Acetaminophen 120 Mg Supp.rect 325 Mg RC Can be given anytime Ranitidine Hcl 75 Mg Tablet 75 Mg PO DAILY Next dose 05/14/17 AM Aspir 81 (Aspirin) 81 Mg Tablet.dr 1 Tab PO DAILY Next dose 05/14/17 AM Vitamin D-3 (Cholecalciferol (Vitamin D3)) 2,000 Unit Capsule 1,000 Unit PO DAILY Next dose 05/14/17 AM Thiamine Hcl 100 Mg Tablet 100 Mg PO DAILY Next dose 05/14/17 AM Simvastatin 20 Mg Tablet 1 Tab PO QHS Senna (Sennosides) 8.6 Mg Capsule 8.6 Mg PO PRN DAILY PRN Next dose anytime Folic Acid 1 Mg Tablet 1 Tab PO DAILY last dose 05/13/17 Am Next dose 05/14/17 AM Fish Oil ([place]-3 Fatty Acids) 500 Mg Capsule 500 Mg PO Next dose 05/14/17 AM Vitals/I & O Vital Sign - Last 24 Hours 06/18/17 06/18/17 06/18/17 06/18/17 15:43 15:44 19:38 20:00 Temp 97.8 97.8 97.7 97.8 97.8 97.7 Pulse 70 70 94 Resp 17 17 18 B/P (MAP) 105/68 (80) 105/68 (80) 126/72 (90) Pulse Ox 96 96 100 O2 Delivery Room Air Room Air Room Air Room Air 06/18/17 06/19/17 06/19/17 06/19/17 23:40 03:08 07:00 08:00 Temp 97.7 97.6 97.7 97.7 97.6 97.7 Pulse 84 77 71 Resp 18 18 18 B/P (MAP) 123/79 (94) 96/58 (71) 108/63 (78) Pulse Ox 100 97 97 O2 Delivery Room Air Room Air Room Air Room Air 06/19/17 11:00 Temp 97.9 97.9 Pulse 79 Resp 18 B/P (MAP) 109/65 (80) Pulse Ox 96 O2 Delivery Room Air Intake and Output 06/18/17 06/18/17 06/19/17 15:00 23:00 07:00 Intake Total 200 ml Balance 200 ml MARCELINO CRABTREE MD Jun 19, 2017 15:40
[2017-06-19 19:28] VITALS: BP 124/60
[2017-06-19] MEDS: FAMOTIDINE 20 MG TABLET. PO SCH (20:59)
[2017-06-19] MEDS ORDERED: FAMOTIDINE 20 MG TABLET. PO SCH (21:00)
[2017-06-19 23:00] VITALS: BP 112/63
[2017-06-20 04:00] VITALS: BP 113/70
[2017-06-20 05:50] LABS: BASO % 0 % (0-3); EOS % 3 % (0-3); HEMATOCRIT 42.1 % (39.0-53.0); HEMOGLOBIN 13.9 g/dL (13.0-17.5); LYMPH # 3.4 x10^3/uL (1.0-4.8); LYMPH % 66 % (24-48); MEAN CORPUSCULAR HEMOGLOBIN 33 pg (25-35); MEAN CORPUSCULAR HGB CONC 33 g/dL (31-37); MEAN CORPUSCULAR VOLUME 101 fL (79-100); MONO % 20 % (0-9); NEUT % 11 % (31-73); PLATELET COUNT 88 x10^3/uL (140-400); RED BLOOD COUNT 4.18 x10^6/uL (4.30-5.70); RED CELL DISTRIBUTION WIDTH 13.7 % (11.5-14.5); WHITE BLOOD COUNT 5.1 x10^3/uL (4.0-11.0)
[2017-06-20 05:58] LABS: CALCIUM 8.5 mg/dL (8.5-10.1); POTASSIUM 4.2 mmol/L (3.5-5.1)
--- NOTE | 2017-06-20 07:07 | PDOC ---
KARLEYJoseSTEPH PECK [employer] 06/20/17 0707: IM PROGRESS NOTES- Subjective Subjective staff reports MS changes through night- resistive to care, pulling at gown etc. , not following commands Objective Objective responding to name, not following commands, resistive to care Contacted [facility] and spoke with night staff- this is his baseline at night-he fully wakens and follows commands by breakfast. Vitals Vital Signs Date Time Temp Pulse Resp B/P (MAP) Pulse Ox O2 Delivery O2 Flow Rate FiO2 06/20/17 04:00 98.1 68 18 113/70 (84) 98 Room Air 98.1 Input & Output Intake and Output 06/20/17 07:00 Intake Total 550 ml Balance 550 ml Intake Oral 550 ml # Voids 3 Physical Exam Physical Exam General appearance - repsond to name, well appearing, and in no distress Mental Status - responds to name, not follow commands Head - normal Chest - clear to auscultation, no wheezes Heart - S1 and S2 normal Abdomen - soft, nontender, nondistended, BS+ Neurological - resistive to care, not fully waking up, responds to name, not following commands. Musculoskeletal - no muscular tenderness noted Extremities - no pedal edema Skin - warm and dry Labs Laboratory Tests Test 06/18/17 09:50 06/18/17 11:53 06/18/17 20:00 06/18/17 20:50 Urine Collection Type Unknown Urine Color Yellow Urine Clarity Clear Urine pH 7.0 Urine Specific [place] 1.015 Urine Protein Negative mg/dL (NEG-TRACE) Urine Glucose (UA) Negative mg/dL (NEG) Urine Ketones (Stick) Negative mg/dL (NEG) Urine Blood Negative (NEG) Urine Nitrite Negative (NEG) Urine Bilirubin Negative (NEG) Urine Urobilinogen Dipstick 1.0 mg/dL (0.2 mg/dL) Urine Leukocyte Esterase Negative (NEG) Urine RBC 0 /HPF (0-2) Urine WBC Occ /HPF (0-4) Urine Squamous Epithelial Cells Occ /LPF Urine Bacteria 0 /HPF (0-FEW) White Blood Count 3.9 x10^3/uL (4.0-11.0) Red Blood Count 4.76 x10^6/uL (4.30-5.70) Hemoglobin 15.7 g/dL (13.0-17.5) Hematocrit 48.1 % (39.0-53.0) Mean Corpuscular Volume 101 fL (79-100) Mean Corpuscular Hemoglobin 33 pg (25-35) Mean Corpuscular Hemoglobin Concent 33 g/dL (31-37) Red Cell Distribution Width 13.7 % (11.5-14.5) Platelet Count 96 x10^3/uL (140-400) Neutrophils (%) (Auto) 18 % (31-73) Lymphocytes (%) (Auto) 57 % (24-48) Monocytes (%) (Auto) 22 % (0-9) Eosinophils (%) (Auto) 2 % (0-3) Basophils (%) (Auto) 1 % (0-3) Neutrophils # (Auto) 0.7 x10^3uL (1.8-7.7) Lymphocytes # (Auto) 2.2 x10^3/uL (1.0-4.8) Monocytes # (Auto) 0.9 x10^3/uL (0.0-1.1) Eosinophils # (Auto) 0.1 x10^3/uL (0.0-0.7) Basophils # (Auto) 0.0 x10^3/uL (0.0-0.2) Segmented Neutrophils % 15 % (35-66) Lymphocytes % 65 % (24-48) Atypical Lymphocytes % (Manual) 3 % (0-0) Monocytes % 17 % (0-10) Platelet Estimate Decreased (ADEQUATE) Giant Platelets Occ Anisocytosis Slight Macrocytosis Present Sodium Level 132 mmol/L (136-145) Potassium Level 3.9 mmol/L (3.5-5.1) Chloride Level 98 mmol/L (98-107) Carbon Dioxide Level 25 mmol/L (21-32) Anion Gap 9 (6-14) Blood Urea Nitrogen 10 mg/dL (8-26) Creatinine 1.0 mg/dL (0.7-1.3) Estimated GFR (Cockcroft-Gault) 91.0 Glucose Level 101 mg/dL (70-99) Lactic Acid Level 2.6 mmol/L (0.4-2.0) Calcium Level 9.2 mg/dL (8.5-10.1) Total Bilirubin 0.4 mg/dL (0.2-1.0) Direct Bilirubin 0.2 mg/dL (0.0-0.2) Aspartate Amino Transf (AST/SGOT) 58 U/L (15-37) Alanine Aminotransferase (ALT/SGPT) 64 U/L (16-63) Alkaline Phosphatase 85 U/L (46-116) Total Protein 7.3 g/dL (6.4-8.2) Albumin 2.7 g/dL (3.4-5.0) Nasal Screen MRSA (PCR) Negative (Negative) Troponin I Quantitative 0.028 ng/mL (0.000-0.055) Test 06/19/17 03:45 06/19/17 10:20 06/20/17 04:45 White Blood Count 4.1 x10^3/uL (4.0-11.0) 5.1 x10^3/uL (4.0-11.0) Red Blood Count 4.23 x10^6/uL (4.30-5.70) 4.18 x10^6/uL (4.30-5.70) Hemoglobin 13.9 g/dL (13.0-17.5) 13.9 g/dL (13.0-17.5) Hematocrit 42.6 % (39.0-53.0) 42.1 % (39.0-53.0) Mean Corpuscular Volume 101 fL (79-100) 101 fL (79-100) Mean Corpuscular Hemoglobin 33 pg (25-35) 33 pg (25-35) Mean Corpuscular Hemoglobin Concent 33 g/dL (31-37) 33 g/dL (31-37) Red Cell Distribution Width 13.8 % (11.5-14.5) 13.7 % (11.5-14.5) Platelet Count 83 x10^3/uL (140-400) 88 x10^3/uL (140-400) Neutrophils (%) (Auto) 12 % (31-73) 11 % (31-73) Lymphocytes (%) (Auto) 63 % (24-48) 66 % (24-48) Monocytes (%) (Auto) 23 % (0-9) 20 % (0-9) Eosinophils (%) (Auto) 2 % (0-3) 3 % (0-3) Basophils (%) (Auto) 0 % (0-3) 0 % (0-3) Neutrophils # (Auto) 0.5 x10^3uL (1.8-7.7) 0.6 x10^3uL (1.8-7.7) Lymphocytes # (Auto) 2.6 x10^3/uL (1.0-4.8) 3.4 x10^3/uL (1.0-4.8) Monocytes # (Auto) 0.9 x10^3/uL (0.0-1.1) 1.0 x10^3/uL (0.0-1.1) Eosinophils # (Auto) 0.1 x10^3/uL (0.0-0.7) 0.1 x10^3/uL (0.0-0.7) Basophils # (Auto) 0.0 x10^3/uL (0.0-0.2) 0.0 x10^3/uL (0.0-0.2) Sodium Level 134 mmol/L (136-145) 133 mmol/L (136-145) Potassium Level 4.3 mmol/L (3.5-5.1) 4.2 mmol/L (3.5-5.1) Chloride Level 104 mmol/L (98-107) 101 mmol/L (98-107) Carbon Dioxide Level 24 mmol/L (21-32) 25 mmol/L (21-32) Anion Gap 6 (6-14) 7 (6-14) Blood Urea Nitrogen 9 mg/dL (8-26) 8 mg/dL (8-26) Creatinine 1.0 mg/dL (0.7-1.3) 1.0 mg/dL (0.7-1.3) Estimated GFR (Cockcroft-Gault) 91.0 91.0 Glucose Level 75 mg/dL (70-99) 76 mg/dL (70-99) Calcium Level 8.4 mg/dL (8.5-10.1) 8.5 mg/dL (8.5-10.1) Troponin I Quantitative 0.031 ng/mL (0.000-0.055) Valproic Acid (Depakene) Level 64 mcg/mL (50-100) Valproic Acid Last Dose Date [id number] Valproic Acid Last Dose Time 2100 Lactic Acid Level 1.7 mmol/L (0.4-2.0) Laboratory Tests Test 06/19/17 10:20 06/20/17 04:45 Lactic Acid Level 1.7 mmol/L (0.4-2.0) White Blood Count 5.1 x10^3/uL (4.0-11.0) Red Blood Count 4.18 x10^6/uL (4.30-5.70) Hemoglobin 13.9 g/dL (13.0-17.5) Hematocrit 42.1 % (39.0-53.0) Mean Corpuscular Volume 101 fL (79-100) Mean Corpuscular Hemoglobin 33 pg (25-35) Mean Corpuscular Hemoglobin Concent 33 g/dL (31-37) Red Cell Distribution Width 13.7 % (11.5-14.5) Platelet Count 88 x10^3/uL (140-400) Neutrophils (%) (Auto) 11 % (31-73) Lymphocytes (%) (Auto) 66 % (24-48) Monocytes (%) (Auto) 20 % (0-9) Eosinophils (%) (Auto) 3 % (0-3) Basophils (%) (Auto) 0 % (0-3) Neutrophils # (Auto) 0.6 x10^3uL (1.8-7.7) Lymphocytes # (Auto) 3.4 x10^3/uL (1.0-4.8) Monocytes # (Auto) 1.0 x10^3/uL (0.0-1.1) Eosinophils # (Auto) 0.1 x10^3/uL (0.0-0.7) Basophils # (Auto) 0.0 x10^3/uL (0.0-0.2) Sodium Level 133 mmol/L (136-145) Potassium Level 4.2 mmol/L (3.5-5.1) Chloride Level 101 mmol/L (98-107) Carbon Dioxide Level 25 mmol/L (21-32) Anion Gap 7 (6-14) Blood Urea Nitrogen 8 mg/dL (8-26) Creatinine 1.0 mg/dL (0.7-1.3) Estimated GFR (Cockcroft-Gault) 91.0 Glucose Level 76 mg/dL (70-99) Calcium Level 8.5 mg/dL (8.5-10.1) Meds Current Medications Aspirin (Children'S Aspirin) 81 mg DAILYWBKFT PO Last administered on 08:17; Start 06/19/17 at 08:00 Famotidine (Pepcid) 20 mg BID PO Last administered on 06/19/17 20:59; Start 06/19/17 at 21:00 Famotidine (Pepcid) 20 mg BID PO ; Start 06/19/17 at 21:00; Status UNV Levothyroxine Sodium (Synthroid) 25 mcg DAILYAC PO Last administered on 12:09; Start 06/19/17 at 12:00 Assessment Assessment IMPRESSION: 1. Seizure recurrent with recent status ellipticus prior admission 2. h/o recent meningoencephalitis w/ sepsis 3. 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 hyponatremia probable r/t seizure medication 5. Lactic acidosis 6. Leukopenia, probably due to previous hepatitis C and possibly seizure medication Depakote. 7. Gastroesophageal reflux disease. 8. Hepatitis C, chronic. 9. Hyperlipidemia. 10. History of thrombocytopenia liver disease 11. hypothyroid 12. CKD II 13. hyponatremia 14. cholelithiasis w/o cholecystitis 15 elevated PSA with h/o prostate cancer 16. leukopenia - probable medication 17. hyponatremia - medication 18. transaminitis - h/o Hep C 19. thrombocytopenia - probable liver w h/o Hep C . PLAN: 06/20/17 metabolic encephalopathy - improving -MS at night are his baseline at the [place] seizure recurrent - medication therapeutic - neuro=no further changes in meds lactic acidosis - 06/19 1.7 r/t seizure - UA negative hyponatremia - Na 133- r/t med thrombocytopenia - 88 -probable liver transaminitis - lipitor DC 06/19 - h/o Hep C malnutrition - speech therapy note reviewed 06/19- diet upgraded to dysphagia III DC initiated 06/19/17 possible seizure - neurology consulted - medication levels pending metabolic encephalopathy - improving lactic acidosis - Admit 2.6 - recheck level - UA pending per ED note hyponatremia - admit 132 this AM 134 improved thrombocytopenia - admit Plt 90 - this am 83 - monitor - no anticoagulation <100 leukopenia - r/t liver disease - Admit 3.9 this morning 4.1 transaminitis - AST 58 ALT 64 moderate chronic PCL malnutrition - supplements - monitor diet DVT/GI prophylaxis - SCD/CARMEN PPI For more details regarding further plans, please refer to the orders. Plan Plan For more details regarding further plans, please refer to the orders. ALISA MANLEY MD 06/20/17 0957: IM PROGRESS NOTES- Assessment Assessment The patient was seen and examined by me. Chart reviewed and plan of care formulated. Discussed with, reviewed and agree with PEDIATRIC GENETICIST's notes, plan of care and orders with modifications as necessary. For more details regarding further plans, please refer to the orders. STEPH LOVE APRN Jun 20, 2017 07:07 ALISA MANLEY MD Jun 20, 2017 09:57
--- NOTE | 2017-06-20 07:09 | DISCH ---
DISCHARGE FINAL DIAGNOSIS Problems Medical Problems: (1) Altered mental status Status: Acute CONDITION ON DISCHARGE: Stable POST DISCHARGE ORDERS ACTIVITY ORDERS: Activity as tolerated WEIGHT BEARING STATUS: No restrictions, As tolerated DIET AFTER DISCHARGE: Cardiac (mechanical soft texture with thin liquids ) CHECKS AFTER DISCHARGE COMMENTS: VS per routine FOLLOW-UP PHYSICIAN FOLLOW-UP: Admit to facility LAB ORDERS FOR FOLLOW-UP: CBC with diff, CMP, Pre albumin in AM after admit TREATMENT/EQUIPMENT ORDERS ADAPTIVE EQUIPMENT NEEDED: Wheelchair STEPH LOVE APRN Jun 20, 2017 07:09
[2017-06-20] MEDS ORDERED: VALP250C PO (07:12)
--- NOTE | 2017-06-20 07:17 | PDOC3 ---
KARLEYJoseSTEPH PECK RETAIL SELLING SPECIALIST 06/20/17 0717: IM DISCHARGE SUMMARY Date of Admission Date of Admission Date of Admission: Jun 18, 2017 at 14:20 Date of Discharge Date of Discharge Primary Diagnosis Primary Diagnosis IMPRESSION: 1. Seizure recurrent with recent status ellipticus prior admission 2. h/o recent meningoencephalitis w/ sepsis 3. 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 hyponatremia probable r/t seizure medication 5. Lactic acidosis 6. Leukopenia, probably due to previous hepatitis C and possibly seizure medication Depakote. 7. Gastroesophageal reflux disease. 8. Hepatitis C, chronic. 9. Hyperlipidemia. 10. History of thrombocytopenia liver disease 11. hypothyroid 12. CKD II 13. hyponatremia 14. cholelithiasis w/o cholecystitis 15 elevated PSA with h/o prostate cancer 16. leukopenia - probable medication 17. hyponatremia - medication 18. transaminitis - h/o Hep C 19. thrombocytopenia - probable liver w h/o Hep C . Problems: Consults Consults Jose Nixon MD Procedures Procedures None Labs Labs Laboratory Tests Test 06/18/17 09:50 06/18/17 11:53 06/18/17 20:00 06/18/17 20:50 Urine Collection Type Unknown Urine Color Yellow Urine Clarity Clear Urine pH 7.0 Urine Specific [place] 1.015 Urine Protein Negative mg/dL (NEG-TRACE) Urine Glucose (UA) Negative mg/dL (NEG) Urine Ketones (Stick) Negative mg/dL (NEG) Urine Blood Negative (NEG) Urine Nitrite Negative (NEG) Urine Bilirubin Negative (NEG) Urine Urobilinogen Dipstick 1.0 mg/dL (0.2 mg/dL) Urine Leukocyte Esterase Negative (NEG) Urine RBC 0 /HPF (0-2) Urine WBC Occ /HPF (0-4) Urine Squamous Epithelial Cells Occ /LPF Urine Bacteria 0 /HPF (0-FEW) White Blood Count 3.9 x10^3/uL (4.0-11.0) Red Blood Count 4.76 x10^6/uL (4.30-5.70) Hemoglobin 15.7 g/dL (13.0-17.5) Hematocrit 48.1 % (39.0-53.0) Mean Corpuscular Volume 101 fL (79-100) Mean Corpuscular Hemoglobin 33 pg (25-35) Mean Corpuscular Hemoglobin Concent 33 g/dL (31-37) Red Cell Distribution Width 13.7 % (11.5-14.5) Platelet Count 96 x10^3/uL (140-400) Neutrophils (%) (Auto) 18 % (31-73) Lymphocytes (%) (Auto) 57 % (24-48) Monocytes (%) (Auto) 22 % (0-9) Eosinophils (%) (Auto) 2 % (0-3) Basophils (%) (Auto) 1 % (0-3) Neutrophils # (Auto) 0.7 x10^3uL (1.8-7.7) Lymphocytes # (Auto) 2.2 x10^3/uL (1.0-4.8) Monocytes # (Auto) 0.9 x10^3/uL (0.0-1.1) Eosinophils # (Auto) 0.1 x10^3/uL (0.0-0.7) Basophils # (Auto) 0.0 x10^3/uL (0.0-0.2) Segmented Neutrophils % 15 % (35-66) Lymphocytes % 65 % (24-48) Atypical Lymphocytes % (Manual) 3 % (0-0) Monocytes % 17 % (0-10) Platelet Estimate Decreased (ADEQUATE) Giant Platelets Occ Anisocytosis Slight Macrocytosis Present Sodium Level 132 mmol/L (136-145) Potassium Level 3.9 mmol/L (3.5-5.1) Chloride Level 98 mmol/L (98-107) Carbon Dioxide Level 25 mmol/L (21-32) Anion Gap 9 (6-14) Blood Urea Nitrogen 10 mg/dL (8-26) Creatinine 1.0 mg/dL (0.7-1.3) Estimated GFR (Cockcroft-Gault) 91.0 Glucose Level 101 mg/dL (70-99) Lactic Acid Level 2.6 mmol/L (0.4-2.0) Calcium Level 9.2 mg/dL (8.5-10.1) Total Bilirubin 0.4 mg/dL (0.2-1.0) Direct Bilirubin 0.2 mg/dL (0.0-0.2) Aspartate Amino Transf (AST/SGOT) 58 U/L (15-37) Alanine Aminotransferase (ALT/SGPT) 64 U/L (16-63) Alkaline Phosphatase 85 U/L (46-116) Total Protein 7.3 g/dL (6.4-8.2) Albumin 2.7 g/dL (3.4-5.0) Nasal Screen MRSA (PCR) Negative (Negative) Troponin I Quantitative 0.028 ng/mL (0.000-0.055) Test 06/19/17 03:45 06/19/17 10:20 06/20/17 04:45 White Blood Count 4.1 x10^3/uL (4.0-11.0) 5.1 x10^3/uL (4.0-11.0) Red Blood Count 4.23 x10^6/uL (4.30-5.70) 4.18 x10^6/uL (4.30-5.70) Hemoglobin 13.9 g/dL (13.0-17.5) 13.9 g/dL (13.0-17.5) Hematocrit 42.6 % (39.0-53.0) 42.1 % (39.0-53.0) Mean Corpuscular Volume 101 fL (79-100) 101 fL (79-100) Mean Corpuscular Hemoglobin 33 pg (25-35) 33 pg (25-35) Mean Corpuscular Hemoglobin Concent 33 g/dL (31-37) 33 g/dL (31-37) Red Cell Distribution Width 13.8 % (11.5-14.5) 13.7 % (11.5-14.5) Platelet Count 83 x10^3/uL (140-400) 88 x10^3/uL (140-400) Neutrophils (%) (Auto) 12 % (31-73) 11 % (31-73) Lymphocytes (%) (Auto) 63 % (24-48) 66 % (24-48) Monocytes (%) (Auto) 23 % (0-9) 20 % (0-9) Eosinophils (%) (Auto) 2 % (0-3) 3 % (0-3) Basophils (%) (Auto) 0 % (0-3) 0 % (0-3) Neutrophils # (Auto) 0.5 x10^3uL (1.8-7.7) 0.6 x10^3uL (1.8-7.7) Lymphocytes # (Auto) 2.6 x10^3/uL (1.0-4.8) 3.4 x10^3/uL (1.0-4.8) Monocytes # (Auto) 0.9 x10^3/uL (0.0-1.1) 1.0 x10^3/uL (0.0-1.1) Eosinophils # (Auto) 0.1 x10^3/uL (0.0-0.7) 0.1 x10^3/uL (0.0-0.7) Basophils # (Auto) 0.0 x10^3/uL (0.0-0.2) 0.0 x10^3/uL (0.0-0.2) Sodium Level 134 mmol/L (136-145) 133 mmol/L (136-145) Potassium Level 4.3 mmol/L (3.5-5.1) 4.2 mmol/L (3.5-5.1) Chloride Level 104 mmol/L (98-107) 101 mmol/L (98-107) Carbon Dioxide Level 24 mmol/L (21-32) 25 mmol/L (21-32) Anion Gap 6 (6-14) 7 (6-14) Blood Urea Nitrogen 9 mg/dL (8-26) 8 mg/dL (8-26) Creatinine 1.0 mg/dL (0.7-1.3) 1.0 mg/dL (0.7-1.3) Estimated GFR (Cockcroft-Gault) 91.0 91.0 Glucose Level 75 mg/dL (70-99) 76 mg/dL (70-99) Calcium Level 8.4 mg/dL (8.5-10.1) 8.5 mg/dL (8.5-10.1) Troponin I Quantitative 0.031 ng/mL (0.000-0.055) Valproic Acid (Depakene) Level 64 mcg/mL (50-100) Valproic Acid Last Dose Date [id number] Valproic Acid Last Dose Time 2100 Lactic Acid Level 1.7 mmol/L (0.4-2.0) Brief hospital course Brief hospital course This 66 year old male who presented with seizure was admitted. The following is a summary of his treatment: 06/20/17 metabolic encephalopathy - improving -MS at night are his baseline at the [facility] seizure recurrent - medication therapeutic - neuro=no further changes in meds lactic acidosis - 06/19 1.7 r/t seizure - UA negative hyponatremia - Na 133- r/t med thrombocytopenia - 88 -probable liver transaminitis - lipitor DC 06/19 - h/o Hep C malnutrition - speech therapy note reviewed 06/19- diet upgraded to dysphagia III DC initiated to [facility] - no SNU as he is at his baseline 06/19/17 possible seizure - neurology consulted - medication levels pending metabolic encephalopathy - improving lactic acidosis - Admit 2.6 - recheck level - UA pending per ED note hyponatremia - admit 132 this AM 134 improved thrombocytopenia - admit Plt 90 - this am 83 - monitor - no anticoagulation <100 leukopenia - r/t liver disease - Admit 3.9 this morning 4.1 transaminitis - AST 58 ALT 64 moderate chronic PCL malnutrition - supplements - monitor diet DVT/GI prophylaxis - SCD/CARMEN PPI For more details regarding the past history, family history, social history, surgical history and other details, please refer to History and Physical. Please see DC orders. Medications Medications reviewed and reconciled for discharge. Allergy Allergies Coded Allergies Type Severity Reaction Last Updated Verified No Known Drug Allergies 05/18/14 No Follow up in 5 days. Comments Discharge Management - 35 minutes. For other details please refer to discharge instructions ALISA MANLEY MD 06/20/17 1001: IM DISCHARGE SUMMARY Brief hospital course Brief hospital course The patient was seen and examined by me. Chart reviewed and plan of care formulated. Discussed with, reviewed and agree with [facility] [employer] [facility] [employer]'s notes, plan of care and orders with modifications as necessary. Discharge Management - 35 minutes. STEPH LOVE APRN Jun 20, 2017 07:17 ALISA MANLEY MD Jun 20, 2017 10:01
[2017-06-20 07:36] VITALS: BP 126/67
[2017-06-20] MEDS: levETIRAcetam 500 MG TABLET PO SCH (09:02)
[2017-06-20] MEDS: LEVOTHYROXINE 25 MCG TABLET. PO SCH (09:02)
[2017-06-20] MEDS: ASPIRIN CHEWABLE 81 MG TABLET. PO SCH (09:02)
[2017-06-20] MEDS: LACTOBACILLUS RHAMNOSUS GG 1 CAPSULE. PO SCH (09:02)
[2017-06-20] MEDS: CHOLECALCIFEROL (VITAMIN D3) 1,000 UNIT TABLET PO SCH (09:02)
[2017-06-20] MEDS: VALPROIC ACID 250 MG CAPSULE. PO SCH (09:02)
[2017-06-20] MEDS: THIAMINE 100 MG TABLET. PO SCH (09:03)
[2017-06-20] MEDS: FOLIC ACID 1 MG TABLET. PO SCH (09:03)
[2017-06-20] MEDS: LACOSAMIDE 50 MG TABLET PO SCH (09:03)
[2017-06-20] MEDS: FAMOTIDINE 20 MG TABLET. PO SCH (09:03)
[2017-06-20 11:27] VITALS: BP 104/59
--- NOTE | 2017-06-20 11:29 | PDOC ---
PROGRESS NOTES Assessment Problems Medical Problems: (1) Altered mental status Status: Acute Epilepsy, seizure yesterday, doing well now, with therapeutic valproic acid level. 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 Plan Continue present anticonvulsants at current levels Okay for discharge Subjective None Objective Vital Signs Date Time Temp Pulse Resp B/P (MAP) Pulse Ox O2 Delivery O2 Flow Rate FiO2 06/20/17 11:27 98.8 75 18 104/59 (74) 95 Room Air 98.8 Intake and Output 06/20/17 07:00 Intake Total 550 ml Balance 550 ml Intake Oral 550 ml # Voids 3 PHYSICAL EXAM Alert. Global aphasia. PERRL. EOMI. CN: Right field cut, no gaze preference, right central facial weakness, otherwise no focal findings. Muscle tone: Spastic on right Muscle strength: Spastic right hemiparesis DTR: 2+ Plantar reflex: upgoing toe on the right Gait: not examined in bed. Sensory exam: no abnormal findings as best I can determine given the aphasia. Cerebellar: Not cooperative Review of Relevant I have reviewed the following items rakesh (where applicable) has been applied. Labs Laboratory Tests Test 06/18/17 11:53 06/18/17 20:00 06/18/17 20:50 06/19/17 03:45 White Blood Count 3.9 x10^3/uL (4.0-11.0) 4.1 x10^3/uL (4.0-11.0) Red Blood Count 4.76 x10^6/uL (4.30-5.70) 4.23 x10^6/uL (4.30-5.70) Hemoglobin 15.7 g/dL (13.0-17.5) 13.9 g/dL (13.0-17.5) Hematocrit 48.1 % (39.0-53.0) 42.6 % (39.0-53.0) Mean Corpuscular Volume 101 fL (79-100) 101 fL (79-100) Mean Corpuscular Hemoglobin 33 pg (25-35) 33 pg (25-35) Mean Corpuscular Hemoglobin Concent 33 g/dL (31-37) 33 g/dL (31-37) Red Cell Distribution Width 13.7 % (11.5-14.5) 13.8 % (11.5-14.5) Platelet Count 96 x10^3/uL (140-400) 83 x10^3/uL (140-400) Neutrophils (%) (Auto) 18 % (31-73) 12 % (31-73) Lymphocytes (%) (Auto) 57 % (24-48) 63 % (24-48) Monocytes (%) (Auto) 22 % (0-9) 23 % (0-9) Eosinophils (%) (Auto) 2 % (0-3) 2 % (0-3) Basophils (%) (Auto) 1 % (0-3) 0 % (0-3) Neutrophils # (Auto) 0.7 x10^3uL (1.8-7.7) 0.5 x10^3uL (1.8-7.7) Lymphocytes # (Auto) 2.2 x10^3/uL (1.0-4.8) 2.6 x10^3/uL (1.0-4.8) Monocytes # (Auto) 0.9 x10^3/uL (0.0-1.1) 0.9 x10^3/uL (0.0-1.1) Eosinophils # (Auto) 0.1 x10^3/uL (0.0-0.7) 0.1 x10^3/uL (0.0-0.7) Basophils # (Auto) 0.0 x10^3/uL (0.0-0.2) 0.0 x10^3/uL (0.0-0.2) Segmented Neutrophils % 15 % (35-66) Lymphocytes % 65 % (24-48) Atypical Lymphocytes % (Manual) 3 % (0-0) Monocytes % 17 % (0-10) Platelet Estimate Decreased (ADEQUATE) Giant Platelets Occ Anisocytosis Slight Macrocytosis Present Sodium Level 132 mmol/L (136-145) 134 mmol/L (136-145) Potassium Level 3.9 mmol/L (3.5-5.1) 4.3 mmol/L (3.5-5.1) Chloride Level 98 mmol/L (98-107) 104 mmol/L (98-107) Carbon Dioxide Level 25 mmol/L (21-32) 24 mmol/L (21-32) Anion Gap 9 (6-14) 6 (6-14) Blood Urea Nitrogen 10 mg/dL (8-26) 9 mg/dL (8-26) Creatinine 1.0 mg/dL (0.7-1.3) 1.0 mg/dL (0.7-1.3) Estimated GFR (Cockcroft-Gault) 91.0 91.0 Glucose Level 101 mg/dL (70-99) 75 mg/dL (70-99) Lactic Acid Level 2.6 mmol/L (0.4-2.0) Calcium Level 9.2 mg/dL (8.5-10.1) 8.4 mg/dL (8.5-10.1) Total Bilirubin 0.4 mg/dL (0.2-1.0) Direct Bilirubin 0.2 mg/dL (0.0-0.2) Aspartate Amino Transf (AST/SGOT) 58 U/L (15-37) Alanine Aminotransferase (ALT/SGPT) 64 U/L (16-63) Alkaline Phosphatase 85 U/L (46-116) Total Protein 7.3 g/dL (6.4-8.2) Albumin 2.7 g/dL (3.4-5.0) Nasal Screen MRSA (PCR) Negative (Negative) Troponin I Quantitative 0.028 ng/mL (0.000-0.055) 0.031 ng/mL (0.000-0.055) Valproic Acid (Depakene) Level 64 mcg/mL (50-100) Valproic Acid Last Dose Date [id number] Valproic Acid Last Dose Time 2100 Test 06/19/17 10:20 06/20/17 04:45 Lactic Acid Level 1.7 mmol/L (0.4-2.0) White Blood Count 5.1 x10^3/uL (4.0-11.0) Red Blood Count 4.18 x10^6/uL (4.30-5.70) Hemoglobin 13.9 g/dL (13.0-17.5) Hematocrit 42.1 % (39.0-53.0) Mean Corpuscular Volume 101 fL (79-100) Mean Corpuscular Hemoglobin 33 pg (25-35) Mean Corpuscular Hemoglobin Concent 33 g/dL (31-37) Red Cell Distribution Width 13.7 % (11.5-14.5) Platelet Count 88 x10^3/uL (140-400) Neutrophils (%) (Auto) 11 % (31-73) Lymphocytes (%) (Auto) 66 % (24-48) Monocytes (%) (Auto) 20 % (0-9) Eosinophils (%) (Auto) 3 % (0-3) Basophils (%) (Auto) 0 % (0-3) Neutrophils # (Auto) 0.6 x10^3uL (1.8-7.7) Lymphocytes # (Auto) 3.4 x10^3/uL (1.0-4.8) Monocytes # (Auto) 1.0 x10^3/uL (0.0-1.1) Eosinophils # (Auto) 0.1 x10^3/uL (0.0-0.7) Basophils # (Auto) 0.0 x10^3/uL (0.0-0.2) Sodium Level 133 mmol/L (136-145) Potassium Level 4.2 mmol/L (3.5-5.1) Chloride Level 101 mmol/L (98-107) Carbon Dioxide Level 25 mmol/L (21-32) Anion Gap 7 (6-14) Blood Urea Nitrogen 8 mg/dL (8-26) Creatinine 1.0 mg/dL (0.7-1.3) Estimated GFR (Cockcroft-Gault) 91.0 Glucose Level 76 mg/dL (70-99) Calcium Level 8.5 mg/dL (8.5-10.1) Laboratory Tests Test 06/20/17 04:45 White Blood Count 5.1 x10^3/uL (4.0-11.0) Red Blood Count 4.18 x10^6/uL (4.30-5.70) Hemoglobin 13.9 g/dL (13.0-17.5) Hematocrit 42.1 % (39.0-53.0) Mean Corpuscular Volume 101 fL (79-100) Mean Corpuscular Hemoglobin 33 pg (25-35) Mean Corpuscular Hemoglobin Concent 33 g/dL (31-37) Red Cell Distribution Width 13.7 % (11.5-14.5) Platelet Count 88 x10^3/uL (140-400) Neutrophils (%) (Auto) 11 % (31-73) Lymphocytes (%) (Auto) 66 % (24-48) Monocytes (%) (Auto) 20 % (0-9) Eosinophils (%) (Auto) 3 % (0-3) Basophils (%) (Auto) 0 % (0-3) Neutrophils # (Auto) 0.6 x10^3uL (1.8-7.7) Lymphocytes # (Auto) 3.4 x10^3/uL (1.0-4.8) Monocytes # (Auto) 1.0 x10^3/uL (0.0-1.1) Eosinophils # (Auto) 0.1 x10^3/uL (0.0-0.7) Basophils # (Auto) 0.0 x10^3/uL (0.0-0.2) Sodium Level 133 mmol/L (136-145) Potassium Level 4.2 mmol/L (3.5-5.1) Chloride Level 101 mmol/L (98-107) Carbon Dioxide Level 25 mmol/L (21-32) Anion Gap 7 (6-14) Blood Urea Nitrogen 8 mg/dL (8-26) Creatinine 1.0 mg/dL (0.7-1.3) Estimated GFR (Cockcroft-Gault) 91.0 Glucose Level 76 mg/dL (70-99) Calcium Level 8.5 mg/dL (8.5-10.1) Medications Current Medications Sodium Chloride 1,000 ml @ 1,000 mls/hr 1X ONCE IV Last administered on 06/18 13:16; Start 06/18/17 at 12:00; Stop 06/18/17 at 12:59; Status DC Sodium Chloride 1,000 ml @ 1,000 mls/hr 1X ONCE IV Last administered on 06/18 16:25; Start 06/18/17 at 13:00; Stop 06/18/17 at 13:59; Status DC Acetaminophen (Tylenol) 325 mg PRN Q6HRS PRN [place] MILD PAIN / TEMP; Start at 16:15 Acetaminophen (Tylenol) 650 mg PRN Q6HRS PRN PO MILD PAIN; Start 06/18/17 at 16:00 Aspirin (Ecotrin) 81 mg DAILY PO Last administered on 06/18/17 18:07; Start 06/18/17 at 17:00; Stop 06/19/17 at 07:44; Status DC Folic Acid (Folic Acid) 1 mg DAILY PO Last administered on 06/20/17 09:03; Start 06/18/17 at 17:00 Levetiracetam (Keppra) 1,000 mg BID PO Last administered on 06/20/17 09:02; Start 06/18/17 at 21:00 Levetiracetam (Keppra) 500 mg BID PO ; Start 06/18/17 at 21:00; Status UNV Ondansetron HCl (Zofran Odt) 4 mg PRN Q6HRS PRN PO nausea; Start 06/18/17 at 16:00 Simvastatin (Zocor) 20 mg QHS PO Last administered on 06/18/17 20:02; Start 06/18/17 at 21:00; Stop 06/19/17 at 09:48; Status DC Vitamin D (Vitamin D3) 1,000 unit DAILY PO Last administered on 06/20/17 09:02 ; Start 06/18/17 at 17:00 Lactobacillus Rhamnosus (Culturelle) 1 cap BID PO Last administered on 09:02; Start 06/18/17 at 21:00 Lacosamide (Vimpat) 100 mg BID PO ; Start 06/18/17 at 21:00; Stop 06/18/17 at 21:00; Status DC Fish Oil (Fish Oil) 1,000 mg DAILY PO ; Start 06/18/17 at 17:00; Stop at 09:48; Status DC Famotidine (Pepcid) 20 mg QHS PO Last administered on 06/18/17 20:03; Start 06/18/17 at 21:00; Stop 06/19/17 at 09:48; Status DC Sennosides (Senna) 8.6 mg PRN BID PRN PO CONSTIPATION Last administered on 20:02; Start 06/18/17 at 16:00 Thiamine Mononitrate (Vitamin B-1) 100 mg DAILY PO Last administered on 09:03; Start 06/18/17 at 17:00 Valproic Acid (Depakene) 500 mg BID PO Last administered on 06/20/17 09:02; Start 06/18/17 at 21:00 Lacosamide (Vimpat) 100 mg BID PO Last administered on 06/20/17 09:03; Start 06/18/17 at 21:00 Aspirin (Children'S Aspirin) 81 mg DAILYWBKFT PO Last administered on 09:02; Start 06/19/17 at 08:00 Famotidine (Pepcid) 20 mg BID PO Last administered on 06/20/17 09:03; Start 06/19/17 at 21:00 Famotidine (Pepcid) 20 mg BID PO ; Start 06/19/17 at 21:00; Status UNV Levothyroxine Sodium (Synthroid) 25 mcg DAILYAC PO Last administered on 09:02; Start 06/19/17 at 12:00 Active Scripts Active Depakene (Valproic Acid) 250 Mg Capsule 500 Mg PO BID Reported Synthroid (Levothyroxine Sodium) 25 Mcg Tablet 25 Mcg PO DAILYAC Famotidine 20 Mg Tablet 20 Mg PO BID Levetiracetam 500 Mg Tablet 1,000 Mg PO BID Last Dose 05/13/17 AM Next dose 05/14/17 PM Tylenol (Acetaminophen) 325 Mg Tablet 650 Mg PO PRN Q6HRS PRN Can be given anytime Ondansetron Odt (Ondansetron) 4 Mg Tab.rapdis 1 Tab PO PRN Q6-8HRS Next dose anytime Culturelle (Lactobacillus Rhamnosus Gg) 1 Each Capsule 1 Each PO BID Last dose 05/13/17 AM Next dose 05/14/17 PM Vimpat (Lacosamide) 100 Mg Tablet 100 Mg PO BID Last dose 05/13/17 AM Next dose 05/14/17 PM Acetaminophen 120 Mg Supp.rect 325 Mg RC Can be given anytime Ranitidine Hcl 75 Mg Tablet 75 Mg PO DAILY Next dose 05/14/17 AM Aspir 81 (Aspirin) 81 Mg Tablet.dr 1 Tab PO DAILY Next dose 05/14/17 AM Vitamin D-3 (Cholecalciferol (Vitamin D3)) 2,000 Unit Capsule 1,000 Unit PO DAILY Next dose 05/14/17 AM Thiamine Hcl 100 Mg Tablet 100 Mg PO DAILY Next dose 05/14/17 AM Simvastatin 20 Mg Tablet 1 Tab PO QHS Senna (Sennosides) 8.6 Mg Capsule 8.6 Mg PO PRN DAILY PRN Next dose anytime Folic Acid 1 Mg Tablet 1 Tab PO DAILY last dose 05/13/17 Am Next dose 05/14/17 AM Fish Oil ([place]-3 Fatty Acids) 500 Mg Capsule 500 Mg PO Next dose 05/14/17 AM Vitals/I & O Vital Sign - Last 24 Hours 06/19/17 06/19/17 06/19/17 06/19/17 15:00 19:28 20:00 23:00 Temp 97.7 97.8 98.3 97.7 97.8 98.3 Pulse 96 84 66 Resp 18 18 18 B/P (MAP) 99/53 (68) 124/60 (81) 112/63 (79) Pulse Ox 100 97 97 O2 Delivery Room Air Room Air Room Air Room Air 06/20/17 06/20/17 06/20/17 06/20/17 04:00 07:36 08:00 11:27 Temp 98.1 97.9 98.8 98.1 97.9 98.8 Pulse 68 64 75 Resp 18 18 18 B/P (MAP) 113/70 (84) 126/67 (86) 104/59 (74) Pulse Ox 98 96 95 O2 Delivery Room Air Room Air Room Air Room Air Intake and Output 06/19/17 06/19/17 06/20/17 15:00 23:00 07:00 Intake Total 550 ml Balance 550 ml MARCELINO CRABTREE MD Jun 20, 2017 11:29
[2017-06-20 14:37] VITALS: BP 116/71
== END 2017-06-20 15:15 | DRG 100 ==
LOC: ER 11:39 → 6 SOUTH 14:20
PROVIDERS: ADMIT Internal Medicine; ATTEND Internal Medicine
DX: G40.909 Epilepsy, unspecified, not intractable, without status epilepticus (principal); G93.41 Metabolic encephalopathy; E87.2 Acidosis; D69.6 Thrombocytopenia, unspecified; E87.1 Hypo-osmolality and hyponatremia; I69.351 Hemiplegia and hemiparesis following cerebral infarction affecting right dominant side; D72.819 Decreased white blood cell count, unspecified; R97.20 Elevated prostate specific antigen [PSA]; K80.20 Calculus of gallbladder without cholecystitis without obstruction; I12.9 Hypertensive chronic kidney disease with stage 1 through stage 4 chronic kidney disease, or unspecified chronic kidney disease; R13.10 Dysphagia, unspecified; N18.2 Chronic kidney disease, stage 2 (mild); E78.00 Pure hypercholesterolemia, unspecified; N28.9 Disorder of kidney and ureter, unspecified; F32.9 Major depressive disorder, single episode, unspecified; E03.9 Hypothyroidism, unspecified; F03.90 Unspecified dementia, unspecified severity, without behavioral disturbance, psychotic disturbance, mood disturbance, and anxiety; E05.90 Thyrotoxicosis, unspecified without thyrotoxic crisis or storm; E78.5 Hyperlipidemia, unspecified; B18.2 Chronic viral hepatitis C; K21.9 Gastro-esophageal reflux disease without esophagitis; I69.320 Aphasia following cerebral infarction; Z86.61 Personal history of infections of the central nervous system; Z85.46 Personal history of malignant neoplasm of prostate
CPT/HCPCS: 36415; 70450; 71010; 80048; 80076; 80164; 81001; 83605; 84484; 85007; 85025; 87641; 93005; 96360; J7030; 92610; 99285-25

== ENCOUNTER 2017-09-14 02:59 | Emergency (ER) | payer OTHER ==
[2017-09-14 03:31] LABS: BASO % 1 % (0-3); EOS # 0.2 x10^3/uL (0.0-0.7); EOS % 3 % (0-3); HEMATOCRIT 42.5 % (39.0-53.0); HEMOGLOBIN 14.3 g/dL (13.0-17.5); LYMPH # 4.4 x10^3/uL (1.0-4.8); LYMPH % 64 % (24-48); MEAN CORPUSCULAR HEMOGLOBIN 34 pg (25-35); MEAN CORPUSCULAR HGB CONC 34 g/dL (31-37); MEAN CORPUSCULAR VOLUME 101 fL (79-100); MONO # 1.2 x10^3/uL (0.0-1.1); MONO % 18 % (0-9); NEUT % 15 % (31-73); PLATELET COUNT 111 x10^3/uL (140-400); RED BLOOD COUNT 4.21 x10^6/uL (4.30-5.70); RED CELL DISTRIBUTION WIDTH 12.6 % (11.5-14.5); WHITE BLOOD COUNT 6.9 x10^3/uL (4.0-11.0)
[2017-09-14 04:16] LABS: ADD MAN DIFF? YES
[2017-09-14 04:24] LABS: ANION GAP 13 (6-14); BLOOD UREA NITROGEN 9 mg/dL (8-26); BUN/CREATININE RATIO 8 (6-20); CALCIUM 8.8 mg/dL (8.5-10.1); CARBON DIOXIDE 23 mmol/L (21-32); CHLORIDE 98 mmol/L (98-107); CREATININE 1.1 mg/dL (0.7-1.3); GFR 81.5; GLUCOSE 93 mg/dL (70-99); POTASSIUM 4.2 mmol/L (3.5-5.1); SODIUM 134 mmol/L (136-145)
[2017-09-14 04:29] LABS: ALBUMIN 2.6 g/dL (3.4-5.0); ALBUMIN/GLOBULIN RATIO 0.6 (1.0-1.7); ALK PHOS 87 U/L (46-116); ALT (SGPT) 72 U/L (16-63); AST (SGOT) 57 U/L (15-37); TOTAL BILIRUBIN 0.5 mg/dL (0.2-1.0); TOTAL PROTEIN 6.8 g/dL (6.4-8.2)
[2017-09-14 04:30] LABS: VAL ACID 30 mcg/mL (50-100)
[2017-09-14 04:32] LABS: AMPHETAMINE/METHAMPHETAMINE NEG (NEG); BARBITURATES NEG (NEG); BENZODIAZEPINES NEG (NEG); CANNABINOIDS NEG (NEG); COCAINE NEG (NEG); ETHANOL, URINE NEG (NEG); METHADONE NEG (NEG); OPIATES NEG (NEG); PHENCYCLIDINE NEG (NEG)
[2017-09-14 04:34] LABS: TROPONINI 0.024 ng/mL (0.000-0.055)
[2017-09-14] MEDS: VALPROIC ACID 250 MG CAPSULE. PO ×2 (06:07)
[2017-09-14 09:30] LABS: % BANDS 2 % (0-9); % EOS 4 % (0-5); % LYMPHS 64 % (24-48); % MONOS 12 % (0-10); % SEGS 18 % (35-66); PLT ESTIMATE ADEQUATE (ADEQUATE)
== END 2017-09-14 06:28 | disposition home or self-care (01) ==
LOC: ER 02:59
DX: R56.9 Unspecified convulsions (principal); F32.9 Major depressive disorder, single episode, unspecified; K21.9 Gastro-esophageal reflux disease without esophagitis; E78.00 Pure hypercholesterolemia, unspecified; E03.9 Hypothyroidism, unspecified; G40.909 Epilepsy, unspecified, not intractable, without status epilepticus; Z86.73 Personal history of transient ischemic attack (TIA), and cerebral infarction without residual deficits; Z86.19 Personal history of other infectious and parasitic diseases
CPT/HCPCS: 36415; 51701; 70450; 71045; 80053; 80164; 80307; 84484; 85007; 85025; 93005; 99285-25

== ENCOUNTER 2018-05-20 11:44 | Emergency (ER) | payer OTHER ==
[~2018-05-20] VITALS: Ht 182.9 cm; Wt 78.0 kg
[~2018-05-20 11:44] MED LIST changes: +FAMO20TA5 PO; +LEVO25TA55 PO; +VALP250C PO; +VALP250C2 PO
[2018-05-20] MEDS ORDERED: 0.9 % SODIUM CHLORIDE 10 ML DISP.SYRIN. IV PRN (12:30)
[2018-05-20] MEDS ORDERED: IV RINGERS,LACTATED 500ML 1,000 ML IV ONE (12:30)
--- NOTE | 2018-05-20 12:37 | PHYS DOC ---
Past Medical History Past Medical History: CVA, Depression, GERD, High Cholesterol, Hypothyroid, Hepatitis, Renal Disease, Seizure, Stroke Additional Past Medical Histor: NEOPLASM PROSTATE, HEP C,APHASIA Past Surgical History: Other Additional Past Surgical Histo: unknown Alcohol Use: Occasionally Drug Use: None Adult General Chief Complaint Chief Complaint: SEIZURE HPI HPI Patient is a 67 year old male who presents from the assisted care facility where he resides with reported seizure activity. By report it was partial focal motor in nature. This is his usual seizure pattern. History is limited from the patient due to previous underlying issues. Patient's mother is with him who is also a poor historian. She reports that he's been in the assisted care facility for at least the past 5 years. That he ate well yesterday. She denies any knowledge of any changes in his seizure medication. Review of his medical records from the assisted care facility shows that he is on valproic acid as well as Vimpat. Patient has returned to his baseline according to his mother. Review of Systems Review of Systems Unable to obtain due to patient's baseline, underlying mental status. Current Medications Current Medications Current Medications Medications (Trade) Dose Ordered Sig/Kennedy Start Time Stop Time Status Last Admin Dose Admin Ringer's Solution 1,000 ml @ 500 mls/hr 1X ONCE 05/20/18 12:30 05/20/18 14:29 05/20/18 12:46 500 MLS/HR Sodium Chloride (Normal Saline Flush) 10 ml QSHIFT PRN 05/20/18 12:30 Allergies Allergies Allergies Coded Allergies Type Severity Reaction Last Updated Verified No Known Drug Allergies 05/18/14 No Physical Exam Physical Exam Constitutional: Well developed, well nourished, no acute distress, non-toxic appearance. [] HENT: Normocephalic, atraumatic, bilateral external ears normal, oropharynx moist, no oral exudates, nose normal. [] Eyes: PERRLA, EOMI, conjunctiva normal, no discharge. [] Neck: Normal range of motion, no tenderness, supple, no stridor. [] Cardiovascular:Heart rate regular rhythm, no murmur [] Lungs & Thorax: Bilateral breath sounds clear to auscultation [] Abdomen: Bowel sounds normal, soft, no tenderness, no masses, no pulsatile masses. [] Skin: Warm, dry, no erythema, no rash. [] Back: No tenderness, no CVA tenderness. [] Extremities: No tenderness, no cyanosis, no clubbing, ROM intact, no edema. [] Neurologic: Patient has spontaneous eye opening, is nonverbal, and does not follow directions.[] Psychologic: Unable to evaluate[] Current Patient Data Vital Signs Vital Signs Date Time Temp Pulse Resp B/P (MAP) Pulse Ox O2 Delivery O2 Flow Rate FiO2 05/20/18 11:44 98.9 82 24 88/53 (65) 95 Room Air 98.9 Lab Values Laboratory Tests Test 05/20/18 12:00 05/20/18 13:05 White Blood Count 5.3 x10^3/uL (4.0-11.0) Red Blood Count 4.05 x10^6/uL (4.30-5.70) L Hemoglobin 14.1 g/dL (13.0-17.5) Hematocrit 41.4 % (39.0-53.0) Mean Corpuscular Volume 102 fL (79-100) H Mean Corpuscular Hemoglobin 35 pg (25-35) Mean Corpuscular Hemoglobin Concent 34 g/dL (31-37) Red Cell Distribution Width 13.5 % (11.5-14.5) Platelet Count 73 x10^3/uL (140-400) L Neutrophils (%) (Auto) 30 % (31-73) L Lymphocytes (%) (Auto) 48 % (24-48) Monocytes (%) (Auto) 21 % (0-9) H Eosinophils (%) (Auto) 0 % (0-3) Basophils (%) (Auto) 1 % (0-3) Neutrophils # (Auto) 1.6 x10^3uL (1.8-7.7) L Lymphocytes # (Auto) 2.6 x10^3/uL (1.0-4.8) Monocytes # (Auto) 1.1 x10^3/uL (0.0-1.1) Eosinophils # (Auto) 0.0 x10^3/uL (0.0-0.7) Basophils # (Auto) 0.0 x10^3/uL (0.0-0.2) Segmented Neutrophils % 27 % (35-66) L Band Neutrophils % 2 % (0-9) Lymphocytes % 46 % (24-48) Atypical Lymphocytes % (Manual) 5 % (0-0) H Monocytes % 19 % (0-10) H Eosinophils % 1 % (0-5) Platelet Estimate Decreased (ADEQUATE) Large Platelets Few Prothrombin Time 15.8 SEC (11.7-14.0) H Prothrombin Time INR 1.3 (0.8-1.1) H Lactic Acid Level 2.0 mmol/L (0.4-2.0) Sodium Level 143 mmol/L (136-145) Potassium Level 3.9 mmol/L (3.5-5.1) Chloride Level 109 mmol/L (98-107) H Carbon Dioxide Level 26 mmol/L (21-32) Anion Gap 8 (6-14) Blood Urea Nitrogen 16 mg/dL (8-26) Creatinine 1.1 mg/dL (0.7-1.3) Estimated GFR (Cockcroft-Gault) 81.3 BUN/Creatinine Ratio 15 (6-20) Glucose Level 107 mg/dL (70-99) H Calcium Level 9.1 mg/dL (8.5-10.1) Total Bilirubin 0.6 mg/dL (0.2-1.0) Aspartate Amino Transferase (AST) 122 U/L (15-37) H Alanine Aminotransferase (ALT) 106 U/L (16-63) H Alkaline Phosphatase 115 U/L (46-116) Total Protein 6.4 g/dL (6.4-8.2) Albumin 2.0 g/dL (3.4-5.0) L Albumin/Globulin Ratio 0.5 (1.0-1.7) L Valproic Acid Level 89 mcg/mL (50-100) Valproic Acid Last Dose Date Valproic Acid Last Dose Time 0600 Laboratory Tests 05/20/18 12:00 Laboratory Tests 05/20/18 13:05 EKG EKG EKG shows normal sinus rhythm at 78 bpm. Normal axis. Normal QTC at 409 ms, no acute changes from previous EKG of 09/22/2017.[] Radiology/Procedures Radiology/Procedures [] Course & Med Decision Making Course & Med Decision Making Pertinent Labs and Imaging studies reviewed. (See chart for details) Medical decision making: Patient with a known seizure disorder who had a seizure by report., He is returned to his baseline mental status, and his antiseizure medication level that is able to be obtained, valproate, in the emergency department is within the therapeutic range. Patient does not have any evidence of lactic acidosis, significant electrolyte abnormality, and his thrombocytopenia when compared with previous appears to be within his range over the past several years. ED course: Patient arrived, was placed in bed, in tolerate exam well. Patient was noted to be a little hypotensive, which was improved with IV fluids. Patient was by mouth tolerant. Discussed the findings with the patient's mother who had all of her questions answered. Patient was felt to be stable to return to the assisted care facility where he resides.[] Dragon Disclaimer Dragon Disclaimer This electronic medical record was generated, in whole or in part, using a voice recognition dictation system. Departure Departure Impression: Primary Impression: Seizure Disposition: 01 HOME, SELF-CARE Condition: GOOD Referrals: TANIA BURT DO (PCP) Follow-up in 2 days Patient Instructions: Seizure, Adult Additional Instructions: Follow-up with your primary care physician and neurologist in 2 days. Return to the ER if recurrent seizures, unable to stop the seizure, or any other concerns. FADY ARANDA DO May 20, 2018 12:37
[2018-05-20 12:41] LABS: BASO % 1 % (0-3); EOS % 0 % (0-3); HEMATOCRIT 41.4 % (39.0-53.0); HEMOGLOBIN 14.1 g/dL (13.0-17.5); LYMPH # 2.6 x10^3/uL (1.0-4.8); LYMPH % 48 % (24-48); MEAN CORPUSCULAR HEMOGLOBIN 35 pg (25-35); MEAN CORPUSCULAR HGB CONC 34 g/dL (31-37); MEAN CORPUSCULAR VOLUME 102 fL (79-100); MONO # 1.1 x10^3/uL (0.0-1.1); MONO % 21 % (0-9); NEUT # 1.6 x10^3uL (1.8-7.7); NEUT % 30 % (31-73); PLATELET COUNT 73 x10^3/uL (140-400); RED BLOOD COUNT 4.05 x10^6/uL (4.30-5.70); RED CELL DISTRIBUTION WIDTH 13.5 % (11.5-14.5); WHITE BLOOD COUNT 5.3 x10^3/uL (4.0-11.0)
[2018-05-20 12:49] LABS: PROTHROMBIN TIME PATIENT 15.8 SEC (11.7-14.0)
--- NOTE | 2018-05-20 12:56 | EKG ---
[facility] [address] [place] [address] Test Date: 2018-05-20 Test Time: 12:38:19 Pat Name: JA KELLOGG Department: Room: Gender: M [employer]: : [id number] Requested By: FADY ARANDA Order Number: [id number] Reading MD: Philipp Mobley Measurements Intervals [place] Rate: 78 P: 36 NE: 154 QRS: 40 QRSD: 68 T: 34 QT: 356 QTc: 409 Interpretive Statements SINUS RHYTHM QRS(T) CONTOUR ABNORMALITY CONSIDER ANTEROSEPTAL MYOCARDIAL DAMAGE POSSIBLY ABNORMAL ECG Electronically Signed On 05-22-2018 10:34:43 CDT by Philipp Mobley
[2018-05-20 13:32] LABS: VAL ACID 89 mcg/mL (50-100)
[2018-05-20 14:01] LABS: CALCIUM 9.1 mg/dL (8.5-10.1); CREATININE 1.1 mg/dL (0.7-1.3); GFR 81.3; POTASSIUM 3.9 mmol/L (3.5-5.1)
[2018-05-20 14:06] LABS: ALBUMIN/GLOBULIN RATIO 0.5 (1.0-1.7); TOTAL BILIRUBIN 0.6 mg/dL (0.2-1.0); TOTAL PROTEIN 6.4 g/dL (6.4-8.2)
[2018-05-20 14:07] LABS: % ATYL 5 % (0-0); % BANDS 2 % (0-9); % EOS 1 % (0-5); % LYMPHS 46 % (24-48); % MONOS 19 % (0-10); % SEGS 27 % (35-66); PLT ESTIMATE DECREASED (ADEQUATE)
[2018-05-20 15:00] VITALS: BP 99/77
== END 2018-05-20 15:28 | disposition home or self-care (01) ==
LOC: ER 11:44
DX: R56.9 Unspecified convulsions (principal); F32.9 Major depressive disorder, single episode, unspecified; K21.9 Gastro-esophageal reflux disease without esophagitis; E03.9 Hypothyroidism, unspecified; Z86.73 Personal history of transient ischemic attack (TIA), and cerebral infarction without residual deficits
CPT/HCPCS: 36415; 80053; 80164; 83605; 85007; 85025; 85610; 93005; 99285; J7120